=== PATIENT | female | born 1950 | race Caucasian/White ===

== ENCOUNTER 2016-03-26 16:06 | Observation (INO) ==
--- NOTE | 2016-03-26 19:51 | Emergency Department Note ---
Disposition Clinical Impression: Chest pain, Elevated troponin, Hypoglycemia, Weakness, Morbid obesity Disposition: Admitted As Inpatient Condition: Fair Referrals: NO,PCP [Non-Partnered Physician] - Forms: ED Satisfaction Letter Time of Disposition: 21:56 General Adult HPI - General Chief complaint: ED Weakness Stated complaint: "hypoglycemic" "in the 50s" Time Seen by Provider: 03/26/16 19:37 Source: patient Mode of arrival: ambulatory Limitations: no limitations Nursing Notes Reviewed: Yes Vital Signs Reviewed: Yes - History of Present Illness HPI Narrative: This is a 65-year-old female who presents with a hypoglycemic episode. Patient states she got very weak and had a funny sensation in her chest and was almost about to pass out. Patient states her blood sugar at that time was in the 50s. Patient states now that her blood sugar is up a little she is feeling a little better. Patient states she still has a funny sensation in her chest. Patient denies any history of cardiac stents or CHF. Patient denies any fevers. Patient states she was septic last month from bilateral lower extremity cellulitis and blistering. Patient states she is not on any antibiotics at this time. Pain Scale: 3 - Related Data Home Medications Medication Instructions Recorded Confirmed Aspirin Enteric Coated [Aspirin EC] 81 mg PO DAILY 08/30/15 01/04/16 Fludrocortisone Acetate [Florinef] 0.1 mg PO Q48H 08/30/15 01/04/16 Insulin ASPART [Novolog Flexpen] 20 - 28 unit SQ TID 08/30/15 01/04/16 Insulin Glargine,Hum.rec.anlog 30 unit SQ HS 08/30/15 01/04/16 [Lantus Solostar] Insulin Glargine,Hum.rec.anlog 30 unit SQ QAM 08/30/15 01/04/16 [Lantus Solostar] Melatonin 10 mg PO HS PRN 08/30/15 01/04/16 Metformin HCl [Glucophage] 1,000 mg PO BID 08/30/15 01/04/16 [place]-3/Dha/Epa/Fish Oil [Fish Oil 1 cap PO BID 09/23/15 01/04/16 Dr 500 mg Softgel] Vitamin B Complex [B Complex] 1 tab PO DAILY 09/23/15 01/04/16 Vitamin E (Dl,Tocopheryl Acet) 100 unit PO DAILY 09/23/15 01/04/16 [Vitamin E] Previous Rx's Medication Instructions Recorded DiphenhydraMINE [Benadryl] 25 mg PO Q8HR PRN #14 capsule 12/24/15 Docusate [Colace] 100 mg PO BID PRN #30 capsule 12/24/15 Fluconazole [Diflucan] 100 mg PO DAILY #3 tablet 12/24/15 Lactobacillus [Culturelle] 1 each PO DAILY #30 cap.sprink 12/30/15 Linezolid [Zyvox] 600 mg PO BID #20 tablet 12/30/15 OxyCODONE Immed Rel [Roxicodone 5 5 mg PO Q6H PRN #20 tablet 12/30/15 MG] Cephalexin 500 mg PO QID #28 tablet 02/21/16 Sulfamethoxazole/Trimeth DS 1 each PO BID #14 tablet 02/21/16 [Bactrim DS] Allergies Allergy/AdvReac Type Severity Reaction Status Date / Time atorvastatin [From Lipitor] AdvReac Mild Nausea Verified 03/26/16 16:59 Zolpidem [From Ambien] AdvReac Mild Hallucinati Verified 03/26/16 16:59 ng All systems ED: reviewed and negative except as stated. Constitutional: Reports: weakness. Denies: fever, chills, weight change Eyes: Denies: eye pain, eye discharge, vision change ENT ED: Denies: ear pain, throat pain, dental pain, hearing loss, epistaxis, congestion, dysphagia Cardiovascular: Reports: edema, other (light-headed). Denies: chest pain, palpitations, dyspnea on exertion, syncope Respiratory: Denies: cough, dyspnea, wheezes, hemoptysis, stridor Gastrointestinal: Denies: abdominal pain, nausea, vomiting, diarrhea, constipation, hematemesis, melena, hematochezia Genitourinary: Denies: dysuria, frequency, hematuria, discharge Musculoskeletal: Denies: back pain, neck pain, arthralgia, myalgia Integumentary: Denies: rash, abrasion, lesions Neurological: Denies: headache, numbness, paresthesias, confusion, abnormal gait , vertigo Psychiatric: Denies: anxiety, depression, suicidal thoughts, homicidal thoughts , auditory hallucinations, visual hallucinations Endocrine: Reports: fatigue, other (pts blood sugar is low) Hematological/Lymphatic: Denies: easy bleeding, easy bruising Allergic/Immunologic: Denies: facial swelling, urticaria Past Medical History - Past Medical History Attestation: Yes The following information was validated with the patient. Source: patient Medical history: Reports: diabetes, GERD, hyperlipidemia, kidney stones, osteoporosis, seizures, TIA Surgical history: Reports: appendectomy, cholecystectomy, other Psychiatric history: Reports: no psych history - Social History Smoking Status: Never smoker Smokeless Tobacco Status: No Alcohol use: Reports: none Drug use: Reports: none Physical Exam - General Limitations: no limitations General appearance: alert, in no apparent distress, obese - Head Head exam: atraumatic, normocephalic, normal inspection - Eye Eye exam: Present: normal appearance, PERRL, EOMI - ENT ENT exam: normal exam, normal oropharynx, mucous membranes moist - Expanded ENT Exam External ear exam: Present: normal external inspection Mouth exam: Present: normal external inspection Teeth exam: Present: normal inspection Throat exam: Present: normal inspection - Neck Neck exam: Present: normal inspection, full ROM, trachea midline - Chest Chest inspection: Present: normal inspection, symmetric chest wall rise - Respiratory Respiratory exam: Present: other (diminshed) - Cardiovascular Cardiovascular exam: Present: regular rate, normal rhythm, normal heart sounds - Abdominal Exam Abdominal exam: Present: soft, Non-Tender. Absent: tenderness, distention, guarding, rebound, rigidity - Extremities Exam Extremities exam: Present: normal inspection, full ROM, pedal edema. Absent: tenderness - Expanded Upper Extremity Exam Shoulder exam: Present: normal inspection, full ROM Arm exam: Present: normal inspection, full ROM Elbow exam: Present: normal inspection, full ROM Forearm/Wrist exam: Present: normal inspection, full ROM Hand exam: Present: normal inspection, full ROM Vascular exam: Normal: capillary refill, radial pulse - Expanded Lower Extremity Exam Hip/Pelvis exam: Present: normal inspection, full ROM Upper leg exam: Present: normal inspection, full ROM Knee exam: Present: normal inspection, full ROM Lower leg exam: Present: normal inspection, full ROM, swelling, erythema (b/l, legs are wrapped) Ankle exam: Present: normal inspection, full ROM, swelling Foot/toe exam: Present: normal inspection, full ROM, swelling Neurovascular/Tendon exam: Absent: motor deficit, sensory deficit, tendon deficit - Back Exam Back exam: Present: normal inspection, full ROM. Absent: tenderness - Neurological Exam Neurological exam: Present: alert, oriented X3 - Expanded Neurological Exam Patient oriented to: Present: person, place, time Speech: Present: fluid speech Coma Scale Eye Opening: Spontaneous Coma Scale Motor Response: Obeys Commands Coma Scale Verbal Response: Oriented Coma Scale Total: 15 - Psychiatric Psychiatric exam: Present: normal affect, normal mood - Skin Skin exam: Present: warm, dry, intact, normal color, rash (diffuse erythematous plaque looking rash to diffuse upper back) Course - Consultations Consultation #1: I spoke with Dr. Ifeanyi pizarro to admit. Time: 22:04 Vital Signs Temperature 97.7 F 03/26/16 16:54 Pulse Rate 74 03/26/16 16:54 Respiratory Rate 18 03/26/16 16:54 Blood Pressure 141/71 03/26/16 16:54 O2 Sat by Pulse Oximetry 99 03/26/16 16:54 Temperature 97.7 F 03/26/16 16:54 Pulse Rate 75 03/26/16 19:45 Respiratory Rate 18 03/26/16 19:45 Blood Pressure 160/83 03/26/16 19:45 O2 Sat by Pulse Oximetry 99 03/26/16 19:45 Oxygen Delivery Oxygen Delivery Room Air Medical Decision Making - Medical Records Medical records reviewed: Yes I reviewed the patient's medical records. - Lab Data Lab results reviewed: Yes I reviewed the patient's lab results. Result diagrams: 03/26/16 20:33 03/26/16 20:33 Lab Results 03/26/16 03/26/16 03/26/16 Range/Units 19:36 20:33 20:33 WBC 10.6 (4.3-11.1) K/mcL RBC 4.06 (3.82-4.97) M/mcL Hgb 10.7 L (11.5-15.4) g/dL Hct 34.5 L (35.3-44.9) % MCV 85.0 (83.0-100.0) fL MCH 26.4 L (28.0-33.3) pg MCHC 31.0 L (31.6-35.5) g/dL RDW 17.2 H (11.5-14.5) % Plt Count 358 (140-400) K/mcL MPV 9.5 (9.4-12.4) fL Immature Gran % 0.5 (0-4) % Seg Neutrophils % 66.8 % Lymphocytes % 23.1 % Monocytes % 6.6 % Eosinophils % 2.5 % Basophils % 0.5 % Neutrophils # 7.1 (1.6-8.9) K/mcL Lymphocytes # 2.4 (0.6-4.6) K/mcL Monocytes # 0.7 (0.0-1.3) K/mcL Eosinophils # 0.3 (0.0-0.6) K/mcL Basophils # 0.1 (0.0-0.2) K/mcL PT 11.4 (9.4-12.1) Seconds INR 1.1 APTT 33.2 (26.0-36.0) Seconds Sodium (136-145) mEq/L Potassium (3.5-4.5) mEq/L Chloride (98-109) mEq/L Carbon Dioxide (19-29) mEq/L BUN (7-20) mg/dL Creatinine (0.57-1.11) mg/dL Est GFR ( Amer) (> 60) Est GFR (Non-Af Amer) (> 60) BUN/Creatinine Ratio (6-26) Glucose (70-99) mg/dL POC Glucose 134 H (58-89) Calculated Osmolality (280-300) Calcium (8.6-10.8) mg/dL Total Bilirubin (0.2-1.2) mg/dL Direct Bilirubin (0.0-0.5) mg/dL Indirect Bilirubin (0.0-1.2) mg/dL AST (5-34) Units/L ALT (0-55) Units/L Alkaline Phosphatase (38-126) Units/L Troponin I (0-0.03) ng/mL B-Natriuretic Peptide (0-100) pg/mL Serum Total Protein (6.0-8.3) g/dL Albumin (3.5-5.0) g/dL Globulin (2.4-3.5) g/dL Albumin/Globulin Ratio (1.1-2.2) 03/26/16 03/26/16 03/26/16 Range/Units 20:33 20:33 20:33 WBC (4.3-11.1) K/mcL RBC (3.82-4.97) M/mcL Hgb (11.5-15.4) g/dL Hct (35.3-44.9) % MCV (83.0-100.0) fL MCH (28.0-33.3) pg MCHC (31.6-35.5) g/dL RDW (11.5-14.5) % Plt Count (140-400) K/mcL MPV (9.4-12.4) fL Immature Gran % (0-4) % Seg Neutrophils % % Lymphocytes % % Monocytes % % Eosinophils % % Basophils % % Neutrophils # (1.6-8.9) K/mcL Lymphocytes # (0.6-4.6) K/mcL Monocytes # (0.0-1.3) K/mcL Eosinophils # (0.0-0.6) K/mcL Basophils # (0.0-0.2) K/mcL PT (9.4-12.1) Seconds INR APTT (26.0-36.0) Seconds Sodium 138 (136-145) mEq/L Potassium 4.9 H (3.5-4.5) mEq/L Chloride 101 (98-109) mEq/L Carbon Dioxide 26 (19-29) mEq/L BUN 18 (7-20) mg/dL Creatinine 0.96 (0.57-1.11) mg/dL Est GFR ( Amer) > 60 (> 60) Est GFR (Non-Af Amer) 59 L (> 60) BUN/Creatinine Ratio 19 (6-26) Glucose 179 H (70-99) mg/dL POC Glucose (58-89) Calculated Osmolality 292 (280-300) Calcium 9.3 (8.6-10.8) mg/dL Total Bilirubin 0.2 (0.2-1.2) mg/dL Direct Bilirubin 0.1 (0.0-0.5) mg/dL Indirect Bilirubin 0.1 (0.0-1.2) mg/dL AST 35 H (5-34) Units/L ALT 36 (0-55) Units/L Alkaline Phosphatase 105 (38-126) Units/L Troponin I 0.06 H* (0-0.03) ng/mL B-Natriuretic Peptide 51 (0-100) pg/mL Serum Total Protein 7.9 (6.0-8.3) g/dL Albumin 3.3 L (3.5-5.0) g/dL Globulin 4.6 H (2.4-3.5) g/dL Albumin/Globulin Ratio 0.7 L (1.1-2.2) - Radiology Data Radiology results reviewed: Yes I reviewed the patient's radiology results. - EKG Data EKG #1 EKG attestation: Yes I reviewed and interpreted this EKG. EKG shows normal: sinus rhythm Rate: normal Rhythm: NSR [place]/QRS: left axis deviation, RBBB Interpretation: no acute changes, nonspecific ST-T wave changes
[2016-03-26 21:09] LABS: Basophils # 0.1 K/mcL (0.0-0.2); Basophils % 0.5 %; Eosinophils # 0.3 K/mcL (0.0-0.6); Eosinophils % 2.5 %; Hematocrit 34.5 % (35.3-44.9); Hemoglobin 10.7 g/dL (11.5-15.4); Immature Granulocytes % 0.5 % (0-4); Lymphocytes # 2.4 K/mcL (0.6-4.6); Lymphocytes % 23.1 %; Mean Corpuscular Hemoglobin 26.4 pg (28.0-33.3); Mean Platelet Volume 9.5 fL (9.4-12.4); Monocytes # 0.7 K/mcL (0.0-1.3); Monocytes % 6.6 %; Neutrophils # 7.1 K/mcL (1.6-8.9); Platelet Count 358 K/mcL (140-400); Red Blood Count 4.06 M/mcL (3.82-4.97); Red Cell Distribution Width 17.2 % (11.5-14.5); Segmented Neutrophils % 66.8 %
[2016-03-26 21:15] LABS: INR 1.1; Prothrombin Time 11.4 Seconds (9.4-12.1)
[2016-03-26 21:18] LABS: Activated Partial Thrombo Time 33.2 Seconds (26.0-36.0)
[2016-03-26 21:45] LABS: Alanine Aminotransferase 36 Units/L (0-55); Albumin 3.3 g/dL (3.5-5.0); Albumin/Globulin Ratio 0.7 (1.1-2.2); Alkaline Phosphatase 105 Units/L (38-126); Aspartate Amino Transferase 35 Units/L (5-34); BUN/Creatinine Ratio 19 (6-26); Bilirubin,Direct 0.1 mg/dL (0.0-0.5); Bilirubin,Indirect 0.1 mg/dL (0.0-1.2); Bilirubin,Total 0.2 mg/dL (0.2-1.2); Blood Urea Nitrogen 18 mg/dL (7-20); Calcium 9.3 mg/dL (8.6-10.8); Carbon Dioxide 26 mEq/L (19-29); Chloride 101 mEq/L (98-109); Globulin 4.6 g/dL (2.4-3.5); Glucose 179 mg/dL (70-99); Osmolality,Calculated 292 (280-300); Potassium 4.9 mEq/L (3.5-4.5); Sodium 138 mEq/L (136-145); Total Protein 7.9 g/dL (6.0-8.3); eGFR For African Americans > 60 (> 60); eGFR For Non-African Americans 59 (> 60)
[2016-03-26] MEDS ORDERED: Aspirin 325 MG TABLET PO ONE (21:55)
[2016-03-26] MEDS ORDERED: Calcium Gluconate 1,000 MG in D5% in Water 100 ML IVPB ONE (23:00)
--- NOTE | 2016-03-27 00:12 | Internal Med History&Physical ---
Date of Encounter: 03/26/16 Time of Encounter: 23:55 Assessment and Plan (1) Elevated troponin Current visit: Yes Status: Acute Likely non-stemI type to you to hypoglycemia and suspected underlying infection. Serial troponin, cardiology consultation. Patient is on aspirin on beta charlie (2) Hypoglycemia Current visit: Yes Status: Acute Hourly chuckle blood sugar till it is stable. Hold long-acting and pre-meal insulin. (3) Cellulitis Current visit: No Status: Acute Suspected early cellulitis in the right leg is more red warm and indurated. I will start patient on vancomycin given history of MRSA. Will check Doppler of the right leg to rule out DVT Qualifiers: Qualified Code(s): L03.115 - Cellulitis of right lower limb Internal Medicine - H&P: HPI Chief complaint: hypoglycemia History of present illness: Ms. Church is a 65 year old female who is diabetic insulin resistance to the emergency room today with a hypoglycemic episodes. Patient was recently [facility] from jail and today started noticing hypoglycemia symptoms in the formal dizziness sweating shakiness in addition to read through sternal chest discomfort. Sugars were 57. She denies any fevers chills. However she and her notices some increased redness in the right leg compared to baseline as well as tenderness and integration. She denies any cough. She has been eating fine. She had angiogram both 10 years ago that shows o occlusive disease. She was ofF PAIN during my interview. Patient was also having diffuse itchy rash on her back for the past days has been started on nystatin topically for suspected fungal infection. There is no improvement in the rash. Past Med Surg Social Fam HX - Past Medical History Medical history: diabetes, GERD, hyperlipidemia, kidney stones, osteoporosis, seizures, TIA Psychiatric history: no psych history - Past Surgical History Surgical History: appendectomy, cholecystectomy, other - Social History Smoking Status: Never smoker Smokeless Tobacco Status: No Alcohol use: none Drug use: none - Family History Father Living Status: Hx Family Cardiac Disorders: Yes (HTN) Hx Family Endocrine Disorder: Yes Hx Family Neurologic Disorders: Yes Mother Living Status: Hx Family Cancer: Yes Internal Medicine - H&P: Meds Aspirin Enteric Coated [Aspirin EC] 81 mg PO DAILY 08/30/15 [History] Fludrocortisone Acetate [Florinef] 0.1 mg PO Q48H 08/30/15 [History] Insulin ASPART [Novolog Flexpen] 20 - 28 unit SQ TID 08/30/15 [History] Insulin Glargine,Hum.rec.anlog [Lantus Solostar] 30 unit SQ HS 08/30/15 [History ] Insulin Glargine,Hum.rec.anlog [Lantus Solostar] 32 unit SQ QAM 08/30/15 [ History] Melatonin 10 mg PO HS PRN 08/30/15 [History] Metformin HCl [Glucophage] 1,000 mg PO BID 08/30/15 [History] [place]-3/Dha/Epa/Fish Oil [Fish Oil Dr 500 mg Softgel] 1 cap PO BID 09/23/15 [ History] Vitamin B Complex [B Complex] 1 tab PO DAILY 09/23/15 [History] Vitamin E (Dl,Tocopheryl Acet) [Vitamin E] 100 unit PO DAILY 09/23/15 [History] Nystatin POWDER [Nystop] 1 appl TP BID 03/26/16 [History] Oxycodone HCl/Acetaminophen [Percocet 5-325 mg Tablet] 1 tab PO Q6H PRN [History] Allergies atorvastatin [From Lipitor] Adverse Reaction (Mild, Verified 03/26/16 16:59) Nausea Zolpidem [From Ambien] Adverse Reaction (Mild, Verified 03/26/16 16:59) Hallucinating All Systems PM: A 10-system review of systems was performed and is negative for pertinent findings except as documented above in the HPI. Review of systems: 10 point review systems is negative (HPI - Constitutional Vitals: Temp Pulse Resp BP Pulse Ox 98.2 F 85 22 161/78 94 L 03/26/16 23:29 03/26/16 23:29 03/26/16 23:29 03/26/16 23:29 03/26/16 23:29 Exam: Gen.: patient is alert oriented not in distress. Cardiac: Normal S1 S2 no additional sounds or murmurs chest: clear to auscultation abdomen soft nontender nondistended normal bowel sounds lower extremity: Right leg rednes, warmth induration Skin: Diffuse skin rash on BACK neuro no focal deficit Internal Med - H&P Results - Labs CBC & Chem 7: 03/26/16 20:33 03/26/16 20:33
[2016-03-27 01:02] LABS: Bilirubin,Urine Negative (Negative); Blood,Urine Negative (Negative); Clarity,Urine Cloudy (Clear); Color,Urine Yellow (Yellow); Glucose,Urine (UA) Normal (Normal); Ketones,Urine Negative (Negative); Leukocyte Esterase,Urine Moderate (Negative); Nitrite,Urine Negative (Negative); Protein,Urine Trace mg/dL (Neg-Trace); Specific Gravity,Urine 1.021 (1.010-1.025); Urobilinogen,Urine Normal (Normal)
[2016-03-27 01:04] LABS: Bacteria,Urine Few per hpf (None-Few); Hyaline Casts,Urine None Seen per lpf (None-Few); Squamous Epithelial Cell,Urine Many per lpf (None-Few); WBC,Urine 50-100 per hpf (0-3)
[2016-03-27] MEDS: Fluconazole 100 MG/50 ML 100 MG/50 ML BAG IVPB SCH ×2 (01:50→09:04)
[2016-03-27] MEDS: Vancomycin 2,000 MG in D5% in Water 500 ML IVPB SCH ×2 (03:39→15:36)
[2016-03-27] MEDS ORDERED: Melatonin 3 MG TABLET PO ONE ×2 (03:54→04:00)
[2016-03-27 05:45] LABS: Basophils % 0.4 %; Eosinophils # 0.2 K/mcL (0.0-0.6); Eosinophils % 2.4 %; Hematocrit 32.1 % (35.3-44.9); Immature Granulocytes % 0.4 % (0-4); Immature Platelets 1.2 % (1.1-6.1); Lymphocytes # 2.5 K/mcL (0.6-4.6); Lymphocytes % 28.1 %; Mean Corpuscular HGB Conc 31.2 g/dL (31.6-35.5); Mean Corpuscular Hemoglobin 26.4 pg (28.0-33.3); Mean Corpuscular Volume 84.7 fL (83.0-100.0); Mean Platelet Volume 9.2 fL (9.4-12.4); Monocytes # 0.6 K/mcL (0.0-1.3); Neutrophils # 5.6 K/mcL (1.6-8.9); Platelet Count 358 K/mcL (140-400); Red Blood Count 3.79 M/mcL (3.82-4.97); Red Cell Distribution Width 17.1 % (11.5-14.5); Segmented Neutrophils % 61.7 %
[2016-03-27] MEDS ORDERED: D5% in Water 1,000 ML IV PRN (05:47)
[2016-03-27] MEDS ORDERED: *HR* Dextrose 50 % in Water (Syg) 50 ML SYRINGE IVP PRN (05:47)
[2016-03-27] MEDS ORDERED: Dextrose Gel 15 GM PO PRN ×2 (05:47)
[2016-03-27] MEDS ORDERED: Vancomycin 1,000 MG in D5% in Water 250 ML IVPB SCH (06:00)
[2016-03-27 06:03] LABS: BUN/Creatinine Ratio 18 (6-26); Blood Urea Nitrogen 18 mg/dL (7-20); C-Reactive Protein 9 mg/L (Less than 5); Calcium 8.8 mg/dL (8.6-10.8); Carbon Dioxide 24 mEq/L (19-29); Chloride 102 mEq/L (98-109); Glucose 250 mg/dL (70-99); Magnesium 1.9 mg/dL (1.6-2.6); Osmolality,Calculated 292 (280-300); Potassium 4.4 mEq/L (3.5-4.5); Sodium 136 mEq/L (136-145); eGFR For African Americans > 60 (> 60); eGFR For Non-African Americans 56 (> 60)
[2016-03-27] MEDS: *HR* Enoxaparin 40 MG/0.4 ML SYRINGE SQ SCH (06:10)
[2016-03-27] MEDS ORDERED: Nystatin POWDER 30 GM BOTTLE TP SCH (09:00)
[2016-03-27] MEDS: Aspirin Enteric Coated 81 MG Tablet PO SCH (09:03)
[2016-03-27] MEDS: Insulin LISPRO 300 UNITS/3 ML VIAL SQ SCH ×4 (09:04→22:30)
[2016-03-27] MEDS: (Omega-3/Dha/Epa/Fish Oil [Fish Oil Dr 500 Mg Softgel) PO SCH ×2 (09:05→22:22)
--- NOTE | 2016-03-27 11:19 | Electrocardiograph Report ---
[facility] Test Date: 2016-03-26 Pat Name: Joan Church Department: 105 Room: 2A14 Gender: F Director Of Coding: JUAN : 1950 Requested By: Esthela Olivo Order Number: [id number] Reading MD: Linn Corona Measurements Intervals [place] Rate: 74 P: 13 [place]: 174 QRS: -63 QRSD: 151 T: 3 QT: 431 QTc: 459 Interpretive Statements SINUS RHYTHM WITH OCCASIONAL SUPRAVENTRICULAR PREMATURE COMPLEXES RIGHT BUNDLE BRANCH BLOCK LEFT ANTERIOR FASCICULAR BLOCK POSSIBLE ANTERIOR MYOCARDIAL INFARCTION PROBABLY OLD Electronically Signed On 03-27-16 11:17:56 EST by Linn Corona
--- NOTE | 2016-03-27 11:27 | Cardiology Consult Note ---
Date of Encounter: 03/27/16 Time of Encounter: 11:00 Assessment and Plan (1) Elevated troponin Current Visit: Yes Status: Acute Mild, adynamic troponin elevation in the setting of hypoglycemia, UTI, and recurrent cellulitis. Likely secondary to demand ischemia. No significant ECG changes noted. Atypical chest pain described. TTE 04/26/15: EF 60%, mild cLVH, moderate LVDD, severely dilated left atrium, mild TR, mild-moderate PH, normal wall motion. [facility] 01/11/14: coronary arteries are essentially normal with minimal disease, EF 60%. Recommend medical management, continue asa and betablocker. Reported allergy to statin. No further cardiac testing warranted at this time, follow-up in the outpatient setting. Discussion w patient/family: The assessment and plan as outlined above was discussed with the patient and/or family members who expressed understanding and agreement. All questions were answered. Thank you for involving us in the care of your patient. Please call with any questions. The patient will be discussed and reviewed with Dr. Calvin; changes to be made accordingly. History of Present Illness Consult date: 03/27/15 Requesting physician: Kenny Suggs Consult reason: Elevated troponin Chief complaint: Hypoglycemia History of present illness: Ms. Church is a 65 year old female with PMH significant for morbid obesity, insulin dependent DMII, thyroid disease, anemia, and recurrent cellulitis who presented to the ED after a hypoglycemic episode at home, blood sugar in the low 50's. She reported chest pain which was described a warm feeling across her chest and radiated down to her abdomen, reports similar to "CT scan with IV dye. " Reports symptoms resolved after blood sugar stabilized. Reports recent discharge from SNF, has been home for 2 weeks. Reports 3 hospitalizations since September for recurrent cellulitis, also has severe rash on her back, felt to be fungal in etiology. Recent CV testing reviewed and includes: TTE 04/26/15: EF 60%, mild concentric LVH, moderate LVDD, moderately dilated RV with normal function, severely dilated left atrium, mild TR, mild to moderate PH, normal wall motion. [facility] 01/11/2014: coronary arteries are essentially normal with minimal disease, EF 60%. Past Med Surg Social Fam HX - Past Medical History Medical history: diabetes, GERD, hyperlipidemia, kidney stones, osteoporosis, seizures, TIA Psychiatric history: no psych history - Past Surgical History Surgical History: appendectomy, cholecystectomy, other ([facility] 01/2014) - Social History Smoking Status: Never smoker Smokeless Tobacco Status: No Alcohol use: none Drug use: none - Family History Father Living Status: Hx Family Cardiac Disorders: Yes (HTN) Hx Family Endocrine Disorder: Yes Hx Family Neurologic Disorders: Yes Mother Living Status: Hx Family Cancer: Yes Medications and Allergies Aspirin Enteric Coated [Aspirin EC] 81 mg PO DAILY 08/30/15 [History] Fludrocortisone Acetate [Florinef] 0.1 mg PO Q48H 08/30/15 [History] Insulin ASPART [Novolog Flexpen] 20 - 28 unit SQ TID 08/30/15 [History] Insulin Glargine,Hum.rec.anlog [Lantus Solostar] 30 unit SQ HS 08/30/15 [History ] Insulin Glargine,Hum.rec.anlog [Lantus Solostar] 32 unit SQ QAM 08/30/15 [ History] Melatonin 10 mg PO HS PRN 08/30/15 [History] Metformin HCl [Glucophage] 1,000 mg PO BID 08/30/15 [History] [place]-3/Dha/Epa/Fish Oil [Fish Oil Dr 500 mg Softgel] 1 cap PO BID 09/23/15 [ History] Vitamin B Complex [B Complex] 1 tab PO DAILY 09/23/15 [History] Vitamin E (Dl,Tocopheryl Acet) [Vitamin E] 100 unit PO DAILY 09/23/15 [History] Nystatin POWDER [Nystop] 1 appl TP BID 03/26/16 [History] Oxycodone HCl/Acetaminophen [Percocet 5-325 mg Tablet] 1 tab PO Q6H PRN [History] Allergies atorvastatin [From Lipitor] Adverse Reaction (Mild, Verified 03/26/16 16:59) Nausea Zolpidem [From Ambien] Adverse Reaction (Mild, Verified 03/26/16 16:59) Hallucinating All Systems Review: A 10-system review of systems was performed and is negative for pertinent findings except as documented above in the HPI. - Cardiovascular Cardiovascular: as per HPI Physical Examination Vital Signs, Last 4 Hours Temp Pulse Resp BP Pulse Ox 03/27/16 09:32 96 03/27/16 07:50 97.7 F 72 19 146/72 96 General: Conversant, Other (morbidly obese) HEENT: Atraumatic, Normocephaly Cardiac: Reg Rate and Rhythm, Normal S1 and S2 Lungs: Normal Breath Sounds Neuro: Alert and responsive Abdomen: Soft, Other (large, obese) Skin: Other (RLE redness; reported redness to back) Extremities: Normal Pulses, Other (pre-tibial +1-2 edema) Results 03/27/16 05:13 03/27/16 05:13 Lab Results 03/27/16 03/27/16 03/27/16 05:13 05:13 05:13 WBC 9.1 Hgb 10.0 L Hct 32.1 L Plt Count 358 Sodium 136 Potassium 4.4 Chloride 102 Carbon Dioxide 24 BUN 18 Creatinine 0.99 Glucose 250 H Calcium 8.8 Magnesium 1.9 Troponin I 0.06 H* 03/27/16 09:57 WBC Hgb Hct Plt Count Sodium Potassium Chloride Carbon Dioxide BUN Creatinine Glucose Calcium Magnesium Troponin I 0.05 H* - Imaging and Cardiology Echo: report reviewed Cardiac cath: report reviewed Other Results: 12 hour tele: avg HR=76 SR. No significant events noted. - EKG Interpretation EKG results cardiology: personally reviewed Consult Discharge Plan - Plan Referrals: Derik Liang MD [Primary Care Provider] - 04/04/16 1:30 pm (Please follow up as schedule!!)
[2016-03-27] MEDS: *HR* OxyCODONE/APAP 5/325 TABLET PO PRN (11:28)
[2016-03-27] MEDS: Insulin DETEMIR 100 UNIT/ML X5UNITS SQ SCH ×2 (11:29→22:21)
--- NOTE | 2016-03-27 13:54 | Internal Med Progress Note ---
Date of Encounter: 03/27/16 Time of Encounter: 11:00 - Assessment and plan (1) Elevated troponin Current Visit: Yes Status: Acute Assessment and plan: Cardio eval appreciated Mild troponin elevation in the setting of hypoglycemia, UTI, and recurrent cellulitis. Likely secondary to demand ischemia. No significant ECG changes noted. Atypical chest pain described. TTE 04/26/15: EF 60%, mild cLVH, moderate LVDD, severely dilated left atrium, mild TR, mild-moderate PH, normal wall motion. LHC 01/11/14: coronary arteries are essentially normal with minimal disease, EF 60%. Recommendations were medical management, continue ASA, and betablocker. Reported allergy to statin. No further cardiac testing warranted at this time, follow-up in the outpatient setting. Repeat troponin now down trending (2) Hypoglycemia Current Visit: Yes Status: Resolved Assessment and plan: Resolved. (3) Cellulitis of right leg Current Visit: Yes Status: Acute Assessment and plan: R LE cellulitis Doppler USS ruled out DVT Consider de-escalating antibiotics as patient has no sepsis nor abscess Blood cultures not seen on chart, unclear if this was drawn Continue Vanco for now Follow Vanco trough Monitor Chem (4) UTI (urinary tract infection) Current Visit: Yes Status: Acute Assessment and plan: Patient on Vancomycin for cellulitis Follow urine cultures Qualifiers: Urinary tract infection type: acute cystitis Hematuria presence: without hematuria Qualified Code(s): N30.00 - Acute cystitis without hematuria (5) Diabetes type 2, uncontrolled Current Visit: Yes Status: Chronic Assessment and plan: Initially resented with hypoglycemia, now blood glucose is WNL Stared on levemir and premeal insulin, additional slidng scale coverage Monitor FS closely Qualifiers: Diabetes mellitus complication status: with circulatory complication Diabetes mellitus complication detail: with other circulatory complications 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 system operator insulin use: with terminal system operator use Qualified Code(s) : E11.59 - Type 2 diabetes mellitus with other circulatory complications; E11.65 - Type 2 diabetes mellitus with hyperglycemia; Z79.4 - [facility] (current ) use of insulin (6) GERD (gastroesophageal reflux disease) Current Visit: Yes Status: Chronic Assessment and plan: Resume home meds Qualifiers: Esophagitis presence: without esophagitis Qualified Code(s): K21.9 - Gastro -esophageal reflux disease without esophagitis (7) Anemia of chronic disease Current Visit: Yes Status: Chronic Assessment and plan: Hb stable at baseline (8) Morbid obesity Current Visit: Yes Status: Chronic Qualifiers: Obesity type: unspecified obesity type Qualified Code(s): E66.01 - Morbid ( severe) obesity due to excess calories - Subjective Interval history: 65 Y/O F with Morbid Obesity, Fungal skin infection, Chronic anemia, HTN placed on observation overnight Preliminary diagnoses of Elevated troponins, Hypoglycemia and RLE cellulitis She is seen at bedside, denies new complains. She had been started on Vancomycin empirically due to hx of MRSA UA showed asymptomatic bacteriuria Blood glucose has since been elevated - Constitutional Vitals: Temp Pulse Resp BP Pulse Ox 97.6 F 64 18 152/84 97 03/27/16 11:58 03/27/16 11:58 03/27/16 11:58 03/27/16 11:58 03/27/16 11:58 General appearance: Present: A&O X 3, morbidly obese, no acute distress - Head Head exam: Present: atraumatic - Eye Eye exam: Present: PERRL, conjuntiva pink, sclera anicteric - ENT ENT exam: Present: mucous membranes moist - Neck Neck exam general surgery: Present: normal inspection - Respiratory Respiratory exam: Present: CTAB - Cardiovascular Cardiovascular exam: Present: RRR, +S1, +S2. Absent: JVD, rubs, systolic murmur - GI/Abdominal Additional comments: Obese, soft, not tender, no palpably enlarged organs, bowel movement WNL - Extremities Exam Extremities exam: Present: pedal edema Additional comments: Bilateral pitting pedal edema, right LE with redness, differential warmth and tenderness. No discrete fluid collection or abscess collection - Back Exam Additional comments: Diffuse scaly rash on her upper back extending to all dermatomes bilaterally, no crusting, no weeping, not tender. - Neurological Exam Neurological exam: Present: alert, oriented X3, no focal deficits. Absent: pronater drift, facial droop, speech deficit - Skin Skin exam: Present: rash Internal Medicine: Result - Labs CBC & Chem 7: 03/27/16 05:13 03/27/16 05:13 Labs: Short CBC 03/27/16 Range/Units 05:13 WBC 9.1 (4.3-11.1) K/mcL Hgb 10.0 L (11.5-15.4) g/dL Hct 32.1 L (35.3-44.9) % Plt Count 358 (140-400) K/mcL Neutrophils # 5.6 (1.6-8.9) K/mcL BMP 03/27/16 05:13 Sodium 136 Potassium 4.4 Chloride 102 Carbon Dioxide 24 BUN 18 Creatinine 0.99 Glucose 250 H Calcium 8.8 Cardiac Enzymes 03/27/16 03/27/16 Range/Units 05:13 09:57 Troponin I 0.06 H* 0.05 H* (0-0.03) ng/mL Urine 03/27/16 Range/Units 00:47 Urine Color Yellow (Yellow) Urine Clarity Cloudy A (Clear) Urine pH 6.0 (5.0-8.0) pH Units Ur Specific [place] 1.021 (1.010-1.025) Urine Protein Trace (Neg-Trace) mg/dL Urine Glucose (UA) Normal (Normal) mg/dL - ABG Interpretation ABG results: PT/INR, D-dimer PT 11.4 Seconds (9.4-12.1) 03/26/16 20:33 Consult Discharge Plan - Plan Referrals: Derik Liang MD [Primary Care Provider] - 04/04/16 1:30 pm (Please follow up as schedule!!)
[2016-03-27] MEDS: Nystatin POWDER 30 GM BOTTLE TP SCH (17:19)
--- NOTE | 2016-03-27 18:17 | Venous Imaging Report ---
LE Venous Duplex Patient Name:Joan Church Order Number:[id number] Procedure Date:03/27/2016 Date:1950ge:65 yrs Gender:Female Location:[facility] Room #: 2A14 Hotel Lobby Concierge:RICH AlbarranT Referring MD:Kenny Suggs MD petrographer:Derik Liang MD Reading MD:Zacarias Yousif MD , FACS Primary Indications:DVT Secondary Indications: Risk Factors Yes/No Anticoagulants Yes Hx of DVT Yes Impressions: Right lower extremity: normal superficial and deep exam. Left lower extremity: normal contralateral exam. Findings Venous Duplex Results: Right: Venous imaging of the lower extremity reveals full patency and normal vessel compressibility of the right distal iliac, right common femoral, right superficial femoral, right popliteal, right great saphenous and right lesser saphenous. Doppler signals in the evaluated veins were normal. Left: Venous imaging of the lower extremity reveals full patency and normal vessel compressibility of the left common femoral. Doppler signals in the evaluated veins were normal. Lower Extremity Venous Duplex Side Vein Compress Spontaneous Flow Augment Diameter (cm) Depth (cm) Right Popliteal Normal Yes Phasic Yes Right Great Saphenous Normal Yes Phasic Yes Right Lesser Saphenous Normal Yes Phasic Yes Left Common Femoral Normal Yes Phasic Yes Right Distal Iliac Normal Yes Phasic Yes Right Common Femoral Normal Yes Phasic Yes Right Superficial Femoral Normal Yes Phasic Yes Updated by Zacarias Yousif MD, FACS on 03/27/2016 6:12:35 PM Zacarias Yousif MD electronically signed on 03/27/2016 6:13:01 PM with status of Final
[2016-03-27] MEDS: Eucerin Cream 57 GM TUBE TP SCH (22:30)
[2016-03-28] MEDS ORDERED: Vancomycin 1,500 MG in D5% in Water 250 ML IVPB SCH (03:00)
[2016-03-28] MEDS: *HR* OxyCODONE/APAP 5/325 TABLET PO PRN ×2 (04:25→21:42)
[2016-03-28] MEDS: *HR* Enoxaparin 40 MG/0.4 ML SYRINGE SQ SCH (06:49)
[2016-03-28] MEDS: Nystatin POWDER 30 GM BOTTLE TP SCH ×3 (06:49→21:38)
[2016-03-28] MEDS ORDERED: Insulin DETEMIR 100 UNIT/ML X5UNITS SQ SCH (07:48)
[2016-03-28 08:40] LABS: Basophils % 0.5 %; Eosinophils # 0.3 K/mcL (0.0-0.6); Eosinophils % 3.3 %; Hematocrit 34.8 % (35.3-44.9); Hemoglobin 10.7 g/dL (11.5-15.4); Immature Granulocytes % 0.6 % (0-4); Immature Platelets 1.7 % (1.1-6.1); Lymphocytes # 2.3 K/mcL (0.6-4.6); Mean Corpuscular HGB Conc 30.7 g/dL (31.6-35.5); Mean Corpuscular Volume 84.5 fL (83.0-100.0); Mean Platelet Volume 9.2 fL (9.4-12.4); Monocytes # 0.6 K/mcL (0.0-1.3); Monocytes % 6.7 %; Platelet Count 371 K/mcL (140-400); Red Blood Count 4.12 M/mcL (3.82-4.97); Red Cell Distribution Width 16.9 % (11.5-14.5); Segmented Neutrophils % 60.9 %
[2016-03-28] MEDS: Insulin LISPRO 300 UNITS/3 ML VIAL SQ SCH ×5 (08:40→21:54)
[2016-03-28] MEDS: Aspirin Enteric Coated 81 MG Tablet PO SCH (08:40)
[2016-03-28] MEDS: (Omega-3/Dha/Epa/Fish Oil [Fish Oil Dr 500 Mg Softgel) PO SCH ×2 (08:42→21:29)
[2016-03-28 08:52] LABS: BUN/Creatinine Ratio 18 (6-26); Blood Urea Nitrogen 19 mg/dL (7-20); Calcium 9.1 mg/dL (8.6-10.8); Carbon Dioxide 23 mEq/L (19-29); Chloride 102 mEq/L (98-109); Glucose 253 mg/dL (70-99); Osmolality,Calculated 291 (280-300); Potassium 4.9 mEq/L (3.5-4.5); Sodium 135 mEq/L (136-145); eGFR For African Americans > 60 (> 60); eGFR For Non-African Americans 52 (> 60)
[2016-03-28] MEDS ORDERED: Aminoglycoside Consult 1 EACH MC ONE (12:11)
[2016-03-28] MEDS: Eucerin Cream 57 GM TUBE TP SCH ×2 (15:00→22:00)
--- NOTE | 2016-03-28 15:51 | Internal Med Progress Note ---
Date of Encounter: 03/28/16 Time of Encounter: 11:45 - Assessment and plan (1) Elevated troponin Current Visit: Yes Status: Acute Assessment and plan: Cardio eval appreciated Mild troponin elevation in the setting of hypoglycemia, UTI, and recurrent cellulitis. Likely secondary to demand ischemia. No significant ECG changes noted. Atypical chest pain described. TTE 04/26/15: EF 60%, mild cLVH, moderate LVDD, severely dilated left atrium, mild TR, mild-moderate PH, normal wall motion. LHC 01/11/14: coronary arteries are essentially normal with minimal disease, EF 60%. Recommendations were medical management, continue ASA, and betablocker. Reported allergy to statin. No further cardiac testing warranted at this time, follow-up in the outpatient setting. (2) Hypoglycemia Current Visit: Yes Status: Resolved Assessment and plan: Resolved. (3) Cellulitis of right leg Current Visit: Yes Status: Acute Assessment and plan: R LE cellulitis Doppler USS ruled out DVT Continue Vanco for now Follow Vanco trough Will discharge on oral clindamycin when ready Monitor Chem (4) UTI (urinary tract infection) Current Visit: Yes Status: Suspected Assessment and plan: Patient on Vancomycin for cellulitis Is possibly asymptomatic bacteriuria She denies urinary symptoms Straight cath for UA Qualifiers: Urinary tract infection type: acute cystitis Hematuria presence: without hematuria Qualified Code(s): N30.00 - Acute cystitis without hematuria (5) Diabetes type 2, uncontrolled Current Visit: Yes Status: Chronic Assessment and plan: Initially resented with hypoglycemia, now blood glucose is WNL Stared on levemir and premeal insulin, additional slidng scale coverage Monitor FS closely Qualifiers: Diabetes mellitus complication status: with circulatory complication Diabetes mellitus complication detail: with other circulatory complications Diabetes mellitus buttermaker continuous churn insulin use: with snf use Qualified Code(s) : E11.59 - Type 2 diabetes mellitus with other circulatory complications; E11.65 - Type 2 diabetes mellitus with hyperglycemia; Z79.4 - senior living (current ) use of insulin (6) GERD (gastroesophageal reflux disease) Current Visit: Yes Status: Chronic Assessment and plan: Resume home meds Qualifiers: Esophagitis presence: without esophagitis Qualified Code(s): K21.9 - Gastro -esophageal reflux disease without esophagitis (7) Anemia of chronic disease Current Visit: Yes Status: Chronic Assessment and plan: Hb stable at baseline (8) Morbid obesity Current Visit: Yes Status: Chronic Qualifiers: Obesity type: unspecified obesity type Qualified Code(s): E66.01 - Morbid ( severe) obesity due to excess calories - Subjective Interval history: 65 Y/O F with Morbid Obesity, Fungal skin infection, Chronic anemia, HTN placed on observation overnight Preliminary diagnoses of Elevated troponins, Hypoglycemia and RLE cellulitis She is seen at bedside, denies new complains. She had been started on Vancomycin empirically due to hx of MRSA UA showed asymptomatic bacteriuria Today is Day 2 complete on Vancomycin Urine culture grossly mixed, will order new UA with straight cath - Constitutional Vitals: Temp Pulse Resp BP Pulse Ox 97.6 F 66 18 172/90 98 03/28/16 12:03 03/28/16 12:03 03/28/16 12:03 03/28/16 12:03 03/28/16 12:03 General appearance: Present: A&O X 3, morbidly obese, no acute distress - Head Head exam: Present: atraumatic, normocephalic - Eye Eye exam: Present: PERRL, conjuntiva pink, sclera anicteric Pupils: Present: PERRL - Neck Neck exam general surgery: Present: supple, trachea midline. Absent: lymphadenopathy - Respiratory Respiratory exam: Present: CTAB. Absent: accessory muscle use, rales, rhonchi, wheezes - Cardiovascular Cardiovascular exam: Present: RRR, +S1, +S2. Absent: diastolic murmur, gallop, rubs, systolic murmur - GI/Abdominal GI/Abdominal exam: Present: normal bowel sounds, soft, no peritoneal signs. Absent: distended, tenderness - Extremities Exam Additional comments: RLE redness from mid-torres to ankle, mild tenderness, no collection/fluctuancy, pulses present. Non-pitting edema bilaterally - Back Exam Additional comments: Diffuse scaly rash on patient's back from her neck posteriorly to her trunk not weeping, no crusting - Neurological Exam Neurological exam: Present: CN II-XII intact, oriented X3, no focal deficits. Absent: pronater drift, facial droop, speech deficit - Skin Skin exam: Present: dry, rash Internal Medicine: Result - Labs CBC & Chem 7: 03/28/16 08:18 03/28/16 08:18 Labs: Short CBC 03/28/16 Range/Units 08:18 WBC 8.2 (4.3-11.1) K/mcL Hgb 10.7 L (11.5-15.4) g/dL Hct 34.8 L (35.3-44.9) % Plt Count 371 (140-400) K/mcL Neutrophils # 5.0 (1.6-8.9) K/mcL BMP 03/28/16 08:18 Sodium 135 L Potassium 4.9 H Chloride 102 Carbon Dioxide 23 BUN 19 Creatinine 1.07 Glucose 253 H Calcium 9.1 - ABG Interpretation ABG results: PT/INR, D-dimer PT 11.4 Seconds (9.4-12.1) 03/26/16 20:33 Consult Discharge Plan - Plan Referrals: Julianna Kent MD [Partnered Physician] - 04/04/16 8:15 am Derik Liang MD [Primary Care Provider] - 04/04/16 1:30 pm (Please follow up as schedule!!)
[2016-03-28 18:54] LABS: Bilirubin,Urine Negative (Negative); Blood,Urine Moderate (Negative); Clarity,Urine Clear (Clear); Color,Urine Yellow (Yellow); Glucose,Urine (UA) Normal (Normal); Ketones,Urine Negative (Negative); Leukocyte Esterase,Urine Negative (Negative); Nitrite,Urine Negative (Negative); Protein,Urine Negative (Neg-Trace); Specific Gravity,Urine 1.015 (1.010-1.025); Urobilinogen,Urine Normal (Normal)
[2016-03-28 19:00] LABS: Bacteria,Urine None Seen per hpf (None-Few); Hyaline Casts,Urine None Seen per lpf (None-Few); RBC,Urine 15-30 per hpf (0-3); Squamous Epithelial Cell,Urine Many per lpf (None-Few)
[2016-03-28] MEDS: Insulin DETEMIR 100 UNIT/ML X5UNITS SQ SCH (21:53)
[2016-03-29 06:07] LABS: Basophils % 0.4 %; Eosinophils # 0.3 K/mcL (0.0-0.6); Eosinophils % 3.4 %; Hematocrit 32.3 % (35.3-44.9); Hemoglobin 9.9 g/dL (11.5-15.4); Immature Granulocytes % 0.5 % (0-4); Lymphocytes # 2.5 K/mcL (0.6-4.6); Lymphocytes % 30.1 %; Mean Corpuscular HGB Conc 30.7 g/dL (31.6-35.5); Mean Corpuscular Hemoglobin 25.6 pg (28.0-33.3); Mean Corpuscular Volume 83.7 fL (83.0-100.0); Mean Platelet Volume 9.4 fL (9.4-12.4); Monocytes # 0.7 K/mcL (0.0-1.3); Monocytes % 8.7 %; Neutrophils # 4.8 K/mcL (1.6-8.9); Platelet Count 338 K/mcL (140-400); Red Blood Count 3.86 M/mcL (3.82-4.97); Red Cell Distribution Width 16.9 % (11.5-14.5); Segmented Neutrophils % 56.9 %
[2016-03-29 06:17] LABS: Calcium 8.9 mg/dL (8.6-10.8); Potassium 4.6 mEq/L (3.5-4.5)
[2016-03-29] MEDS: *HR* Enoxaparin 40 MG/0.4 ML SYRINGE SQ SCH (06:49)
[2016-03-29] MEDS: Aspirin Enteric Coated 81 MG Tablet PO SCH (08:17)
[2016-03-29] MEDS: Linezolid 600 MG TABLET PO SCH ×2 (08:17→21:57)
[2016-03-29] MEDS: Insulin LISPRO 300 UNITS/3 ML VIAL SQ SCH ×7 (08:18→21:53)
[2016-03-29] MEDS: Insulin DETEMIR 100 UNIT/ML X5UNITS SQ SCH ×2 (08:18→21:57)
[2016-03-29] MEDS ORDERED: Vancomycin 1,250 MG in D5% in Water 250 ML IVPB SCH (09:00)
[2016-03-29] MEDS: (Omega-3/Dha/Epa/Fish Oil [Fish Oil Dr 500 Mg Softgel) PO SCH ×2 (10:03→21:58)
[2016-03-29] MEDS: Eucerin Cream 57 GM TUBE TP SCH (11:26)
[2016-03-29] MEDS ORDERED: 0.9 % Sodium Chloride 500 ML IVC ONE (14:40)
--- NOTE | 2016-03-29 15:51 | Internal Med Progress Note ---
Date of Encounter: 03/29/16 Time of Encounter: 11:00 - Assessment and plan (1) Elevated troponin Current Visit: Yes Status: Acute Assessment and plan: Mild troponin elevation in the setting of hypoglycemia, UTI, and recurrent cellulitis. Likely secondary to demand ischemia. No significant ECG changes noted. Atypical chest pain described. TTE 04/26/15: EF 60%, mild cLVH, moderate LVDD, severely dilated left atrium, mild TR, mild-moderate PH, normal wall motion. C 01/11/14: coronary arteries are essentially normal with minimal disease, EF 60%. Recommendations by cardiology were medical management, continue ASA, and betablocker. Reported allergy to statin. No further cardiac testing warranted at this time, follow-up in the outpatient setting. (2) Hypoglycemia Current Visit: Yes Status: Resolved Assessment and plan: Resolved. (3) Cellulitis of right leg Current Visit: Yes Status: Acute Assessment and plan: R LE cellulitis Doppler USS ruled out DVT D/C Vanco and start Linezolid vanco trjulia noted, slight elevation in creatinine, will hydrate and monitor (4) UTI (urinary tract infection) Current Visit: Yes Status: Ruled-out Assessment and plan: Ruled out Qualifiers: Urinary tract infection type: acute cystitis Hematuria presence: without hematuria Qualified Code(s): N30.00 - Acute cystitis without hematuria (5) Diabetes type 2, uncontrolled Current Visit: Yes Status: Chronic Assessment and plan: Initially resented with hypoglycemia, now blood glucose is WNL Stared on levemir and premeal insulin, additional slidng scale coverage Monitor FS closely Qualifiers: Diabetes mellitus complication status: with circulatory complication Diabetes mellitus complication detail: with other circulatory complications Diabetes mellitus custodial insulin use: with custodial use Qualified Code(s) : E11.59 - Type 2 diabetes mellitus with other circulatory complications; E11.65 - Type 2 diabetes mellitus with hyperglycemia; Z79.4 - retirement (current ) use of insulin (6) GERD (gastroesophageal reflux disease) Current Visit: Yes Status: Chronic Assessment and plan: Resume home meds Qualifiers: Esophagitis presence: without esophagitis Qualified Code(s): K21.9 - Gastro -esophageal reflux disease without esophagitis (7) Anemia of chronic disease Current Visit: Yes Status: Chronic Assessment and plan: Hb stable at baseline (8) Morbid obesity Current Visit: Yes Status: Chronic Qualifiers: Obesity type: unspecified obesity type Qualified Code(s): E66.01 - Morbid ( severe) obesity due to excess calories (9) Hypertension Current Visit: Yes Status: Chronic Assessment and plan: Increased dose of metoprolol Added Norvasc Continue to monitor Qualifiers: Hypertension type: essential hypertension Qualified Code(s): I10 - Essential (primary) hypertension - Subjective Interval history: 65 Y/O F with Morbid Obesity, Fungal skin infection, Chronic anemia, HTN placed on for management of Elevated troponins, Hypoglycemia and RLE cellulitis She is seen at bedside, denies new complains. She had been receiving IV Vancomycin empirically due to hx of MRSA Repeat UA dne yesterday by straight cath was negative for UTI Today, her creatinine is slightly elevated to 1.13 Clinically, her cellulitis has improved and her hypoglycemia has resolved We will discontinue Vancomycin and start Linezolid, need to monitor chem for resolution of azotemia6 - Constitutional Vitals: Temp Pulse Resp BP Pulse Ox 97.8 F 68 17 171/76 98 03/29/16 11:15 03/29/16 11:15 03/29/16 11:15 03/29/16 11:15 03/29/16 11:15 General appearance: Present: A&O X 3, morbidly obese, no acute distress - Head Head exam: Present: atraumatic, normocephalic - Eye Eye exam: Present: PERRL, conjuntiva pink, sclera anicteric Pupils: Present: PERRL - Neck Neck exam general surgery: Present: supple, trachea midline. Absent: lymphadenopathy - Respiratory Respiratory exam: Present: CTAB - Cardiovascular Cardiovascular exam: Present: RRR, +S1, +S2. Absent: JVD, rubs, systolic murmur - GI/Abdominal GI/Abdominal exam: Present: normal bowel sounds, soft, no peritoneal signs. Absent: distended, tenderness - Extremities Exam Additional comments: Bilateral non-pitting pedal edema Significant improvement in redness and swelling of right torres - Back Exam Additional comments: RAsh - Neurological Exam Neurological exam: Present: CN II-XII intact, oriented X3, no focal deficits. Absent: pronater drift, facial droop, speech deficit - Skin Skin exam: Present: dry, rash Internal Medicine: Result - Labs CBC & Chem 7: 03/29/16 05:36 03/29/16 05:36 Labs: Short CBC 03/29/16 Range/Units 05:36 WBC 8.4 (4.3-11.1) K/mcL Hgb 9.9 L (11.5-15.4) g/dL Hct 32.3 L (35.3-44.9) % Plt Count 338 (140-400) K/mcL Neutrophils # 4.8 (1.6-8.9) K/mcL BMP 03/29/16 05:36 Sodium 136 Potassium 4.6 H Chloride 103 Carbon Dioxide 24 BUN 23 H Creatinine 1.13 H Glucose 251 H Calcium 8.9 Urine 03/28/16 Range/Units 18:00 Urine Color Yellow (Yellow) Urine Clarity Clear (Clear) Urine pH 6.0 (5.0-8.0) pH Units Ur Specific [place] 1.015 (1.010-1.025) Urine Protein Negative (Neg-Trace) mg/dL Urine Glucose (UA) Normal (Normal) mg/dL - ABG Interpretation ABG results: PT/INR, D-dimer PT 11.4 Seconds (9.4-12.1) 03/26/16 20:33 Consult Discharge Plan - Plan Referrals: Julianna Kent MD [Partnered Physician] - 04/04/16 8:15 am Derik Liang MD [Primary Care Provider] - 04/04/16 1:30 pm (Please follow up as schedule!!)
[2016-03-29] MEDS: amLODIPine 5 MG TABLET PO SCH (16:53)
[2016-03-29] MEDS: Nystatin POWDER 30 GM BOTTLE TP SCH ×2 (17:47→21:53)
[2016-03-30] MEDS: Eucerin Cream 57 GM TUBE TP SCH ×2 (00:24→12:00)
[2016-03-30] MEDS: *HR* Enoxaparin 40 MG/0.4 ML SYRINGE SQ SCH (06:05)
[2016-03-30] MEDS: Nystatin POWDER 30 GM BOTTLE TP SCH (06:05)
[2016-03-30 06:21] LABS: BUN/Creatinine Ratio 21 (6-26); Blood Urea Nitrogen 22 mg/dL (7-20); Calcium 9.1 mg/dL (8.6-10.8); Carbon Dioxide 21 mEq/L (19-29); Chloride 104 mEq/L (98-109); Glucose 266 mg/dL (70-99); Osmolality,Calculated 295 (280-300); Potassium 4.8 mEq/L (3.5-4.5); Sodium 136 mEq/L (136-145); eGFR For African Americans > 60 (> 60); eGFR For Non-African Americans 52 (> 60)
[2016-03-30] MEDS: Insulin LISPRO 300 UNITS/3 ML VIAL SQ SCH ×4 (08:16→11:55)
[2016-03-30] MEDS: Aspirin Enteric Coated 81 MG Tablet PO SCH (08:17)
[2016-03-30] MEDS: (Omega-3/Dha/Epa/Fish Oil [Fish Oil Dr 500 Mg Softgel) PO SCH (08:17)
[2016-03-30] MEDS: amLODIPine 5 MG TABLET PO SCH (08:17)
[2016-03-30] MEDS: Linezolid 600 MG TABLET PO SCH (08:17)
[2016-03-30] MEDS: Insulin DETEMIR 100 UNIT/ML X5UNITS SQ SCH (08:21)
[2016-03-30 10:51] VITALS: BP 169/79
--- NOTE | 2016-03-30 12:12 | Physician Discharge Referral ---
Home Health/Hosp Referral Info Transfer to: Home Health Attending Provider: [facility] Provider in Charge Post Discharge: PCP - Diagnosis (1) Elevated troponin Priority: Secondary Status: Acute (2) Hypoglycemia Priority: Primary Status: Resolved (3) Cellulitis of right leg Priority: Primary Status: Acute (4) UTI (urinary tract infection) Priority: Primary Status: Ruled-out (5) Diabetes type 2, uncontrolled Priority: Secondary Status: Chronic (6) GERD (gastroesophageal reflux disease) Priority: Secondary Status: Chronic (7) Anemia of chronic disease Priority: Secondary Status: Chronic (8) Morbid obesity Priority: Secondary Status: Chronic (9) Hypertension Priority: Secondary Status: Chronic - Respiratory Orders Smoking Cessation: Smoking cessation has been advised. For more information, call the [place] Tobacco Quit Line at 1-284-UKKL-NOW. - Diet/Nutrition Diet/Nutrition Orders: Cardiac - Activity Activity Orders: Up ad sarah - Services Needed Following services are medically necessary services: Nursing, Home Health Aide, Physical Therapy - Transfer Medications Prescriptions: Amlodipine [Norvasc] 5 mg PO DAILY #30 tablet Eucerin Creme 1 appl TP 0000,1200 #2 tube Linezolid [Zyvox] 600 mg PO BID #10 tablet Metoprolol [Lopressor] 50 mg PO BID #60 tablet Home Medications: Aspirin Enteric Coated [Aspirin EC] 81 mg PO DAILY 08/30/15 [History] Fludrocortisone Acetate [Florinef] 0.1 mg PO Q48H 08/30/15 [History] Insulin ASPART [Novolog Flexpen] 20 - 28 unit SQ TID 08/30/15 [History] Insulin Glargine,Hum.rec.anlog [Lantus Solostar] 30 unit SQ HS 08/30/15 [History ] Insulin Glargine,Hum.rec.anlog [Lantus Solostar] 32 unit SQ QAM 08/30/15 [ History] Melatonin 10 mg PO HS PRN 08/30/15 [History] Metformin HCl [Glucophage] 1,000 mg PO BID 08/30/15 [History] [place]-3/Dha/Epa/Fish Oil [Fish Oil Dr 500 mg Softgel] 1 cap PO BID 09/23/15 [ History] Vitamin B Complex [B Complex] 1 tab PO DAILY 09/23/15 [History] Vitamin E (Dl,Tocopheryl Acet) [Vitamin E] 100 unit PO DAILY 09/23/15 [History] Nystatin POWDER [Nystop] 1 appl TP BID 03/26/16 [History] Oxycodone HCl/Acetaminophen [Percocet 5-325 mg Tablet] 1 tab PO Q6H PRN [History] Amlodipine [Norvasc] 5 mg PO DAILY #30 tablet 03/30/16 [Rx] Eucerin Creme 1 appl TP 0000,1200 #2 tube 03/30/16 [Rx] Linezolid [Zyvox] 600 mg PO BID #10 tablet 03/30/16 [Rx] Metoprolol [Lopressor] 50 mg PO BID #60 tablet 03/30/16 [Rx] Allergies/Adverse Reactions: Allergies atorvastatin [From Lipitor] Adverse Reaction (Mild, Verified 03/26/16 16:59) Nausea Zolpidem [From Ambien] Adverse Reaction (Mild, Verified 03/26/16 16:59) Hallucinating Certification: Further, I certify that my clinical findings support that this patient is homebound (i.e. absences from home require considerable and taxing effort and are for medical reasons or sikh services or infrequently or short duration when for other reasons) because: Homebound Reason: Patient requires assistance of a person or device to safely leave home, Leaving home requires considerable and taxing effort due to condition, Severity of cardiac or pulmonary status limits activity tolerance Attestation: My signature below is to certify that this patient is under my care and that I, or nurse practitioner, or a physician's orthopaedic physician assistant working with me, has a face-to -face encounter with this patient.
--- NOTE | 2016-03-30 12:14 | Discharge Summary ---
Date of Encounter: 03/30/16 Time of Encounter: 09:50 - Discharge Diagnosis (1) Elevated troponin Priority: Primary Status: Acute (2) Hypoglycemia Priority: Primary Status: Resolved (3) Cellulitis of right leg Priority: Primary Status: Acute (4) UTI (urinary tract infection) Priority: Primary Status: Ruled-out Qualifiers: Urinary tract infection type: acute cystitis Hematuria presence: without hematuria Qualified Code(s): N30.00 - Acute cystitis without hematuria (5) Diabetes type 2, uncontrolled Priority: Secondary Status: Chronic Qualifiers: Diabetes mellitus complication status: with circulatory complication Diabetes mellitus complication detail: with other circulatory complications Diabetes mellitus [facility] insulin use: with 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 card 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 Qualified Code(s) : E11.59 - Type 2 diabetes mellitus with other circulatory complications; E11.65 - Type 2 diabetes mellitus with hyperglycemia; 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 (6) GERD (gastroesophageal reflux disease) Priority: Secondary Status: Chronic Qualifiers: Esophagitis presence: without esophagitis Qualified Code(s): K21.9 - Gastro -esophageal reflux disease without esophagitis (7) Anemia of chronic disease Priority: Secondary Status: Chronic (8) Morbid obesity Priority: Secondary Status: Chronic Qualifiers: Obesity type: unspecified obesity type Qualified Code(s): E66.01 - Morbid ( severe) obesity due to excess calories (9) Hypertension Priority: Secondary Status: Chronic Qualifiers: Hypertension type: essential hypertension Qualified Code(s): I10 - Essential (primary) hypertension - Discharge Medications Prescriptions: Amlodipine [Norvasc] 5 mg PO DAILY #30 tablet Eucerin Creme 1 appl TP 0000,1200 #2 tube Linezolid [Zyvox] 600 mg PO BID #10 tablet Metoprolol [Lopressor] 50 mg PO BID #60 tablet Home Medications: Aspirin Enteric Coated [Aspirin EC] 81 mg PO DAILY 08/30/15 [History] Fludrocortisone Acetate [Florinef] 0.1 mg PO Q48H 08/30/15 [History] Insulin ASPART [Novolog Flexpen] 20 - 28 unit SQ TID 08/30/15 [History] Insulin Glargine,Hum.rec.anlog [Lantus Solostar] 30 unit SQ HS 08/30/15 [History ] Insulin Glargine,Hum.rec.anlog [Lantus Solostar] 32 unit SQ QAM 08/30/15 [ History] Melatonin 10 mg PO HS PRN 08/30/15 [History] Metformin HCl [Glucophage] 1,000 mg PO BID 08/30/15 [History] [place]-3/Dha/Epa/Fish Oil [Fish Oil Dr 500 mg Softgel] 1 cap PO BID 09/23/15 [ History] Vitamin B Complex [B Complex] 1 tab PO DAILY 09/23/15 [History] Vitamin E (Dl,Tocopheryl Acet) [Vitamin E] 100 unit PO DAILY 09/23/15 [History] Nystatin POWDER [Nystop] 1 appl TP BID 03/26/16 [History] Oxycodone HCl/Acetaminophen [Percocet 5-325 mg Tablet] 1 tab PO Q6H PRN [History] Amlodipine [Norvasc] 5 mg PO DAILY #30 tablet 03/30/16 [Rx] Eucerin Creme 1 appl TP 0000,1200 #2 tube 03/30/16 [Rx] Linezolid [Zyvox] 600 mg PO BID #10 tablet 03/30/16 [Rx] Metoprolol [Lopressor] 50 mg PO BID #60 tablet 03/30/16 [Rx] Allergies/Adverse Reactions: Allergies atorvastatin [From Lipitor] Adverse Reaction (Mild, Verified 03/26/16 16:59) Nausea Zolpidem [From Ambien] Adverse Reaction (Mild, Verified 03/26/16 16:59) Hallucinating Procedures/tests Complete & Pending: Procedures Performed prior 72 hours Category Date Time Status EV venous imaging LE RT Routine Y 03/27/16 22:59 Completed Date of admission: 03/26/16 22:22 Primary care physician: Derik Liang MD Consults: 03/26/16 22:55 Consult to Cardiology [CONS] Routine Comment: Consulting Provider: Cardiology Tomasa Reason for Consult: elevated troponin Call Completed: No 03/28/16 11:43 PT [Consult to Physical Therapy] [CONS] Stat Comment: Evaluate, develop and implement POC 03/28/16 11:44 OT [Consult to Occupational Therapy] [CONS] Stat Comment: Evaluate, develop and implement POC Discharging clinician: Terrance Moffett Anticipated date of discharge: 03/30/16 - Patient Status Disposition: Home Health Service Condition: Fair Functional capacity at discharge: uses cane/walker Overall status at discharge: patient is progressing back to baseline - Discharge Instructions Follow Up With: Julianna Kent MD [Partnered Physician] - 04/04/16 8:15 am [facility] [place],Derik Thompson MD [Primary Care Provider] - 04/04/16 1:30 pm (Please follow up as schedule!!) - Diet and Activity Activity: ambulate only with your walker Diet: diabetic diet, low fat, low cholesterol, low salt diet Interval History: See below Hospital course: 65 Y/O F with Morbid Obesity, Fungal skin infection, chronic anemia, HTN placed on for management of Elevated troponins, Hypoglycemia and RLE cellulitis She is seen at bedside today, she has made remarkable improvement and denies new complains. She had hypoglycemia on admission with blood sugar in the 40s . She has since recovered and managed with insulin for DM. She has a history of MRSA and VRE and based on this had been started on Vancomycin empirically for her RLE cellulitis and suspected UTI. Repeat UA after straight cath ruled out UTI. Doppler of Right lower extremity ruled out DVT. She had azotemia, for which she required IVF hydration and discontinuation of Vancomycin. Renal function has since returned to baseline. She also had elevated troponin on admission with atypical chest pain. Cardiology was consulted. This was likely secondary to demand ischemia as there were no significant ECG changes noted. TTE 04/26/15: EF 60%, mild cLVH, moderate LVDD, severely dilated left atrium, mild TR, mild-moderate PH, normal wall motion. LHC 01/11/14: coronary arteries are essentially normal with minimal disease, EF 60%. Recommendations by cardiology were medical management, continue ASA, and beta charlie. Reported allergy to statin. No further cardiac testing was warranted. Her blood pressure was elevated and she was started on Norvasc and Metoprolol. Well tolerated, will be discharged on same She will be discharged home on Zyvox for MRSA coverage and will follow up with PCP Home services reactivated Immunization is up to date Plan of care discussed, verbalizes understanding - Time Spent with Patient Total time spent providing and/or coordinating discharge services: Less than 30 minutes - Constitutional Vitals: Temp Pulse Resp BP Pulse Ox 98.1 F 59 18 169/79 99 03/30/16 10:50 03/30/16 10:50 03/30/16 10:50 03/30/16 10:50 03/30/16 10:50 General appearance: Present: A&O X 3, morbidly obese, no acute distress - Head Head exam: Present: atraumatic, normocephalic - Eye Eye exam: Present: PERRL, conjuntiva pink, sclera anicteric Pupils: Present: PERRL - Neck Neck exam general surgery: Present: supple, trachea midline. Absent: lymphadenopathy - Respiratory Respiratory exam: Present: CTAB. Absent: accessory muscle use, rales, rhonchi, wheezes - Cardiovascular Cardiovascular exam: Present: RRR, +S1, +S2. Absent: diastolic murmur, gallop, rubs, systolic murmur - GI/Abdominal GI/Abdominal exam: Present: normal bowel sounds, soft, no peritoneal signs. Absent: distended, tenderness - Extremities Exam Extremities exam: Present: pedal edema Additional comments: Right lower leg cellulitis, improved. Bilateral chronic venous dermatitis changes - Neurological Exam Neurological exam: Present: CN II-XII intact, oriented X3, no focal deficits. Absent: pronater drift, facial droop, speech deficit - Skin Skin exam: Present: dry, rash
[2016-03-31 08:59] LABS: CK-MB (CK isoenzymes) 0 % (0-4); CK-MM (CK-isoenzymes) 100 % (96-100)
[2016-03-31 08:59] LABS: CK-MB (CK isoenzymes) 0 % (0-4); CK-MM (CK-isoenzymes) 100 % (96-100)
[2016-03-31 11:01] LABS: CK Total (Ck Isoenzymes) 35 U/L (20-180); CK-BB (CK isoenzymes) 0 % (0-0)
[2016-03-31 11:01] LABS: CK Total (Ck Isoenzymes) 34 U/L (20-180); CK-BB (CK isoenzymes) 0 % (0-0)
== END 2016-03-30 18:27 | disposition home health service (06) ==
LOC: EMEROO 16:06 → 2ANU 16:06 → SUATTDRO 03-27 00:24
PROVIDERS: ADMIT Hospitalist; ATTEND Internal Medicine

== ENCOUNTER 2016-04-12 18:41 | Inpatient (IN) ==
--- NOTE | 2016-04-12 18:44 | Emergency Department Note ---
START Narrative - START START: Start note: 65-year-old female by EMS for 2-3 days of feeling poorly. Insulin-dependent diabetic who has bouts of sepsis. She was at a [employer] function when she started feeling lightheaded and dizzy. Patient denies chest pain or shortness of breath. I discussed with her that we will be having change of shift within about 15 minutes. I would get started with some medicine for nausea IV fluids lab tests x-rays and urinalysis. Patient is comfortable with this plan. Awaiting arrival of the evening team of Dr. Giovani Joshi ED attending. Patient stable
[2016-04-12] MEDS ORDERED: Ondansetron 4 MG/2 ML VIAL IVP ONE (18:45)
[2016-04-12] MEDS ORDERED: 0.9 % Sodium Chloride 1,000 ML IVC ONE (18:45)
[2016-04-12 20:08] LABS: Basophils % 0.2 %; Eosinophils % 0.2 %; Hematocrit 32.6 % (35.3-44.9); Hemoglobin 10.2 g/dL (11.5-15.4); Immature Granulocytes % 0.5 % (0-4); Lymphocytes % 7.7 %; Mean Corpuscular HGB Conc 31.3 g/dL (31.6-35.5); Mean Platelet Volume 9.7 fL (9.4-12.4); Monocytes % 7.4 %; Neutrophils # 11.1 K/mcL (1.6-8.9); Platelet Count 261 K/mcL (140-400); Red Blood Count 3.93 M/mcL (3.82-4.97); Red Cell Distribution Width 16.6 % (11.5-14.5)
[2016-04-12 20:12] LABS: Beta-Hydroxybutyric Acid 0.39 mmol/L (0.02-0.27)
[2016-04-12 20:21] LABS: Potassium 5.1 mEq/L (3.5-4.5); Potassium 5.2 mEq/L (3.5-4.5)
[2016-04-12 20:22] LABS: Albumin/Globulin Ratio 0.6 (1.1-2.2); Bilirubin,Total 0.7 mg/dL (0.2-1.2); Globulin 4.7 g/dL (2.4-3.5); Total Protein 7.7 g/dL (6.0-8.3)
--- NOTE | 2016-04-12 20:28 | Emergency Department Note ---
Disposition Clinical Impression: Nausea, Fever and chills, Rigors Diabetes Qualifiers: Diabetes mellitus type: type 2 Diabetes mellitus complication status: with unspecified complications Diabetes mellitus group home insulin use: unspecified group home insulin use status Qualified Code(s): E11.8 - Type 2 diabetes mellitus with unspecified complications Disposition: Admitted As Inpatient Condition: Fair Time of Disposition: 22:52 General Adult HPI - General Chief complaint: ED General Medical Stated complaint: general illness Time Seen by Provider: 04/12/16 18:43 Source: EMS Mode of arrival: ambulatory Limitations: no limitations Nursing Notes Reviewed: Yes Vital Signs Reviewed: Yes - History of Present Illness HPI Narrative: Patient presents to emergency room with complaint of generalized malaise and right leg pain. She also had a fever of 103.5 at home. Patient was seen yesterday and evaluated. She was discharged home without any medical intervention. She is concerned that she was getting worse. She has been taking Keflex and Bactrim from the previous evaluation for right lower leg cellulitis. She denies any other symptoms or complaints at this time. was concerned about her back in the emergency room. Onset (ago): day(s) (4 days) Location: right, lower extremity Radiation: non-radiation Pain Severity: mild Pain Scale: 3 Quality: burning Consistency: constant Improves with: nothing Worsens with: movement Associated symptoms: Reports: denies other symptoms (Cervical) Treatments Prior to Arrival: none - Related Data Home Medications Medication Instructions Recorded Confirmed Aspirin Enteric Coated [Aspirin EC] 81 mg PO DAILY 08/30/15 04/12/16 Fludrocortisone Acetate [Florinef] 0.1 mg PO Q48H 08/30/15 04/12/16 Insulin ASPART [Novolog Flexpen] 20 - 28 unit SQ TID 08/30/15 04/12/16 Insulin Glargine,Hum.rec.anlog 30 unit SQ HS 08/30/15 04/12/16 [Lantus Solostar] Insulin Glargine,Hum.rec.anlog 32 unit SQ QAM 08/30/15 04/12/16 [Lantus Solostar] Melatonin 10 mg PO HS PRN 08/30/15 04/12/16 Metformin HCl [Glucophage] 1,000 mg PO BID 08/30/15 04/12/16 [place]-3/Dha/Epa/Fish Oil [Fish Oil 1 cap PO BID 09/23/15 04/12/16 Dr 500 mg Softgel] Vitamin B Complex [B Complex] 1 tab PO DAILY 09/23/15 04/12/16 Vitamin E (Dl,Tocopheryl Acet) 100 unit PO DAILY 09/23/15 04/12/16 [Vitamin E] Nystatin POWDER [Nystop] 1 appl TP BID 03/26/16 04/12/16 Oxycodone HCl/Acetaminophen 1 tab PO Q6H PRN 03/26/16 04/12/16 [Percocet 5-325 mg Tablet] Previous Rx's Medication Instructions Recorded Amlodipine [Norvasc] 5 mg PO DAILY #30 tablet 03/30/16 Eucerin Creme 1 appl TP 0000,1200 #2 tube 03/30/16 Metoprolol [Lopressor] 50 mg PO BID #60 tablet 03/30/16 Cephalexin [Keflex] 500 mg PO QID #40 capsule 04/11/16 Sulfamethoxazole/Trimeth DS 1 each PO BID #20 tablet 04/11/16 [Bactrim DS] Allergies Allergy/AdvReac Type Severity Reaction Status Date / Time atorvastatin [From Lipitor] AdvReac Mild Nausea Verified 04/11/16 13:11 Zolpidem [From Ambien] AdvReac Mild Hallucinati Verified 04/11/16 13:11 ng All systems ED: reviewed and negative except as stated. Constitutional: Reports: fever. Denies: chills Cardiovascular: Denies: chest pain, palpitations, dyspnea on exertion Respiratory: Denies: cough, dyspnea, wheezes Gastrointestinal: Denies: abdominal pain, nausea Genitourinary: Reports: dysuria, frequency Musculoskeletal: Denies: back pain (Suggested a), neck pain Neurological: Denies: headache Past Medical History - Past Medical History Attestation: Yes The following information was validated with the patient. Source: patient Medical history: Reports: diabetes, GERD, hyperlipidemia, kidney stones, osteoporosis, seizures, TIA Surgical history: Reports: appendectomy, cholecystectomy, other ([facility] 01/2014) Psychiatric history: Reports: no psych history - Social History Smoking Status: Never smoker Smokeless Tobacco Status: No Alcohol use: Reports: none Drug use: Reports: none Physical Exam - General Limitations: no limitations General appearance: alert - Head Head exam: atraumatic, normocephalic, normal inspection - Respiratory Respiratory exam: Present: normal lung sounds bilaterally. Absent: respiratory distress, wheezes - Cardiovascular Cardiovascular exam: Present: regular rate, normal rhythm, normal heart sounds - Extremities Exam Extremities exam: Present: normal inspection, full ROM, normal capillary refill. Absent: tenderness - Back Exam Back exam: Present: normal inspection, full ROM. Absent: tenderness - Neurological Exam Neurological exam: Present: alert, oriented X3, CN II-XII intact, normal gait - Psychiatric Psychiatric exam: Present: normal affect, normal mood - Skin Skin exam: Present: warm, dry, intact, normal color Course Course Narrative: Patient seen and examined the time of arrival. See history of present illness. 61-year-old female presents emergency room today with generalized malaise as well as fever. Fever was documented 103.5 at home. She was seen yesterday at this facility for similar presentation. She was discharged home with antibiotics for treatment of right lower extremity cellulitis. Is back today with poorly controlled symptoms and progression of her generalized malaise. Patient has multiple underlying medical conditions including peripheral vascular disease poorly controlled diabetes as well as morbid obesity hypertension hyperlipidemia. On presentation she is in no distress she speaks in full sentences head is atraumatic. Lungs are clear heart is regular. Abdomen is soft nontender nondistended. She has multiple areas of excoriation in the skin folds consistent with pressure related issues as well as warmth and moisture. Patient moves extremities appropriately she has no visible ulcers. Her lower extremities evaluated showing mild redness but no signs of acute superficial cellulitis. She has been on antibiotics for approximately 24 hours this time. Patient had a temperature of 102.5 here. Vital signs are otherwise stable. Tylenol fluids and basic evaluation with chest x-ray and EKG and lab work ordered at this time. Disposition pending workup and treatment course. No known etiology for infectious presentation this time and about helping so we find one. Family was informed this plan patient's comp. 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 There unable to complete this. A femoral stick was completed by myself with ultrasound guidance with no palpitations. Possibly 30 mL of blood was drawn off and sent to lab for evaluation - Reevaluation(s) Reevaluation #1: Patient has negative white blood cell count at this time. The rest of her labs are reviewed and appear to be at her baseline. Patient has been persistently febrile with intermittent tachycardia while here. Heavy does respond appropriately to medications. They will extremity does not show any acute signs of cellulitis at this time. I am not sure if it was different yesterday at an initial evaluation. Patient has been on antibiotics now for approximately 24 hours. Second dose of Motrin given at this point to help with febrile illness. Vision still has generalized malaise and feels like she is unsteady while walking and feels that she is lightheaded. He should not had a negative urinalysis no signs of infectious etiology. Patient stable. Admit the patient for generalized weakness fever lightheaded while ambulating. The hospitalist Dr. Robert and I reviewed the patient's presentation symptoms. He agreed patient requires admission this time. He did not recommend any antibiotics. Patient brought into the telemetry floor for further evaluation and management. IV fluids to be started at this time 125 mL per hour. Patient family are both happy with this plan. No other concerns or issues noted during this evaluation. She will be observed in the emergency room and admission process is completed Time: 22:51 Vital Signs Temperature 102.5 F H 04/12/16 18:42 Pulse Rate 108 04/12/16 18:42 Respiratory Rate 26 04/12/16 18:42 Blood Pressure 167/108 04/12/16 18:42 O2 Sat by Pulse Oximetry 98 04/12/16 18:42 Temperature 98.6 F 04/13/16 00:08 Pulse Rate 77 04/13/16 00:08 Respiratory Rate 18 04/13/16 00:08 Blood Pressure 88/49 04/13/16 00:08 O2 Sat by Pulse Oximetry 97 04/13/16 00:08 Oxygen Delivery Oxygen Delivery Nasal Cannula Medical Decision Making - MDM Narrative Medical decision making narrative: fever, generalized malaise - Medical Records Medical records reviewed: Yes I reviewed the patient's medical records. - Lab Data Lab results reviewed: Yes I reviewed the patient's lab results. Result diagrams: 04/12/16 19:59 04/12/16 19:59 Lab Results 04/12/16 04/12/16 04/12/16 Range/Units 19:59 19:59 19:59 WBC 13.2 H (4.3-11.1) K/mcL RBC 3.93 (3.82-4.97) M/mcL Hgb 10.2 L (11.5-15.4) g/dL Hct 32.6 L (35.3-44.9) % MCV 83.0 (83.0-100.0) fL MCH 26.0 L (28.0-33.3) pg MCHC 31.3 L (31.6-35.5) g/dL RDW 16.6 H (11.5-14.5) % Plt Count 261 (140-400) K/mcL MPV 9.7 (9.4-12.4) fL Immature Gran % 0.5 (0-4) % Seg Neutrophils % 84.0 % Lymphocytes % 7.7 % Monocytes % 7.4 % Eosinophils % 0.2 % Basophils % 0.2 % Neutrophils # 11.1 H (1.6-8.9) K/mcL Lymphocytes # 1.0 (0.6-4.6) K/mcL Monocytes # 1.0 (0.0-1.3) K/mcL Eosinophils # 0.0 (0.0-0.6) K/mcL Basophils # 0.0 (0.0-0.2) K/mcL Sodium 133 L 133 L (136-145) mEq/L Potassium 5.1 H 5.2 H (3.5-4.5) mEq/L Chloride 102 102 (98-109) mEq/L Carbon Dioxide 22 20 (19-29) mEq/L BUN 21 H 20 (7-20) mg/dL Creatinine 1.32 H 1.31 H (0.57-1.11) mg/dL Est GFR ( Amer) 49 L 50 L (> 60) Est GFR (Non-Af Amer) 41 L 41 L (> 60) BUN/Creatinine Ratio 16 15 (6-26) Glucose 236 H 232 H (70-99) mg/dL Calculated Osmolality 287 286 (280-300) Lactic Acid (0.5-2.2) mmol/L Calcium 9.0 9.0 (8.6-10.8) mg/dL Total Bilirubin 0.7 (0.2-1.2) mg/dL AST 58 H (5-34) Units/L ALT 59 H (0-55) Units/L Alkaline Phosphatase 147 H (38-126) Units/L Serum Total Protein 7.7 (6.0-8.3) g/dL Albumin 3.0 L (3.5-5.0) g/dL Globulin 4.7 H (2.4-3.5) g/dL Albumin/Globulin Ratio 0.6 L (1.1-2.2) Beta-Hydroxybutyric Acd 0.39 H (0.02-0.27) mmol/L Urine Color (Yellow) Urine Clarity (Clear) Urine pH (5.0-8.0) pH Units Ur Specific [place] (1.010-1.025) Urine Protein (Neg-Trace) mg/dL Urine Glucose (UA) (Normal) mg/dL Urine Ketones (Negative) mg/dL Urine Blood (Negative) Urine Nitrite (Negative) Urine Bilirubin (Negative) Urine Urobilinogen (Normal) mg/dL Ur Leukocyte Esterase (Negative) Urine Microscopic RBC (0-3) per hpf Urine Microscopic WBC (0-3) per hpf Ur Squamous Epith Cells (None-Few) per lpf Urine Bacteria (None-Few) per hpf Hyaline Casts (None-Few) per lpf Ur Culture Indicated? (NO) 04/12/16 04/12/16 Range/Units 19:59 21:40 WBC (4.3-11.1) K/mcL RBC (3.82-4.97) M/mcL Hgb (11.5-15.4) g/dL Hct (35.3-44.9) % MCV (83.0-100.0) fL MCH (28.0-33.3) pg MCHC (31.6-35.5) g/dL RDW (11.5-14.5) % Plt Count (140-400) K/mcL MPV (9.4-12.4) fL Immature Gran % (0-4) % Seg Neutrophils % % Lymphocytes % % Monocytes % % Eosinophils % % Basophils % % Neutrophils # (1.6-8.9) K/mcL Lymphocytes # (0.6-4.6) K/mcL Monocytes # (0.0-1.3) K/mcL Eosinophils # (0.0-0.6) K/mcL Basophils # (0.0-0.2) K/mcL Sodium (136-145) mEq/L Potassium (3.5-4.5) mEq/L Chloride (98-109) mEq/L Carbon Dioxide (19-29) mEq/L BUN (7-20) mg/dL Creatinine (0.57-1.11) mg/dL Est GFR ( Amer) (> 60) Est GFR (Non-Af Amer) (> 60) BUN/Creatinine Ratio (6-26) Glucose (70-99) mg/dL Calculated Osmolality (280-300) Lactic Acid 1.1 (0.5-2.2) mmol/L Calcium (8.6-10.8) mg/dL Total Bilirubin (0.2-1.2) mg/dL AST (5-34) Units/L ALT (0-55) Units/L Alkaline Phosphatase (38-126) Units/L Serum Total Protein (6.0-8.3) g/dL Albumin (3.5-5.0) g/dL Globulin (2.4-3.5) g/dL Albumin/Globulin Ratio (1.1-2.2) Beta-Hydroxybutyric Acd (0.02-0.27) mmol/L Urine Color Yellow (Yellow) Urine Clarity Clear (Clear) Urine pH 5.5 (5.0-8.0) pH Units Ur Specific [place] 1.014 (1.010-1.025) Urine Protein 30 H (Neg-Trace) mg/dL Urine Glucose (UA) Normal (Normal) mg/dL Urine Ketones Negative (Negative) mg/dL Urine Blood Moderate H (Negative) Urine Nitrite Negative (Negative) Urine Bilirubin Negative (Negative) Urine Urobilinogen Normal (Normal) mg/dL Ur Leukocyte Esterase Trace H (Negative) Urine Microscopic RBC 5-15 H (0-3) per hpf Urine Microscopic WBC 5-15 H (0-3) per hpf Ur Squamous Epith Cells Many H (None-Few) per lpf Urine Bacteria None Seen (None-Few) per hpf Hyaline Casts None Seen (None-Few) per lpf Ur Culture Indicated? YES A (NO) - Radiology Data Radiology results reviewed: Yes I reviewed the patient's radiology results. X-ray is negative. Reviewed by myself and confirmed by the radiologist. No pulmonary infiltrate or signs of infection Attestation Statement - Attestation Attestation: Dr Joshi note: Pt seen in conjunction w/ resident Dr Cantu; please see his charting for complete documentation; I spent face to face time w/ the pt and agree w/ the pt and agree w the pt's treatment and disposition; blood work has been reviewed. As noted. Seen yesterday for same and her symptoms are worsening. She is stable at this time but with her history she has a high risk of progression to a more serious illness. No obvious focus of infection at this time. Clinically her leg is just like pain that is not obviously cellulitic at this time. Source of infection does not appear to be on. Admitted due to comorbidities and worsening status
[2016-04-12 21:50] LABS: Bilirubin,Urine Negative (Negative); Blood,Urine Moderate (Negative); Clarity,Urine Clear (Clear); Color,Urine Yellow (Yellow); Glucose,Urine (UA) Normal (Normal); Ketones,Urine Negative (Negative); Leukocyte Esterase,Urine Trace (Negative); Nitrite,Urine Negative (Negative); PH,Urine 5.5 pH Units (5.0-8.0); Protein,Urine 30 mg/dL (Neg-Trace); Specific Gravity,Urine 1.014 (1.010-1.025); Urobilinogen,Urine Normal (Normal)
[2016-04-12 21:55] LABS: Bacteria,Urine None Seen per hpf (None-Few); Hyaline Casts,Urine None Seen per lpf (None-Few); Squamous Epithelial Cell,Urine Many per lpf (None-Few)
[2016-04-12] MEDS ORDERED: Ibuprofen 800 MG TABLET PO ONE (22:08)
[2016-04-13] MEDS ORDERED: Ondansetron 4 MG/2 ML VIAL IVP PRN
[2016-04-13] MEDS ORDERED: Ibuprofen 400 MG TABLET PO PRN
[2016-04-13] MEDS ORDERED: Naloxone 0.4 MG/ML INJ IVP PRN
[2016-04-13] MEDS ORDERED: *HR* Promethazine 25 MG/ML VIAL IVP PRN
[2016-04-13] MEDS ORDERED: 0.9 % Sodium Chloride 1,000 ML IVC ONE (00:25)
--- NOTE | 2016-04-13 00:34 | Event Note ---
Date of Encounter: 04/13/16 Time of Encounter: 00:27 Patients and examined with medical reviewer. Patient presents with fever up to 103 at home. She is on antibiotics with Keflex and Bactrim for right leg cellulitis. She will be admitted to the hospital for failed outpatient therapy. Will start vancomycin and Zosyn. 2 L bolus of normal saline will be given. Blood cultures. Patient is full code. She has acute kidney injury. Will hydrate. She is hyperkalemic. This will be treated and followed.
[2016-04-13] MEDS ORDERED: Calcium Gluconate 1,000 MG in D5% in Water 100 ML IVPB ONE (00:35)
[2016-04-13] MEDS ORDERED: Vancomycin 1,000 MG in D5% in Water 250 ML IVPB SCH (01:00)
[2016-04-13] MEDS: 0.9 % Sodium Chloride 1,000 ML IVC SCH ×2 (01:11→11:41)
[2016-04-13] MEDS: Vancomycin 2,000 MG in D5% in Water 500 ML IVPB SCH ×2 (01:18→13:46)
[2016-04-13] MEDS: Piperacillin/Tazobactam 3.375 GM in D5% in Water (Mini-Bag+) 100 ML IVPB SCH ×3 (01:18→17:30)
[2016-04-13 01:21] LABS: Basophils % 0.3 %; Eosinophils % 0.1 %; Hematocrit 29.8 % (35.3-44.9); Hemoglobin 9.2 g/dL (11.5-15.4); Immature Granulocytes % 0.5 % (0-4); Lymphocytes # 1.4 K/mcL (0.6-4.6); Lymphocytes % 13.9 %; Mean Corpuscular HGB Conc 30.9 g/dL (31.6-35.5); Mean Corpuscular Hemoglobin 25.7 pg (28.0-33.3); Mean Corpuscular Volume 83.2 fL (83.0-100.0); Mean Platelet Volume 9.7 fL (9.4-12.4); Monocytes # 0.7 K/mcL (0.0-1.3); Monocytes % 6.9 %; Neutrophils # 7.6 K/mcL (1.6-8.9); Platelet Count 245 K/mcL (140-400); Red Blood Count 3.58 M/mcL (3.82-4.97); Red Cell Distribution Width 16.5 % (11.5-14.5); Segmented Neutrophils % 78.3 %
[2016-04-13 01:24] LABS: INR 1.4; Prothrombin Time 14.8 Seconds (9.4-12.1)
[2016-04-13 01:26] LABS: Activated Partial Thrombo Time 30.6 Seconds (26.0-36.0)
[2016-04-13 01:30] LABS: Magnesium 1.7 mg/dL (1.6-2.6)
[2016-04-13 01:32] LABS: Calcium 8.6 mg/dL (8.6-10.8); Potassium 4.9 mEq/L (3.5-4.5)
--- NOTE | 2016-04-13 01:32 | Internal Med History&Physical ---
Date of Encounter: 04/13/16 Time of Encounter: 00:29 Assessment and Plan (1) Sepsis Current visit: Yes Status: Acute Patient with long history of right lower leg cellulitis. She presents today with the same. Upon presentation to hospital, patient had WBC 13.2, fever 101.3 , tachycardia, tachypnea. Lactate not elevated at 1.1. CXR negative for source of infection. UA sample contaminated with multiple squamous cells, trace leukocyte esterase. Plan: 2 L bolus IVF given, continue IVF 125mL/hr Begin IV vanc and IV zosyn Tylenol for fever prn Urine culture, pending Blood culture, pending Follow repeat CBC in am (2) Cellulitis of right leg Current visit: Yes Status: Acute Cellulitis precepitated by chronic venous stasis. Plan as above Following resolution of cellulitis, patient will require follow up with wound care for management of chronic venous stasis (3) NATALIE (acute kidney injury) Current visit: Yes Status: Acute Patient's Cr 1.31 today, up from baseline of 1.0. Plan: IVF hydration Follow renal function in am Avoid NSAIDs (4) Diabetes type 2, uncontrolled Current visit: Yes Status: Chronic Short acting insulin 10u TIDWM Long acting Lantus 20u qam and qhs Accuchecks fasting, ACHS Qualifiers: Diabetes mellitus complication status: with circulatory complication Diabetes mellitus complication detail: with other circulatory complications Diabetes mellitus director long term care insulin use: with director long term care use Qualified Code(s) : E11.59 - Type 2 diabetes mellitus with other circulatory complications; E11.65 - Type 2 diabetes mellitus with hyperglycemia; Z79.4 - [facility] (current ) use of insulin (5) Hyperkalemia Current visit: Yes Status: Acute Patient with chronic hyperkalemia since February,. Plan: IVF rehydration Ca Gluconate Bicarb EKG Repeat BMP in am (6) Hypotension Current visit: No Status: Chronic Patient states that she takes fludrocortisone 0.1 mg po q 48 hours for hypotension. However, she is unaware if she has adrenal insufficiency. Continue home medication Obtain records from PCP at [facility] Qualifiers: Hypotension type: unspecified hypotension type Qualified Code(s): I95.9 - Hypotension, unspecified (7) GERD (gastroesophageal reflux disease) Current visit: No Status: Chronic Protonix 40mg IV q am Qualifiers: Esophagitis presence: esophagitis presence not specified Qualified Code(s) : K21.9 - Gastro-esophageal reflux disease without esophagitis (8) Candidiasis, cutaneous Current visit: Yes Status: Acute Patient has candidiasis of inframammary folds and lower lumbar back. Patient has been treating these regions with nystatin powder. Plan: Nystatin cream followed by layer of desitin applied on top of nystatin (9) DVT prophylaxis Current visit: Yes Status: Acute Heparin 5,000 SQ TID Internal Medicine - H&P: HPI Chief complaint: chills, weakness Admitted From: Emergency Dept Plans for Post Hospital Care: Home History of present illness: Ms. Church is a 65 year old female presents to the hospital by ambulance for episode of shaking, chills, and weakness around 4pm today (03/12/09). Patient states that she was at a yarsanism dinner when she began shaking. She could not feed herself, and spilled food on herself. Concerned for hypoglycemia, she drank 2 glasses of milk and a glass of sweet tea. She ate a cupcake and peanut butter and crackers. When the squad arrived, her blood glucose was 139. Squad took her by wheelchair to the [facility]. She stood to get on the gurney and her legs buckled beneath her. She was feeling very weak. Patient states that she had begun running a fever the previous day, but had treated it with tylenol q 4 hours until the fever resolved. She reports that she visited her family doctor this morning and was treated with Keflex and Bactrim for 14 days for right lower extremity cellulitis. The cellulitis has been an ongoing problem since September,. However, she has not noticed increased redness, warmth, or swelling of right lower leg. Upon arrival to the ED, patient's temp was 101.3. Admits one episode of vomiting yesterday morning. Admits headache. Denies sick contacts. Denies recent upper respiratory infections. Denies diarrhea, constipation. Patient has recent hospitalization 03/26/16 for hypoglycemia. She states her last A1c was 7.2. Past Med Surg Social Fam HX - Past Medical History Medical history: diabetes, GERD, hyperlipidemia, kidney stones, osteoporosis, seizures (last seizure was 6-7 years ago), TIA (x 4) Psychiatric history: no psych history - Past Surgical History Surgical History: appendectomy, cholecystectomy, other ([facility] 01/2014) - Social History Smoking Status: Never smoker Smokeless Tobacco Status: No Alcohol use: none Drug use: none - Family History Father Living Status: Hx Family Cardiac Disorders: Yes (HTN) Hx Family Endocrine Disorder: Yes (DM) Hx Family Neuromuscular Disorders: Yes (seizures) Hx Family Neurologic Disorders: Yes Hx Family Medical Disorders: Yes (HTN) Mother History Unknown: Yes Living Status: Hx Family Cancer: Yes (breast) Internal Medicine - H&P: Meds Aspirin Enteric Coated [Aspirin EC] 81 mg PO DAILY 08/30/15 [History] Fludrocortisone Acetate [Florinef] 0.1 mg PO Q48H 08/30/15 [History] Insulin ASPART [Novolog Flexpen] 20 - 28 unit SQ TID 08/30/15 [History] Insulin Glargine,Hum.rec.anlog [Lantus Solostar] 30 unit SQ HS 08/30/15 [History ] Insulin Glargine,Hum.rec.anlog [Lantus Solostar] 32 unit SQ QAM 08/30/15 [ History] Melatonin 10 mg PO HS PRN 08/30/15 [History] Metformin HCl [Glucophage] 1,000 mg PO BID 08/30/15 [History] [place]-3/Dha/Epa/Fish Oil [Fish Oil Dr 500 mg Softgel] 1 cap PO BID 09/23/15 [ History] Vitamin B Complex [B Complex] 1 tab PO DAILY 09/23/15 [History] Vitamin E (Dl,Tocopheryl Acet) [Vitamin E] 100 unit PO DAILY 09/23/15 [History] Nystatin POWDER [Nystop] 1 appl TP BID 03/26/16 [History] Oxycodone HCl/Acetaminophen [Percocet 5-325 mg Tablet] 1 tab PO Q6H PRN [History] Amlodipine [Norvasc] 5 mg PO DAILY #30 tablet 03/30/16 [Rx] Eucerin Creme 1 appl TP 0000,1200 #2 tube 03/30/16 [Rx] Metoprolol [Lopressor] 50 mg PO BID #60 tablet 03/30/16 [Rx] Cephalexin [Keflex] 500 mg PO QID #40 capsule 04/11/16 [Rx] Sulfamethoxazole/Trimeth DS [Bactrim DS] 1 each PO BID #20 tablet 04/11/16 [Rx] Allergies atorvastatin [From Lipitor] Adverse Reaction (Mild, Verified 04/11/16 13:11) Nausea Zolpidem [From Ambien] Adverse Reaction (Mild, Verified 04/11/16 13:11) Hallucinating All Systems PM: A 10-system review of systems was performed and is negative for pertinent findings except as documented above in the HPI. - Constitutional Constitutional: chills, excessive sweating, fever(s), weakness - EENT Eyes: no discharge, no itchy eyes Ears: decreased hearing, ear pain (Right ear), tinnitus (chronic problem due to hearing loss. patinet wears hearing aids.), no ear discharge Nose, mouth and throat: no facial pain, no nasal congestion, no sinus pain, no sinus pressure - Cardiovascular Cardiovascular ROS IM: no chest pain, no dyspnea - Respiratory Respiratory: cough (clear sputum), no dyspnea - Gastrointestinal Gastrointestinal: vomiting (One episode of vomiting yesterday morning), no abdominal pain, no constipation, no diarrhea, no heartburn, no hematemesis, no hematochezia, no melena - Genitourinary Genitourinary: urinary frequency (chronic problem), no difficulty urinating, no dysuria, no hematuria, no vaginal discharge - Integumentary Integumentary IM: erythema (Right lower leg.), rash (Lumbar back, Intramammary folds. ) - Neurological Neurological ROS: headache(s), no dizziness - Constitutional Vitals: Temp Pulse Resp BP Pulse Ox 98.6 F 77 18 88/49 97 04/13/16 00:08 04/13/16 00:08 04/13/16 00:08 04/13/16 00:08 04/13/16 00:08 General appearance: Present: A&O X 3, morbidly obese, pleasant, answers questions appropriately - Head Head exam: Present: atraumatic, normal inspection, normocephalic - Eye Eye exam: Present: EOMI - Neck Neck exam general surgery: Present: full ROM, normal inspection - Respiratory Respiratory exam: Present: CTAB. Absent: respiratory distress, rhonchi, wheezes , tachypnea - Cardiovascular Cardiovascular exam: Present: RRR. Absent: +S1, +S2 - GI/Abdominal GI/Abdominal exam: Present: normal bowel sounds, soft. Absent: hepatomegaly, splenomegaly, tenderness - Specululm exam: Absent: vaginal bleeding, vaginal discharge - Extremities Exam Extremities exam: Present: pedal edema (bilateral legs 2+ pitting edema present from foot to knee), tenderness (to compression of bilateraly legs), warm (right anterior lower leg with erythema, warmth) - Back Exam Back exam: Present: rash noted (lumbar back with rough, erythematous lesion with white, caseous film). Absent: CVA tenderness (L), CVA tenderness (R) - Psychiatric Psychiatric exam: Present: normal affect, normal mood - Skin Skin exam: Present: rash (bilateral inframammary folds with erythema covered with white, caseous film) Internal Med - H&P Results - Labs CBC & Chem 7: 04/13/16 00:58 04/13/16 00:58 Labs: Short CBC 04/13/16 Range/Units 00:58 WBC 9.8 (4.3-11.1) K/mcL Hgb 9.2 L (11.5-15.4) g/dL Hct 29.8 L (35.3-44.9) % Plt Count 245 (140-400) K/mcL Neutrophils # 7.6 (1.6-8.9) K/mcL - Impressions Chest X-Ray 04/12/16 19:22 IMPRESSION: No acute findings or change from prior examination. D/ / Lalo Wallace MD / Lalo Wallace MD Interpreting Provider: Lalo Wallace MD
[2016-04-13] MEDS ORDERED: *HR* Dextrose 50 % in Water (Syg) 50 ML SYRINGE IVP PRN (01:52)
[2016-04-13] MEDS ORDERED: Dextrose Gel 15 GM PO PRN ×2 (01:52)
[2016-04-13] MEDS ORDERED: D5% in Water 1,000 ML IV PRN (01:52)
[2016-04-13] MEDS: *HR* Heparin 5,000 UNIT/ML VIAL SQ SCH ×4 (03:04→23:47)
[2016-04-13 03:15] LABS: Hemoglobin A1C 6.8 %
[2016-04-13] MEDS: Insulin LISPRO 300 UNITS/3 ML VIAL SQ SCH ×6 (08:22→20:56)
[2016-04-13] MEDS: Insulin DETEMIR 100 UNIT/ML X5UNITS SQ SCH ×2 (08:22→20:48)
[2016-04-13] MEDS: Aspirin Enteric Coated 81 MG Tablet PO SCH (08:22)
[2016-04-13] MEDS: Nystatin Cream 15 GM TUBE TP SCH ×2 (08:23→20:49)
[2016-04-13] MEDS: Desitin (Zinc Oxide) 56 GM TUBE TP SCH ×2 (08:23→20:49)
[2016-04-13] MEDS ORDERED: Pantoprazole 40 MG VIAL IVP SCH (09:00)
[2016-04-13] MEDS: Acetaminophen 325 MG TABLET PO PRN ×2 (09:42→18:00)
[2016-04-13 10:24] LABS: Acinetobacter baumannii by PCR Not Detected (Not Detect); Candida albicans by PCR Not Detected (Not Detect); Candida glabrata by PCR Not Detected (Not Detect); Candida krusei by PCR Not Detected (Not Detect); Candida parapsilosis by PCR Not Detected (Not Detect); Candida tropicalis by PCR Not Detected (Not Detect); Enterococcus by PCR ***DETECTED*** (Not Detect); Escherichia coli by PCR Not Detected (Not Detect); Klebsiella oxytoca by PCR Not Detected (Not Detect); Klebsiella pneumoniae by PCR Not Detected (Not Detect); Pseudomonas aeruginosa by PCR Not Detected (Not Detect); Serratia marcescens by PCR Not Detected (Not Detect); Staphylococcus aureus by PCR Not Detected (Not Detect); Streptococcus agalactiae(B)PCR Not Detected (Not Detect); Streptococcus by PCR Not Detected (Not Detect); Streptococcus pneumoniae PCR Not Detected (Not Detect); Streptococcus pyogenes (A) PCR Not Detected (Not Detect); vanA/B Vancomycin-Resist Genes ***DETECTED*** (Not Detect)
--- NOTE | 2016-04-13 13:49 | Event Note ---
Date of Encounter: 04/13/16 Time of Encounter: 13:47 Patient admitted for sepsis secondary to cellulitis. Seen at the bedside, complaining of shaking and generalized weakness. She reports that the redness after right lower extremity has actually been better and is chronic. She denies any chest pain, shortness of breath, cough, nausea, vomiting, diarrhea. Denies any burning micturition. Was noted that her blood pressure is growing gram-positive cocci, serology is positive for VRE. Has no episodes of fever, leukocytosis has improved. given VRE positive in serology, will stop vanco and zosyn and will start daptomycin. continue to monitor, follow final blood cx results.
[2016-04-13] MEDS: DAPTOMYCIN IVPB SCH (15:06)
[2016-04-13] MEDS: SODIUM CHLORIDE 0.9% IVPB SCH (15:06)
--- NOTE | 2016-04-13 16:55 | Electrocardiograph Report ---
[address] [address] Test Date: 2016-04-13 Pat Name: Joan Church Department: 112 Room: 2A24 Gender: F Area Director Of Home Health Sales: : 1950 Requested By: Richelle Dunn Order Number: [id number] Reading MD: Julianna Kent Measurements Intervals [place] Rate: 70 P: -8 VA: 177 QRS: 94 QRSD: 110 T: 40 QT: 434 QTc: 456 Interpretive Statements SINUS RHYTHM BORDERLINE RIGHT AXIS DEVIATION Electronically Signed On 04-13-2016 16:53:59 EST by Julianna Kent
[2016-04-13] MEDS ORDERED: Acetaminophen IV 500 MG/50 ML INFUS..BTL IVPB ONE (20:15)
[2016-04-14] MEDS: Piperacillin/Tazobactam 3.375 GM in D5% in Water (Mini-Bag+) 100 ML IVPB SCH ×2 (00:31→08:00)
[2016-04-14] MEDS ORDERED: Vancomycin 1,500 MG in D5% in Water 250 ML IVPB SCH (02:00)
[2016-04-14] MEDS: Acetaminophen 325 MG TABLET PO PRN (04:47)
[2016-04-14] MEDS: *HR* Heparin 5,000 UNIT/ML VIAL SQ SCH ×3 (06:33→21:46)
[2016-04-14] MEDS: Insulin LISPRO 300 UNITS/3 ML VIAL SQ SCH ×7 (07:59→21:46)
[2016-04-14] MEDS: Insulin DETEMIR 100 UNIT/ML X5UNITS SQ SCH ×2 (08:00→21:47)
[2016-04-14] MEDS: Desitin (Zinc Oxide) 56 GM TUBE TP SCH ×2 (08:00→21:48)
[2016-04-14] MEDS: Aspirin Enteric Coated 81 MG Tablet PO SCH (08:00)
[2016-04-14] MEDS: Nystatin Cream 15 GM TUBE TP SCH ×2 (08:00→21:48)
[2016-04-14] MEDS ORDERED: Aminoglycoside Consult 1 EACH MC ONE (08:31)
[2016-04-14 09:10] LABS: Basophils % 0.4 %; Eosinophils # 0.2 K/mcL (0.0-0.6); Hematocrit 29.9 % (35.3-44.9); Hemoglobin 9.3 g/dL (11.5-15.4); Immature Granulocytes % 0.4 % (0-4); Lymphocytes # 2.1 K/mcL (0.6-4.6); Lymphocytes % 27.5 %; Mean Corpuscular HGB Conc 31.1 g/dL (31.6-35.5); Mean Corpuscular Hemoglobin 26.1 pg (28.0-33.3); Mean Corpuscular Volume 83.8 fL (83.0-100.0); Monocytes # 0.9 K/mcL (0.0-1.3); Monocytes % 11.2 %; Neutrophils # 4.5 K/mcL (1.6-8.9); Platelet Count 235 K/mcL (140-400); Red Blood Count 3.57 M/mcL (3.82-4.97); Red Cell Distribution Width 16.5 % (11.5-14.5); Segmented Neutrophils % 58.5 %
[2016-04-14 09:15] LABS: Calcium 9.1 mg/dL (8.6-10.8); Potassium 4.4 mEq/L (3.5-4.5)
--- NOTE | 2016-04-14 14:06 | Internal Med Progress Note ---
Date of Encounter: 04/14/16 Time of Encounter: 13:55 - Assessment and plan (1) VRE bacteremia Current Visit: Yes Status: Acute Assessment and plan: started on IV daptomycin. leycocytosis has improved.no fever. source probably the leg with cellulitis will need line placement for IV antibiotics at az after the repeat blood cx come back negative. not septic at this time. (2) NATALIE (acute kidney injury) Current Visit: Yes Status: Acute Assessment and plan: NATALIE improving. (3) Cellulitis of right leg Current Visit: Yes Status: Acute Assessment and plan: Cellulitis precepitated by chronic venous stasis. Plan as above Following resolution of cellulitis, patient will require follow up with wound care for management of chronic venous stasis (4) Diabetes type 2, uncontrolled Current Visit: Yes Status: Chronic Assessment and plan: Short acting insulin 10u TIDWM Long acting Lantus 20u qam and qhs Accuchecks fasting, ACHS Qualifiers: Diabetes mellitus complication status: with circulatory complication Diabetes mellitus complication detail: with other circulatory complications Diabetes mellitus 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 teacher insulin use: with 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 teacher use Qualified Code(s) : E11.59 - Type 2 diabetes mellitus with other circulatory complications; E11.65 - Type 2 diabetes mellitus with hyperglycemia; Z79.4 - [facility] (current ) use of insulin (5) Morbid obesity Current Visit: No Status: Chronic Qualifiers: Obesity type: unspecified obesity type Qualified Code(s): E66.01 - Morbid ( severe) obesity due to excess calories - Time Spent With Patient 25 - 35 minutes - Subjective Interval history: seen at the bedside, denies any complaints blood cx positive for VRE, started on daptomycin yesterday. - Constitutional Vitals: Temp Pulse Resp BP Pulse Ox 99 F 76 16 137/68 96 04/14/16 10:54 04/14/16 10:54 04/14/16 10:54 04/14/16 10:54 04/14/16 10:54 General appearance: Present: A&O X 3, morbidly obese, pleasant, answers questions appropriately Exam: Head Head exam: Present: atraumatic, normal inspection, normocephalic - Eye Eye exam: Present: EOMI - Neck Neck exam general surgery: Present: full ROM, normal inspection - Respiratory Respiratory exam: Present: CTAB. Absent: respiratory distress, rhonchi, wheezes , tachypnea - Cardiovascular Cardiovascular exam: Present: RRR. Absent: +S1, +S2 - GI/Abdominal GI/Abdominal exam: Present: normal bowel sounds, soft. Absent: hepatomegaly, splenomegaly, tenderness - Specululm exam: Absent: vaginal bleeding, vaginal discharge - Extremities Exam Extremities exam: Present: pedal edema (bilateral legs 2+ pitting edema present from foot to knee), tenderness (to compression of bilateraly legs), warm (right anterior lower leg with erythema, warmth) - Back Exam Back exam: Present: rash noted (lumbar back with rough, erythematous lesion with white, caseous film). Absent: CVA tenderness (L), CVA tenderness (R) - Psychiatric Psychiatric exam: Present: normal affect, normal mood - Skin Skin exam: Present: rash (bilateral inframammary folds with erythema covered with white, caseous film) Internal Medicine: Result - Labs CBC & Chem 7: 04/14/16 08:14 04/14/16 08:14 Labs: Short CBC 04/14/16 Range/Units 08:14 WBC 7.7 (4.3-11.1) K/mcL Hgb 9.3 L (11.5-15.4) g/dL Hct 29.9 L (35.3-44.9) % Plt Count 235 (140-400) K/mcL Neutrophils # 4.5 (1.6-8.9) K/mcL BMP 04/14/16 08:14 Sodium 135 L Potassium 4.4 Chloride 103 Carbon Dioxide 22 BUN 17 Creatinine 1.24 H Glucose 177 H Calcium 9.1 - ABG Interpretation ABG results: PT/INR, D-dimer PT 14.8 Seconds (9.4-12.1) H 04/13/16 00:58 Consult Discharge Plan - Plan Referrals: Azul,Derik Thompson MD [Primary Care Provider] -
[2016-04-14] MEDS: DAPTOMYCIN IVPB SCH (14:45)
[2016-04-14] MEDS: SODIUM CHLORIDE 0.9% IVPB SCH (14:45)
[2016-04-15] MEDS: *HR* Heparin 5,000 UNIT/ML VIAL SQ SCH ×3 (05:37→21:57)
[2016-04-15 08:24] LABS: Basophils % 0.4 %; Eosinophils # 0.2 K/mcL (0.0-0.6); Eosinophils % 3.1 %; Hematocrit 29.4 % (35.3-44.9); Hemoglobin 9.2 g/dL (11.5-15.4); Immature Granulocytes % 0.5 % (0-4); Lymphocytes # 2.5 K/mcL (0.6-4.6); Lymphocytes % 32.8 %; Mean Corpuscular HGB Conc 31.3 g/dL (31.6-35.5); Mean Corpuscular Hemoglobin 26.2 pg (28.0-33.3); Mean Corpuscular Volume 83.8 fL (83.0-100.0); Mean Platelet Volume 9.8 fL (9.4-12.4); Monocytes % 12.9 %; Neutrophils # 3.8 K/mcL (1.6-8.9); Platelet Count 266 K/mcL (140-400); Red Blood Count 3.51 M/mcL (3.82-4.97); Red Cell Distribution Width 16.4 % (11.5-14.5); Segmented Neutrophils % 50.3 %
[2016-04-15 08:39] LABS: BUN/Creatinine Ratio 15 (6-26); Blood Urea Nitrogen 17 mg/dL (7-20); Calcium 9.1 mg/dL (8.6-10.8); Carbon Dioxide 24 mEq/L (19-29); Chloride 101 mEq/L (98-109); Glucose 194 mg/dL (70-99); Osmolality,Calculated 285 (280-300); Potassium 4.3 mEq/L (3.5-4.5); Sodium 134 mEq/L (136-145); eGFR For African Americans > 60 (> 60); eGFR For Non-African Americans 50 (> 60)
[2016-04-15] MEDS: Insulin LISPRO 300 UNITS/3 ML VIAL SQ SCH ×7 (08:45→21:52)
[2016-04-15] MEDS: Insulin DETEMIR 100 UNIT/ML X5UNITS SQ SCH ×2 (08:46→21:57)
[2016-04-15] MEDS: Desitin (Zinc Oxide) 56 GM TUBE TP SCH ×2 (08:47→21:58)
[2016-04-15] MEDS: Aspirin Enteric Coated 81 MG Tablet PO SCH (08:47)
[2016-04-15] MEDS: Nystatin Cream 15 GM TUBE TP SCH ×2 (08:48→21:57)
[2016-04-15] MEDS: DAPTOMYCIN IVPB SCH (14:17)
[2016-04-15] MEDS: SODIUM CHLORIDE 0.9% IVPB SCH (14:17)
--- NOTE | 2016-04-15 14:46 | Internal Med Progress Note ---
Date of Encounter: 04/15/16 Time of Encounter: 14:44 - Assessment and plan (1) VRE bacteremia Current Visit: Yes Status: Acute Assessment and plan: started on IV daptomycin. leycocytosis has improved.no fever. source probably the leg with cellulitis will need line placement tomm for IV antibiotics at dc repeat blood cx pre evans is negative. not septic at this time. (2) NATALIE (acute kidney injury) Current Visit: Yes Status: Acute Assessment and plan: NATALIE has imrpoved.. (3) Cellulitis of right leg Current Visit: Yes Status: Acute Assessment and plan: Cellulitis precepitated by chronic venous stasis. Plan as above Following resolution of cellulitis, patient will require follow up with wound care for management of chronic venous stasis (4) Diabetes type 2, uncontrolled Current Visit: Yes Status: Chronic Assessment and plan: Short acting insulin 10u TIDWM Long acting Lantus 20u qam and qhs Accuchecks fasting, ACHS Qualifiers: Diabetes mellitus complication status: with circulatory complication Diabetes mellitus complication detail: with other circulatory complications Diabetes mellitus exterminator insulin use: with exterminator use Qualified Code(s) : E11.59 - Type 2 diabetes mellitus with other circulatory complications; E11.65 - Type 2 diabetes mellitus with hyperglycemia; Z79.4 - [facility] (current ) use of insulin (5) Morbid obesity Current Visit: No Status: Chronic Qualifiers: Obesity type: unspecified obesity type Qualified Code(s): E66.01 - Morbid ( severe) obesity due to excess calories - Time Spent With Patient 25 - 35 minutes - Subjective Interval history: seen at the bedside, denies any complaints, reports that she feels much better. serology positive for VRE, started on daptomycin , no fever awaiting final blood cx results, repeat blood cx prelim negative - Constitutional Vitals: Temp Pulse Resp BP Pulse Ox 98.0 F 60 16 132/75 92 L 04/15/16 11:31 04/15/16 11:31 04/15/16 11:31 04/15/16 11:31 04/15/16 11:31 General appearance: Present: A&O X 3, morbidly obese, pleasant, answers questions appropriately Exam: - Head Head exam: Present: atraumatic, normal inspection, normocephalic - Eye Eye exam: Present: EOMI - Neck Neck exam general surgery: Present: full ROM, normal inspection - Respiratory Respiratory exam: Present: CTAB. Absent: respiratory distress, rhonchi, wheezes , tachypnea - Cardiovascular Cardiovascular exam: Present: RRR. Absent: +S1, +S2 - GI/Abdominal GI/Abdominal exam: Present: normal bowel sounds, soft. Absent: hepatomegaly, splenomegaly, tenderness - Specululm exam: Absent: vaginal bleeding, vaginal discharge - Extremities Exam Extremities exam: Present: pedal edema (bilateral legs 2+ pitting edema present from foot to knee), non tender - Psychiatric Psychiatric exam: Present: normal affect, normal mood - Skin Skin exam: Present: rash (bilateral inframammary folds with erythema covered with white, caseous film) Internal Medicine: Result - Labs CBC & Chem 7: 04/15/16 08:03 04/15/16 08:03 Labs: Short CBC 04/15/16 Range/Units 08:03 WBC 7.5 (4.3-11.1) K/mcL Hgb 9.2 L (11.5-15.4) g/dL Hct 29.4 L (35.3-44.9) % Plt Count 266 (140-400) K/mcL Neutrophils # 3.8 (1.6-8.9) K/mcL BMP 04/15/16 08:03 Sodium 134 L Potassium 4.3 Chloride 101 Carbon Dioxide 24 BUN 17 Creatinine 1.10 Glucose 194 H Calcium 9.1 - ABG Interpretation ABG results: PT/INR, D-dimer PT 14.8 Seconds (9.4-12.1) H 04/13/16 00:58 Consult Discharge Plan - Plan Referrals: Derik Liang MD [Primary Care Provider] - (web request)
[2016-04-16] MEDS: *HR* Heparin 5,000 UNIT/ML VIAL SQ SCH ×2 (06:12→15:17)
[2016-04-16 07:20] LABS: BUN/Creatinine Ratio 16 (6-26); Blood Urea Nitrogen 16 mg/dL (7-20); Calcium 9.1 mg/dL (8.6-10.8); Carbon Dioxide 24 mEq/L (19-29); Chloride 102 mEq/L (98-109); Glucose 244 mg/dL (70-99); Osmolality,Calculated 291 (280-300); Potassium 4.1 mEq/L (3.5-4.5); Sodium 136 mEq/L (136-145); eGFR For African Americans > 60 (> 60); eGFR For Non-African Americans 56 (> 60)
[2016-04-16 07:22] LABS: Basophils % 0.5 %; Eosinophils # 0.3 K/mcL (0.0-0.6); Eosinophils % 4.1 %; Hematocrit 29.2 % (35.3-44.9); Hemoglobin 8.8 g/dL (11.5-15.4); Immature Granulocytes % 1.2 % (0-4); Lymphocytes # 2.3 K/mcL (0.6-4.6); Lymphocytes % 27.5 %; Mean Corpuscular HGB Conc 30.1 g/dL (31.6-35.5); Mean Corpuscular Hemoglobin 25.4 pg (28.0-33.3); Mean Corpuscular Volume 84.1 fL (83.0-100.0); Mean Platelet Volume 9.7 fL (9.4-12.4); Monocytes # 0.8 K/mcL (0.0-1.3); Monocytes % 9.1 %; Neutrophils # 4.8 K/mcL (1.6-8.9); Platelet Count 255 K/mcL (140-400); Red Blood Count 3.47 M/mcL (3.82-4.97); Red Cell Distribution Width 16.3 % (11.5-14.5); Segmented Neutrophils % 57.6 %
[2016-04-16] MEDS: Insulin LISPRO 300 UNITS/3 ML VIAL SQ SCH ×7 (09:04→23:10)
[2016-04-16] MEDS: Aspirin Enteric Coated 81 MG Tablet PO SCH (09:04)
[2016-04-16] MEDS: Nystatin Cream 15 GM TUBE TP SCH (09:05)
[2016-04-16] MEDS: Desitin (Zinc Oxide) 56 GM TUBE TP SCH (09:05)
--- NOTE | 2016-04-16 09:32 | ECHO - Doppler Report ---
Echocardiogram Name: Joan Church Date of Study: 04/16/2016 Date: 1950 Ht: 65.0 in Medical Record#: [id number] Age: 65 Wt: 357.0 lb Gender: Female BSA: 2.53 Order #: [id number] Location: [facility] Room #: 2A24 Reading Physician: Richar Beltran DO, DAVID, KYM CORBIN Furnace Installer: Rashel Roman RN Ordering Physician: Brittni Hare MD Primary Physician: Derik Liang MD Indications: Bacteremia Impressions: Technically sub-optimal due to poor echocardiographic windows. LVEF 55-60%. Normal LV chamber size and function. Mild concentric left ventricular hypertrophy. Moderate left ventricular diastolic dysfunction. Mildly dilated right ventricle with normal appearing function. Severe biatrial enlargement. Moderate pulmonary hypertension. Estimated RVSP is 53 mmHg. No obvious significant valvular dysfunction. Suprasternal measurement of the ascending aorta/arch mildly dilated (4.3 cm). Image quality inadequate to evaluate for evidence of endocarditis. Consider CYNTHIA if clinically indicated. Left Ventricular Wall Motion: Rest Echo Findings All wall segments showed normal motion. Findings: Study Quality * Technically sub-optimal due to poor echocardiographic windows. ECG Findings * Normal sinus rhythm. Left Ventricle * LVEF 55-60%. * Normal LV chamber size and function. * Mild concentric left ventricular hypertrophy. * Moderate left ventricular diastolic dysfunction. Right Ventricle * Mildly dilated right ventricle with normal appearing function. Left Atrium * Severely dilated left atrium. Right Atrium * Severely dilated right atrium. Interatrial Septum * Interatrial septum not well evaluated. Aortic Valve * Trileaflet aortic valve. * No aortic stenosis. * Trace aortic regurgitation. Mitral Valve * Very mild mitral annular calcification * No mitral stenosis. * Trace mitral regurgitation. Tricuspid Valve * Normal tricuspid valve structure and function. * Trace tricuspid regurgitation. * Mild pulmonary hypertension. * Estimated RVSP is 53 mmHg. * Estimated RA pressure is 5 mmHg. Pulmonic Valve * Pulmonic valve not well visualized. Aorta * Suprasternal measurement of the ascending aorta/arch mildly dilated (4.3 cm). Pericardium * The pericardium appears normal. Pulmonary Artery * Normal visualized portions of the main pulmonary artery. History Hypertension Diabetes Hypercholesteremia Family History of CAD 04/26/2015 a Previous Echo was performed. Measurements: BP: 138/ 79 2D Normal Values RVIDd: 2.60 cm <2.7 cm IVSd: 1.30 cm 0.6 - 1.0 cm LVIDd: 5.20 cm 3.7 - 5.6 cm LVPWd: 1.30 cm 0.6 - 1.1 cm LVIDs: 3.50 cm 1.5 - 3.6 cm LA: 4.30 cm 2.0 - 4.0cm %FS: 32.70 cm >25 % LVOT Diam: 2.00 cm LA volume: 100 Mitral Valve Peak E:.96 m/sec Peak A:.66 m/sec E/A Ratio:1.4 Peak E' Lat Rao:9.16 cm/s Peak E' Med Rao:6.73 cm/s E/E' Lat Ratio:10.5 E/E' Med Ratio:14.2 Aortic Valve AI pressure Half-time: 502.00 msec Tricuspid Valve TV Regurg Peak Grad: 48.00mmHg TV Regurg Peak Rao: 3.45m/sec Updated by Richar Beltran DO, FACLito, EMERALD, KYM on 04/16/2016 9:20:09 AM electronically signed on 04/16/2016 9:24:32 AM with status of Final Wall Motion Connor: 1=Normal, 2=Hypokinesis, 3=Akinesis, 4=Dyskinesis, 5=Aneurysmal, 6=Hyperkinetic, X=Not Visualized (Blank)=Missing
[2016-04-16] MEDS: Insulin DETEMIR 100 UNIT/ML X5UNITS SQ SCH ×2 (09:40→20:34)
[2016-04-16] MEDS: SODIUM CHLORIDE 0.9% IVPB SCH (15:17)
[2016-04-16] MEDS: DAPTOMYCIN IVPB SCH (15:17)
--- NOTE | 2016-04-16 17:30 | Internal Med Progress Note ---
Date of Encounter: 04/16/16 Time of Encounter: 17:28 - Assessment and plan (1) VRE bacteremia Current Visit: Yes Status: Acute Assessment and plan: started on IV daptomycin. leycocytosis has improved.no fever. source probably the leg with cellulitis will need line placement for IV antibiotics at ut repeat blood cx pre evans is negative. not septic at this time. Blood culture shows Enterococcus faecalis that is sensitive to vancomycin, however PCR is growing VRE. Awaiting microbiology to locate final results, please follow-up with microbiology. (2) NATALIE (acute kidney injury) Current Visit: Yes Status: Acute Assessment and plan: NATALIE has imrpoved.. (3) Cellulitis of right leg Current Visit: Yes Status: Acute Assessment and plan: Cellulitis precepitated by chronic venous stasis. Plan as above Following resolution of cellulitis, patient will require follow up with wound care for management of chronic venous stasis Advair now requesting Unna boot, we will order one. Patient has follow-up with podiatry in 10 days. (4) Diabetes type 2, uncontrolled Current Visit: Yes Status: Chronic Assessment and plan: Short acting insulin 10u TIDWM We will increase the Levemir morning dose to 25. 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 serology positive for VRE, started on daptomycin , no fever One set of blood culture positive for Enterococcus faecalis, however PCR is positive for VRE, contacted microbiology and was told to wait for the final result. repeat blood cx prelim negative - Constitutional Vitals: Temp Pulse Resp BP Pulse Ox 98.0 F 69 19 146/79 95 04/16/16 15:38 04/16/16 15:38 04/16/16 15:38 04/16/16 15:38 04/16/16 15:38 General appearance: Present: A&O X 3, morbidly obese, pleasant, answers questions appropriately Exam: - Head Head exam: Present: atraumatic, normal inspection, normocephalic - Eye Eye exam: Present: EOMI - Neck Neck exam general surgery: Present: full ROM, normal inspection - Respiratory Respiratory exam: Present: CTAB. Absent: respiratory distress, rhonchi, wheezes , tachypnea - Cardiovascular Cardiovascular exam: Present: RRR. Absent: +S1, +S2 - GI/Abdominal GI/Abdominal exam: Present: normal bowel sounds, soft. Absent: hepatomegaly, splenomegaly, tenderness - Specululm exam: Absent: vaginal bleeding, vaginal discharge - Extremities Exam Extremities exam: Present: pedal edema (bilateral legs 2+ pitting edema present from foot to knee), non tender - Psychiatric Psychiatric exam: Present: normal affect, normal mood - Skin Skin exam: Present: rash (bilateral inframammary folds with erythema covered with white, caseous film) Internal Medicine: Result - Labs CBC & Chem 7: 04/16/16 06:44 04/16/16 06:44 Labs: Short CBC 04/16/16 Range/Units 06:44 WBC 8.4 (4.3-11.1) K/mcL Hgb 8.8 L (11.5-15.4) g/dL Hct 29.2 L (35.3-44.9) % Plt Count 255 (140-400) K/mcL Neutrophils # 4.8 (1.6-8.9) K/mcL BMP 04/16/16 06:44 Sodium 136 Potassium 4.1 Chloride 102 Carbon Dioxide 24 BUN 16 Creatinine 0.99 Glucose 244 H Calcium 9.1 - ABG Interpretation ABG results: PT/INR, D-dimer PT 14.8 Seconds (9.4-12.1) H 04/13/16 00:58 Consult Discharge Plan - Plan Referrals: Derik Liang MD [Primary Care Provider] - (pt will likely go to rehab...)
[2016-04-17] MEDS: *HR* Heparin 5,000 UNIT/ML VIAL SQ SCH ×4 (00:10→23:58)
[2016-04-17] MEDS: Desitin (Zinc Oxide) 56 GM TUBE TP SCH ×3 (00:10→21:13)
[2016-04-17] MEDS: Nystatin Cream 15 GM TUBE TP SCH ×3 (00:10→21:13)
[2016-04-17] MEDS: Melatonin 3 MG TABLET PO PRN ×2 (00:11→23:58)
[2016-04-17] MEDS: Aspirin Enteric Coated 81 MG Tablet PO SCH (09:02)
[2016-04-17] MEDS: Insulin LISPRO 300 UNITS/3 ML VIAL SQ SCH ×7 (09:03→21:42)
[2016-04-17] MEDS: Insulin DETEMIR 100 UNIT/ML X5UNITS SQ SCH ×2 (09:10→20:54)
[2016-04-17] MEDS ORDERED: Lidocaine 1% 20 ML MDV INFILT ONE (09:57)
--- NOTE | 2016-04-17 11:35 | Discharge Summary ---
Date of Encounter: 04/17/16 Time of Encounter: 14:01 - Discharge Diagnosis (1) Sepsis Priority: Primary Status: Acute Comments: Due to vancomycin-resistant enterococcus Qualifiers: Sepsis type: sepsis due to unspecified organism Qualified Code(s): A41.9 - Sepsis, unspecified organism (2) NATALIE (acute kidney injury) Priority: Secondary Status: Resolved (3) Cellulitis of right leg Priority: Secondary Status: Acute (4) VRE bacteremia Priority: Secondary Status: Acute (5) Morbid obesity Priority: Secondary Status: Chronic Qualifiers: Obesity type: unspecified obesity type Qualified Code(s): E66.01 - Morbid ( severe) obesity due to excess calories - Discharge Medications Prescriptions: Daptomycin 980 mg IV DAILY #9 vial Desitin (Zinc Oxide) [Desitin] 1 appl TP BID #1 tube Home Medications: Aspirin Enteric Coated [Aspirin EC] 81 mg PO DAILY 08/30/15 [History] Fludrocortisone Acetate [Florinef] 0.1 mg PO Q48H 08/30/15 [History] Insulin ASPART [Novolog Flexpen] 20 - 28 unit SQ TID 08/30/15 [History] Insulin Glargine,Hum.rec.anlog [Lantus Solostar] 30 unit SQ HS 08/30/15 [History ] Insulin Glargine,Hum.rec.anlog [Lantus Solostar] 32 unit SQ QAM 08/30/15 [ History] Melatonin 10 mg PO HS PRN 08/30/15 [History] Metformin HCl [Glucophage] 1,000 mg PO BID 08/30/15 [History] [place]-3/Dha/Epa/Fish Oil [Fish Oil Dr 500 mg Softgel] 1 cap PO BID 09/23/15 [ History] Vitamin B Complex [B Complex] 1 tab PO DAILY 09/23/15 [History] Vitamin E (Dl,Tocopheryl Acet) [Vitamin E] 100 unit PO DAILY 09/23/15 [History] Nystatin POWDER [Nystop] 1 appl TP BID 03/26/16 [History] Oxycodone HCl/Acetaminophen [Percocet 5-325 mg Tablet] 1 tab PO Q6H PRN [History] Amlodipine [Norvasc] 5 mg PO DAILY #30 tablet 03/30/16 [Rx] Eucerin Creme 1 appl TP 0000,1200 #2 tube 03/30/16 [Rx] Metoprolol [Lopressor] 50 mg PO BID #60 tablet 03/30/16 [Rx] Daptomycin 980 mg IV DAILY #9 vial 04/17/16 [Rx] Desitin (Zinc Oxide) [Desitin] 1 appl TP BID #1 tube 04/17/16 [Rx] Allergies/Adverse Reactions: Allergies atorvastatin [From Lipitor] Adverse Reaction (Mild, Verified 04/11/16 13:11) Nausea Zolpidem [From Ambien] Adverse Reaction (Mild, Verified 04/11/16 13:11) Hallucinating Procedures/tests Complete & Pending: Procedures Performed prior 72 hours Category Date Time Status EV echocardiogram Routine Y 04/16/16 18:25 Completed Date of admission: 04/13/16 00:36 Primary care physician: Derik Liang MD Consults: 04/13/16 01:52 Consult to Partner Marketing Intern [CONS] Routine Comment: 04/17/16 09:57 Consult to Invasive Line Access Team [CONS] Routine Reason for Consult: Picc Line Insertion Line Type: PICC PICC line indications: terminologist Med/Antibiotic Discharging clinician: Mariam Spivey Anticipated date of discharge: 04/19/16 - Patient Status Disposition: Home Health Service Condition: Fair Functional capacity at discharge: independent ambulation Overall status at discharge: patient is progressing back to baseline - Discharge Instructions Instructions: Cellulitis (DC), Sepsis (DC) Follow Up With: Derik Liang MD [Primary Care Provider] - 04/26/16 10:15 am () - Diet and Activity Activity: resume usual activities as tolerated Diet: diabetic diet, low fat, low cholesterol, low salt diet Hospital course: Ms. Church is a 65 year old female with history of morbid obesity, diabetes mellitus type 2, hyperlipidemia and kidney stones was admitted here after presenting to the hospital with complaints of shaking chills and weakness. She was diagnosed with sepsis due to right lower extremity cellulitis. This had been treated as outpatient with Keflex and Bactrim but has not not improved. She was treated with broad-spectrum IV antibiotics with slow improvement in her symptoms. Her blood culture turned positive for Enterococcus faecalis which was positive for vancomycin-resistant gene. She has since been receiving daptomycin. Her cellulitis has had good response since then and has almost subsided. She is feeling much better now and is stable to be discharged home. She will complete treatment with daptomycin for total of 14 days. - Time Spent with Patient Total time spent providing and/or coordinating discharge services: Greater than 30 minutes (40 min) - Constitutional Vitals: Temp Pulse Resp BP Pulse Ox 98.1 F 77 21 168/87 96 04/17/16 08:37 04/17/16 08:37 04/17/16 08:37 04/17/16 08:37 04/17/16 08:37 General appearance: Present: A&O X 3, morbidly obese, pleasant, answers questions appropriately - Respiratory Respiratory exam: Present: CTAB. Absent: accessory muscle use, rales, rhonchi, wheezes - Cardiovascular Cardiovascular exam: Present: RRR, +S1, +S2. Absent: diastolic murmur, gallop, rubs, systolic murmur - GI/Abdominal GI/Abdominal exam: Present: normal bowel sounds, soft, no peritoneal signs. Absent: distended, tenderness - Extremities Exam Extremities exam: Present: warm, radial pulses palpable and symetrical. Absent : calf tenderness, cyanotic, pedal edema Additional comments: Mild erythema involving the anterior right lower leg without any warmth or tenderness to palpation. - Attending Attestation This document has been at least partially created by [employer] recognition technology by Dr. Spivey. Errors in grammar, wording or other phrases may exist. If errors are found after the documentation is signed, they will be addressed individually in the addendum section of this document when appropriate.
[2016-04-17] MEDS: DAPTOMYCIN IVPB SCH (13:53)
[2016-04-17] MEDS: SODIUM CHLORIDE 0.9% IVPB SCH (13:53)
--- NOTE | 2016-04-17 14:16 | Physician Discharge Referral ---
Home Health/Hosp Referral Info Transfer to: Home Health Provider in Charge Post Discharge: PCP - Diagnosis (1) Sepsis Priority: Primary Status: Acute (2) NATALIE (acute kidney injury) Priority: Secondary Status: Resolved (3) Cellulitis of right leg Priority: Secondary Status: Acute (4) VRE bacteremia Priority: Secondary Status: Acute (5) Morbid obesity Priority: Secondary Status: Chronic - Respiratory Orders Smoking Cessation: Smoking cessation has been advised. For more information, call the [place] Tobacco Quit Line at 3-418-JRRS-NOW. - Diet/Nutrition Diet/Nutrition Orders: No Added Salt (ALICIA), Cardiac (and Diabetic) - Activity Activity Orders: Ambulate - Services Needed Following services are medically necessary services: Nursing, Physical Therapy, Occupational Therapy Home Care Orders: CBC, BMP and CPK levels on 04/23/16 - Transfer Medications Prescriptions: Daptomycin 980 mg IV DAILY #7 vial Desitin (Zinc Oxide) [Desitin] 1 appl TP BID #1 tube Home Medications: Aspirin Enteric Coated [Aspirin EC] 81 mg PO DAILY 08/30/15 [History] Fludrocortisone Acetate [Florinef] 0.1 mg PO Q48H 08/30/15 [History] Insulin ASPART [Novolog Flexpen] 20 - 28 unit SQ TID 08/30/15 [History] Insulin Glargine,Hum.rec.anlog [Lantus Solostar] 30 unit SQ HS 08/30/15 [History ] Insulin Glargine,Hum.rec.anlog [Lantus Solostar] 32 unit SQ QAM 08/30/15 [ History] Melatonin 10 mg PO HS PRN 08/30/15 [History] Metformin HCl [Glucophage] 1,000 mg PO BID 08/30/15 [History] [place]-3/Dha/Epa/Fish Oil [Fish Oil Dr 500 mg Softgel] 1 cap PO BID 09/23/15 [ History] Vitamin B Complex [B Complex] 1 tab PO DAILY 09/23/15 [History] Vitamin E (Dl,Tocopheryl Acet) [Vitamin E] 100 unit PO DAILY 09/23/15 [History] Nystatin POWDER [Nystop] 1 appl TP BID 03/26/16 [History] Oxycodone HCl/Acetaminophen [Percocet 5-325 mg Tablet] 1 tab PO Q6H PRN [History] Amlodipine [Norvasc] 5 mg PO DAILY #30 tablet 03/30/16 [Rx] Eucerin Creme 1 appl TP 0000,1200 #2 tube 03/30/16 [Rx] Metoprolol [Lopressor] 50 mg PO BID #60 tablet 03/30/16 [Rx] Desitin (Zinc Oxide) [Desitin] 1 appl TP BID #1 tube 04/17/16 [Rx] Daptomycin 980 mg IV DAILY #7 vial 04/19/16 [Rx] Allergies/Adverse Reactions: Allergies atorvastatin [From Lipitor] Adverse Reaction (Mild, Verified 04/11/16 13:11) Nausea Zolpidem [From Ambien] Adverse Reaction (Mild, Verified 04/11/16 13:11) Hallucinating Certification: Further, I certify that my clinical findings support that this patient is homebound (i.e. absences from home require considerable and taxing effort and are for medical reasons or synagogue services or infrequently or short duration when for other reasons) because: Homebound Reason: Patient requires assistance of a person or device to safely leave home (Patient with right lower extremity cellulitis requiring IV antibiotics) Attestation: My signature below is to certify that this patient is under my care and that I, or nurse practitioner, or a physician's salon assistant working with me, has a face-to -face encounter with this patient.
[2016-04-18] MEDS: Acetaminophen 325 MG TABLET PO PRN (05:31)
[2016-04-18] MEDS: *HR* Heparin 5,000 UNIT/ML VIAL SQ SCH ×2 (05:31→15:38)
[2016-04-18] MEDS: Aspirin Enteric Coated 81 MG Tablet PO SCH (08:30)
[2016-04-18] MEDS: Insulin DETEMIR 100 UNIT/ML X5UNITS SQ SCH ×2 (08:30→21:16)
[2016-04-18] MEDS: Insulin LISPRO 300 UNITS/3 ML VIAL SQ SCH ×7 (08:31→21:18)
--- NOTE | 2016-04-18 10:08 | Internal Med Progress Note ---
Date of Encounter: 04/18/16 Time of Encounter: 09:05 - Assessment and plan (1) Sepsis Current Visit: Yes Status: Acute Assessment and plan: With Enterococcus faecalis with vancomycin resistant bleeding. On daptomycin. Awaiting insurance approval for outpatient IV daptomycin. Patient ready for discharge Qualifiers: Sepsis type: sepsis due to unspecified organism Qualified Code(s): A41.9 - Sepsis, unspecified organism (2) NATALIE (acute kidney injury) Current Visit: Yes Status: Resolved Assessment and plan: Resolved (3) Cellulitis of right leg Current Visit: Yes Status: Acute Assessment and plan: On IV daptomycin (4) VRE bacteremia Current Visit: Yes Status: Acute Assessment and plan: Improving. (5) Morbid obesity Current Visit: No Status: Chronic Qualifiers: Obesity type: unspecified obesity type Qualified Code(s): E66.01 - Morbid ( severe) obesity due to excess calories - Subjective Interval history: Patient continues to do better. No new complaints at this time. Right lower extremity swelling and erythema is subsiding. - Constitutional Vitals: Temp Pulse Resp BP Pulse Ox 98.4 F 72 17 168/84 97 04/18/16 07:23 04/18/16 07:23 04/18/16 07:23 04/18/16 07:23 04/18/16 07:23 General appearance: Present: A&O X 3, morbidly obese, pleasant, answers questions appropriately - Respiratory Respiratory exam: Present: CTAB. Absent: accessory muscle use, rales, rhonchi, wheezes - Cardiovascular Cardiovascular exam: Present: RRR, +S1, +S2. Absent: diastolic murmur, gallop, rubs, systolic murmur - Extremities Exam Extremities exam: Present: warm, radial pulses palpable and symetrical. Absent : calf tenderness, cyanotic, pedal edema Additional comments: Erythema improving and right lower extremity. No tenderness. Not warm to touch. Internal Medicine: Result - Labs CBC & Chem 7: 04/16/16 06:44 04/16/16 06:44 - ABG Interpretation ABG results: PT/INR, D-dimer PT 14.8 Seconds (9.4-12.1) H 04/13/16 00:58 Consult Discharge Plan - Plan Instructions: Cellulitis (DC), Sepsis (DC) Referrals: [facility] – [place],Derik Thompson MD [Primary Care Provider] - (In 1-2 weeks) Prescriptions: Daptomycin 980 mg IV DAILY #9 vial Desitin (Zinc Oxide) [Desitin] 1 appl TP BID #1 tube - Attending Attestation This document has been at least partially created by [employer] recognition technology by Dr. Spivey. Errors in grammar, wording or other phrases may exist. If errors are found after the documentation is signed, they will be addressed individually in the addendum section of this document when appropriate.
[2016-04-18] MEDS: Nystatin Cream 15 GM TUBE TP SCH ×2 (11:48→21:22)
[2016-04-18] MEDS: Desitin (Zinc Oxide) 56 GM TUBE TP SCH ×2 (11:48→21:22)
[2016-04-18] MEDS: DAPTOMYCIN IVPB SCH (15:20)
[2016-04-18] MEDS: SODIUM CHLORIDE 0.9% IVPB SCH (15:20)
[2016-04-19] MEDS: Acetaminophen 325 MG TABLET PO PRN (00:26)
[2016-04-19] MEDS: Melatonin 3 MG TABLET PO PRN (00:27)
[2016-04-19] MEDS: *HR* Heparin 5,000 UNIT/ML VIAL SQ SCH ×3 (01:48→15:44)
[2016-04-19] MEDS: Insulin LISPRO 300 UNITS/3 ML VIAL SQ SCH ×4 (09:11→12:33)
[2016-04-19] MEDS: Aspirin Enteric Coated 81 MG Tablet PO SCH (09:11)
[2016-04-19] MEDS: Insulin DETEMIR 100 UNIT/ML X5UNITS SQ SCH (09:13)
[2016-04-19] MEDS: Nystatin Cream 15 GM TUBE TP SCH (09:13)
[2016-04-19] MEDS: Desitin (Zinc Oxide) 56 GM TUBE TP SCH (09:13)
[2016-04-19 11:45] VITALS: BP 167/71
--- NOTE | 2016-04-19 12:31 | Internal Med Progress Note ---
Date of Encounter: 04/19/16 Time of Encounter: 10:00 - Assessment and plan (1) Sepsis Current Visit: Yes Status: Acute Assessment and plan: From cellulitis involving vancomycin-resistant enterococcus. Continue daptomycin to complete treatment course. Patient has now been approved for home health and will be discharged home today after she receives her daptomycin today. Qualifiers: Sepsis type: sepsis due to unspecified organism Qualified Code(s): A41.9 - Sepsis, unspecified organism (2) NATALIE (acute kidney injury) Current Visit: Yes Status: Resolved (3) Cellulitis of right leg Current Visit: Yes Status: Acute (4) VRE bacteremia Current Visit: Yes Status: Acute (5) Morbid obesity Current Visit: No Status: Chronic Qualifiers: Obesity type: unspecified obesity type Qualified Code(s): E66.01 - Morbid ( severe) obesity due to excess calories - Subjective Interval history: Patient is awake and alert. Comfortable. Denies any complaints at this time. - Constitutional Vitals: Temp Pulse Resp BP Pulse Ox 97.3 F L 68 18 167/71 95 04/19/16 11:44 04/19/16 11:44 04/19/16 11:44 04/19/16 11:44 04/19/16 11:44 General appearance: Present: A&O X 3, morbidly obese, pleasant, answers questions appropriately - Respiratory Respiratory exam: Present: CTAB. Absent: accessory muscle use, rales, rhonchi, wheezes - Cardiovascular Cardiovascular exam: Present: RRR, +S1, +S2. Absent: diastolic murmur, gallop, rubs, systolic murmur - GI/Abdominal GI/Abdominal exam: Present: normal bowel sounds, soft, no peritoneal signs. Absent: distended, tenderness - Extremities Exam Extremities exam: Present: warm, radial pulses palpable and symetrical. Absent : calf tenderness, cyanotic, pedal edema Additional comments: Mild erythema involving the right lower extremity on the anterior lower part of the leg. No warmth or tenderness to palpation. Internal Medicine: Result - Labs CBC & Chem 7: 04/16/16 06:44 04/16/16 06:44 - ABG Interpretation ABG results: PT/INR, D-dimer PT 14.8 Seconds (9.4-12.1) H 04/13/16 00:58 Consult Discharge Plan - Plan Instructions: Cellulitis (DC), Sepsis (DC) Referrals: Derik galarza MD [Primary Care Provider] - 04/26/16 10:15 am () Prescriptions: Daptomycin 980 mg IV DAILY #7 vial Desitin (Zinc Oxide) [Desitin] 1 appl TP BID #1 tube - Attending Attestation This document has been at least partially created by [employer] recognition technology by Dr. Spivey. Errors in grammar, wording or other phrases may exist. If errors are found after the documentation is signed, they will be addressed individually in the addendum section of this document when appropriate.
[2016-04-19] MEDS: DAPTOMYCIN IVPB SCH (15:38)
[2016-04-19] MEDS: SODIUM CHLORIDE 0.9% IVPB SCH (15:38)
[2016-04-19] MEDS ORDERED: Insulin DETEMIR 100 UNIT/ML X5UNITS SQ SCH (21:00)
== END 2016-04-19 18:00 | disposition home health service (06) | DRG 720 ==
LOC: EMEROO 18:41 → 2ANU 18:41 → SUATTDRO 04-13 00:36
PROVIDERS: ADMIT Nurse Practitioner Family; ATTEND Internal Medicine

== ENCOUNTER 2016-07-11 17:03 | Inpatient (IN) ==
[2016-07-11] MEDS ORDERED: 0.9 % Sodium Chloride 1,000 ML IVC ONE ×2 (18:08→19:24)
[2016-07-11 18:14] LABS: Basophils % 0.1 %; Hematocrit 33.7 % (35.3-44.9); Hemoglobin 10.6 g/dL (11.5-15.4); Immature Granulocytes % 0.6 % (0-4); Lymphocytes # 1.8 K/mcL (0.6-4.6); Lymphocytes % 8.7 %; Mean Corpuscular HGB Conc 31.5 g/dL (31.6-35.5); Mean Corpuscular Hemoglobin 26.4 pg (28.0-33.3); Mean Platelet Volume 9.7 fL (9.4-12.4); Monocytes % 4.2 %; Neutrophils # 17.6 K/mcL (1.6-8.9); Platelet Count 259 K/mcL (140-400); Red Blood Count 4.01 M/mcL (3.82-4.97); Red Cell Distribution Width 16.1 % (11.5-14.5); Segmented Neutrophils % 86.4 %
[2016-07-11 18:15] LABS: Monocytes # 0.9 K/mcL (0.0-1.3)
[2016-07-11] MEDS ORDERED: Vancomycin 2,000 MG in D5% in Water 500 ML IVPB ONE (18:15)
--- NOTE | 2016-07-11 18:45 | Emergency Department Note ---
Disposition Clinical Impression: Sepsis Cellulitis Qualifiers: Site of cellulitis: extremity Site of cellulitis of extremity: lower extremity Laterality: right Qualified Code(s): L03.115 - Cellulitis of right lower limb Disposition: Admitted As Inpatient Condition: Serious General Adult HPI - General Chief complaint: ED Weakness Stated complaint: Gen weakness/redness to legs Time Seen by Provider: 07/11/16 17:29 Source: patient, EMS Limitations: physical limitation Nursing Notes Reviewed: Yes Vital Signs Reviewed: Yes - History of Present Illness HPI Narrative: 65-year-old female with a history of insulin-dependent diabetes, previous cellulitis and bacteremia, and obesity presents to the emergency Department with a chief complaint of a red lower extremity. She was here in April due to lower extremity cellulitis and bacteremia. At that time her blood culture came back positive for vancomycin resistant Enterococcus faecalis. She also had a recent urinalysis grow out ESBL Escherichia coli. She reports she woke up and her right leg was red and swollen again. She has had some subjective fevers and chills. She reports a cough. Denies any abdominal pain or chest pain. Denies any nausea or vomiting. She denies pain in the leg. She denies history of DVT or PE to me. She does not take any anticoagulants. Pain Scale: 8 - Related Data Home Medications Medication Instructions Recorded Confirmed Aspirin Enteric Coated [Aspirin EC] 81 mg PO DAILY 08/30/15 07/11/16 Fludrocortisone Acetate [Florinef] 0.1 mg PO Q48H 08/30/15 07/11/16 Insulin ASPART [Novolog Flexpen] 20 - 28 unit SQ TID 08/30/15 07/11/16 Insulin Glargine,Hum.rec.anlog 30 unit SQ HS 08/30/15 07/11/16 [Lantus Solostar] Insulin Glargine,Hum.rec.anlog 32 unit SQ QAM 08/30/15 07/11/16 [Lantus Solostar] Melatonin 10 mg PO HS PRN 08/30/15 07/11/16 Metformin HCl [Glucophage] 1,000 mg PO BID 08/30/15 07/11/16 Bradford-3/Dha/Epa/Fish Oil [Fish Oil 1 cap PO BID 09/23/15 07/11/16 Dr 500 mg Softgel] Vitamin B Complex [B Complex] 1 tab PO DAILY 09/23/15 07/11/16 Vitamin E (Dl,Tocopheryl Acet) 100 unit PO DAILY 09/23/15 07/11/16 [Vitamin E] Nystatin POWDER [Nystop] 1 appl TP BID 03/26/16 07/11/16 Oxycodone HCl/Acetaminophen 1 tab PO Q6H PRN 03/26/16 07/11/16 [Percocet 5-325 mg Tablet] Calcium Carbonate [Calcium] 500 mg PO DAILY 07/11/16 07/11/16 Cinnamon Bark [Cinnamon] 500 mg PO DAILY 07/11/16 07/11/16 Magnesium Oxide [Mag-Ox] 400 mg PO DAILY 07/11/16 07/11/16 Zinc Acetate [Galzin] 50 mg PO DAILY 07/11/16 07/11/16 Previous Rx's Medication Instructions Recorded Eucerin Creme 1 appl TP 0000,1200 #2 tube 03/30/16 Metoprolol [Lopressor] 50 mg PO BID #60 tablet 03/30/16 amLODIPine [Norvasc] 5 mg PO DAILY #30 tablet 03/30/16 Desitin (Zinc Oxide) [Desitin] 1 appl TP BID #1 tube 04/17/16 Allergies Allergy/AdvReac Type Severity Reaction Status Date / Time atorvastatin [From Lipitor] AdvReac Mild Nausea Verified 05/02/16 21:57 Zolpidem [From Ambien] AdvReac Mild Hallucinati Verified 05/02/16 21:57 ng All systems ED: reviewed and negative except as stated. Constitutional: Reports: chills Cardiovascular: Denies: chest pain Respiratory: Reports: cough. Denies: dyspnea Gastrointestinal: Denies: abdominal pain, nausea, vomiting Integumentary: Reports: rash (Lower extremity) Neurological: Denies: headache, weakness, numbness Past Medical History - Past Medical History Medical history: Reports: diabetes, GERD, hyperlipidemia, kidney stones, osteoporosis, seizures, TIA Surgical history: Reports: appendectomy, cholecystectomy, other ([facility] 01/2014) Psychiatric history: Reports: no psych history - Social History Smoking Status: Never smoker Smokeless Tobacco Status: No Alcohol use: Reports: none Drug use: Reports: none Physical Exam General: Obese-appearing female, resting in bed, no significant distress Cardiovascular: Regular rate and rhythm. S1, S2. No murmurs, rubs or gallops. Respiratory: Breath sounds clear bilaterally. No wheezing, rales or rhonchi. No resp distress Abdomen: Soft, nontender. No guarding, rebound or rigidity. Obese but no tenderness elicited. Eyes: No scleral icterus, conjunctiva clear HENT: \No oral mucosal lesions. Moist mucous membranes Neuro: Patient is able to lift both legs off the bed symmetrically without difficulties. Sensation is intact and symmetric bilaterally Musculoskeletal: No joint swelling or tenderness Skin: On the lower anterior leg there is diffuse erythema that is blanching without any breaks in the skin. It is warm. She has bilateral lower extremity edema without calf tenderness. This area is in between the knee and ankle and does not cross the joint lines. Psych: Appropriate - General Limitations: physical limitation General appearance: alert Course Course Narrative: Presents to emergency Department with new onset erythema of the right lower extremity. History of cellulitis in the past but it appears it has returned. She is febrile at 103. She has a leukocytosis of 20,000. She was started on Lizazolid per pharmacy recommendation as she had vancomycin-resistant enterococcus faecalis. She was not hypotensive and seemed in no distress. She was immediately given IV fluids. We will also start her on Zosyn for her ESBL Escherichia coli. Urinalysis is pending. Chest x-ray is clear. She has mild renal insufficiency. Her lactate is 2.1. 2 L of fluid given in the emergency department. Patient has bee given 2 L, she is not hypotensive or tachycardic at this time and I do not feel that she requires any further aggressive fluid hydration but we will continue a maintenance rate. This I spoke with the on-call hospice, Dr. Pickard who exacerbation, no further orders at this time Vital Signs Temperature 103.6 F H 07/11/16 17:05 Pulse Rate 101 07/11/16 17:05 Respiratory Rate 18 07/11/16 17:05 Blood Pressure 161/84 07/11/16 17:05 O2 Sat by Pulse Oximetry 99 07/11/16 17:05 Temperature 98.8 F 07/13/16 07:25 Pulse Rate 72 07/13/16 07:25 Respiratory Rate 17 07/13/16 07:25 Blood Pressure 122/58 07/13/16 07:25 O2 Sat by Pulse Oximetry 98 05/12/17 07:25 Oxygen Delivery Oxygen Delivery Room Air Medical Decision Making - Lab Data Result diagrams: 07/13/16 04:43 07/13/16 04:43 Lab Results 07/11/16 07/11/16 07/11/16 Range/Units 17:24 17:24 17:24 WBC 20.4 H (4.3-11.1) K/mcL RBC 4.01 (3.82-4.97) M/mcL Hgb 10.6 L (11.5-15.4) g/dL Hct 33.7 L (35.3-44.9) % MCV 84.0 (83.0-100.0) fL MCH 26.4 L (28.0-33.3) pg MCHC 31.5 L (31.6-35.5) g/dL RDW 16.1 H (11.5-14.5) % Plt Count 259 (140-400) K/mcL MPV 9.7 (9.4-12.4) fL Immature Gran % 0.6 (0-4) % Seg Neutrophils % 86.4 % Lymphocytes % 8.7 % Monocytes % 4.2 % Eosinophils % 0.0 % Basophils % 0.1 % Neutrophils # 17.6 H (1.6-8.9) K/mcL Lymphocytes # 1.8 (0.6-4.6) K/mcL Monocytes # 0.9 (0.0-1.3) K/mcL Eosinophils # 0.0 (0.0-0.6) K/mcL Basophils # 0.0 (0.0-0.2) K/mcL Sodium 135 L (136-145) mEq/L Potassium 4.3 (3.5-4.5) mEq/L Chloride 101 (98-109) mEq/L Carbon Dioxide 20 (19-29) mEq/L BUN 18 (7-20) mg/dL Creatinine 1.17 H (0.57-1.11) mg/dL Est GFR ( Amer) 56 L (> 60) Est GFR (Non-Af Amer) 47 L (> 60) BUN/Creatinine Ratio 15 (6-26) Glucose 102 H (70-99) mg/dL Est Mean Plasma Glucose mg/dl Hemoglobin A1c ( - 5.6) % Calculated Osmolality 282 (280-300) Lactic Acid 2.1 (0.5-2.2) mmol/L Calcium 9.1 (8.6-10.8) mg/dL Troponin I (0-0.03) ng/mL Urine Color (Yellow) Urine Clarity (Clear) Urine pH (5.0-8.0) pH Units Ur Specific Cordell (1.010-1.025) Urine Protein (Neg-Trace) mg/dL Urine Glucose (UA) (Normal) mg/dL Urine Ketones (Negative) mg/dL Urine Blood (Negative) Urine Nitrite (Negative) Urine Bilirubin (Negative) Urine Urobilinogen (Normal) mg/dL Ur Leukocyte Esterase (Negative) Urine Microscopic RBC (0-3) per hpf Urine Microscopic WBC (0-3) per hpf Ur Squamous Epith Cells (None-Few) per lpf Urine Bacteria (None-Few) per hpf Hyaline Casts (None-Few) per lpf Ur Culture Indicated? (NO) Specimen Rejected 07/11/16 07/11/16 07/11/16 Range/Units 17:24 21:43 22:33 WBC (4.3-11.1) K/mcL RBC (3.82-4.97) M/mcL Hgb (11.5-15.4) g/dL Hct (35.3-44.9) % MCV (83.0-100.0) fL MCH (28.0-33.3) pg MCHC (31.6-35.5) g/dL RDW (11.5-14.5) % Plt Count (140-400) K/mcL MPV (9.4-12.4) fL Immature Gran % (0-4) % Seg Neutrophils % % Lymphocytes % % Monocytes % % Eosinophils % % Basophils % % Neutrophils # (1.6-8.9) K/mcL Lymphocytes # (0.6-4.6) K/mcL Monocytes # (0.0-1.3) K/mcL Eosinophils # (0.0-0.6) K/mcL Basophils # (0.0-0.2) K/mcL Sodium (136-145) mEq/L Potassium (3.5-4.5) mEq/L Chloride (98-109) mEq/L Carbon Dioxide (19-29) mEq/L BUN (7-20) mg/dL Creatinine (0.57-1.11) mg/dL Est GFR ( Amer) (> 60) Est GFR (Non-Af Amer) (> 60) BUN/Creatinine Ratio (6-26) Glucose (70-99) mg/dL Est Mean Plasma Glucose 146 mg/dl Hemoglobin A1c 6.7 H ( - 5.6) % Calculated Osmolality (280-300) Lactic Acid (0.5-2.2) mmol/L Calcium (8.6-10.8) mg/dL Troponin I 0.01 (0-0.03) ng/mL Urine Color Yellow (Yellow) Urine Clarity Clear (Clear) Urine pH 6.0 (5.0-8.0) pH Units Ur Specific Cordell 1.019 (1.010-1.025) Urine Protein 100 H (Neg-Trace) mg/dL Urine Glucose (UA) Normal (Normal) mg/dL Urine Ketones 15 H (Negative) mg/dL Urine Blood Moderate H (Negative) Urine Nitrite Positive A (Negative) Urine Bilirubin Negative (Negative) Urine Urobilinogen Normal (Normal) mg/dL Ur Leukocyte Esterase Small H (Negative) Urine Microscopic RBC 5-15 H (0-3) per hpf Urine Microscopic WBC 15-30 H (0-3) per hpf Ur Squamous Epith Cells None Seen (None-Few) per lpf Urine Bacteria Many H (None-Few) per hpf Hyaline Casts None Seen (None-Few) per lpf Ur Culture Indicated? YES A (NO) Specimen Rejected 07/11/16 07/11/16 Range/Units 22:33 22:33 WBC (4.3-11.1) K/mcL RBC (3.82-4.97) M/mcL Hgb (11.5-15.4) g/dL Hct (35.3-44.9) % MCV (83.0-100.0) fL MCH (28.0-33.3) pg MCHC (31.6-35.5) g/dL RDW (11.5-14.5) % Plt Count (140-400) K/mcL MPV (9.4-12.4) fL Immature Gran % (0-4) % Seg Neutrophils % % Lymphocytes % % Monocytes % % Eosinophils % % Basophils % % Neutrophils # (1.6-8.9) K/mcL Lymphocytes # (0.6-4.6) K/mcL Monocytes # (0.0-1.3) K/mcL Eosinophils # (0.0-0.6) K/mcL Basophils # (0.0-0.2) K/mcL Sodium (136-145) mEq/L Potassium (3.5-4.5) mEq/L Chloride (98-109) mEq/L Carbon Dioxide (19-29) mEq/L BUN (7-20) mg/dL Creatinine (0.57-1.11) mg/dL Est GFR ( Amer) (> 60) Est GFR (Non-Af Amer) (> 60) BUN/Creatinine Ratio (6-26) Glucose (70-99) mg/dL Est Mean Plasma Glucose mg/dl Hemoglobin A1c ( - 5.6) % Calculated Osmolality (280-300) Lactic Acid (0.5-2.2) mmol/L Calcium (8.6-10.8) mg/dL Troponin I 0.02 (0-0.03) ng/mL Urine Color (Yellow) Urine Clarity (Clear) Urine pH (5.0-8.0) pH Units Ur Specific Cordell (1.010-1.025) Urine Protein (Neg-Trace) mg/dL Urine Glucose (UA) (Normal) mg/dL Urine Ketones (Negative) mg/dL Urine Blood (Negative) Urine Nitrite (Negative) Urine Bilirubin (Negative) Urine Urobilinogen (Normal) mg/dL Ur Leukocyte Esterase (Negative) Urine Microscopic RBC (0-3) per hpf Urine Microscopic WBC (0-3) per hpf Ur Squamous Epith Cells (None-Few) per lpf Urine Bacteria (None-Few) per hpf Hyaline Casts (None-Few) per lpf Ur Culture Indicated? (NO) Specimen Rejected Clotted Attestation Statement - Attestation Attestation: I examined this patient and my medical decision-making was reviewed with the Resident Physician. I agree with the documented findings, disposition and treatment plan as described except to the extent set forth below. Cellulitis/UTI with positive SIRS criteria. Non-toxic appearing, VSS.
[2016-07-11 18:52] LABS: Calcium 9.1 mg/dL (8.6-10.8); Potassium 4.3 mEq/L (3.5-4.5)
[2016-07-11] MEDS ORDERED: Vancomycin 2,000 MG in D5% in Water 250 ML IVPB SCH (19:00)
[2016-07-11] MEDS ORDERED: Piperacillin/Tazobactam 3.375 GM in D5% in Water (Mini-Bag+) 100 ML IVPB ONE (19:24)
[2016-07-11] MEDS ORDERED: *HR* Promethazine 25 MG/ML VIAL IVP PRN (21:42)
[2016-07-11] MEDS ORDERED: D5% in Water 1,000 ML IVC PRN ×2 (21:42→21:53)
[2016-07-11] MEDS ORDERED: Dextrose Gel 15 GM PO PRN ×4 (21:42→21:53)
[2016-07-11] MEDS ORDERED: Naloxone 0.4 MG/ML INJ IVP PRN (21:42)
[2016-07-11] MEDS ORDERED: *HR* Dextrose 50 % in Water (Syg) 50 ML SYRINGE IVP PRN ×2 (21:42→21:53)
[2016-07-11] MEDS ORDERED: *HR* OxyCODONE/APAP 5/325 TABLET PO PRN (21:49)
[2016-07-11 21:52] LABS: Bilirubin,Urine Negative (Negative); Blood,Urine Moderate (Negative); Clarity,Urine Clear (Clear); Color,Urine Yellow (Yellow); Glucose,Urine (UA) Normal (Normal); Ketones,Urine 15 mg/dL (Negative); Leukocyte Esterase,Urine Small (Negative); Nitrite,Urine Positive (Negative); Protein,Urine 100 mg/dL (Neg-Trace); Specific Gravity,Urine 1.019 (1.010-1.025); Urobilinogen,Urine Normal (Normal)
[2016-07-11 21:58] LABS: Bacteria,Urine Many per hpf (None-Few); Hyaline Casts,Urine None Seen per lpf (None-Few); Squamous Epithelial Cell,Urine None Seen per lpf (None-Few); WBC,Urine 15-30 per hpf (0-3)
[2016-07-11] MEDS ORDERED: Vancomycin (wt based) 1,000 MG VIAL IVPB SCH (22:00)
--- NOTE | 2016-07-11 22:18 | Internal Med History&Physical ---
Date of Encounter: 07/11/16 Time of Encounter: 21:35 Assessment and Plan (1) Sepsis Current visit: No Status: Acute 1. Suspect cellulitis and/or urine source (based upon history). 2. No blood cultures or urine sample yet obtained -- will order STAT. 3. Will continue with IV Vancomycin and Zosyn based upon prior culture results. 4. Continue IVF and monitor hemodynamics. 5. If patient develops any hemodynamic instability, consider stress dose steroids. Qualifiers: Sepsis type: sepsis due to unspecified organism Qualified Code(s): A41.9 - Sepsis, unspecified organism (2) Cellulitis Current visit: No Status: Acute 1. Continue antibiotics as above. 2. Consult wound care to assess and follow for possible evolving sacral decubitius ulcer. 3. Likely source of sepsis +/- urine source. Qualifiers: Site of cellulitis: extremity Site of cellulitis of extremity: lower extremity Laterality: right Qualified Code(s): L03.115 - Cellulitis of right lower limb (3) CKD (chronic kidney disease) stage 3, GFR 30-59 ml/min Current visit: Yes Status: Chronic 1. Renal function appears to be at baseline. 2. Monitor renal function and I/O. 3. Continue IVF. 4. Stop Metformin given CKD. (4) Diabetes Current visit: No Status: Chronic 1. Continue home basal insulin with SSI. 2. Adjust dosing as necessary. 3. Given h/o CKD, I recommend formally stopping her Metformin. 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 Heparin SQ. Internal Medicine - H&P: HPI Chief complaint: fevers and chills Admitted From: Emergency Dept Plans for Post Hospital Care: Home History of present illness: Ms. Church is a 65 year old female who presents with a 24-hour history of fevers , chills, and weakness. Because of prior bouts of sepsis in the last year and current symptoms, she and her came in today for further evaluation of the ER. She was running a fever and had leukocytosis. She also had some evidence of cellulitis to her right gluteal area. IV fluids and antibiotics were initiated. However, blood cultures and urine sample have not yet been obtained. I reviewed her old records and old culture results. She did have evidence of ESBL in her urine recently and also Enterococcus faecalis in her blood in April. Initially, there was concern that this was VRE, but culture results revealed organism to be vancomycin sensitive. She has no indwelling catheter in her bladder, veins, or any hardware. She has a history of diabetic foot ulcers in the past, but she has no ulcers presently. She and her both state that she has developed some redness and soreness to her right gluteal /sacral area. She does mobilize, but she is mostly sedentary. She denies any cough, congestion, vomiting, diarrhea, sore throat, chest pain, shortness of breath or abdominal pain. She does complain of dysuria and urgency, however. I reviewed her meds and noted that she is on Florinef. I inquired about any history of a adrenal insufficiency and she could not elaborate and/or confirm she has this. Presently, her blood pressure and electrolytes are stable. We will continue her Florinef, but I will hold off on prescribing hydrocortisone. She may need hydrocortisone and/or other glucocorticoid administration in the event she develops hemodynamic instability and/or electrolyte imbalance. Past Med Surg Social Fam HX - Past Medical History Attestation: Yes The following information was validated with the patient. Source: patient, old records reviewed, obtained from family Medical history: diabetes, GERD, hyperlipidemia, kidney stones, osteoporosis, seizures, TIA Psychiatric history: no psych history - Past Surgical History Surgical History: appendectomy, cholecystectomy, other ([facility] 01/2014) - Social History Smoking Status: Never smoker Smokeless Tobacco Status: No Alcohol use: none Drug use: none Current living situation: Home, With Family Activity Level: Mostly sedentary Recent Out of Country Travel Within the Last 8 Weeks: No - Family History Father Living Status: Hx Family Cardiac Disorders: Yes (HTN) Hx Family Endocrine Disorder: Yes (DM) Hx Family Neuromuscular Disorders: Yes (seizures) Hx Family Neurologic Disorders: Yes Mother Living Status: Hx Family Cancer: Yes (breast) Internal Medicine - H&P: Meds Aspirin Enteric Coated [Aspirin EC] 81 mg PO DAILY 08/30/15 [History] Fludrocortisone Acetate [Florinef] 0.1 mg PO Q48H 08/30/15 [History] Insulin ASPART [Novolog Flexpen] 20 - 28 unit SQ TID 08/30/15 [History] Insulin Glargine,Hum.rec.anlog [Lantus Solostar] 30 unit SQ HS 08/30/15 [History ] Insulin Glargine,Hum.rec.anlog [Lantus Solostar] 32 unit SQ QAM 08/30/15 [ History] Melatonin 10 mg PO HS PRN 08/30/15 [History] Metformin HCl [Glucophage] 1,000 mg PO BID 08/30/15 [History] Phenix-3/Dha/Epa/Fish Oil [Fish Oil Dr 500 mg Softgel] 1 cap PO BID 09/23/15 [ History] Vitamin B Complex [B Complex] 1 tab PO DAILY 09/23/15 [History] Vitamin E (Dl,Tocopheryl Acet) [Vitamin E] 100 unit PO DAILY 09/23/15 [History] Nystatin POWDER [Nystop] 1 appl TP BID 03/26/16 [History] Oxycodone HCl/Acetaminophen [Percocet 5-325 mg Tablet] 1 tab PO Q6H PRN [History] Eucerin Creme 1 appl TP 0000,1200 #2 tube 03/30/16 [Rx] Metoprolol [Lopressor] 50 mg PO BID #60 tablet 03/30/16 [Rx] amLODIPine [Norvasc] 5 mg PO DAILY #30 tablet 03/30/16 [Rx] Desitin (Zinc Oxide) [Desitin] 1 appl TP BID #1 tube 04/17/16 [Rx] Calcium Carbonate [Calcium] 500 mg PO DAILY 07/11/16 [History] Cinnamon Bark [Cinnamon] 500 mg PO DAILY 07/11/16 [History] Magnesium Oxide [Mag-Ox] 400 mg PO DAILY 07/11/16 [History] Zinc Acetate [Galzin] 50 mg PO DAILY 07/11/16 [History] Allergies atorvastatin [From Lipitor] Adverse Reaction (Mild, Verified 05/02/16 21:57) Nausea Zolpidem [From Ambien] Adverse Reaction (Mild, Verified 05/02/16 21:57) Hallucinating - Constitutional Constitutional: chills, fever(s), no night sweats - EENT Eyes: no blurry vision, no change in vision Ears: no ear pain, no tinnitus Nose, mouth and throat: no nasal congestion, no nasal discharge, no sinus pain, no sinus pressure, no sore throat - Cardiovascular Cardiovascular ROS IM: no chest pain, no diaphoresis, no dyspnea, no dyspnea on exertion - Respiratory Respiratory: cough (dry cough), no dyspnea, no hemoptysis, no dyspnea on exertion, no wheezing, no chest congestion, no excessive phlegm production, no change in phlegm color - Gastrointestinal Gastrointestinal: no abdominal pain, no diarrhea, no hematemesis, no hematochezia, no melena, no vomiting - Genitourinary Genitourinary: dysuria, urinary incontinence, urinary urgency, no hematuria - Musculoskeletal Musculoskeletal ROS IM: no arthralgias, no back pain, no joint swelling - Integumentary Integumentary IM: erythema (right gluteal/sacral area and RLE pre-tibial area), no skin ulcer, no jaundice - Neurological Neurological ROS: no dizziness, no focal weakness, no frequent falls, no headache(s) - Psychiatric Psychiatric: no anxiety, no depression - Endocrine Endocrine IM: no cold intolerance, no heat intolerance, no polydipsia, no polyuria - Hematologic/Lymphatic Hematologic/Lymphatic: no easy bruising - Allergic/Immunologic Allergic/Immunologic: no wheezing, no GI upset with certain foods - Constitutional Vitals: Temp Pulse Resp BP Pulse Ox 99.3 F 103 18 130/54 99 07/11/16 21:32 07/11/16 19:49 07/11/16 21:32 07/11/16 21:32 07/11/16 17:05 General appearance: Present: cooperative, mild distress (due to fever; otherwise no distress), A&O X 3, pleasant, answers questions appropriately - Head Head exam: Present: atraumatic, normal inspection - Expanded Head Exam Head exam expanded: Absent: abrasion, contusion, general tenderness - Eye Eye exam: Present: EOMI, normal appearance, PERRL. Absent: scleral icterus Pupils: Present: normal accommodation - ENT ENT exam: Present: mucous membranes dry, normal exam, normal external ear exam, normal oropharynx - Neck Neck exam general surgery: Present: full ROM, supple. Absent: lymphadenopathy, tenderness, nuchal rigidity, thyromegaly - Respiratory Respiratory exam: Present: CTAB. Absent: chest wall tenderness, rales, respiratory distress, rhonchi, wheezes - Cardiovascular Cardiovascular exam: Present: distant heart sounds, RRR, +S1, +S2. Absent: diastolic murmur, systolic murmur - GI/Abdominal GI/Abdominal exam: Present: normal bowel sounds, soft. Absent: guarding, hepatomegaly, mass, rebound, splenomegaly, tenderness Additional comments: soft, obese, no focal findings on palpation - External exam: Present: erythema (inguinal and pannus folds; foul smell) - Extremities Exam Extremities exam: Present: warm (and tender along right pretibial area). Absent : calf tenderness, joint swelling Additional comments: no skin breakdown or ulcers appreciated - Back Exam Back exam: Present: normal inspection. Absent: CVA tenderness (L), CVA tenderness (R) - Neurological Exam Neurological exam: Present: alert, CN II-XII intact, oriented X3, no focal deficits - Psychiatric Psychiatric exam: Present: normal affect, normal mood - Skin Skin exam: Present: dry, erythema (large area of redness, warmth, and mild tenderness to right gluteal area and sacrum -- no skin breakdown noted), warm. Absent: petechiae Additional comments: fungal dermatitis noted in inguinal folds Internal Med - H&P Results - Labs CBC & Chem 7: 07/11/16 17:24 07/11/16 17:24 - EKG Data -: EKG Interpreted by Myself EKG shows normal: sinus rhythm Rate: tachycardia - EKG Data Prior EKG available for review: yes When compared to previous EKG: there are significant changes EKG comments: 07/11/16 22:27 sinus tachycardia with RBBB - Diagnostic Studies Chest x-ray Status: image reviewed by me (negative; lungs clear)
[2016-07-11] MEDS: 0.9 % Sodium Chloride 1,000 ML IVC SCH (22:53)
[2016-07-11] MEDS ORDERED: Promethazine 12.5 MG in 0.9 % Sodium Chloride 50 ML IVPB PRN (22:54)
[2016-07-11 22:55] LABS: Hemoglobin A1C 6.7 %
[2016-07-11] MEDS: Fluconazole 100 MG TABLET PO SCH (22:55)
[2016-07-11] MEDS: *HR* Heparin 5,000 UNIT/ML VIAL SQ SCH (23:00)
[2016-07-11] MEDS: Ketoconazole 2% CRM 15 GM TUBE TP SCH (23:02)
[2016-07-11] MEDS: Eucerin Cream 57 GM TUBE TP SCH (23:03)
[2016-07-12 05:18] LABS: Basophils % 0.2 %; Hematocrit 30.8 % (35.3-44.9); Hemoglobin 9.4 g/dL (11.5-15.4); Immature Granulocytes % 0.9 % (0-4); Lymphocytes # 1.8 K/mcL (0.6-4.6); Lymphocytes % 9.5 %; Mean Corpuscular HGB Conc 30.5 g/dL (31.6-35.5); Mean Corpuscular Hemoglobin 25.9 pg (28.0-33.3); Mean Corpuscular Volume 84.8 fL (83.0-100.0); Mean Platelet Volume 10.2 fL (9.4-12.4); Monocytes % 5.4 %; Neutrophils # 15.8 K/mcL (1.6-8.9); Platelet Count 208 K/mcL (140-400); Red Blood Count 3.63 M/mcL (3.82-4.97); Red Cell Distribution Width 16.3 % (11.5-14.5)
[2016-07-12 05:27] LABS: Albumin 2.6 g/dL (3.5-5.0); Albumin/Globulin Ratio 0.7 (1.1-2.2); Bilirubin,Total 0.9 mg/dL (0.2-1.2); Calcium 8.2 mg/dL (8.6-10.8); Magnesium 1.6 mg/dL (1.6-2.6); Potassium 3.9 mEq/L (3.5-4.5); Total Protein 6.6 g/dL (6.0-8.3)
[2016-07-12 05:47] LABS: INR 1.3; Prothrombin Time 14.4 Seconds (9.4-12.1)
[2016-07-12 05:50] LABS: Activated Partial Thrombo Time 30.6 Seconds (26.0-36.0)
[2016-07-12] MEDS: 0.9 % Sodium Chloride 1,000 ML IVC SCH ×2 (05:56→20:01)
[2016-07-12] MEDS: Piperacillin/Tazobactam 3.375 GM in D5% in Water (Mini-Bag+) 100 ML IVPB SCH ×3 (05:58→20:00)
[2016-07-12] MEDS: Vancomycin 1,750 MG in D5% in Water 500 ML IVPB SCH ×2 (06:38→17:49)
[2016-07-12] MEDS: Insulin LISPRO 300 UNITS/3 ML VIAL SQ SCH ×4 (08:09→20:41)
[2016-07-12] MEDS: *HR* Heparin 5,000 UNIT/ML VIAL SQ SCH ×2 (08:09→17:48)
[2016-07-12] MEDS: Fluconazole 100 MG TABLET PO SCH (08:09)
[2016-07-12] MEDS: Aspirin Enteric Coated 81 MG Tablet PO SCH (08:10)
[2016-07-12] MEDS: amLODIPine 5 MG TABLET PO SCH (08:10)
[2016-07-12] MEDS: Vitamin B Complex/Vit C/Vit E 1 EACH TABLET PO SCH (08:10)
[2016-07-12] MEDS: Desitin (Zinc Oxide) 56 GM TUBE TP SCH ×2 (08:10→20:01)
[2016-07-12] MEDS: Magnesium Oxide 400 MG TABLET PO SCH (08:10)
[2016-07-12] MEDS: Ketoconazole 2% CRM 15 GM TUBE TP SCH ×2 (08:11→20:00)
[2016-07-12] MEDS ORDERED: (Zinc Acetate [Galzin] 50 MG) PO SCH (09:00)
[2016-07-12] MEDS: Insulin DETEMIR 100 UNIT/ML X5UNITS SQ SCH ×2 (09:23→20:41)
[2016-07-12] MEDS: Eucerin Cream 57 GM TUBE TP SCH (12:23)
--- NOTE | 2016-07-12 15:00 | Internal Med Progress Note ---
<John Torres - Last Filed: 07/12/16 15:15> Date of Encounter: 07/12/16 Time of Encounter: 14:56 - Assessment and plan (1) Sepsis Current Visit: Yes Status: Acute Assessment and plan: 65-year-old female presents with chief complaint of fevers. Patient has a few 103 on presentation, with the pulse of 101 respiratory rate 18 and blood pressure 161/84. She has right gluteal erythema that is hot, painful with palpation, nonulcerative. White blood cell count is 20.4, lactic acid is 2.1. Urinalysis shows many white blood cells, positive nitrites and leukocyte esterase. Patient likely has sepsis secondary to suspected cellulitis/urinary tract infection. Patient was started on vancomycin and Zosyn. Her repeat white blood cell count is decreased to 18. She continues to have fevers. Continue IV fluids. Blood cultures pending. Qualifiers: Sepsis type: sepsis due to unspecified organism Qualified Code(s): A41.9 - Sepsis, unspecified organism (2) Cellulitis Current Visit: Yes Status: Acute Assessment and plan: Patient does not currently have any open wound. She has redness of the right gluteal region that is painful with palpation. We will continue vancomycin This is likely the source of sepsis. The cellulitis worsens we will consult wound care. Awaiting blood culture sensitivities. Qualifiers: Site of cellulitis: extremity Site of cellulitis of extremity: lower extremity Laterality: right Qualified Code(s): L03.115 - Cellulitis of right lower limb (3) Renal insufficiency Current Visit: Yes Status: Inactive Assessment and plan: Patient's serum creatinines 1.20. This is slightly elevated from baseline of 1. We will continue IV fluids. Most likely secondary to urinary tract infection. Awaiting urine culture results. (4) Diabetes mellitus Current Visit: Yes Status: Acute Assessment and plan: Hemoglobin A1c is 6.7. Continue 25 units subcutaneous twice a day Levemir. Continue sliding scale insulin. Continue diabetic diet and before meals at bedtime Accu-Cheks. Qualifiers: Diabetes mellitus type: type 2 Diabetes mellitus complication status: with circulatory complication Diabetes mellitus complication detail: with other circulatory complications Diabetes mellitus mcc insulin use: with mcc use Qualified Code(s): E11.59 - Type 2 diabetes mellitus with other circulatory complications; Z79.4 - nursing home (current) use of insulin (5) Yeast dermatitis Current Visit: Yes Status: Acute Assessment and plan: Yeast dermatitis along the left groin skin fold. Continue ketoconazole. (6) DVT prophylaxis Current Visit: Yes Status: Acute Assessment and plan: Continue heparin subcutaneous. (7) UTI (urinary tract infection) Current Visit: Yes Status: Acute Assessment and plan: Patient's urinalysis was positive for nitrites, leukocyte esterase, white blood cells. In the past patient has had ESBL UTI. Awaiting urine cultures. Continue Zosyn. Discontinue Marshall catheter. Qualifiers: Urinary tract infection type: acute cystitis Hematuria presence: without hematuria Qualified Code(s): N30.00 - Acute cystitis without hematuria - Subjective Interval history: 65-year-old female admitted for sepsis secondary to cellulitis and UTI. Patient states that she had fevers of 103, weakness, chills for the past 24-48 hours before admission. Patient states that this felt similar to her previous admission for sepsis secondary to cellulitis in April which she had ESBL UTI and VRE bacteremia secondary to decubitus ulcer in the right lower anterior torres. At that time patient was treated and discharged with daptomycin. Currently her torres is free of wound however there is some redness in the right lower extremity. Patient states that she started having redness and pain with palpation of the right gluteal area. Patient states she is able to walk on her own. She denies having a indwelling Marshall catheter. Patient also denies lightheadedness, blurry vision, chest pain, abdominal pain, nausea, vomiting, diarrhea, dysuria. - Constitutional Vitals: Temp Pulse Resp BP Pulse Ox 101.1 F H 77 16 141/56 98 07/12/16 12:02 07/12/16 12:02 07/12/16 12:02 07/12/16 12:02 07/12/16 12:02 General appearance: Present: cooperative, A&O X 3, morbidly obese, pleasant, answers questions appropriately - Head Head exam: Present: atraumatic, normocephalic - Eye Eye exam: Present: PERRL, conjuntiva pink, sclera anicteric - Neck Neck exam general surgery: Present: supple, trachea midline. Absent: lymphadenopathy - Respiratory Respiratory exam: Present: CTAB. Absent: accessory muscle use, rales, rhonchi, wheezes - Cardiovascular Cardiovascular exam: Present: RRR, +S1, +S2. Absent: diastolic murmur, gallop, rubs, systolic murmur - GI/Abdominal GI/Abdominal exam: Present: normal bowel sounds, soft, no peritoneal signs. Absent: distended, tenderness - Extremities Exam Extremities exam: Present: warm, radial pulses palpable and symetrical. Absent : calf tenderness, cyanotic, pedal edema Additional comments: Mild redness without warmth, discharge on right lower extremity that is chronic. - Skin Additional comments: Patient has erythema on the right gluteal region and hip that is not ulcerative , no discharge, painful with palpation. Internal Medicine: Result - Labs CBC & Chem 7: 07/12/16 01:36 07/12/16 01:36 Labs: Short CBC 07/12/16 Range/Units 01:36 WBC 18.8 H (4.3-11.1) K/mcL Hgb 9.4 L (11.5-15.4) g/dL Hct 30.8 L (35.3-44.9) % Plt Count 208 (140-400) K/mcL Neutrophils # 15.8 H (1.6-8.9) K/mcL BMP 07/12/16 01:36 Sodium 135 L Potassium 3.9 Chloride 104 Carbon Dioxide 18 L BUN 16 Creatinine 1.20 H Glucose 207 H Calcium 8.2 L Cardiac Enzymes 07/12/16 07/12/16 Range/Units 01:36 10:07 Troponin I 0.02 0.02 (0-0.03) ng/mL Liver Function 07/12/16 Range/Units 01:36 Total Bilirubin 0.9 (0.2-1.2) mg/dL AST 41 H (5-34) Units/L ALT 34 (0-55) Units/L Alkaline Phosphatase 89 (38-126) Units/L Albumin 2.6 L (3.5-5.0) g/dL - ABG Interpretation ABG results: PT/INR, D-dimer PT 14.4 Seconds (9.4-12.1) H 07/12/16 05:33 Consult Discharge Plan - Plan Referrals: Derik Liang MD [Primary Care Provider] - <Rene Turner - Last Filed: 07/12/16 19:31> Date of Encounter: 07/12/16 - Assessment and plan (1) Cellulitis Current Visit: Yes Status: Acute Qualifiers: Site of cellulitis: extremity Site of cellulitis of extremity: lower extremity Laterality: right Qualified Code(s): L03.115 - Cellulitis of right lower limb (2) Sepsis Current Visit: Yes Status: Acute Qualifiers: Sepsis type: sepsis due to unspecified organism Qualified Code(s): A41.9 - Sepsis, unspecified organism (3) Diabetes mellitus Current Visit: Yes Status: Acute Qualifiers: Diabetes mellitus type: type 2 Diabetes mellitus complication status: with circulatory complication Diabetes mellitus complication detail: with other circulatory complications 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 Qualified Code(s): E11.59 - Type 2 diabetes mellitus with other circulatory complications; Z79.4 - nursing home (current) use of insulin (4) UTI (urinary tract infection) Current Visit: Yes Status: Acute Qualifiers: Urinary tract infection type: acute cystitis Hematuria presence: without hematuria Qualified Code(s): N30.00 - Acute cystitis without hematuria (5) Morbid obesity Current Visit: No Status: Chronic Qualifiers: Obesity type: due to excess calories Qualified Code(s): E66.01 - Morbid ( severe) obesity due to excess calories (6) Anemia of chronic disease Current Visit: No Status: Chronic - Constitutional Vitals: Temp Pulse Resp BP Pulse Ox 101.1 F H 77 16 141/56 98 07/12/16 12:02 07/12/16 12:02 07/12/16 12:02 07/12/16 12:02 07/12/16 12:02 Internal Medicine: Result - Labs CBC & Chem 7: 07/12/16 01:36 07/12/16 01:36 Labs: Short CBC 07/12/16 Range/Units 01:36 WBC 18.8 H (4.3-11.1) K/mcL Hgb 9.4 L (11.5-15.4) g/dL Hct 30.8 L (35.3-44.9) % Plt Count 208 (140-400) K/mcL Neutrophils # 15.8 H (1.6-8.9) K/mcL BMP 07/12/16 01:36 Sodium 135 L Potassium 3.9 Chloride 104 Carbon Dioxide 18 L BUN 16 Creatinine 1.20 H Glucose 207 H Calcium 8.2 L Cardiac Enzymes 07/12/16 07/12/16 Range/Units 01:36 10:07 Troponin I 0.02 0.02 (0-0.03) ng/mL Liver Function 07/12/16 Range/Units 01:36 Total Bilirubin 0.9 (0.2-1.2) mg/dL AST 41 H (5-34) Units/L ALT 34 (0-55) Units/L Alkaline Phosphatase 89 (38-126) Units/L Albumin 2.6 L (3.5-5.0) g/dL - ABG Interpretation ABG results: PT/INR, D-dimer PT 14.4 Seconds (9.4-12.1) H 07/12/16 05:33 - Attending Attestation I examined this patient and my medical decision-making was reviewed with the Resident Physician on 07/12/16. I agree with the documented findings, disposition and treatment plan as described except to the extent set forth below. Ms Church is currently admitted for sepsis related to cellulitis. She is moderate to high risk due to potential for worsening infection. Ms Church feels oK. No fever or chills. Pain is controlled. No complaints at this time. Exam alert. Comfortable Heart reg No wheeze Buttock with erythema noted. I/P 1. Sepsis 2. Cellulitis Further diagnoses and plan as above.
--- NOTE | 2016-07-12 15:26 | Electrocardiograph Report ---
[place] [id number] Test Date: 2016-07-11 Pat Name: Joan Church Department: 102 Room: 2N2 Gender: F [employer] Operator: : [id number] Requested By: Ismael Burch Order Number: [id number] Reading MD: Derik Kent Measurements Intervals [place] Rate: 100 P: 8 IN: 149 QRS: -73 QRSD: 157 T: 2 QT: 348 QTc: 405 Interpretive Statements SINUS TACHYCARDIA RIGHT BUNDLE BRANCH BLOCK LEFT ANTERIOR FASCICULAR BLOCK Electronically Signed On 07-12-2016 15:24:39 EDT by Derik Kent
[2016-07-12] MEDS: Acetaminophen 325 MG TABLET PO PRN (19:23)
[2016-07-13] MEDS: *HR* Heparin 5,000 UNIT/ML VIAL SQ SCH ×4 (00:03→23:40)
[2016-07-13] MEDS: *HR* OxyCODONE/APAP 5/325 TABLET PO PRN ×2 (00:04→06:12)
[2016-07-13] MEDS: Eucerin Cream 57 GM TUBE TP SCH ×3 (00:05→21:58)
[2016-07-13] MEDS: Piperacillin/Tazobactam 3.375 GM in D5% in Water (Mini-Bag+) 100 ML IVPB SCH ×3 (04:33→21:52)
[2016-07-13 05:07] LABS: Basophils % 0.2 %; Eosinophils # 0.1 K/mcL (0.0-0.6); Eosinophils % 0.9 %; Hematocrit 27.1 % (35.3-44.9); Hemoglobin 8.6 g/dL (11.5-15.4); Immature Granulocytes % 1.1 % (0-4); Lymphocytes # 2.5 K/mcL (0.6-4.6); Lymphocytes % 17.2 %; Mean Corpuscular HGB Conc 31.7 g/dL (31.6-35.5); Mean Corpuscular Hemoglobin 26.8 pg (28.0-33.3); Mean Corpuscular Volume 84.4 fL (83.0-100.0); Mean Platelet Volume 9.8 fL (9.4-12.4); Monocytes # 1.1 K/mcL (0.0-1.3); Monocytes % 7.7 %; Neutrophils # 10.5 K/mcL (1.6-8.9); Platelet Count 186 K/mcL (140-400); Red Blood Count 3.21 M/mcL (3.82-4.97); Red Cell Distribution Width 16.2 % (11.5-14.5); Segmented Neutrophils % 72.9 %
[2016-07-13 05:25] LABS: Calcium 8.1 mg/dL (8.6-10.8); Magnesium 1.8 mg/dL (1.6-2.6); Potassium 3.8 mEq/L (3.5-4.5)
[2016-07-13] MEDS: Vancomycin 1,750 MG in D5% in Water 500 ML IVPB SCH (06:12)
[2016-07-13] MEDS: 0.9 % Sodium Chloride 1,000 ML IVC SCH (06:51)
[2016-07-13] MEDS ORDERED: Aminoglycoside Consult 1 EACH MC ONE (08:15)
[2016-07-13] MEDS: Vitamin B Complex/Vit C/Vit E 1 EACH TABLET PO SCH (08:33)
[2016-07-13] MEDS: Magnesium Oxide 400 MG TABLET PO SCH (08:33)
[2016-07-13] MEDS: Aspirin Enteric Coated 81 MG Tablet PO SCH (08:33)
[2016-07-13] MEDS: amLODIPine 5 MG TABLET PO SCH (08:34)
[2016-07-13] MEDS: Ketoconazole 2% CRM 15 GM TUBE TP SCH ×2 (08:34→21:58)
[2016-07-13] MEDS: Insulin LISPRO 300 UNITS/3 ML VIAL SQ SCH ×4 (08:34→21:56)
[2016-07-13] MEDS: Desitin (Zinc Oxide) 56 GM TUBE TP SCH ×2 (08:35→21:58)
[2016-07-13] MEDS ORDERED: Sennosides/Docusate Sodium TABLET PO PRN (11:16)
[2016-07-13] MEDS: Insulin DETEMIR 100 UNIT/ML X5UNITS SQ SCH ×2 (11:40→21:56)
[2016-07-13] MEDS: Miconazole 2% cream 118 GM TUBE TP SCH ×2 (13:36→21:58)
[2016-07-13] MEDS: DAPTOmycin 700 MG in 0.9 % Sodium Chloride 100 ML IVPB SCH (15:22)
--- NOTE | 2016-07-13 15:34 | Internal Med Progress Note ---
<John Torres - Last Filed: 07/13/16 15:29> Date of Encounter: 07/13/16 Time of Encounter: 15:29 - Assessment and plan (1) Sepsis Current Visit: Yes Status: Acute Assessment and plan: 65-year-old female presents with chief complaint of fevers. Patient has a few 103 on presentation, with the pulse of 101 respiratory rate 18 and blood pressure 161/84. She has right gluteal erythema that is hot, painful with palpation, nonulcerative. White blood cell count is 20.4, lactic acid is 2.1. Urinalysis shows many white blood cells, positive nitrites and leukocyte esterase. Patient likely has sepsis secondary to suspected cellulitis/urinary tract infection. Continues to spike fever. Patient was started on vancomycin and Zosyn. However, last admission was patient was found to have VRE on wound culture. Will change to daptomycin and d/ c vancomycin. WBC decreased to 14. Continue IV fluids. Blood cultures pending. monitor CPK as initial was 285 which may be 2nd to patient having sedentary lifestyle. Qualifiers: Sepsis type: sepsis due to unspecified organism Qualified Code(s): A41.9 - Sepsis, unspecified organism (2) Cellulitis Current Visit: Yes Status: Acute Assessment and plan: Patient does not currently have any open wound. She has redness of the right gluteal region that is painful with palpation. d/c vanc and start daptomycin. This is likely the source of sepsis. The cellulitis worsens we will consult wound care. Awaiting blood culture sensitivities. outlined right gluteal cellulitis borders. Qualifiers: Site of cellulitis: extremity Site of cellulitis of extremity: lower extremity Laterality: right Qualified Code(s): L03.115 - Cellulitis of right lower limb (3) Renal insufficiency Current Visit: Yes Status: Inactive Assessment and plan: Patient's serum creatinines 1.20. This is slightly elevated from baseline of 1. We will continue IV fluids. Most likely secondary to urinary tract infection. continue zosyn urine culture pending. (4) Diabetes mellitus Current Visit: Yes Status: Acute Assessment and plan: Hemoglobin A1c is 6.7. Continue 25 units subcutaneous twice a day Levemir. Continue sliding scale insulin. Continue diabetic diet and before meals at bedtime Accu-Cheks. 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 Continue ketoconazole topical. (6) DVT prophylaxis Current Visit: Yes Status: Acute Assessment and plan: Continue heparin subcutaneous. (7) UTI (urinary tract infection) Current Visit: Yes Status: Acute Assessment and plan: Patient's urinalysis was positive for nitrites, leukocyte esterase, white blood cells. In the past patient has had ESBL UTI. Awaiting urine cultures. Continue Zosyn. Qualifiers: Urinary tract infection type: acute cystitis Hematuria presence: without hematuria Qualified Code(s): N30.00 - Acute cystitis without hematuria - Subjective Interval history: Patient states she continues to have pain on her right gluteal region to touch. She denies cp, nausea, abodminal pain, blurry vision, leg pain, back pain.. States she has not had a bowel movement since Saturday. Patient had a fever of 101.3 last night. - Constitutional Vitals: Temp Pulse Resp BP Pulse Ox 98.2 F 68 15 125/60 94 07/13/16 15:21 07/13/16 15:21 07/13/16 15:21 07/13/16 15:21 07/13/16 15:21 General appearance: Present: cooperative, A&O X 3, morbidly obese, pleasant, answers questions appropriately - Respiratory Respiratory exam: Present: CTAB. Absent: accessory muscle use, rales, rhonchi, wheezes - Cardiovascular Cardiovascular exam: Present: RRR, +S1, +S2. Absent: diastolic murmur, gallop, rubs, systolic murmur - GI/Abdominal GI/Abdominal exam: Present: normal bowel sounds, soft, no peritoneal signs. Absent: distended, tenderness - Extremities Exam Extremities exam: Present: warm, radial pulses palpable and symetrical. Absent : calf tenderness, cyanotic, pedal edema - Skin Additional comments: Stasis dermatitis in the right lower extremity worse than yesterday. In large name erythema in the right gluteal region indurated. Internal Medicine: Result - Labs CBC & Chem 7: 07/13/16 04:43 07/13/16 04:43 Labs: Short CBC 07/13/16 Range/Units 04:43 WBC 14.4 H (4.3-11.1) K/mcL Hgb 8.6 L (11.5-15.4) g/dL Hct 27.1 L (35.3-44.9) % Plt Count 186 (140-400) K/mcL Neutrophils # 10.5 H (1.6-8.9) K/mcL BMP 07/13/16 04:43 Sodium 135 L Potassium 3.8 Chloride 103 Carbon Dioxide 23 BUN 16 Creatinine 1.29 H Glucose 187 H Calcium 8.1 L - ABG Interpretation ABG results: PT/INR, D-dimer PT 14.4 Seconds (9.4-12.1) H 07/12/16 05:33 - Impressions Impressions Abdomen/Pelvis CT 07/13/16 09:45 IMPRESSION: Asymmetric induration along the lateral margin of right hip and thigh and posterior right buttock, compatible with given patient history of cellulitis. No drainable collection is identified. Mildly enlarged bilateral inguinal lymph nodes, likely reactive. Additional findings as above. D/ / Sheldon Hinojosa MD / Sheldon Hinojosa MD Interpreting Provider: Sheldon Hinojosa MD Consult Discharge Plan - Plan [facility] Provider[facility] - 08/03/16 11:00 am <Rene Turner - Last Filed: 07/14/16 16:59> Date of Encounter: 07/14/16 - Assessment and plan (1) Cellulitis Current Visit: Yes Status: Acute Qualifiers: Site of cellulitis: extremity Site of cellulitis of extremity: lower extremity Laterality: right Qualified Code(s): L03.115 - Cellulitis of right lower limb (2) Sepsis Current Visit: Yes Status: Acute Qualifiers: Sepsis type: sepsis due to unspecified organism Qualified Code(s): A41.9 - Sepsis, unspecified organism (3) Diabetes mellitus Current Visit: Yes Status: Acute Qualifiers: Diabetes mellitus type: type 2 Diabetes mellitus complication status: with circulatory complication Diabetes mellitus complication detail: with other circulatory complications Diabetes mellitus fpc insulin use: with exterminator termite use Qualified Code(s): E11.59 - Type 2 diabetes mellitus with other circulatory complications; Z79.4 - exterminator termite (current) use of insulin (4) UTI (urinary tract infection) Current Visit: Yes Status: Acute Qualifiers: Urinary tract infection type: acute cystitis Hematuria presence: without hematuria Qualified Code(s): N30.00 - Acute cystitis without hematuria (5) Morbid obesity Current Visit: No Status: Chronic Qualifiers: Obesity type: due to excess calories Qualified Code(s): E66.01 - Morbid ( severe) obesity due to excess calories (6) Anemia of chronic disease Current Visit: No Status: Chronic - Constitutional Vitals: Temp Pulse Resp BP Pulse Ox 98.1 F 61 18 122/54 98 07/14/16 12:11 07/14/16 12:11 07/14/16 12:11 07/14/16 12:11 07/14/16 12:11 Internal Medicine: Result - Labs CBC & Chem 7: 07/14/16 04:08 07/14/16 04:08 Labs: Short CBC 07/14/16 Range/Units 04:08 WBC 10.1 (4.3-11.1) K/mcL Hgb 8.2 L (11.5-15.4) g/dL Hct 26.8 L (35.3-44.9) % Plt Count 189 (140-400) K/mcL Neutrophils # 7.0 (1.6-8.9) K/mcL BMP 07/14/16 04:08 Sodium 137 Potassium 3.9 Chloride 105 Carbon Dioxide 23 BUN 17 Creatinine 1.23 H Glucose 136 H Calcium 8.5 L - ABG Interpretation ABG results: PT/INR, D-dimer PT 14.4 Seconds (9.4-12.1) H 07/12/16 05:33 - Attending Attestation I examined this patient and my medical decision-making was reviewed with the Resident Physician on 07/13/16. I agree with the documented findings, disposition and treatment plan as described except to the extent set forth below. Ms. Church is currently admitted for cellulitis and sepsis. She remains moderate to high risk due to need for IV abx and management of cellulitis. Ms. Church is still feeling very poorly. She continues to have fevers and the redness has not improved. No CP or SOB. Leg still very erythematous as well. Exam Alert. Large area of erythema on R hip. Indurated. No fluctuance Stasis dermatitis R leg No wheeze Heart reg I/P 1. Cellulitis R hip 2. Stasis dermatitis Further diagnoses and plan as above.
[2016-07-14] MEDS: *HR* OxyCODONE/APAP 5/325 TABLET PO PRN ×2 (00:23→23:52)
[2016-07-14] MEDS: Piperacillin/Tazobactam 3.375 GM in D5% in Water (Mini-Bag+) 100 ML IVPB SCH ×3 (04:37→23:53)
[2016-07-14 04:45] LABS: Basophils % 0.1 %; Eosinophils # 0.5 K/mcL (0.0-0.6); Eosinophils % 5.1 %; Hematocrit 26.8 % (35.3-44.9); Hemoglobin 8.2 g/dL (11.5-15.4); Immature Granulocytes % 0.9 % (0-4); Lymphocytes # 1.7 K/mcL (0.6-4.6); Lymphocytes % 17.2 %; Mean Corpuscular HGB Conc 30.6 g/dL (31.6-35.5); Mean Corpuscular Hemoglobin 26.1 pg (28.0-33.3); Mean Corpuscular Volume 85.4 fL (83.0-100.0); Mean Platelet Volume 10.4 fL (9.4-12.4); Monocytes # 0.7 K/mcL (0.0-1.3); Monocytes % 7.3 %; Platelet Count 189 K/mcL (140-400); Red Blood Count 3.14 M/mcL (3.82-4.97); Segmented Neutrophils % 69.4 %
[2016-07-14 05:02] LABS: Calcium 8.5 mg/dL (8.6-10.8); Potassium 3.9 mEq/L (3.5-4.5)
[2016-07-14] MEDS: Ketoconazole 2% CRM 15 GM TUBE TP SCH ×2 (08:30→22:43)
[2016-07-14] MEDS: Miconazole 2% cream 118 GM TUBE TP SCH ×2 (08:30→22:43)
[2016-07-14] MEDS: Desitin (Zinc Oxide) 56 GM TUBE TP SCH ×2 (08:30→22:43)
[2016-07-14] MEDS: Vitamin B Complex/Vit C/Vit E 1 EACH TABLET PO SCH (08:31)
[2016-07-14] MEDS: Insulin LISPRO 300 UNITS/3 ML VIAL SQ SCH ×4 (08:31→22:42)
[2016-07-14] MEDS: *HR* Heparin 5,000 UNIT/ML VIAL SQ SCH ×3 (08:31→23:52)
[2016-07-14] MEDS: Insulin DETEMIR 100 UNIT/ML X5UNITS SQ SCH ×2 (08:31→22:42)
[2016-07-14] MEDS: amLODIPine 5 MG TABLET PO SCH (08:31)
[2016-07-14] MEDS: Aspirin Enteric Coated 81 MG Tablet PO SCH (08:32)
[2016-07-14] MEDS: Magnesium Oxide 400 MG TABLET PO SCH (08:32)
--- NOTE | 2016-07-14 11:17 | Internal Med Progress Note ---
<Aiyana Alvarenga - Last Filed: 07/14/16 14:29> Date of Encounter: 07/14/16 Time of Encounter: 11:00 - Assessment and plan (1) Sepsis Current Visit: Yes Status: Acute Assessment and plan: 65-year-old female presents with chief complaint of fevers. Patient has a few 103 on presentation, with the pulse of 101 respiratory rate 18 and blood pressure 161/84. She has right gluteal erythema that is hot, painful with palpation, nonulcerative. White blood cell count is 20.4, lactic acid is 2.1. Urine culture positive for ESBL(+) E. coli. Sepsis likley secondary to cellulitis and urinary tract infection. Improves as fever, tachycardia and leukocytosis resolved. Continue IV daptomycin and Zosyn. Qualifiers: Sepsis type: sepsis due to unspecified organism Qualified Code(s): A41.9 - Sepsis, unspecified organism (2) Cellulitis Current Visit: Yes Status: Acute Assessment and plan: Erythema of the right gluteal region that is painful with palpation but no open wound noted. Likely the source of sepsis. CT A/P showed right gluteal induration but no drainable collection. Improves as the size of erythema and tenderness to palpation decrease after patient was switched to daptomycin. CK decreases from 285 yesterday to 209 today. Will continue daptomycin for now and repeat CK in a week if patient is still on daptomycin at that time. Qualifiers: Site of cellulitis: extremity Site of cellulitis of extremity: lower extremity Laterality: right Qualified Code(s): L03.115 - Cellulitis of right lower limb (3) UTI (urinary tract infection) Current Visit: Yes Status: Acute Assessment and plan: Urine culture grew ESBL(+) E. coli sensitive to amikacin, cefoxitin, ertapenem, gentamicin, meropenem, nitrofurantoin, Zosyn, tigecycline, tobramycin and TMP/ SMZ. Continue IV Zosyn. Qualifiers: Urinary tract infection type: acute cystitis Hematuria presence: without hematuria Qualified Code(s): N30.00 - Acute cystitis without hematuria (4) Renal insufficiency Current Visit: Yes Status: Acute Assessment and plan: Patient's serum creatinines 1.20. This is slightly elevated from baseline of 1. Most likely secondary to sepsis secondary to right gluteal cellulitis and urinary tract infection. Stable as SCr 1.23 today. Continue current antibiotic regimen. Avoid nephrotoxin. Continue to monitor renal function and electrolytes. (5) Yeast dermatitis Current Visit: Yes Status: Acute Assessment and plan: Yeast dermatitis along the left groin skin fold. Continue ketoconazole topical. (6) Diabetes mellitus Current Visit: Yes Status: Acute Assessment and plan: Hemoglobin A1c is 6.7. Continue 25 units subcutaneous twice a day Levemir. Continue sliding scale insulin. Continue diabetic diet and before meals at bedtime Accu-Cheks. 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 - Subjective Interval history: Ms. Church is currently admitted for sepsis secondary to right gluteal cellulitis and UTI. Patient is high risk due to her significant infection requiring IV antibiotics and potential worsening of infection. No significant event noted overnight. Patient was seen and examined this morning. Patient reports feeling much better today as her intermittent spike fever resolved and right hip pain reduced. Patient also reports having productive cough with clear sputum. Patient denies shortness of breath, chest pain, nausea, vomiting, diarrhea. - Constitutional Vitals: Temp Pulse Resp BP Pulse Ox 97.9 F 67 17 158/62 96 07/14/16 07:30 07/14/16 07:30 07/14/16 07:30 07/14/16 07:30 07/14/16 08:30 General appearance: Present: cooperative, A&O X 3, morbidly obese, pleasant, answers questions appropriately - Head Head exam: Present: atraumatic, normocephalic - Eye Eye exam: Present: EOMI, PERRL, conjuntiva pink, sclera anicteric - Neck Neck exam general surgery: Present: supple, trachea midline. Absent: lymphadenopathy - Respiratory Respiratory exam: Present: decreased breath sounds. Absent: accessory muscle use, rales, rhonchi, wheezes - Cardiovascular Cardiovascular exam: Present: RRR, +S1, +S2. Absent: diastolic murmur, gallop, rubs, systolic murmur - GI/Abdominal GI/Abdominal exam: Present: normal bowel sounds, soft, no peritoneal signs. Absent: distended, tenderness - Extremities Exam Extremities exam: Present: warm, radial pulses palpable and symetrical. Absent : calf tenderness, cyanotic, pedal edema - Neurological Exam Neurological exam: Present: CN II-XII intact, oriented X3, no focal deficits. Absent: pronater drift, facial droop, speech deficit - Skin Additional comments: Right gluteal erythema decreases in size with less tenderness to palpation and not hot to touch. Internal Medicine: Result - Labs CBC & Chem 7: 07/14/16 04:08 07/14/16 04:08 Labs: Short CBC 07/14/16 Range/Units 04:08 WBC 10.1 (4.3-11.1) K/mcL Hgb 8.2 L (11.5-15.4) g/dL Hct 26.8 L (35.3-44.9) % Plt Count 189 (140-400) K/mcL Neutrophils # 7.0 (1.6-8.9) K/mcL BMP 07/14/16 04:08 Sodium 137 Potassium 3.9 Chloride 105 Carbon Dioxide 23 BUN 17 Creatinine 1.23 H Glucose 136 H Calcium 8.5 L - ABG Interpretation ABG results: PT/INR, D-dimer PT 14.4 Seconds (9.4-12.1) H 07/12/16 05:33 Consult Discharge Plan - Plan Referrals: Derik Liang MD [Primary Care Provider] - 08/03/16 11:00 am <Rene Turner - Last Filed: 07/14/16 18:37> Date of Encounter: 07/14/16 - Assessment and plan (1) Cellulitis Current Visit: Yes Status: Acute Qualifiers: Site of cellulitis: extremity Site of cellulitis of extremity: lower extremity Laterality: right Qualified Code(s): L03.115 - Cellulitis of right lower limb (2) Sepsis Current Visit: Yes Status: Acute Qualifiers: Sepsis type: sepsis due to unspecified organism Qualified Code(s): A41.9 - Sepsis, unspecified organism (3) Diabetes mellitus Current Visit: Yes Status: Acute Qualifiers: Diabetes mellitus type: type 2 Diabetes mellitus complication status: with circulatory complication Diabetes mellitus complication detail: with other circulatory complications Diabetes mellitus napper fixer insulin use: with napper fixer use Qualified Code(s): E11.59 - Type 2 diabetes mellitus with other circulatory complications; 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 (4) UTI (urinary tract infection) Current Visit: Yes Status: Acute Qualifiers: Urinary tract infection type: acute cystitis Hematuria presence: without hematuria Qualified Code(s): N30.00 - Acute cystitis without hematuria (5) Morbid obesity Current Visit: No Status: Chronic Qualifiers: Obesity type: due to excess calories Qualified Code(s): E66.01 - Morbid ( severe) obesity due to excess calories (6) Anemia of chronic disease Current Visit: No Status: Chronic - Constitutional Vitals: Temp Pulse Resp BP Pulse Ox 97.9 F 73 16 167/80 97 07/14/16 17:12 07/14/16 17:12 07/14/16 17:12 07/14/16 17:12 07/14/16 17:12 Internal Medicine: Result - Labs CBC & Chem 7: 07/14/16 04:08 07/14/16 04:08 Labs: Short CBC 07/14/16 Range/Units 04:08 WBC 10.1 (4.3-11.1) K/mcL Hgb 8.2 L (11.5-15.4) g/dL Hct 26.8 L (35.3-44.9) % Plt Count 189 (140-400) K/mcL Neutrophils # 7.0 (1.6-8.9) K/mcL BMP 07/14/16 04:08 Sodium 137 Potassium 3.9 Chloride 105 Carbon Dioxide 23 BUN 17 Creatinine 1.23 H Glucose 136 H Calcium 8.5 L - ABG Interpretation ABG results: PT/INR, D-dimer PT 14.4 Seconds (9.4-12.1) H 07/12/16 05:33 - Attending Attestation I examined this patient and my medical decision-making was reviewed with the Resident Physician on 07/14/16. I agree with the documented findings, disposition and treatment plan as described except to the extent set forth below. Ms. Church is currently admitted for acute cellulitis of buttocks/gluteal region with hx of VRE. He remains moderate risk due to potential for worsening infectious symptoms. Ms. Church is feeling better today after change in IV abx. She has had no fever. Redness is receding. No GI symptoms. Has been up and around better. Exam alert. Comfortable Heart reg No wheeze Erythema improving I/P 1. Cellulitis gluteal region - on IV daptomycin 2. Hx of VRE 3. Stasis dermatitis Further diagnoses and plan as above.
[2016-07-14] MEDS ORDERED: GuaiFENesin/Codeine Oral Soln 5 ML UDC PO PRN (12:49)
[2016-07-14] MEDS: Eucerin Cream 57 GM TUBE TP SCH ×2 (13:14→22:42)
[2016-07-14] MEDS: Acetaminophen 325 MG TABLET PO PRN (18:37)
[2016-07-14] MEDS: DAPTOmycin 700 MG in 0.9 % Sodium Chloride 100 ML IVPB SCH (23:54)
[2016-07-15] MEDS: Piperacillin/Tazobactam 3.375 GM in D5% in Water (Mini-Bag+) 100 ML IVPB SCH ×4 (02:02→23:30)
[2016-07-15 03:23] LABS: Basophils % 0.2 %; Eosinophils # 0.4 K/mcL (0.0-0.6); Eosinophils % 3.8 %; Hematocrit 27.1 % (35.3-44.9); Hemoglobin 8.2 g/dL (11.5-15.4); Immature Granulocytes % 1.7 % (0-4); Lymphocytes # 1.7 K/mcL (0.6-4.6); Lymphocytes % 17.9 %; Mean Corpuscular HGB Conc 30.3 g/dL (31.6-35.5); Mean Corpuscular Hemoglobin 25.8 pg (28.0-33.3); Mean Corpuscular Volume 85.2 fL (83.0-100.0); Mean Platelet Volume 10.2 fL (9.4-12.4); Monocytes # 0.8 K/mcL (0.0-1.3); Monocytes % 8.8 %; Neutrophils # 6.3 K/mcL (1.6-8.9); Platelet Count 235 K/mcL (140-400); Red Blood Count 3.18 M/mcL (3.82-4.97); Red Cell Distribution Width 15.9 % (11.5-14.5); Segmented Neutrophils % 67.6 %
[2016-07-15 03:28] LABS: BUN/Creatinine Ratio 18 (6-26); Blood Urea Nitrogen 17 mg/dL (7-20); Calcium 8.7 mg/dL (8.6-10.8); Carbon Dioxide 23 mEq/L (19-29); Chloride 104 mEq/L (98-109); Glucose 236 mg/dL (70-99); Osmolality,Calculated 291 (280-300); Potassium 4.1 mEq/L (3.5-4.5); Sodium 136 mEq/L (136-145); eGFR For African Americans > 60 (> 60); eGFR For Non-African Americans 58 (> 60)
[2016-07-15] MEDS: Insulin LISPRO 300 UNITS/3 ML VIAL SQ SCH ×4 (08:38→21:46)
[2016-07-15] MEDS: Insulin DETEMIR 100 UNIT/ML X5UNITS SQ SCH ×2 (08:38→21:46)
[2016-07-15] MEDS: Miconazole 2% cream 118 GM TUBE TP SCH ×2 (08:38→21:40)
[2016-07-15] MEDS: *HR* Heparin 5,000 UNIT/ML VIAL SQ SCH ×3 (08:38→23:30)
[2016-07-15] MEDS: Ketoconazole 2% CRM 15 GM TUBE TP SCH ×2 (08:39→21:40)
[2016-07-15] MEDS: Magnesium Oxide 400 MG TABLET PO SCH (08:40)
[2016-07-15] MEDS: amLODIPine 5 MG TABLET PO SCH (08:41)
[2016-07-15] MEDS: Desitin (Zinc Oxide) 56 GM TUBE TP SCH ×2 (08:41→21:40)
[2016-07-15] MEDS: Aspirin Enteric Coated 81 MG Tablet PO SCH (08:41)
[2016-07-15] MEDS: Vitamin B Complex/Vit C/Vit E 1 EACH TABLET PO SCH (08:41)
--- NOTE | 2016-07-15 10:48 | Internal Med Progress Note ---
<Aiyana Alvarenga - Last Filed: 07/15/16 12:41> Date of Encounter: 07/15/16 Time of Encounter: 10:15 - Assessment and plan (1) Cellulitis Current Visit: Yes Status: Acute Assessment and plan: Erythema of the right gluteal region that was painful with palpation but no open wound noted. Likely the source of sepsis. 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 CT A/P showed right gluteal induration but no drainable collection. Improves as the size of erythema and tenderness to palpation significantly reduced. CK decreased from 285 to 209. Will continue daptomycin for now and repeat CK in a week if patient is still on daptomycin at that time. Qualifiers: Site of cellulitis: extremity Site of cellulitis of extremity: lower extremity Laterality: right Qualified Code(s): L03.115 - Cellulitis of right lower limb (2) UTI (urinary tract infection) Current Visit: Yes Status: Acute Assessment and plan: Urine culture grew ESBL(+) E. coli sensitive to amikacin, cefoxitin, ertapenem, gentamicin, meropenem, nitrofurantoin, Zosyn, tigecycline, tobramycin and TMP/ SMZ. Continue IV Zosyn. Qualifiers: Urinary tract infection type: acute cystitis Hematuria presence: without hematuria Qualified Code(s): N30.00 - Acute cystitis without hematuria (3) Sepsis Current Visit: Yes Status: Resolved Assessment and plan: Sepsis likley secondary to cellulitis and urinary tract infection. Resolved as no more fever, tachycardia and leukocytosis. Continue IV daptomycin and Zosyn. Qualifiers: Sepsis type: sepsis due to unspecified organism Qualified Code(s): A41.9 - Sepsis, unspecified organism (4) Renal insufficiency Current Visit: Yes Status: Resolved Assessment and plan: Patient's serum creatinines 1.20. This is slightly elevated from baseline of 1. Most likely secondary to sepsis secondary to right gluteal cellulitis and urinary tract infection. Resolved as SCr 0.97 today. Continue current antibiotic regimen. Avoid nephrotoxin. Continue to monitor renal function and electrolytes. (5) Yeast dermatitis Current Visit: Yes Status: Acute Assessment and plan: Yeast dermatitis along the left groin skin fold. Continue ketoconazole topical. (6) Diabetes mellitus Current Visit: Yes Status: Acute Assessment and plan: Hemoglobin A1c is 6.7. Continue 25 units subcutaneous twice a day Levemir. Continue sliding scale insulin. Continue diabetic diet and before meals at bedtime Accu-Cheks. Qualifiers: Diabetes mellitus type: type 2 Diabetes mellitus complication status: with circulatory complication Diabetes mellitus complication detail: with other circulatory complications Diabetes mellitus correction insulin use: with termite technician use Qualified Code(s): E11.59 - Type 2 diabetes mellitus with other circulatory complications; Z79.4 - senior living (current) use of insulin (7) DVT prophylaxis Current Visit: Yes Status: Acute Assessment and plan: Continue SQ heparin. - Subjective Interval history: No significant event noted overnight. Patient was seen and examined this morning. Patient reports feeling even better compared to yesterday with right hip pain significantly reduced. Patient still has some productive cough with clear sputum. Patient denies fever, shortness of breath, chest pain, nausea, vomiting, diarrhea. - Constitutional Vitals: Temp Pulse Resp BP Pulse Ox 98.8 F 71 17 157/74 96 07/15/16 05:46 07/15/16 05:46 07/15/16 05:46 07/15/16 05:46 07/15/16 05:46 General appearance: Present: cooperative, A&O X 3, morbidly obese, pleasant, answers questions appropriately - Head Head exam: Present: atraumatic, normocephalic - Eye Eye exam: Present: EOMI, PERRL, conjuntiva pink, sclera anicteric - Neck Neck exam general surgery: Present: supple, trachea midline. Absent: lymphadenopathy - Respiratory Respiratory exam: Present: decreased breath sounds. Absent: accessory muscle use, rales, rhonchi, wheezes - Cardiovascular Cardiovascular exam: Present: RRR, +S1, +S2. Absent: diastolic murmur, gallop, rubs, systolic murmur - GI/Abdominal GI/Abdominal exam: Present: normal bowel sounds, soft, no peritoneal signs. Absent: distended, tenderness - Extremities Exam Extremities exam: Present: warm, radial pulses palpable and symetrical. Absent : calf tenderness, cyanotic Additional comments: Right torres erythema decreases in size. - Neurological Exam Neurological exam: Present: CN II-XII intact, oriented X3, no focal deficits. Absent: pronater drift, facial droop, speech deficit - Skin Skin exam: Present: dry, intact Additional comments: Right gluteal erythema almost resolved. It's not hot to touch and no tenderness to palpation. Internal Medicine: Result - Labs CBC & Chem 7: 07/15/16 02:57 07/15/16 02:57 Labs: Short CBC 07/15/16 Range/Units 02:57 WBC 9.3 (4.3-11.1) K/mcL Hgb 8.2 L (11.5-15.4) g/dL Hct 27.1 L (35.3-44.9) % Plt Count 235 (140-400) K/mcL Neutrophils # 6.3 (1.6-8.9) K/mcL BMP 07/15/16 02:57 Sodium 136 Potassium 4.1 Chloride 104 Carbon Dioxide 23 BUN 17 Creatinine 0.97 Glucose 236 H Calcium 8.7 - ABG Interpretation ABG results: PT/INR, D-dimer PT 14.4 Seconds (9.4-12.1) H 07/12/16 05:33 Consult Discharge Plan - Plan [place] [facility] [place] Care Provider] - 08/03/16 11:00 am <Rene Turner - Last Filed: 07/15/16 15:48> Date of Encounter: 07/15/16 - Assessment and plan (1) Cellulitis Current Visit: Yes Status: Acute Qualifiers: Site of cellulitis: extremity Site of cellulitis of extremity: lower extremity Laterality: right Qualified Code(s): L03.115 - Cellulitis of right lower limb (2) Sepsis Current Visit: Yes Status: Resolved Qualifiers: Sepsis type: sepsis due to unspecified organism Qualified Code(s): A41.9 - Sepsis, unspecified organism (3) Diabetes mellitus Current Visit: Yes Status: Acute Qualifiers: Diabetes mellitus type: type 2 Diabetes mellitus complication status: with circulatory complication Diabetes mellitus complication detail: with other circulatory complications Diabetes mellitus termite technician insulin use: with correction use Qualified Code(s): E11.59 - Type 2 diabetes mellitus with other circulatory complications; 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.4 - 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 project 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 (current) use of insulin (4) UTI (urinary tract infection) Current Visit: Yes Status: Acute Qualifiers: Urinary tract infection type: acute cystitis Hematuria presence: without hematuria Qualified Code(s): N30.00 - Acute cystitis without hematuria (5) Morbid obesity Current Visit: No Status: Chronic Qualifiers: Obesity type: due to excess calories Qualified Code(s): E66.01 - Morbid ( severe) obesity due to excess calories (6) Anemia of chronic disease Current Visit: No Status: Chronic - Constitutional Vitals: Temp Pulse Resp BP Pulse Ox 98.8 F 71 17 157/74 96 07/15/16 05:46 07/15/16 05:46 07/15/16 05:46 07/15/16 05:46 07/15/16 08:30 Internal Medicine: Result - Labs CBC & Chem 7: 07/15/16 02:57 07/15/16 02:57 Labs: Short CBC 07/15/16 Range/Units 02:57 WBC 9.3 (4.3-11.1) K/mcL Hgb 8.2 L (11.5-15.4) g/dL Hct 27.1 L (35.3-44.9) % Plt Count 235 (140-400) K/mcL Neutrophils # 6.3 (1.6-8.9) K/mcL BMP 07/15/16 02:57 Sodium 136 Potassium 4.1 Chloride 104 Carbon Dioxide 23 BUN 17 Creatinine 0.97 Glucose 236 H Calcium 8.7 - ABG Interpretation ABG results: PT/INR, D-dimer PT 14.4 Seconds (9.4-12.1) H 07/12/16 05:33 - Attending Attestation I examined this patient and my medical decision-making was reviewed with the Resident Physician on 07/15/16. I agree with the documented findings, disposition and treatment plan as described except to the extent set forth below. Ms Church is currently admitted for celluliis and UTI. She is moderate to high risk due to potential for worsening infectious issues. Ms. Church is doing better. Redness seems to be receding. No fever or chills. No cough. No GI symptoms. Exam alert. Comfortable Heart reg No wheeze Erythema improving I/P 1. cellulitis improving with IV abx 2. UTI 3. Stasis dermatitis Further diagnoses and plan as above.
[2016-07-15] MEDS: Eucerin Cream 57 GM TUBE TP SCH ×2 (12:41→21:41)
[2016-07-15] MEDS: DAPTOmycin 700 MG in 0.9 % Sodium Chloride 100 ML IVPB SCH (16:50)
[2016-07-16 03:47] LABS: Basophils # 0.1 K/mcL (0.0-0.2); Basophils % 0.5 %; Eosinophils # 0.3 K/mcL (0.0-0.6); Hematocrit 27.6 % (35.3-44.9); Hemoglobin 8.4 g/dL (11.5-15.4); Immature Granulocytes % 3.4 % (0-4); Lymphocytes # 2.4 K/mcL (0.6-4.6); Lymphocytes % 21.8 %; Mean Corpuscular HGB Conc 30.4 g/dL (31.6-35.5); Mean Corpuscular Hemoglobin 25.8 pg (28.0-33.3); Mean Corpuscular Volume 84.7 fL (83.0-100.0); Mean Platelet Volume 9.8 fL (9.4-12.4); Monocytes # 0.8 K/mcL (0.0-1.3); Monocytes % 7.4 %; Nucleated Red Blood Cells 0.2 /100 WBC (0); Platelet Count 287 K/mcL (140-400); Red Blood Count 3.26 M/mcL (3.82-4.97); Red Cell Distribution Width 15.8 % (11.5-14.5); Segmented Neutrophils % 63.9 %
[2016-07-16 04:00] LABS: BUN/Creatinine Ratio 13 (6-26); Blood Urea Nitrogen 14 mg/dL (7-20); Calcium 8.9 mg/dL (8.6-10.8); Carbon Dioxide 25 mEq/L (19-29); Chloride 103 mEq/L (98-109); Glucose 209 mg/dL (70-99); Osmolality,Calculated 291 (280-300); Potassium 4.1 mEq/L (3.5-4.5); Sodium 137 mEq/L (136-145); eGFR For African Americans > 60 (> 60); eGFR For Non-African Americans 53 (> 60)
--- NOTE | 2016-07-16 09:24 | Discharge Summary ---
<John Torres - Last Filed: 07/19/16 08:10> Date of Encounter: 07/19/16 Time of Encounter: 08:09 - Discharge Diagnosis (1) Sepsis Status: Resolved Qualifiers: Sepsis type: sepsis due to unspecified organism Qualified Code(s): A41.9 - Sepsis, unspecified organism (2) Cellulitis Status: Acute Qualifiers: Site of cellulitis: extremity Site of cellulitis of extremity: lower extremity Laterality: right Qualified Code(s): L03.115 - Cellulitis of right lower limb (3) Renal insufficiency Status: Resolved (4) Diabetes mellitus Status: Acute Qualifiers: Diabetes mellitus type: type 2 Diabetes mellitus complication status: with circulatory complication Diabetes mellitus complication detail: with other circulatory complications Diabetes mellitus long-term insulin use: with intermodal dispatcher use Qualified Code(s): E11.59 - Type 2 diabetes mellitus with other circulatory complications; Z79.4 - nursing home (current) use of insulin (5) Yeast dermatitis Status: Acute (6) DVT prophylaxis Status: Acute (7) UTI (urinary tract infection) Status: Acute Qualifiers: Urinary tract infection type: acute cystitis Hematuria presence: without hematuria Qualified Code(s): N30.00 - Acute cystitis without hematuria - Discharge Medications Prescriptions: OxyCODONE/APAP 5/325 [Percocet 5/325 MG] 1 each PO Q6HR PRN #120 tablet PRN Reason: Pain Amlodipine Besylate 10 mg PO HS #30 tablet DAPTOmycin [Daptomycin] 700 mg IV DAILY #6 vial Nitrofurantoin (BID) [Macrobid] 100 mg PO BID #8 capsule Home Medications: Aspirin Enteric Coated [Aspirin EC] 81 mg PO DAILY 08/30/15 [History] Fludrocortisone Acetate [Florinef] 0.1 mg PO Q48H 08/30/15 [History] Insulin ASPART [Novolog Flexpen] 20 - 28 unit SQ TID 08/30/15 [History] Insulin Glargine,Hum.rec.anlog [Lantus Solostar] 30 unit SQ HS 08/30/15 [History ] Insulin Glargine,Hum.rec.anlog [Lantus Solostar] 32 unit SQ QAM 08/30/15 [ History] Melatonin 10 mg PO HS PRN 08/30/15 [History] Metformin HCl [Glucophage] 1,000 mg PO BID 08/30/15 [History] Oxford-3/Dha/Epa/Fish Oil [Fish Oil Dr 500 mg Softgel] 1 cap PO BID 09/23/15 [ History] Vitamin B Complex [B Complex] 1 tab PO DAILY 09/23/15 [History] Vitamin E (Dl,Tocopheryl Acet) [Vitamin E] 100 unit PO DAILY 09/23/15 [History] Oxycodone HCl/Acetaminophen [Percocet 5-325 mg Tablet] 1 tab PO Q6H PRN [History] Eucerin Creme 1 appl TP 0000,1200 #2 tube 03/30/16 [Rx] Metoprolol [Lopressor] 50 mg PO BID #60 tablet 03/30/16 [Rx] Calcium Carbonate [Calcium] 500 mg PO DAILY 07/11/16 [History] Cinnamon Bark [Cinnamon] 500 mg PO DAILY 07/11/16 [History] Magnesium Oxide [Mag-Ox] 400 mg PO DAILY 07/11/16 [History] Zinc Acetate [Galzin] 50 mg PO DAILY 07/11/16 [History] Ketoconazole 2% CRM [Nizoral Cream] 1 appl TP BID tube 07/16/16 [Rx] Amlodipine Besylate 10 mg PO HS #30 tablet 07/18/16 [Rx] DAPTOmycin [Daptomycin] 700 mg IV DAILY #6 vial 07/19/16 [Rx] Nitrofurantoin (BID) [Macrobid] 100 mg PO BID #8 capsule 07/19/16 [Rx] OxyCODONE/APAP 5/325 [Percocet 5/325 MG] 1 each PO Q6HR PRN #120 tablet [Rx] Allergies/Adverse Reactions: Allergies atorvastatin [From Lipitor] Adverse Reaction (Mild, Verified 05/02/16 21:57) Nausea Zolpidem [From Ambien] Adverse Reaction (Mild, Verified 05/02/16 21:57) Hallucinating Procedures/tests Complete & Pending: Procedures Performed prior 72 hours Category Date Time Status CT abd pelvis wo no iv no oral [CT] Routine Cat Scan 07/13/16 09:45 Completed Date of admission: 07/12/16 00:20 Primary care physician: Derik Liang MD Consults: 07/12/16 13:49 Consult to Physical Therapy [CONS] Routine Comment: Evaluate, develop and implement POC Reason for Consult: Limited R.O.M. and weakness 07/12/16 13:50 Consult to Occupational Therapy [CONS] Routine Comment: Evaluate, develop and implement POC Reason for Consult: Limited R.O.M. and weakness 07/14/16 16:09 PICC LINE [Consult to Invasive Line Access Team] [CONS] Routine Reason for Consult: Need Powerglide for IV access. Line Type: EPIV Discharging clinician: John Torres Anticipated date of discharge: 07/16/16 - Patient Status Disposition: Transfer Inpatient Rehab Fac Condition: Good Functional capacity at discharge: independent ambulation Overall status at discharge: patient is progressing back to baseline - Discharge Instructions Instructions: Amlodipine (By mouth), Nitrofurantoin Combination (By mouth), Daptomycin (Injection), Pancreatitis (DC), Urinary Tract Infection in Women (DC) , Cellulitis (GEN), Diabetes Mellitus Type 2 in Adults (DC), Sepsis (DC), Anemia (GEN) Follow Up With: Derik galarza MD [Primary Care Provider] - 08/03/16 11:00 am Additional Instructions: Please return to ER if worsening redness of right gluteal region, presistent fever chills, weakness. - Diet and Activity Activity: increase activity as tolerated Diet: diabetic diet, low fat, low cholesterol, low salt diet Interval History: 61 4L female with history of diabetes, VRE bacteremia, ESBL UTI presents with chief complaint of fevers. On presentation patient's temperature was 103 degrees Fahrenheit, with a pulse of 101, respiratory rate of 18 and a blood pressure 161/84. She states in the last 24 hours she has noticed right gluteal erythema that is hot, painful with palpation, none ulcerative, without discharge. Her white blood cell count was 20.4, her lactic acid was 2.1. Serum creatinine was 1.20. Patient was started on IV fluids. Urinalysis showed many white blood cells, nitrites, leukocyte esterase. Patient was admitted for sepsis secondary to cellulitis/tract infection. Blood cultures have been negative. Urine cultures showed ESBL UTI. Patient was started on vancomycin and Zosyn. Over the next 24 hours after admission her white blood cell count decreased however patient continued to have fevers and her erythema worsened on her right gluteal region. During patient's previous admission she was hospitalized for VRE bacteremia secondary to infection of venous stasis ulcers. She was then discharged on daptomycin and followed by podiatry with resolution of her venous stasis ulcers. Due to this history patient was transitioned to daptomycin. And over the next 3 days her right gluteal region erythema, tenderness improved. Her leukocytosis resolved. Serum creatinine normalized. She was transitioned from Zosyn to Macrobid as according to urine culture sensitivities. Patient was found to have splinter hemorrhages on her fingernails and she underwent a CYNTHIA, which was negative for vegetations. Plan: Patient will be discharged on Macrobid for additional 4 days. She will be discharged on daptomycin for additional 6 days. Patient will be discharged to rehabilitation facility as physical therapy evaluate the patient and she qualifies for inpatient rehabilitation. Hospital course: Ms. Church is a 65 year old female - Time Spent with Patient Total time spent providing and/or coordinating discharge services: - Constitutional Vitals: Temp Pulse Resp BP Pulse Ox 98.0 F 68 19 184/83 96 07/15/16 21:54 07/16/16 07:57 07/16/16 07:57 07/16/16 07:57 07/16/16 07:57 General appearance: Present: cooperative, A&O X 3, morbidly obese, pleasant, answers questions appropriately - Head Head exam: Present: atraumatic, normocephalic - Eye Eye exam: Present: PERRL, conjuntiva pink, sclera anicteric - Neck Neck exam general surgery: Present: supple, trachea midline. Absent: lymphadenopathy - Respiratory Respiratory exam: Present: CTAB. Absent: accessory muscle use, rales, rhonchi, wheezes - Cardiovascular Cardiovascular exam: Present: RRR, +S1, +S2. Absent: diastolic murmur, gallop, rubs, systolic murmur - GI/Abdominal GI/Abdominal exam: Present: normal bowel sounds, soft, no peritoneal signs. Absent: distended, tenderness - Extremities Exam Extremities exam: Present: warm, radial pulses palpable and symetrical. Absent : calf tenderness, cyanotic, pedal edema - Back Exam Back exam: Present: rash noted (mid lower back, dry scaley skin, ) - Skin Additional comments: improving erythema on right gluteal region, warm to touch, not painful with palpation. <Rene Turner - Last Filed: 07/19/16 18:00> Date of Encounter: 07/19/16 - Discharge Diagnosis (1) Cellulitis Priority: Primary Status: Acute Qualifiers: Site of cellulitis: extremity Site of cellulitis of extremity: lower extremity Laterality: right Qualified Code(s): L03.115 - Cellulitis of right lower limb (2) Diabetes mellitus Priority: Secondary Status: Acute Qualifiers: Diabetes mellitus type: type 2 Diabetes mellitus complication status: with circulatory complication Diabetes mellitus complication detail: with other circulatory complications Diabetes mellitus long-term insulin use: with intermodal dispatcher use Qualified Code(s): E11.59 - Type 2 diabetes mellitus with other circulatory complications; Z79.4 - nursing home (current) use of insulin (3) UTI (urinary tract infection) Priority: Secondary Status: Acute Qualifiers: Urinary tract infection type: acute cystitis Hematuria presence: without hematuria Qualified Code(s): N30.00 - Acute cystitis without hematuria (4) Morbid obesity Priority: Secondary Status: Chronic Qualifiers: Obesity type: due to excess calories Qualified Code(s): E66.01 - Morbid ( severe) obesity due to excess calories (5) Anemia of chronic disease Priority: Secondary Status: Chronic (6) Infection due to ESBL-producing Escherichia coli Priority: Secondary Status: Acute Procedures/tests Complete & Pending: Procedures Performed prior 72 hours Category Date Time Status EV CYNTHIA transesophageal echo Routine Y 07/17/16 13:46 Completed Date of admission: 07/12/16 00:20 Primary care physician: Derik Liang MD Consults: 07/12/16 13:49 Consult to Physical Therapy [CONS] Routine Comment: Evaluate, develop and implement POC Reason for Consult: Limited R.O.M. and weakness 07/12/16 13:50 Consult to Occupational Therapy [CONS] Routine Comment: Evaluate, develop and implement POC Reason for Consult: Limited R.O.M. and weakness 07/14/16 16:09 PICC LINE [Consult to Invasive Line Access Team] [CONS] Routine Reason for Consult: Need Powerglide for IV access. Line Type: [facility] Hospital course: Ms. Church is a 65 year old female - Time Spent with Patient Total time spent providing and/or coordinating discharge services: 25min - Constitutional Vitals: Temp Pulse Resp BP Pulse Ox 98.2 F 70 16 153/82 96 07/19/16 07:35 07/19/16 07:35 07/19/16 07:35 07/19/16 07:35 07/19/16 07:35 - Attending Attestation I examined this patient and my medical decision-making was reviewed with the Resident Physician on 07/19/16. I agree with the documented findings, disposition and treatment plan as described except to the extent set forth below. Ms. Church has been accepted at [facility]. She feels well at this time. She is afebrile and vitals stable. Exam Alert. Comfortable Heart reg No wheeze Plan D/C to SNF. Complete IV abx.
[2016-07-16] MEDS ORDERED: Linezolid 600 MG TABLET PO SCH (09:30)
[2016-07-16] MEDS: Aspirin Enteric Coated 81 MG Tablet PO SCH (09:35)
[2016-07-16] MEDS: Magnesium Oxide 400 MG TABLET PO SCH (09:35)
[2016-07-16] MEDS: Vitamin B Complex/Vit C/Vit E 1 EACH TABLET PO SCH (09:35)
[2016-07-16] MEDS: *HR* Heparin 5,000 UNIT/ML VIAL SQ SCH ×2 (09:35→18:33)
[2016-07-16] MEDS: amLODIPine 5 MG TABLET PO SCH ×2 (09:35→22:41)
[2016-07-16] MEDS: Miconazole 2% cream 118 GM TUBE TP SCH ×2 (09:36→22:16)
[2016-07-16] MEDS: Ketoconazole 2% CRM 15 GM TUBE TP SCH ×2 (09:36→22:42)
[2016-07-16] MEDS: Insulin LISPRO 300 UNITS/3 ML VIAL SQ SCH ×4 (09:37→22:28)
[2016-07-16] MEDS: Desitin (Zinc Oxide) 56 GM TUBE TP SCH ×2 (09:38→22:11)
[2016-07-16] MEDS: Insulin DETEMIR 100 UNIT/ML X5UNITS SQ SCH ×2 (09:44→22:27)
--- NOTE | 2016-07-16 13:51 | Internal Med Progress Note ---
<John Torres - Last Filed: 07/16/16 16:32> Date of Encounter: 07/16/16 Time of Encounter: 13:47 - Assessment and plan (1) Sepsis Current Visit: Yes Status: Resolved Assessment and plan: Sepsis likley secondary to cellulitis and urinary tract infection. Patient has splinter hemorrhages on bilateral fingers. She had a TTE in April that did not show any valvular dysfunction. Left ventricular ejection fraction was 55-60% with moderate diastolic dysfunction and severe biatrial enlargement and pulmonary hypertension. We will obtain CYNTHIA. Resolved as no more fever, tachycardia and leukocytosis. Continue IV daptomycin d/c Zosyn and start macrobid Qualifiers: Sepsis type: sepsis due to unspecified organism Qualified Code(s): A41.9 - Sepsis, unspecified organism (2) Endocarditis Current Visit: Yes Status: Suspected Assessment and plan: In April patient had bacteremia secondary to VRE and was treated with daptomycin. Her source included laboratory stasis ulcers those positive for enterococcus sensitive to vancomycin. Patient was discharged on daptomycin and her laboratory wounds improved with daily care. During this admission patient initially was treated with vancomycin for right gluteal cellulitis however she continued to spike fevers and her redness worsened. She was then switched to daptomycin and had marked improvement over the past weekend. Furthermore, analyzing her nails, there is evidence of splinter hemorrhages. Patient had a TTEN April which did not show any valvular abnormalities however it is not specific for arterial endocarditis. We will obtain a CYNTHIA. We will continue daptomycin. Qualifiers: Endocarditis type: infective Infective endocarditis organism: bacterial Chronicity: unspecified Qualified Code(s): I33.0 - Acute and subacute infective endocarditis (3) Cellulitis Current Visit: Yes Status: Acute Assessment and plan: Resolving Erythema of the right gluteal region that was painful with palpation but no open wound noted. Likely the source of sepsis. 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 CT A/P showed right gluteal induration but no drainable collection. Improves as the size of erythema and tenderness to palpation significantly reduced. CK decreased from 285 to 209. Will continue daptomycin for now and repeat CK in a week . Qualifiers: Site of cellulitis: extremity Site of cellulitis of extremity: lower extremity Laterality: right Qualified Code(s): L03.115 - Cellulitis of right lower limb (4) Renal insufficiency Current Visit: Yes Status: Resolved Assessment and plan: Resolved Patient's serum creatinines 1.20. This is slightly elevated from baseline of 1. Most likely secondary to sepsis secondary to right gluteal cellulitis and urinary tract infection. Continue current antibiotic regimen. Avoid nephrotoxin. Continue to monitor renal function and electrolytes. (5) Diabetes mellitus Current Visit: Yes Status: Acute Assessment and plan: Hemoglobin A1c is 6.7. Continue 25 units subcutaneous twice a day Levemir. Continue sliding scale insulin. Continue diabetic diet and before meals at bedtime Accu-Cheks. 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 Continue ketoconazole topical. (7) DVT prophylaxis Current Visit: Yes Status: Acute Assessment and plan: Continue heparin subcutaneous. (8) UTI (urinary tract infection) Current Visit: Yes Status: Acute Assessment and plan: Urine culture grew ESBL(+) E. coli sensitive to amikacin, cefoxitin, ertapenem, gentamicin, meropenem, nitrofurantoin, Zosyn, tigecycline, tobramycin and TMP/ SMZ. DC Zosyn and continue Macrobid. Qualifiers: Urinary tract infection type: acute cystitis Hematuria presence: without hematuria Qualified Code(s): N30.00 - Acute cystitis without hematuria - Subjective Interval history: Improved right gluteal pain, redness. Patient denies nausea, chest pain, blurry vision, abdominal pain, difficulty urinating, constipation. - Constitutional Vitals: Temp Pulse Resp BP Pulse Ox 98.0 F 68 19 184/83 96 07/15/16 21:54 07/16/16 07:57 07/16/16 07:57 07/16/16 07:57 07/16/16 09:00 General appearance: Present: cooperative, A&O X 3, morbidly obese, pleasant, answers questions appropriately - Respiratory Respiratory exam: Present: CTAB. Absent: accessory muscle use, rales, rhonchi, wheezes - Cardiovascular Cardiovascular exam: Present: RRR, +S1, +S2. Absent: diastolic murmur, gallop, rubs, systolic murmur - GI/Abdominal GI/Abdominal exam: Present: normal bowel sounds, soft, no peritoneal signs. Absent: distended, tenderness - Extremities Exam Extremities exam: Present: warm, radial pulses palpable and symetrical. Absent : calf tenderness, cyanotic, pedal edema - Skin Additional comments: Improving right gluteal erythema, less red, warm. Nontender to palpation. Patient has splinter hemorrhages on bilateral fingers, there are no splinter hemorrhages on her toes. Internal Medicine: Result - Labs CBC & Chem 7: 07/16/16 03:30 07/16/16 03:30 Labs: Short CBC 07/16/16 Range/Units 03:30 WBC 11.0 (4.3-11.1) K/mcL Hgb 8.4 L (11.5-15.4) g/dL Hct 27.6 L (35.3-44.9) % Plt Count 287 (140-400) K/mcL Neutrophils # 7.0 (1.6-8.9) K/mcL BMP 07/16/16 03:30 Sodium 137 Potassium 4.1 Chloride 103 Carbon Dioxide 25 BUN 14 Creatinine 1.04 Glucose 209 H Calcium 8.9 - ABG Interpretation ABG results: PT/INR, D-dimer PT 14.4 Seconds (9.4-12.1) H 07/12/16 05:33 Consult Discharge Plan - Plan Instructions: Cellulitis (GEN) Additional Instructions: Please return to ER if worsening redness of right gluteal region, presistent fever chills, weakness. [facility] [place] [facility] Care Provider[facility] - 08/03/16 11:00 am Prescriptions: Linezolid [Zyvox] 600 mg PO BID #24 tablet Nitrofurantoin (BID) [Macrobid] 100 mg PO BID #14 capsule <Rene Turner - Last Filed: 07/16/16 17:49> Date of Encounter: 07/16/16 - Assessment and plan (1) Endocarditis Current Visit: Yes Status: Suspected Qualifiers: Endocarditis type: infective Infective endocarditis organism: bacterial Chronicity: unspecified Qualified Code(s): I33.0 - Acute and subacute infective endocarditis (2) Cellulitis Current Visit: Yes Status: Acute Qualifiers: Site of cellulitis: extremity Site of cellulitis of extremity: lower extremity Laterality: right Qualified Code(s): L03.115 - Cellulitis of right lower limb (3) Sepsis Current Visit: Yes Status: Resolved Qualifiers: Sepsis type: sepsis due to unspecified organism Qualified Code(s): A41.9 - Sepsis, unspecified organism (4) Diabetes mellitus Current Visit: Yes Status: Acute Qualifiers: Diabetes mellitus type: type 2 Diabetes mellitus complication status: with circulatory complication Diabetes mellitus complication detail: with other circulatory complications Diabetes mellitus long term acute care registered nurse insulin use: with fci use Qualified Code(s): E11.59 - Type 2 diabetes mellitus with other circulatory complications; 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 (5) UTI (urinary tract infection) Current Visit: Yes Status: Acute Qualifiers: Urinary tract infection type: acute cystitis Hematuria presence: without hematuria Qualified Code(s): N30.00 - Acute cystitis without hematuria (6) Morbid obesity Current Visit: No Status: Chronic Qualifiers: Obesity type: due to excess calories Qualified Code(s): E66.01 - Morbid ( severe) obesity due to excess calories (7) Anemia of chronic disease Current Visit: No Status: Chronic - Constitutional Vitals: Temp Pulse Resp BP Pulse Ox 97.7 F 62 18 142/67 95 07/16/16 15:39 07/16/16 15:39 07/16/16 15:39 07/16/16 15:39 07/16/16 15:39 Internal Medicine: Result - Labs CBC & Chem 7: 07/16/16 03:30 07/16/16 03:30 Labs: Short CBC 07/16/16 Range/Units 03:30 WBC 11.0 (4.3-11.1) K/mcL Hgb 8.4 L (11.5-15.4) g/dL Hct 27.6 L (35.3-44.9) % Plt Count 287 (140-400) K/mcL Neutrophils # 7.0 (1.6-8.9) K/mcL BMP 07/16/16 03:30 Sodium 137 Potassium 4.1 Chloride 103 Carbon Dioxide 25 BUN 14 Creatinine 1.04 Glucose 209 H Calcium 8.9 - ABG Interpretation ABG results: PT/INR, D-dimer PT 14.4 Seconds (9.4-12.1) H 07/12/16 05:33 - Attending Attestation I examined this patient and my medical decision-making was reviewed with the Resident Physician on 07/16/16. I agree with the documented findings, disposition and treatment plan as described except to the extent set forth below. Ms. Church is currently admitted for cellulitis and UTI with ESBL E coli. She is moderate to high risk due to potential for worsening infectious status. Ms. Church has improved quite a bit with the change to Daptomycin. She asked about a reynaldo on her hand today. Exam Alert. Comfortable Heart reg No wheeze Both hands have small dark nonpainful reynaldo. There is what appears to be a splinter hemorrhage on one finger. I/P 1. Cellulitis - most likely VRE 2. ESBL E coli UTI 3. ? endocarditis - blood cx are neg but had recent VRE bacteremia. Check CYNTHIA. If negative plan d/c to SNF on Zyvox, Macrobid Further diagnoses and plan as above.
[2016-07-16] MEDS: Eucerin Cream 57 GM TUBE TP SCH (18:31)
[2016-07-16] MEDS: Nitrofurantoin (BID) 100 MG CAPSULE PO SCH (18:33)
[2016-07-16] MEDS: DAPTOmycin 700 MG in 0.9 % Sodium Chloride 100 ML IVPB SCH (22:33)
[2016-07-17] MEDS: *HR* Heparin 5,000 UNIT/ML VIAL SQ SCH ×4 (00:16→23:19)
[2016-07-17] MEDS: Eucerin Cream 57 GM TUBE TP SCH ×3 (00:27→22:43)
[2016-07-17 05:23] LABS: Basophils # 0.1 K/mcL (0.0-0.2); Basophils % 0.4 %; Eosinophils # 0.4 K/mcL (0.0-0.6); Hematocrit 29.5 % (35.3-44.9); Hemoglobin 9.1 g/dL (11.5-15.4); Immature Granulocytes % 4.4 % (0-4); Lymphocytes # 2.4 K/mcL (0.6-4.6); Lymphocytes % 20.4 %; Mean Corpuscular HGB Conc 30.8 g/dL (31.6-35.5); Mean Corpuscular Hemoglobin 26.1 pg (28.0-33.3); Mean Corpuscular Volume 84.5 fL (83.0-100.0); Mean Platelet Volume 9.7 fL (9.4-12.4); Monocytes # 0.7 K/mcL (0.0-1.3); Monocytes % 6.2 %; Neutrophils # 7.8 K/mcL (1.6-8.9); Platelet Count 335 K/mcL (140-400); Red Blood Count 3.49 M/mcL (3.82-4.97); Red Cell Distribution Width 15.9 % (11.5-14.5); Segmented Neutrophils % 65.6 %
[2016-07-17] MEDS: Insulin LISPRO 300 UNITS/3 ML VIAL SQ SCH ×4 (08:12→23:07)
[2016-07-17] MEDS: Insulin DETEMIR 100 UNIT/ML X5UNITS SQ SCH ×2 (09:22→23:06)
[2016-07-17] MEDS: Ketoconazole 2% CRM 15 GM TUBE TP SCH ×2 (09:29→22:37)
[2016-07-17] MEDS: Miconazole 2% cream 118 GM TUBE TP SCH ×2 (09:33→22:29)
[2016-07-17] MEDS: Desitin (Zinc Oxide) 56 GM TUBE TP SCH ×2 (09:38→22:34)
[2016-07-17] MEDS ORDERED: *HR* Midazolam HCl 2 MG/2 ML VIAL IVP PRN (09:47)
[2016-07-17] MEDS ORDERED: 0.9 % Sodium Chloride 500 ML IVC ONE (09:47)
[2016-07-17] MEDS ORDERED: Tetracaine/Benzocaine/Butamben 200MG/SPRAY (100SPY/BOT) MM ONE (09:47)
--- NOTE | 2016-07-17 09:53 | Internal Med Progress Note ---
<John Torres - Last Filed: 07/17/16 09:50> Date of Encounter: 07/17/16 Time of Encounter: 09:51 - Assessment and plan (1) Sepsis Current Visit: Yes Status: Resolved Assessment and plan: Sepsis likley secondary to cellulitis and urinary tract infection. Patient has splinter hemorrhages on bilateral fingernails. She had a TTE in April that did not show any valvular dysfunction. Left ventricular ejection fraction was 55-60% with moderate diastolic dysfunction and severe biatrial enlargement and pulmonary hypertension. We will obtain CYNTHIA today Resolved as no more fever, tachycardia and leukocytosis. Continue IV daptomycin d/c Zosyn and start macrobid Qualifiers: Sepsis type: sepsis due to unspecified organism Qualified Code(s): A41.9 - Sepsis, unspecified organism (2) Cellulitis Current Visit: Yes Status: Acute Assessment and plan: Resolving Erythema of the right gluteal region that was painful with palpation but no open wound noted. Likely the source of sepsis. 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 CT A/P showed right gluteal induration but no drainable collection. Improves as the size of erythema and tenderness to palpation significantly reduced. CK decreased from 285 to 209. Will continue daptomycin for now and repeat CK in a week . Qualifiers: Site of cellulitis: extremity Site of cellulitis of extremity: lower extremity Laterality: right Qualified Code(s): L03.115 - Cellulitis of right lower limb (3) Renal insufficiency Current Visit: Yes Status: Resolved Assessment and plan: Resolved Patient's serum creatinines 1.20. This is slightly elevated from baseline of 1. Most likely secondary to sepsis secondary to right gluteal cellulitis and urinary tract infection. Continue current antibiotic regimen. Avoid nephrotoxin. Continue to monitor renal function and electrolytes. Patient has increased bilateral lower extremity edema. We will give her 1 dose of IV Lasix 40 mg. Reevaluate tomorrow. Start fluid restricted diet at 1500 mL. Continue diabetic diet. (4) Diabetes mellitus Current Visit: Yes Status: Acute Assessment and plan: Hemoglobin A1c is 6.7. Continue 25 units subcutaneous twice a day Levemir. Continue sliding scale insulin. Continue diabetic diet and before meals at bedtime Accu-Cheks. Qualifiers: Diabetes mellitus type: type 2 Diabetes mellitus complication status: with circulatory complication Diabetes mellitus complication detail: with other circulatory complications Diabetes mellitus jail insulin use: with long term care phlebotomist use Qualified Code(s): E11.59 - Type 2 diabetes mellitus with other circulatory complications; Z79.4 - snf (current) use of insulin (5) Yeast dermatitis Current Visit: Yes Status: Acute Assessment and plan: Yeast dermatitis along the left groin skin fold. Continue ketoconazole topical. (6) DVT prophylaxis Current Visit: Yes Status: Acute Assessment and plan: Continue heparin subcutaneous. (7) UTI (urinary tract infection) Current Visit: Yes Status: Acute Assessment and plan: Urine culture grew ESBL(+) E. coli sensitive to amikacin, cefoxitin, ertapenem, gentamicin, meropenem, nitrofurantoin, Zosyn, tigecycline, tobramycin and TMP/ SMZ. DC Zosyn and continue Macrobid. Qualifiers: Urinary tract infection type: acute cystitis Hematuria presence: without hematuria Qualified Code(s): N30.00 - Acute cystitis without hematuria (8) Endocarditis Current Visit: Yes Status: Suspected Assessment and plan: In April patient had bacteremia secondary to VRE and was treated with daptomycin. Her source included laboratory stasis ulcers those positive for enterococcus sensitive to vancomycin. Patient was discharged on daptomycin and her laboratory wounds improved with daily care. During this admission patient initially was treated with vancomycin for right gluteal cellulitis however she continued to spike fevers and her redness worsened. She was then switched to daptomycin and had marked improvement over the past weekend. Furthermore, analyzing her nails, there is evidence of splinter hemorrhages. Patient had a TTEN April which did not show any valvular abnormalities however it is not specific for arterial endocarditis. We will obtain a CYNTHIA. If CYNTHIA is negative patient will be discharged today with a 8 day course of daptomycin for total 14 days. We will continue daptomycin. Qualifiers: Endocarditis type: infective Infective endocarditis organism: bacterial Chronicity: unspecified Qualified Code(s): I33.0 - Acute and subacute infective endocarditis - Subjective Interval history: Improved right gluteal pain, redness from yesterday. Patient denies nausea, chest pain, blurry vision, abdominal pain, difficulty urinating, constipation. - Constitutional Vitals: Temp Pulse Resp BP Pulse Ox 97.6 F 65 19 159/65 96 07/17/16 05:14 07/17/16 07:00 07/17/16 07:00 07/17/16 07:00 07/17/16 07:00 General appearance: Present: cooperative, A&O X 3, morbidly obese, pleasant, answers questions appropriately - Eye Eye exam: Present: PERRL, conjuntiva pink, sclera anicteric Pupils: Present: PERRL - Respiratory Respiratory exam: Present: CTAB. Absent: accessory muscle use, rales, rhonchi, wheezes - Cardiovascular Cardiovascular exam: Present: RRR, +S1, +S2. Absent: diastolic murmur, gallop, rubs, systolic murmur - GI/Abdominal GI/Abdominal exam: Present: normal bowel sounds, soft, no peritoneal signs. Absent: distended, tenderness - Extremities Exam Extremities exam: Present: full ROM, pedal edema (2+ bilaterally). Absent: calf tenderness, tenderness Additional comments: Mild chronic redness and right lower extremity - Skin Additional comments: Splinter hemorrhages bilateral fingernails. Resolution of erythema in the right gluteal region, without tenderness to palpation Chronic right lower extremity redness on the torres. Internal Medicine: Result - Labs CBC & Chem 7: 07/17/16 05:10 07/16/16 03:30 Labs: Short CBC 07/17/16 Range/Units 05:10 WBC 11.8 H (4.3-11.1) K/mcL Hgb 9.1 L (11.5-15.4) g/dL Hct 29.5 L (35.3-44.9) % Plt Count 335 (140-400) K/mcL Neutrophils # 7.8 (1.6-8.9) K/mcL - ABG Interpretation ABG results: PT/INR, D-dimer PT 14.4 Seconds (9.4-12.1) H 07/12/16 05:33 Consult Discharge Plan - Plan Instructions: Nitrofurantoin Combination (By mouth), Daptomycin (Injection), Pancreatitis (DC), Urinary Tract Infection in Women (DC), Cellulitis (GEN), Diabetes Mellitus Type 2 in Adults (DC), Sepsis (DC), Anemia (GEN) Additional Instructions: Please return to ER if worsening redness of right gluteal region, presistent fever chills, weakness. [facility] [facility] - 08/03/16 11:00 am Prescriptions: DAPTOmycin [Daptomycin] 700 mg IV DAILY #8 vial Nitrofurantoin (BID) [Macrobid] 100 mg PO BIDWM #12 capsule <Rene Turner - Last Filed: 07/17/16 16:30> Date of Encounter: 07/17/16 - Assessment and plan (1) Endocarditis Current Visit: Yes Status: Ruled-out Qualifiers: Endocarditis type: infective Infective endocarditis organism: bacterial Chronicity: unspecified Qualified Code(s): I33.0 - Acute and subacute infective endocarditis (2) Cellulitis Current Visit: Yes Status: Acute Qualifiers: Site of cellulitis: extremity Site of cellulitis of extremity: lower extremity Laterality: right Qualified Code(s): L03.115 - Cellulitis of right lower limb (3) Sepsis Current Visit: Yes Status: Resolved Qualifiers: Sepsis type: sepsis due to unspecified organism Qualified Code(s): A41.9 - Sepsis, unspecified organism (4) Diabetes mellitus Current Visit: Yes Status: Acute Qualifiers: Diabetes mellitus type: type 2 Diabetes mellitus complication status: with circulatory complication Diabetes mellitus complication detail: with other circulatory complications Diabetes mellitus long term care phlebotomist insulin use: with jail use Qualified Code(s): E11.59 - Type 2 diabetes mellitus with other circulatory complications; Z79.4 - exterminator termite (current) use of insulin (5) UTI (urinary tract infection) Current Visit: Yes Status: Acute Qualifiers: Urinary tract infection type: acute cystitis Hematuria presence: without hematuria Qualified Code(s): N30.00 - Acute cystitis without hematuria (6) Morbid obesity Current Visit: No Status: Chronic Qualifiers: Obesity type: due to excess calories Qualified Code(s): E66.01 - Morbid ( severe) obesity due to excess calories (7) Anemia of chronic disease Current Visit: No Status: Chronic - Constitutional Vitals: Temp Pulse Resp BP Pulse Ox 97.3 F L 64 12 171/74 96 07/17/16 10:13 07/17/16 10:13 07/17/16 10:13 07/17/16 10:13 07/17/16 10:13 Internal Medicine: Result - Labs CBC & Chem 7: 07/17/16 05:10 07/16/16 03:30 Labs: Short CBC 07/17/16 Range/Units 05:10 WBC 11.8 H (4.3-11.1) K/mcL Hgb 9.1 L (11.5-15.4) g/dL Hct 29.5 L (35.3-44.9) % Plt Count 335 (140-400) K/mcL Neutrophils # 7.8 (1.6-8.9) K/mcL - ABG Interpretation ABG results: PT/INR, D-dimer PT 14.4 Seconds (9.4-12.1) H 07/12/16 05:33 - Attending Attestation I examined this patient and my medical decision-making was reviewed with the Resident Physician on 07/17/16. I agree with the documented findings, disposition and treatment plan as described except to the extent set forth below. Ms. Church is currently admitted for cellulitis possibly due to VRE and ESBL E coli UTI. She is moderate to high risk due to potential for worsening infectious status. Ms. Church is feeling OK. She had CYNTHIA today and no vegetation seen. Continues to slowly improve with IV abx. No fever or chills Exam Alert. Comfortable Heart reg no wheeze Erythema improving I/P 1. Cellulitis - most likely VRE 2. ESBL E coli UTI Further diagnoses and plan as above. D/C planning.
[2016-07-17] MEDS ORDERED: *HR* Midazolam HCl 5 MG/5 ML VIAL IVP ONE ×4 (10:22→10:25)
[2016-07-17] MEDS: *HR* FentaNYL (PF) 100 MCG/2 ML VIAL IVP PRN ×3 (10:45→10:55)
--- NOTE | 2016-07-17 11:37 | Physician Discharge Referral ---
<John Torres - Last Filed: 07/17/16 11:34> [facility] Referral Info Provider in Charge: Dr. Turner Provider in Charge after Transfer: PCP - Diagnosis (1) Sepsis Priority: Primary Status: Resolved (2) Cellulitis Priority: Secondary Status: Acute (3) Renal insufficiency Priority: Secondary Status: Resolved (4) Diabetes mellitus Priority: Secondary Status: Acute (5) Yeast dermatitis Priority: Secondary Status: Acute (6) DVT prophylaxis Priority: Secondary Status: Acute (7) UTI (urinary tract infection) Priority: Secondary Status: Acute - Transfer Medications Prescriptions: DAPTOmycin [Daptomycin] 700 mg IV DAILY #8 vial Nitrofurantoin (BID) [Macrobid] 100 mg PO BIDWM #12 capsule Home Medications: Aspirin Enteric Coated [Aspirin EC] 81 mg PO DAILY 08/30/15 [History] Fludrocortisone Acetate [Florinef] 0.1 mg PO Q48H 08/30/15 [History] Insulin ASPART [Novolog Flexpen] 20 - 28 unit SQ TID 08/30/15 [History] Insulin Glargine,Hum.rec.anlog [Lantus Solostar] 30 unit SQ HS 08/30/15 [History ] Insulin Glargine,Hum.rec.anlog [Lantus Solostar] 32 unit SQ QAM 08/30/15 [ History] Melatonin 10 mg PO HS PRN 08/30/15 [History] Metformin HCl [Glucophage] 1,000 mg PO BID 08/30/15 [History] [place]-3/Dha/Epa/Fish Oil [Fish Oil Dr 500 mg Softgel] 1 cap PO BID 09/23/15 [ History] Vitamin B Complex [B Complex] 1 tab PO DAILY 09/23/15 [History] Vitamin E (Dl,Tocopheryl Acet) [Vitamin E] 100 unit PO DAILY 09/23/15 [History] Oxycodone HCl/Acetaminophen [Percocet 5-325 mg Tablet] 1 tab PO Q6H PRN [History] Eucerin Creme 1 appl TP 0000,1200 #2 tube 03/30/16 [Rx] Metoprolol [Lopressor] 50 mg PO BID #60 tablet 03/30/16 [Rx] Calcium Carbonate [Calcium] 500 mg PO DAILY 07/11/16 [History] Cinnamon Bark [Cinnamon] 500 mg PO DAILY 07/11/16 [History] Magnesium Oxide [Mag-Ox] 400 mg PO DAILY 07/11/16 [History] Zinc Acetate [Galzin] 50 mg PO DAILY 07/11/16 [History] Ketoconazole 2% CRM [Nizoral Cream] 1 appl TP BID tube 07/16/16 [Rx] amLODIPine [Norvasc] 5 mg PO HS #30 tablet 07/16/16 [Rx] DAPTOmycin [Daptomycin] 700 mg IV DAILY #8 vial 07/17/16 [Rx] Nitrofurantoin (BID) [Macrobid] 100 mg PO BIDWM #12 capsule 07/17/16 [Rx] Allergies/Adverse Reactions: Allergies atorvastatin [From Lipitor] Adverse Reaction (Mild, Verified 05/02/16 21:57) Nausea Zolpidem [From Ambien] Adverse Reaction (Mild, Verified 05/02/16 21:57) Hallucinating - Respiratory Orders Smoking Cessation: Smoking cessation has been advised. For more information, call the [place] Tobacco Quit Line at 4-741-VSZG-NOW. - Lab Orders Lab Orders: Other (include drug levels w/frequency) (CPK on 07/22/15) - Ancillary Orders May use pressure relief devices daily prn - Advance Directives Code Status: Full Code - Mobility Orders Ambulate - Rehabiliation Orders Rehab Potential: Good Rehab Orders: ROM Exercises, Evaluation for Physical Therapy, Evaluation for Occupational Therapy Other: Pateint will need inpatient physical rehabilitation. - Treatments Skin tear care topically daily PRN per policy List/Other: Patient has stasis dermatitis of low back. Apply Eucerin cream daily. Patient has fungal infection below abdominal skin folds on the left. Apply ketoconazole cream daily for 7 days. Patient has venous stasis dermatitis of her right lower extremity. Patient should have compression stockings at all times. Patient will continue Macrobid 100mg BID x 6 days Patient will continue daptomycin 700mg x 8 days. - Diet Orders Cardiac (ADA diet with fluid restriction of 1500 mL.) CERTIFICATION: I certify that the transfer of the above named patient to an Extended Care Facility is necessary for the continuing treatment of the diagnosis listed. The above information is true and accurate reflection of patient's current condition. Confidential - Redisclosure prohibited without a patient's written consent. <Rene Turner - Last Filed: 07/17/16 15:40> - Diagnosis (1) Endocarditis Status: Suspected (2) Cellulitis Status: Acute (3) Sepsis Status: Resolved (4) Diabetes mellitus Status: Acute (5) UTI (urinary tract infection) Status: Acute (6) Morbid obesity Status: Chronic (7) Anemia of chronic disease Status: Chronic - Respiratory Orders Smoking Cessation: Smoking cessation has been advised. For more information, call the [place] Tobacco Quit Line at 7-198-LNPGNOW. CERTIFICATION: I certify that the transfer of the above named patient to an Extended Care Facility is necessary for the continuing treatment of the diagnosis listed. The above information is true and accurate reflection of patient's current condition. Confidential - Redisclosure prohibited without a patient's written consent.
[2016-07-17] MEDS: Nitrofurantoin (BID) 100 MG CAPSULE PO SCH ×2 (15:14→15:35)
[2016-07-17] MEDS: Vitamin B Complex/Vit C/Vit E 1 EACH TABLET PO SCH (15:26)
[2016-07-17] MEDS: Aspirin Enteric Coated 81 MG Tablet PO SCH (15:27)
[2016-07-17] MEDS: Magnesium Oxide 400 MG TABLET PO SCH (15:27)
[2016-07-17] MEDS: DAPTOmycin 700 MG in 0.9 % Sodium Chloride 100 ML IVPB SCH (17:34)
--- NOTE | 2016-07-17 17:45 | ECHO - Doppler Report ---
Transesophageal Echocardiogram Name: Joan Church Date of Study: 07/17/2016 Date: 1950 Ht: 64.0in Medical Record#: [id number] Age: 65 Wt: 374.0lb Gender: Female BSA: 2.55 Order #: [id number] Location: [facility] Room #: 2NE22 Reading Physician: Linn Corona DO Full Stack Software Engineer: Olaf Benton RDCS Ordering Physician: John Torres DO Primary Physician: Derik Liang MD Indications: R/O Endocarditis Impressions: No intra-cardiac evidence for an infectious source. Normal LV and RV function. Trivial mitral regurgitation. The ascending aorta is mildly dilated, measuring 4.3 cm. Medication Given: Time Medication Dose Units Route 10:45 Versed 2 mg IV 10:45 Fentanyl 25 mcg IV 10:50 Versed 2 mg IV 10:50 Fentanyl 25 mcg IV 10:55 Versed 2 mg IV 10:55 Fentanyl 25 mcg IV Contrast Type Amount Agitated saline 10 Findings: Study Quality * Technically adequate exam. ECG Findings * Normal sinus rhythm Left Ventricle * Normal size and function. Right Ventricle * The right ventricle was normal in size and systolic function. Interatrial Septum * No evidence of patent foramen ovale. * No evidence of inter-atrial shunting noted with saline contrast. Aortic Valve * Normal structure and function. * No evidence of an intracardiac vegetation. Mitral Valve * Normal structure and function * There is no mitral valve vegetation. * Trace/trivial mitral regurgitation. Tricuspid Valve * Normal structure and function. * Mild tricuspid regurgitation. * No vegetation. Pulmonic Valve * Not well visualized. * No pulmonic regurgitation. Aorta * The aortic root is not dilated. * Mild ascending aortic dilatation, measuring 4.3 cm. Left Atrium * LA appendage is normal in appearance. * The LA appendage flow velocity is normal. Pulmonary Veins * Systolic blunting flow patterns. Pulmonary Artery * Not visualized. Procedure Summary: After explaining the risks, benefits, and alternatives of the procedure to the patient in detail and answering all questions to satisfaction, an informed consent was obtained in writing. The patient was NPO for the six hours prior to the procedure. The patient denied dysphagia, odynophagia, and loose teeth. The patient was monitored with periodic automated blood pressures and continuous pulse oximetry and telemetry. Continuous oxygen was administered by [place]. The patient was placed in the full upright position and the posterior oropharynx was anesthetized as above and complete suppression of the gag reflex was obtained. The patient was then placed in the left lateral decubitus position, the neck was flexed, and a bite block was placed in the patient's mouth. IV sedation was administered. Once adequate sedation was achieved, a well-lubricated anteflexed multipoint intraesophageal echocardiographic probe was inserted into the midline posterior oropharynx. Gentle pressure was applied as the patient swallowed and the esophagus was intubated without difficulty. The scope was advanced to the mid esophagus without encountering resistance. Images were obtained from the mid and upper esophagus. Images from the gastric globe obtained. The intra-atrial septum was assessed by color-flow Doppler and agitated saline. The scope was then rotated approximately 180 degrees and withdrawn, visualizing the length of the aorta. The scope was then slowly withdrawn as the patient was continually suctioned. The patient tolerated the procedure well. Complications: None History: Diabetes Hypercholesteremia Previous Echo04/16/2016 BP 171 / 74 Updated by Linn Corona on 07/17/2016 5:39:36 PM electronically signed on 07/17/2016 5:41:57 PM with status of Final [employer] [place]: 1=Normal, 2=Hypokinesis, 3=Akinesis, 4=Dyskinesis, 5=Aneurysmal, 6=Hyperkinetic, X=Not Visualized (Blank)=Missing
[2016-07-17] MEDS: amLODIPine 5 MG TABLET PO SCH (23:06)
[2016-07-18] MEDS: *HR* OxyCODONE/APAP 5/325 TABLET PO PRN (03:44)
[2016-07-18] MEDS ORDERED: amLODIPine 5 MG TABLET PO SCH (08:30)
[2016-07-18] MEDS: Nitrofurantoin (BID) 100 MG CAPSULE PO SCH ×2 (08:32→16:58)
[2016-07-18] MEDS: Vitamin B Complex/Vit C/Vit E 1 EACH TABLET PO SCH (08:32)
[2016-07-18] MEDS: Aspirin Enteric Coated 81 MG Tablet PO SCH (08:32)
[2016-07-18] MEDS: *HR* Heparin 5,000 UNIT/ML VIAL SQ SCH ×3 (08:32→22:31)
[2016-07-18] MEDS: Magnesium Oxide 400 MG TABLET PO SCH (08:32)
[2016-07-18] MEDS: Insulin DETEMIR 100 UNIT/ML X5UNITS SQ SCH ×2 (08:33→20:48)
[2016-07-18] MEDS: Insulin LISPRO 300 UNITS/3 ML VIAL SQ SCH ×4 (08:34→20:48)
[2016-07-18] MEDS: Miconazole 2% cream 118 GM TUBE TP SCH ×2 (08:46→20:48)
[2016-07-18] MEDS: Desitin (Zinc Oxide) 56 GM TUBE TP SCH ×2 (08:47→20:48)
[2016-07-18] MEDS: Ketoconazole 2% CRM 15 GM TUBE TP SCH ×2 (08:47→20:48)
[2016-07-18] MEDS: Eucerin Cream 57 GM TUBE TP SCH ×2 (12:03→22:54)
--- NOTE | 2016-07-18 14:36 | Internal Med Progress Note ---
<John Torres - Last Filed: 07/18/16 14:41> Date of Encounter: 07/18/16 Time of Encounter: 14:32 - Assessment and plan (1) Sepsis Current Visit: Yes Status: Resolved Assessment and plan: Sepsis likley secondary to cellulitis and urinary tract infection. Patient has splinter hemorrhages on bilateral fingernails. She had a TTE in April that did not show any valvular dysfunction. Left ventricular ejection fraction was 55-60% with moderate diastolic dysfunction and severe biatrial enlargement and pulmonary hypertension. CYNTHIA does not show any vegetations. Resolved as no more fever, tachycardia and leukocytosis. Continue IV daptomycin Continue Macrobid Awaiting placement. Qualifiers: Sepsis type: sepsis due to unspecified organism Qualified Code(s): A41.9 - Sepsis, unspecified organism (2) Cellulitis Current Visit: Yes Status: Acute Assessment and plan: Resolving Erythema of the right gluteal region that was painful with palpation but no open wound noted. Likely the source of sepsis. 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 CT A/P showed right gluteal induration but no drainable collection. Improves as the size of erythema and tenderness to palpation significantly reduced. CK decreased from 285 to 209. Will continue daptomycin for now and repeat CK in a week . Qualifiers: Site of cellulitis: extremity Site of cellulitis of extremity: lower extremity Laterality: right Qualified Code(s): L03.115 - Cellulitis of right lower limb (3) Renal insufficiency Current Visit: Yes Status: Resolved Assessment and plan: Resolved Patient's serum creatinines 1.20. This is slightly elevated from baseline of 1. Most likely secondary to sepsis secondary to right gluteal cellulitis and urinary tract infection. Continue current antibiotic regimen. Avoid nephrotoxin. Continue to monitor renal function and electrolytes. Patient has increased bilateral lower extremity edema. We will give her 1 dose of IV Lasix 40 mg. Reevaluate tomorrow. Start fluid restricted diet at 1500 mL. Continue diabetic diet. (4) Diabetes mellitus Current Visit: Yes Status: Acute Assessment and plan: Hemoglobin A1c is 6.7. Continue 25 units subcutaneous twice a day Levemir. Continue sliding scale insulin. Continue diabetic diet and before meals at bedtime Accu-Cheks. 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 Continue ketoconazole topical. (6) DVT prophylaxis Current Visit: Yes Status: Acute Assessment and plan: Continue heparin subcutaneous. (7) UTI (urinary tract infection) Current Visit: Yes Status: Acute Assessment and plan: Urine culture grew ESBL(+) E. coli sensitive to amikacin, cefoxitin, ertapenem, gentamicin, meropenem, nitrofurantoin, Zosyn, tigecycline, tobramycin and TMP/ SMZ. continue Macrobid. Qualifiers: Urinary tract infection type: acute cystitis Hematuria presence: without hematuria Qualified Code(s): N30.00 - Acute cystitis without hematuria - Subjective Interval history: Patient has no complaints. No acute events overnight. She is awaiting placement. - Constitutional Vitals: Temp Pulse Resp BP Pulse Ox 97.7 F 68 16 167/80 95 07/18/16 07:28 07/18/16 07:28 07/18/16 07:28 07/18/16 07:28 07/18/16 07:28 General appearance: Present: cooperative, A&O X 3, morbidly obese, pleasant, answers questions appropriately - Respiratory Respiratory exam: Present: CTAB. Absent: accessory muscle use, rales, rhonchi, wheezes - Cardiovascular Cardiovascular exam: Present: RRR, +S1, +S2. Absent: diastolic murmur, gallop, rubs, systolic murmur - GI/Abdominal GI/Abdominal exam: Present: normal bowel sounds, soft, no peritoneal signs. Absent: distended, tenderness - Extremities Exam Extremities exam: Present: warm, radial pulses palpable and symetrical. Absent : calf tenderness, cyanotic, pedal edema - Skin Skin exam: Present: erythema (Mild right gluteal region improving.), normal color Additional comments: Low back dermatitis. Internal Medicine: Result - Labs CBC & Chem 7: 07/17/16 05:10 07/16/16 03:30 - ABG Interpretation ABG results: PT/INR, D-dimer PT 14.4 Seconds (9.4-12.1) H 07/12/16 05:33 Consult Discharge Plan - Plan Instructions: Nitrofurantoin Combination (By mouth), Daptomycin (Injection), Pancreatitis (DC), Urinary Tract Infection in Women (DC), Cellulitis (GEN), Diabetes Mellitus Type 2 in Adults (DC), Sepsis (DC), Anemia (GEN) Additional Instructions: Please return to ER if worsening redness of right gluteal region, presistent fever chills, weakness. Referrals: Derik Liang MD [Primary Care Provider] - 08/03/16 11:00 am Prescriptions: Amlodipine Besylate 10 mg PO HS #30 tablet DAPTOmycin [Daptomycin] 700 mg IV DAILY #8 vial Nitrofurantoin (BID) [Macrobid] 100 mg PO BIDWM #12 capsule <Rene Turner - Last Filed: 07/18/16 18:00> Date of Encounter: 07/18/16 - Assessment and plan (1) Cellulitis Current Visit: Yes Status: Acute Qualifiers: Site of cellulitis: extremity Site of cellulitis of extremity: lower extremity Laterality: right Qualified Code(s): L03.115 - Cellulitis of right lower limb (2) Diabetes mellitus Current Visit: Yes Status: Acute Qualifiers: Diabetes mellitus type: type 2 Diabetes mellitus complication status: with circulatory complication Diabetes mellitus complication detail: with other circulatory complications Diabetes mellitus pump machine operator insulin use: with detention use Qualified Code(s): E11.59 - Type 2 diabetes mellitus with other circulatory complications; Z79.4 - tobacco weigher (current) use of insulin (3) UTI (urinary tract infection) Current Visit: Yes Status: Acute Qualifiers: Urinary tract infection type: acute cystitis Hematuria presence: without hematuria Qualified Code(s): N30.00 - Acute cystitis without hematuria (4) Morbid obesity Current Visit: No Status: Chronic Qualifiers: Obesity type: due to excess calories Qualified Code(s): E66.01 - Morbid ( severe) obesity due to excess calories (5) Anemia of chronic disease Current Visit: No Status: Chronic (6) Infection due to ESBL-producing Escherichia coli Current Visit: Yes Status: Acute - Constitutional Vitals: Temp Pulse Resp BP Pulse Ox 97.9 F 64 18 161/73 97 07/18/16 16:48 07/18/16 16:48 07/18/16 16:48 07/18/16 16:48 07/18/16 16:48 Internal Medicine: Result - Labs CBC & Chem 7: 07/17/16 05:10 07/16/16 03:30 - ABG Interpretation ABG results: PT/INR, D-dimer PT 14.4 Seconds (9.4-12.1) H 07/12/16 05:33 - Attending Attestation I examined this patient and my medical decision-making was reviewed with the Resident Physician on 07/18/16. I agree with the documented findings, disposition and treatment plan as described except to the extent set forth below. Ms. Church is currently admitted for cellulitis presumed due to VRE and ESBL E coli UTI. She is moderate risk due to potential for worsening infectious status. Ms. Church is awaiting SNF. She has no new issues and is feeling better today. Exam Alert. Comfortable Heart reg Lungs no wheeze I/P 1. Cellulitis -on IV abx and slowly improving 2. ESBL E coli UTI Further diagnoses and plan as above.
[2016-07-18] MEDS: DAPTOmycin 700 MG in 0.9 % Sodium Chloride 100 ML IVPB SCH (16:58)
[2016-07-19 07:37] VITALS: BP 153/82
[2016-07-19] MEDS: *HR* Heparin 5,000 UNIT/ML VIAL SQ SCH (08:22)
[2016-07-19] MEDS: Aspirin Enteric Coated 81 MG Tablet PO SCH (08:23)
[2016-07-19] MEDS: Vitamin B Complex/Vit C/Vit E 1 EACH TABLET PO SCH (08:23)
[2016-07-19] MEDS: Nitrofurantoin (BID) 100 MG CAPSULE PO SCH (08:23)
[2016-07-19] MEDS: Magnesium Oxide 400 MG TABLET PO SCH (08:23)
[2016-07-19] MEDS: Insulin LISPRO 300 UNITS/3 ML VIAL SQ SCH ×2 (08:25→11:50)
[2016-07-19] MEDS: Desitin (Zinc Oxide) 56 GM TUBE TP SCH (08:37)
[2016-07-19] MEDS: Eucerin Cream 57 GM TUBE TP SCH (08:37)
[2016-07-19] MEDS: Miconazole 2% cream 118 GM TUBE TP SCH (08:38)
[2016-07-19] MEDS: Insulin DETEMIR 100 UNIT/ML X5UNITS SQ SCH (08:44)
[2016-07-19] MEDS: Ketoconazole 2% CRM 15 GM TUBE TP SCH (11:50)
== END 2016-07-19 16:45 | DRG 720 ==
LOC: EMEROO 17:03 → 2NENU 17:03
PROVIDERS: ADMIT Pediatrics; ATTEND Internal Medicine

== ENCOUNTER 2017-01-29 10:36 | Inpatient (IN) ==
[2017-01-29] MEDS ORDERED: Piperacillin/Tazobactam 3.375 GM in 0.9 % Sodium Chloride Mini Bag 100 ML IVPB ONE (10:53)
[2017-01-29] MEDS ORDERED: Vancomycin 2,000 MG in D5% in Water 500 ML IVPB ONE (10:53)
[2017-01-29] MEDS: 0.9 % Sodium Chloride 1,000 ML IVC SCH ×3 (11:27→19:54)
[2017-01-29 11:29] LABS: Hematocrit 34.5 % (35.3-44.9); Hemoglobin 10.7 g/dL (11.5-15.4); Mean Corpuscular Hemoglobin 26.7 pg (28.0-33.3); Mean Platelet Volume 9.6 fL (9.4-12.4); Platelet Count 299 K/mcL (140-400); Red Blood Count 4.01 M/mcL (3.82-4.97); Red Cell Distribution Width 15.9 % (11.5-14.5)
[2017-01-29 11:38] LABS: Bilirubin,Urine Small (Negative); Blood,Urine Negative (Negative); Clarity,Urine Clear (Clear); Color,Urine Yellow (Yellow); Glucose,Urine (UA) Normal (Normal); Ketones,Urine Negative (Negative); Leukocyte Esterase,Urine Negative (Negative); Nitrite,Urine Negative (Negative); PH,Urine 5.5 pH Units (5.0-8.0); Protein,Urine Negative (Neg-Trace); Specific Gravity,Urine 1.028 (1.010-1.025); Urobilinogen,Urine Normal (Normal)
[2017-01-29 11:39] LABS: INR 1.2
[2017-01-29 11:41] LABS: Activated Partial Thrombo Time 28.2 Seconds (26.0-36.0)
[2017-01-29 11:42] LABS: Albumin 2.8 g/dL (3.5-5.0); Albumin/Globulin Ratio 0.6 (1.1-2.2); Bilirubin,Direct 0.3 mg/dL (0.0-0.5); Bilirubin,Indirect 0.3 mg/dL (0.0-1.2); Bilirubin,Total 0.6 mg/dL (0.2-1.2); Calcium 8.7 mg/dL (8.6-10.8); Globulin 4.8 g/dL (2.4-3.5); Magnesium 1.3 mg/dL (1.6-2.6); Phosphorous 2.8 mg/dL (2.3-4.7); Potassium 4.3 mEq/L (3.5-4.5); Total Protein 7.6 g/dL (6.0-8.3)
[2017-01-29 11:47] LABS: Lymphocytes # 0.5 K/mcL (0.6-4.6); Neutrophils # 23.5 K/mcL (1.6-8.9); Polychromasia 1+ (Not Present); Schistocytes 1+ (Not Present); Target Cells 1+ (Not Present)
[2017-01-29 11:48] LABS: Platelet Estimate Normal (Normal)
--- NOTE | 2017-01-29 12:29 | Emergency Department Note ---
Disposition Clinical Impression: Sepsis Qualifiers: Sepsis type: sepsis due to unspecified organism Qualified Code(s): A41.9 - Sepsis, unspecified organism Cellulitis Qualifiers: Site of cellulitis: buttock Qualified Code(s): L03.317 - Cellulitis of buttock Disposition: Admitted As Inpatient Condition: Fair Time of Disposition: 13:31 General Adult HPI - General Chief complaint: ED Skin/Abscess/Foreign Body Stated complaint: skin rash, incotinence Time Seen by Provider: 01/29/17 10:50 Source: EMS Mode of arrival: EMS Limitations: no limitations Nursing Notes Reviewed: Yes Vital Signs Reviewed: Yes - History of Present Illness HPI Narrative: 66-year-old female presents emergency Department with concerns of possible sepsis. Patient states she has a rash that is worse and her bilateral buttocks and right lower extremity. Patient states she has had multiple episodes of sepsis in the past. The patient reports a fever of 101.7 this morning. Patient also gave a description of multiple episodes of liquid stool over the past 24-48 hrs. Denies chest pain or shortness of breath. Pain Scale: 6 - Related Data Home Medications Medication Instructions Recorded Confirmed Aspirin Enteric Coated [Aspirin EC] 81 mg PO DAILY 08/30/15 01/29/17 Fludrocortisone Acetate [Florinef] 0.1 mg PO Q48H 08/30/15 01/29/17 Insulin ASPART [Novolog Flexpen] 18 - 30 unit SQ TID PRN 08/30/15 01/29/17 Insulin Glargine,Hum.rec.anlog 32 unit SQ QAM 08/30/15 01/29/17 [Lantus Solostar] Insulin Glargine,Hum.rec.anlog 38 unit SQ HS 08/30/15 01/29/17 [Lantus Solostar] Melatonin 10 mg PO HS PRN 08/30/15 01/29/17 Metformin HCl [Glucophage] 1,000 mg PO BID 08/30/15 01/29/17 [place]-3/Dha/Epa/Fish Oil [Fish Oil 1 cap PO BID 09/23/15 01/29/17 Dr 500 mg Softgel] Vitamin B Complex [B Complex] 1 tab PO DAILY 09/23/15 01/29/17 Vitamin E (Dl,Tocopheryl Acet) 100 unit PO DAILY 09/23/15 01/29/17 [Vitamin E] Calcium Carbonate [Calcium] 500 mg PO DAILY 07/11/16 01/29/17 Cinnamon Bark [Cinnamon] 500 mg PO DAILY 07/11/16 01/29/17 Magnesium Oxide [Mag-Ox] 400 mg PO DAILY 07/11/16 01/29/17 Zinc Acetate [Galzin] 50 mg PO DAILY 07/11/16 01/29/17 Nystatin Cream [Mycostatin Cream] 1 appl TP BID 01/29/17 01/29/17 Previous Rx's Medication Instructions Recorded Eucerin Creme 1 appl TP 0000,1200 #2 tube 03/30/16 Nitrofurantoin (BID) [Macrobid] 100 mg PO BID #8 capsule 07/19/16 Allergies Allergy/AdvReac Type Severity Reaction Status Date / Time atorvastatin [From Lipitor] AdvReac Mild Cramping Verified 01/29/17 12:05 of the Muscles Zolpidem [From Ambien] AdvReac Mild Hallucinati Verified 01/29/17 10:53 ng All systems ED: reviewed and negative except as stated. Review of Systems: As Per HPI Constitutional: Reports: fever, chills, weakness Cardiovascular: Denies: chest pain, palpitations Respiratory: Denies: cough, dyspnea, wheezes, hemoptysis Gastrointestinal: Reports: abdominal pain, diarrhea. Denies: nausea, vomiting Genitourinary: Denies: urgency, dysuria Musculoskeletal: Denies: back pain, neck pain Integumentary: Reports: rash Past Medical History - Past Medical History Attestation: Yes The following information was validated with the patient. Source: patient Medical history: Reports: diabetes, GERD, hyperlipidemia, kidney stones, osteoporosis, seizures, TIA Surgical history: Reports: appendectomy, cholecystectomy, other Psychiatric history: Reports: no psych history - Social History Smoking Status: Never smoker Smokeless Tobacco Status: No Alcohol use: Reports: none Drug use: Reports: none Physical Exam General: Alert and in no acute distress, morbid obesity Skin: Warm, dry, intact Head: Normocephalic and atraumatic Neck: Supple, trachea midline and no tenderness Cardiovascular: RRR, no murmur, normal perfusion Respiratory: CTAB, no wheezing, cough, or respiratory distress Musculoskeletal: Normal strength, no tenderness, swelling or deformity GI: Soft, mild generalized tenderness without evidence of rigidity, guarding, rebound. Exam is limited by patient's body habitus. Neuro: A&O to person, place, time and situation. No focal deficits noted on exam Psychiatric: cooperative and appropriate mood and affect. Course Vital Signs Temperature 99.8 F H 01/29/17 10:39 Pulse Rate 94 01/29/17 10:39 Respiratory Rate 20 01/29/17 10:39 Blood Pressure 129/75 01/29/17 10:39 O2 Sat by Pulse Oximetry 95 01/29/17 10:39 Temperature 99.8 F H 01/29/17 10:39 Pulse Rate 97 01/29/17 14:44 Respiratory Rate 22 01/29/17 14:44 Blood Pressure 132/45 01/29/17 14:44 O2 Sat by Pulse Oximetry 93 01/29/17 14:44 Oxygen Delivery Oxygen Delivery Room Air Medical Decision Making - MDM Narrative Medical decision making narrative: Patient meets sepsis criteria. Patient started on vancomycin and Zosyn after initial evaluation. Urinalysis was negative for UTI. CT negative for acute abdominal surgical pathology. - Medical Records Medical records reviewed: Yes I reviewed the patient's medical records. - Lab Data Lab results reviewed: Yes I reviewed the patient's lab results. Result diagrams: 01/29/17 11:19 01/29/17 11:19 Lab Results 01/29/17 01/29/17 01/29/17 Range/Units 11:19 11:19 11:19 WBC 24.0 H (4.3-11.1) K/mcL RBC 4.01 (3.82-4.97) M/mcL Hgb 10.7 L (11.5-15.4) g/dL Hct 34.5 L (35.3-44.9) % MCV 86.0 (83.0-100.0) fL MCH 26.7 L (28.0-33.3) pg MCHC 31.0 L (31.6-35.5) g/dL RDW 15.9 H (11.5-14.5) % Plt Count 299 (140-400) K/mcL MPV 9.6 (9.4-12.4) fL Seg Neutrophils % 88.0 % Band Neutrophils % 10.0 H (0-4) % Lymphocytes % 2.0 % Neutrophils # 23.5 H (1.6-8.9) K/mcL Lymphocytes # 0.5 L (0.6-4.6) K/mcL Platelet Estimate Normal (Normal) Polychromasia 1+ A (Not Present) Target Cells 1+ A (Not Present) Schistocytes 1+ A (Not Present) PT 13.0 H (9.4-12.1) Seconds INR 1.2 APTT 28.2 (26.0-36.0) Seconds Sodium 133 L (136-145) mEq/L Potassium 4.3 (3.5-4.5) mEq/L Chloride 102 (98-109) mEq/L Carbon Dioxide 23 (19-29) mEq/L BUN 27 H (7-20) mg/dL Creatinine 1.26 H (0.57-1.11) mg/dL Est GFR ( Amer) 52 L (> 60) Est GFR (Non-Af Amer) 43 L (> 60) BUN/Creatinine Ratio 21 (6-26) Glucose 245 H (70-99) mg/dL Calculated Osmolality 289 (280-300) Lactic Acid (0.5-2.2) mmol/L Calcium 8.7 (8.6-10.8) mg/dL Phosphorus 2.8 (2.3-4.7) mg/dL Magnesium 1.3 L (1.6-2.6) mg/dL Total Bilirubin 0.6 (0.2-1.2) mg/dL Direct Bilirubin 0.3 (0.0-0.5) mg/dL Indirect Bilirubin 0.3 (0.0-1.2) mg/dL AST 27 (5-34) Units/L ALT 41 (0-55) Units/L Alkaline Phosphatase 104 (38-126) Units/L Troponin I (0-0.03) ng/mL Serum Total Protein 7.6 (6.0-8.3) g/dL Albumin 2.8 L (3.5-5.0) g/dL Globulin 4.8 H (2.4-3.5) g/dL Albumin/Globulin Ratio 0.6 L (1.1-2.2) Urine Color (Yellow) Urine Clarity (Clear) Urine pH (5.0-8.0) pH Units Ur Specific Stephens (1.010-1.025) Urine Protein (Neg-Trace) mg/dL Urine Glucose (UA) (Normal) mg/dL Urine Ketones (Negative) mg/dL Urine Blood (Negative) Urine Nitrite (Negative) Urine Bilirubin (Negative) Urine Urobilinogen (Normal) mg/dL Ur Leukocyte Esterase (Negative) Ur Culture Indicated? (NO) 01/29/17 01/29/17 01/29/17 Range/Units 11:19 11:19 11:25 WBC (4.3-11.1) K/mcL RBC (3.82-4.97) M/mcL Hgb (11.5-15.4) g/dL Hct (35.3-44.9) % MCV (83.0-100.0) fL MCH (28.0-33.3) pg MCHC (31.6-35.5) g/dL RDW (11.5-14.5) % Plt Count (140-400) K/mcL MPV (9.4-12.4) fL Seg Neutrophils % % Band Neutrophils % (0-4) % Lymphocytes % % Neutrophils # (1.6-8.9) K/mcL Lymphocytes # (0.6-4.6) K/mcL Platelet Estimate (Normal) Polychromasia (Not Present) Target Cells (Not Present) Schistocytes (Not Present) PT (9.4-12.1) Seconds INR APTT (26.0-36.0) Seconds Sodium (136-145) mEq/L Potassium (3.5-4.5) mEq/L Chloride (98-109) mEq/L Carbon Dioxide (19-29) mEq/L BUN (7-20) mg/dL Creatinine (0.57-1.11) mg/dL Est GFR ( Amer) (> 60) Est GFR (Non-Af Amer) (> 60) BUN/Creatinine Ratio (6-26) Glucose (70-99) mg/dL Calculated Osmolality (280-300) Lactic Acid 1.8 (0.5-2.2) mmol/L Calcium (8.6-10.8) mg/dL Phosphorus (2.3-4.7) mg/dL Magnesium (1.6-2.6) mg/dL Total Bilirubin (0.2-1.2) mg/dL Direct Bilirubin (0.0-0.5) mg/dL Indirect Bilirubin (0.0-1.2) mg/dL AST (5-34) Units/L ALT (0-55) Units/L Alkaline Phosphatase (38-126) Units/L Troponin I 0.01 (0-0.03) ng/mL Serum Total Protein (6.0-8.3) g/dL Albumin (3.5-5.0) g/dL Globulin (2.4-3.5) g/dL Albumin/Globulin Ratio (1.1-2.2) Urine Color Yellow (Yellow) Urine Clarity Clear (Clear) Urine pH 5.5 (5.0-8.0) pH Units Ur Specific Stephens 1.028 H (1.010-1.025) Urine Protein Negative (Neg-Trace) mg/dL Urine Glucose (UA) Normal (Normal) mg/dL Urine Ketones Negative (Negative) mg/dL Urine Blood Negative (Negative) Urine Nitrite Negative (Negative) Urine Bilirubin Small H (Negative) Urine Urobilinogen Normal (Normal) mg/dL Ur Leukocyte Esterase Negative (Negative) Ur Culture Indicated? NO (NO) - Radiology Data Radiology results reviewed: Yes I reviewed the patient's radiology results.
[2017-01-29] MEDS ORDERED: Ondansetron 4 MG/2 ML VIAL IVP PRN (17:24)
[2017-01-29] MEDS ORDERED: D5% in Water 1,000 ML IVC PRN (17:24)
[2017-01-29] MEDS ORDERED: *HR* Morphine 2 MG/ML SYRINGE IVP PRN (17:24)
[2017-01-29] MEDS ORDERED: *HR* OxyCODONE Immed Rel 5 MG TABLET PO PRN (17:24)
[2017-01-29] MEDS ORDERED: *HR* Dextrose 50 % in Water (Syg) 50 ML SYRINGE IVP PRN (17:24)
[2017-01-29] MEDS ORDERED: Dextrose Gel 15 GM PO PRN ×2 (17:24)
[2017-01-29] MEDS ORDERED: Naloxone 0.4 MG/ML INJ IVP PRN (17:24)
--- NOTE | 2017-01-29 17:35 | Internal Med History&Physical ---
Date of Encounter: 01/29/17 Time of Encounter: 17:33 Assessment and Plan (1) Sepsis affecting skin Current visit: Yes Status: Acute Severe Sepsis secondary to bilateral buttocks acute cellulitis and right lower extremity cellulitis Discontinue Zosyn and continue only vancomycin, continue IV fluids and pain management Blood cultures Omeprazole for GI prophylaxis and subcutaneous heparin for DVT prophylaxis. The patient will be admitted as inpatient, expected to stay more than 2 midnights. Full code. 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 (3) Cellulitis Current visit: No Status: Acute Qualifiers: Site of cellulitis: extremity Site of cellulitis of extremity: lower extremity Laterality: right Qualified Code(s): L03.115 - Cellulitis of right lower limb (4) Sepsis Current visit: No Status: Resolved Qualifiers: Sepsis type: sepsis due to unspecified organism Qualified Code(s): A41.9 - Sepsis, unspecified organism (5) Cellulitis of right leg Current visit: No Status: Acute (6) Acute worsening of stage 3 chronic kidney disease Current visit: No Status: Acute Acute on chronic renal failure IV fluids High risk due to sepsis Internal Medicine - H&P: HPI Chief complaint: Fever Admitted From: Emergency Dept History of present illness: Ms. Church is a 66 year old female with a past medical history of diabetes type 2 insulin-dependent and prior history of MRSA abdominal abscesses, chronic kidney disease stage III, seizures, the patient came to emergency room complaining of severe pain in both buttocks and also right lower extremity redness/pain. Has been having fevers for the past 3 days and has been noticed that the redness on her buttocks progressed earlier today. She had a fever 101.7. White blood cell count is 24 with 10% bands. Creatinine has increased from 1.07 up to 1.26. Complains of severe pain, heart rate is 100. Patient was started on vancomycin and Zosyn at the emergency room. Complains of chills , vomited once on Saturday, complaining of abdominal pain with CT scan of the abdomen did not show any acute finding. Past Med Surg Social Fam HX - Past Medical History Medical history: diabetes (Insulin-dependent), GERD, hyperlipidemia, kidney stones, osteoporosis, seizures, TIA, other (Fibroid uterus, GERD, several episodes of cellulitis, MRSA abdominal abscess, chronic kidney disease stage III , hypertension, possible adrenal insufficiency taking fludrocortisone, ESBL UTI , VRE bacteremia, diastolic CHF with moderate diastolic dysfunction) Psychiatric history: no psych history - Past Surgical History Surgical History: appendectomy, cholecystectomy, other (Surgical grafts due to chest crews, toe surgeries) - Social History Smoking Status: Never smoker Smokeless Tobacco Status: No Alcohol use: none Drug use: none - Family History Father Living Status: Hx Family Cardiac Disorders: Yes (HTN) Hx Family Endocrine Disorder: Yes (DM) Hx Family Neuromuscular Disorders: Yes (seizures) Hx Family Neurologic Disorders: Yes Mother Living Status: Hx Family Cancer: Yes (breast) - Additional Family History Additional family history: Father with hypertension and diabetes and seizures. Mother with breast cancer Internal Medicine - H&P: Meds Aspirin Enteric Coated [Aspirin EC] 81 mg PO DAILY 08/30/15 [History] Fludrocortisone Acetate [Florinef] 0.1 mg PO Q48H 08/30/15 [History] Insulin ASPART [Novolog Flexpen] 18 - 30 unit SQ TID PRN 08/30/15 [History] Insulin Glargine,Hum.rec.anlog [Lantus Solostar] 32 unit SQ QAM 08/30/15 [ History] Insulin Glargine,Hum.rec.anlog [Lantus Solostar] 38 unit SQ HS 08/30/15 [History ] Melatonin 10 mg PO HS PRN 08/30/15 [History] Metformin HCl [Glucophage] 1,000 mg PO BID 08/30/15 [History] [place]-3/Dha/Epa/Fish Oil [Fish Oil Dr 500 mg Softgel] 1 cap PO BID 09/23/15 [ History] Vitamin B Complex [B Complex] 1 tab PO DAILY 09/23/15 [History] Vitamin E (Dl,Tocopheryl Acet) [Vitamin E] 100 unit PO DAILY 09/23/15 [History] Eucerin Creme 1 appl TP 0000,1200 #2 tube 03/30/16 [Rx] Calcium Carbonate [Calcium] 500 mg PO DAILY 07/11/16 [History] Cinnamon Bark [Cinnamon] 500 mg PO DAILY 07/11/16 [History] Magnesium Oxide [Mag-Ox] 400 mg PO DAILY 07/11/16 [History] Zinc Acetate [Galzin] 50 mg PO DAILY 07/11/16 [History] Nitrofurantoin (BID) [Macrobid] 100 mg PO BID #8 capsule 07/19/16 [Rx] Nystatin Cream [Mycostatin Cream] 1 appl TP BID 01/29/17 [History] 3 Allergy/AdvReac Type Severity Reaction Status Date / Time atorvastatin [From Lipitor] AdvReac Mild Cramping Verified 01/29/17 12:05 of the Muscles Zolpidem [From Ambien] AdvReac Mild Hallucinati Verified 01/29/17 10:53 ng All Systems PM: A 10-system review of systems was performed and is negative for pertinent findings except as documented above in the HPI. Review of systems: Denies any chest pressures of breath. Other systems out of the 10 reviewed were negative - Constitutional Vitals: Temp Pulse Resp BP Pulse Ox 99.8 F H 97 22 132/45 93 01/29/17 10:39 01/29/17 14:44 01/29/17 14:44 01/29/17 14:44 01/29/17 14:44 General appearance: Present: A&O X 3, morbidly obese - Head Head exam: Present: atraumatic, normocephalic - Eye Eye exam: Present: PERRL, conjuntiva pink, sclera anicteric Pupils: Present: PERRL - Neck Neck exam general surgery: Present: supple, trachea midline. Absent: lymphadenopathy - Respiratory Respiratory exam: Present: CTAB. Absent: accessory muscle use, rales, rhonchi, wheezes - Cardiovascular Cardiovascular exam: Present: RRR, +S1, +S2, tachycardia. Absent: diastolic murmur, gallop, rubs, systolic murmur - GI/Abdominal GI/Abdominal exam: Present: distended, normal bowel sounds, soft, no peritoneal signs. Absent: tenderness - Extremities Exam Extremities exam: Present: warm, radial pulses palpable and symmetrical. Absent : calf tenderness, cyanotic, pedal edema - Neurological Exam Neurological exam: Present: CN II-XII intact, oriented X3, no focal deficits. Absent: pronater drift, facial droop, speech deficit - Skin Skin exam: Present: dry. Absent: intact Additional comments: Extensive erythema on both buttocks worse on the right side, also erythema and tenderness and warmth on the right lower extremity below the knee Internal Med - H&P Results - Labs CBC & Chem 7: 01/29/17 11:19 01/29/17 11:19
[2017-01-29] MEDS ORDERED: Vancomycin (wt based) 1,000 MG VIAL IVPB SCH (18:00)
[2017-01-29] MEDS: Insulin LISPRO 300 UNITS/3 ML VIAL SQ SCH (21:51)
[2017-01-29] MEDS: *HR* Heparin 5,000 UNIT/ML VIAL SQ SCH (21:52)
[2017-01-29] MEDS: Insulin DETEMIR 100 UNIT/ML X5UNITS SQ SCH (21:56)
[2017-01-30] MEDS: Melatonin 3 MG TABLET PO PRN (00:36)
[2017-01-30] MEDS ORDERED: Vancomycin 2,000 MG in D5% in Water 500 ML IVPB SCH (01:00)
[2017-01-30] MEDS: 0.9 % Sodium Chloride 1,000 ML IVC SCH (04:44)
[2017-01-30 04:53] LABS: Hematocrit 29.6 % (35.3-44.9); Mean Corpuscular HGB Conc 30.7 g/dL (31.6-35.5); Mean Corpuscular Hemoglobin 26.3 pg (28.0-33.3); Mean Corpuscular Volume 85.5 fL (83.0-100.0); Mean Platelet Volume 9.8 fL (9.4-12.4); Platelet Count 244 K/mcL (140-400); Red Blood Count 3.46 M/mcL (3.82-4.97); Red Cell Distribution Width 16.1 % (11.5-14.5)
[2017-01-30 04:58] LABS: Calcium 8.1 mg/dL (8.6-10.8); Hemoglobin 9.1 g/dL (11.5-15.4); Potassium 3.5 mEq/L (3.5-4.5)
[2017-01-30] MEDS: *HR* Heparin 5,000 UNIT/ML VIAL SQ SCH ×3 (06:11→20:51)
[2017-01-30] MEDS: Acetaminophen 325 MG TABLET PO PRN ×2 (06:11→15:55)
[2017-01-30] MEDS ORDERED: Aminoglycoside Consult 1 EACH MC ONE (07:34)
--- NOTE | 2017-01-30 07:42 | Internal Med Progress Note ---
Date of Encounter: 01/30/17 Time of Encounter: 07:39 - Assessment and plan (1) Sepsis affecting skin Current Visit: Yes Status: Acute Assessment and plan: Severe Sepsis secondary to bilateral buttocks acute cellulitis and right lower extremity cellulitis, history of MRSA abscess The patient has received 2 doses of IV vancomycin Day 2 She is willing to try IV doxycycline in order to be discharged sooner on an oral antibiotic, she understands that the doxycycline does not work she would have to go back to IV vancomycin Continue IV fluids, blood cultures pending (2) Type 2 diabetes mellitus without complication Current Visit: No Status: Chronic Assessment and plan: Continue Levemir 32 units in the morning and 38 units at night, high dose insulin sliding scale Qualifiers: 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: with alf use Qualified Code( s): E11.9 - Type 2 diabetes mellitus without complications; Z79.4 - alf ( current) use of insulin (3) Cellulitis Current Visit: No Status: Acute Qualifiers: Site of cellulitis: extremity Site of cellulitis of extremity: lower extremity Laterality: right Qualified Code(s): L03.115 - Cellulitis of right lower limb (4) Sepsis Current Visit: No Status: Resolved Qualifiers: Sepsis type: sepsis due to unspecified organism Qualified Code(s): A41.9 - Sepsis, unspecified organism (5) Cellulitis of right leg Current Visit: No Status: Acute (6) Acute worsening of stage 3 chronic kidney disease Current Visit: No Status: Acute Assessment and plan: Improving, continue IV fluids (7) Hypomagnesemia Current Visit: Yes Status: Acute Assessment and plan: Replete as needed (8) Orthostatic hypotension Current Visit: Yes Status: Acute Assessment and plan: Continue fludrocortisone - Subjective Interval history: Denies any chest pain or shortness of breath, complains still of pain on her buttocks and right lower extremity, ran low-grade fevers last night, no diarrhea or dysuria - Constitutional Vitals: Temp Pulse Resp BP Pulse Ox 99.4 F 71 19 123/68 97 01/30/17 07:01 01/30/17 07:01 01/30/17 07:01 01/30/17 07:01 01/30/17 07:01 General appearance: Present: A&O X 3, morbidly obese Exam: - Head Head exam: Present: atraumatic, normocephalic - Eye Eye exam: Present: PERRL, conjuntiva pink, sclera anicteric Pupils: Present: PERRL - Neck Neck exam general surgery: Present: supple, trachea midline. Absent: lymphadenopathy - Respiratory Respiratory exam: Present: CTAB. Absent: accessory muscle use, rales, rhonchi, wheezes - Cardiovascular Cardiovascular exam: Present: RRR, +S1, +S2, tachycardia. Absent: diastolic murmur, gallop, rubs, systolic murmur - GI/Abdominal GI/Abdominal exam: Present: distended, normal bowel sounds, soft, no peritoneal signs. Absent: tenderness - Extremities Exam Extremities exam: Present: warm, radial pulses palpable and symmetrical. Absent : calf tenderness, cyanotic, pedal edema - Neurological Exam Neurological exam: Present: CN II-XII intact, oriented X3, no focal deficits. Absent: pronater drift, facial droop, speech deficit - Skin Skin exam: Present: dry. Absent: intact Additional comments: Extensive erythema on both buttocks worse on the right side, also erythema and tenderness and warmth on the right lower extremity below the knee Internal Medicine: Result - Labs CBC & Chem 7: 01/30/17 04:25 01/30/17 04:25 Labs: Short CBC 01/30/17 Range/Units 04:25 WBC 13.7 H (4.3-11.1) K/mcL Hgb 9.1 L D (11.5-15.4) g/dL Hct 29.6 L (35.3-44.9) % Plt Count 244 (140-400) K/mcL BMP 01/30/17 04:25 Sodium 133 L Potassium 3.5 Chloride 105 Carbon Dioxide 21 BUN 21 H Creatinine 1.14 H Glucose 216 H Calcium 8.1 L - ABG Interpretation ABG results: PT/INR, D-dimer PT 13.0 Seconds (9.4-12.1) H 01/29/17 11:19 Consult Discharge Plan - Plan Referrals: Derik Liang MD [Primary Care Provider] -
[2017-01-30] MEDS ORDERED: 0.9 % Sodium Chloride 1,000 ML IVC SCH (07:45)
[2017-01-30] MEDS: Magnesium Oxide 400 MG TABLET PO SCH ×2 (09:37→20:45)
[2017-01-30] MEDS: Insulin LISPRO 300 UNITS/3 ML VIAL SQ SCH ×4 (09:37→20:44)
[2017-01-30] MEDS: Insulin DETEMIR 100 UNIT/ML X5UNITS SQ SCH ×2 (09:37→20:44)
[2017-01-30] MEDS: Aspirin Enteric Coated 81 MG Tablet PO SCH (09:37)
[2017-01-30] MEDS: Doxycycline 200 MG in 0.9 % Sodium Chloride 250 ML IVPB SCH ×2 (12:26→18:38)
[2017-01-30] MEDS: Nystatin POWDER 30 GM BOTTLE TP SCH ×2 (12:27→20:45)
[2017-01-31] MEDS: Melatonin 3 MG TABLET PO PRN (01:32)
[2017-01-31 06:02] LABS: Hematocrit 31.5 % (35.3-44.9); Mean Corpuscular HGB Conc 31.7 g/dL (31.6-35.5); Mean Corpuscular Hemoglobin 27.2 pg (28.0-33.3); Mean Corpuscular Volume 85.8 fL (83.0-100.0); Mean Platelet Volume 10.4 fL (9.4-12.4); Platelet Count 252 K/mcL (140-400); Red Blood Count 3.67 M/mcL (3.82-4.97); Red Cell Distribution Width 15.8 % (11.5-14.5)
[2017-01-31] MEDS: *HR* Heparin 5,000 UNIT/ML VIAL SQ SCH (06:04)
[2017-01-31] MEDS: Doxycycline 200 MG in 0.9 % Sodium Chloride 250 ML IVPB SCH (06:04)
[2017-01-31 06:16] LABS: BUN/Creatinine Ratio 19 (6-26); Blood Urea Nitrogen 18 mg/dL (7-20); Calcium 8.5 mg/dL (8.6-10.8); Carbon Dioxide 21 mEq/L (19-29); Chloride 109 mEq/L (98-109); Glucose 130 mg/dL (70-99); Osmolality,Calculated 294 (280-300); Potassium 3.8 mEq/L (3.5-4.5); eGFR For African Americans > 60 (> 60); eGFR For Non-African Americans 59 (> 60)
[2017-01-31 06:26] LABS: Sodium 140 mEq/L (136-145)
--- NOTE | 2017-01-31 07:48 | Discharge Summary ---
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 servicer use Qualified Code( s): E11.9 - Type 2 diabetes mellitus without complications; Z79.4 - termite control servicer ( current) use of insulin (3) Cellulitis Priority: Primary Status: Acute Qualifiers: Site of cellulitis: extremity Site of cellulitis of extremity: lower extremity Laterality: right Qualified Code(s): L03.115 - Cellulitis of right lower limb (4) Sepsis Priority: Primary Status: Resolved Qualifiers: Sepsis type: sepsis due to unspecified organism Qualified Code(s): A41.9 - Sepsis, unspecified organism (5) Cellulitis of right leg Priority: Primary Status: Acute (6) Acute worsening of stage 3 chronic kidney disease Priority: Secondary Status: Acute (7) Hypomagnesemia Priority: Secondary Status: Acute (8) Orthostatic hypotension Priority: Secondary Status: Acute - Discharge Medications Prescriptions: OxyCODONE Immed Rel [Roxicodone 5 MG] 5 mg PO Q6HR PRN #25 tablet PRN Reason: Moderate Pain (4-6) Doxycycline 200 mg PO BID 7 Days capsule Home Medications: Aspirin Enteric Coated [Aspirin EC] 81 mg PO DAILY 08/30/15 [History] Fludrocortisone Acetate [Florinef] 0.1 mg PO Q48H 08/30/15 [History] Insulin ASPART [Novolog Flexpen] 18 - 30 unit SQ TID PRN 08/30/15 [History] Insulin Glargine,Hum.rec.anlog [Lantus Solostar] 32 unit SQ QAM 08/30/15 [ History] Insulin Glargine,Hum.rec.anlog [Lantus Solostar] 38 unit SQ HS 08/30/15 [History ] Melatonin 10 mg PO HS PRN 08/30/15 [History] Metformin HCl [Glucophage] 1,000 mg PO BID 08/30/15 [History] [place]-3/Dha/Epa/Fish Oil [Fish Oil Dr 500 mg Softgel] 1 cap PO BID 09/23/15 [ History] Vitamin B Complex [B Complex] 1 tab PO DAILY 09/23/15 [History] Vitamin E (Dl,Tocopheryl Acet) [Vitamin E] 100 unit PO DAILY 09/23/15 [History] Eucerin Creme 1 appl TP 0000,1200 #2 tube 03/30/16 [Rx] Calcium Carbonate [Calcium] 500 mg PO DAILY 07/11/16 [History] Cinnamon Bark [Cinnamon] 500 mg PO DAILY 07/11/16 [History] Magnesium Oxide [Mag-Ox] 400 mg PO DAILY 07/11/16 [History] Zinc Acetate [Galzin] 50 mg PO DAILY 07/11/16 [History] Nystatin Cream [Mycostatin Cream] 1 appl TP BID 01/29/17 [History] Doxycycline 200 mg PO BID 7 Days capsule 01/31/17 [Rx] OxyCODONE Immed Rel [Roxicodone 5 MG] 5 mg PO Q6HR PRN #25 tablet 01/31/17 [Rx] Allergies/Adverse Reactions: 3 Allergy/AdvReac Type Severity Reaction Status Date / Time atorvastatin [From Lipitor] AdvReac Mild Cramping Verified 01/29/17 12:05 of the Muscles Zolpidem [From Ambien] AdvReac Mild Hallucinati Verified 01/29/17 10:53 ng Date of admission: 01/29/17 17:24 Primary care physician: Derik Liang MD - Patient Status Disposition: Home, Self-Care Condition: Good Overall status at discharge: patient is progressing back to baseline - Discharge Instructions Follow Up With: Derik Liang MD [Primary Care Provider] - Additional Instructions: Follow-up with primary care physician within the next 7 days, complete 7 more days of doxycycline - Diet and Activity Activity: increase activity as tolerated Diet: diabetic diet Hospital course: Ms. Church is a 66 year old female with a past medical history of diabetes ( Insulin-dependent), GERD, hyperlipidemia, kidney stones, osteoporosis, seizures , TIA, other (Fibroid uterus, GERD, several episodes of cellulitis, MRSA abdominal abscess, chronic kidney disease stage III, hypertension, orthostatic hypotension taking fludrocortisone, ESBL UTI, VRE bacteremia, diastolic CHF with moderate diastolic dysfunction), the patient came to emergency room complaining of severe pain in both buttocks and also right lower extremity redness/pain. Was having fevers for the past 3 days or to admission and noticed that the redness on her buttocks progressed. She had a fever 101.7. White blood cell count was 24 with 10% bands. Creatinine increased from 1.07 up to 1.26, now is back down to 0.95. Complained of severe pain, heart rate was 100. Patient was started on vancomycin and Zosyn at the emergency room. Complained of chills, vomited once on Saturday, wss complaining of abdominal pain, had a CT scan of the abdomen that did not show any acute findings. The patient was continued on vancomycin for 2 days and then was switched to doxycycline, her white blood cell count is back to normal down to 9.3, no fevers overnight. The patient will be discharged on doxycycline 200 mg twice a day as she has a BMI of 66.1, and weights 179.94 kg. - Time Spent with Patient Total time spent providing and/or coordinating discharge services: Greater than 30 minutes (40 min) - Constitutional Vitals: Temp Pulse Resp BP Pulse Ox 98.2 F 75 16 137/78 94 01/31/17 03:22 01/31/17 03:22 01/31/17 03:22 01/31/17 03:22 01/31/17 03:22 General appearance: Present: A&O X 3, morbidly obese Exam: - Head Head exam: Present: atraumatic, normocephalic - Eye Eye exam: Present: PERRL, conjuntiva pink, sclera anicteric Pupils: Present: PERRL - Neck Neck exam general surgery: Present: supple, trachea midline. Absent: lymphadenopathy - Respiratory Respiratory exam: Present: CTAB. Absent: accessory muscle use, rales, rhonchi, wheezes - Cardiovascular Cardiovascular exam: Present: RRR, +S1, +S2, tachycardia. Absent: diastolic murmur, gallop, rubs, systolic murmur - GI/Abdominal GI/Abdominal exam: Present: distended, normal bowel sounds, soft, no peritoneal signs. Absent: tenderness - Extremities Exam Extremities exam: Present: warm, radial pulses palpable and symmetrical. Absent : calf tenderness, cyanotic, pedal edema - Neurological Exam Neurological exam: Present: CN II-XII intact, oriented X3, no focal deficits. Absent: pronater drift, facial droop, speech deficit - Skin Skin exam: Present: dry. Absent: intact Additional comments: Extensive erythema on both buttocks worse on the right side, also erythema and tenderness and warmth on the right lower extremity below the knee have improved considerably
[2017-01-31] MEDS: Insulin LISPRO 300 UNITS/3 ML VIAL SQ SCH ×2 (08:08→12:06)
[2017-01-31] MEDS: Magnesium Oxide 400 MG TABLET PO SCH (08:58)
[2017-01-31] MEDS: Aspirin Enteric Coated 81 MG Tablet PO SCH (08:58)
[2017-01-31] MEDS: Nystatin POWDER 30 GM BOTTLE TP SCH (08:59)
[2017-01-31 11:03] VITALS: BP 113/65
[2017-01-31] MEDS: Insulin DETEMIR 100 UNIT/ML X5UNITS SQ SCH (12:06)
== END 2017-01-31 16:53 | disposition home or self-care (01) | DRG 872 ==
LOC: EMEROO 10:36 → 3ANU 10:36 → 3BNU 15:47 → SUATTDRO 17:24
PROVIDERS: ADMIT Internal Medicine; ATTEND Internal Medicine

== ENCOUNTER 2018-03-10 16:36 | Observation (INO) ==
[2018-03-10] MEDS ORDERED: Isovue-370 500 ML INFUS..BTL IV ONE (16:48)
--- NOTE | 2018-03-10 17:08 | Emergency Department Note ---
Disposition Clinical Impression: Panniculitis, Rectal bleeding Chest pain Qualifiers: Chest pain type: unspecified Qualified Code(s): R07.9 - Chest pain, unspecified Disposition: Admitted As Inpatient Condition: Good Time of Disposition: 19:28 General Adult HPI - General Stated complaint: Chest Pain Time Seen by Provider: 03/10/18 16:37 Source: patient, EMS Mode of arrival: EMS Limitations: no limitations Nursing Notes Reviewed: Yes Vital Signs Reviewed: Yes - History of Present Illness HPI Narrative: Patient is a 67 red female that presents emergency Department with reports of chest pain, rectal bleeding and vaginal bleeding. Patient states that she was seen here in the emergency department approximately 3-4 days ago for the rectal bleeding and was diagnosed with hemorrhoids. Patient states that she follow-up the primary care provider today she started having rectal bleeding again. Patient states that while she was at the doctor's office she had chest pain. Patient states the chest pain is located in the lower portion of the center of her chest. Patient denies any shortness of breath. Patient denies any radiati on of her pain into her neck, shoulder and her arm. She does state that she feels like it does wrap around her upper abdomen. Patient denies any previous cardiac history. Pain Scale: 0 - Related Data Home Medications Medication Instructions Recorded Confirmed Aspirin Enteric Coated [Aspirin EC] 81 mg PO DAILY 08/30/15 03/10/18 Fludrocortisone Acetate [Florinef] 0.1 mg PO Q48H 08/30/15 03/10/18 Melatonin 10 mg PO HS 08/30/15 03/10/18 Metformin HCl [Glucophage] 1,000 mg PO BID 08/30/15 03/10/18 [place]-3/Dha/Epa/Fish Oil [Fish Oil 1 cap PO BID 09/23/15 03/10/18 Dr 500 mg Softgel] Vitamin B Complex [B Complex] 1 tab PO DAILY 09/23/15 03/10/18 Vitamin E (Dl,Tocopheryl Acet) 100 unit PO DAILY 09/23/15 03/10/18 [Vitamin E] Calcium Carbonate [Calcium] 500 mg PO DAILY 07/11/16 03/10/18 Cinnamon Bark [Cinnamon] 500 mg PO DAILY 07/11/16 03/10/18 Magnesium Oxide [Mag-Ox] 400 mg PO DAILY 07/11/16 03/10/18 Zinc Acetate [Galzin] 50 mg PO DAILY 07/11/16 03/10/18 Insulin Regular U-500 [HumuLIN R 50 unit SQ TID 03/10/18 03/10/18 U-500] Red Yeast Rice 600 mg PO DAILY 03/10/18 03/10/18 Previous Rx's Medication Instructions Recorded DiphenhydraMINE [Benadryl] 50 mg PO Q6HR PRN #20 capsule 06/15/17 Allergies Allergy/AdvReac Type Severity Reaction Status Date / Time atorvastatin [From Lipitor] AdvReac Mild Cramping Verified 03/07/18 22:41 of the Muscles Zolpidem [From Ambien] AdvReac Mild Hallucinati Verified 03/07/18 22:41 ng All systems ED: reviewed and negative except as stated. Constitutional: Denies: fever Cardiovascular: Reports: chest pain Respiratory: Denies: dyspnea Gastrointestinal: Reports: abdominal pain Genitourinary: Reports: hematuria, other (Vaginal bleeding) Past Medical History - Past Medical History Attestation: Yes The following information was validated with the patient. Source: patient Medical history: Reports: diabetes, GERD, hyperlipidemia, kidney stones, osteoporosis, seizures, TIA, other Surgical history: Reports: appendectomy, cholecystectomy, other Psychiatric history: Reports: no psych history - Social History Smoking Status: Never smoker Smokeless Tobacco Status: No Alcohol use: Reports: none Drug use: Reports: none Physical Exam - General Limitations: no limitations General appearance: alert, in no apparent distress - Head Head exam: atraumatic, normocephalic - Eye Eye exam: Present: normal appearance, EOMI - Neck Neck exam: Present: normal inspection, full ROM, trachea midline - Respiratory Respiratory exam: Present: normal lung sounds bilaterally. Absent: respiratory distress, wheezes - Cardiovascular Cardiovascular exam: Present: regular rate, normal rhythm, normal heart sounds, +S1, +S2 - Abdominal Exam Abdominal exam: Present: soft, tenderness, normal bowel sounds Abdominal tenderness: Present: diffuse - Extremities Exam Extremities exam: Present: other (Chronic swelling to bilateral lower extremities) - Neurological Exam Neurological exam: Present: alert, oriented X3 - Psychiatric Psychiatric exam: Present: normal affect, normal mood - Skin Skin exam: Present: warm, dry, intact Course Vital Signs Temperature 98.4 F 03/10/18 16:53 Pulse Rate 72 03/10/18 16:53 Respiratory Rate 22 03/10/18 16:53 Blood Pressure 165/65 03/10/18 16:53 O2 Sat by Pulse Oximetry 99 03/10/18 16:53 Temperature 98.4 F 03/10/18 16:53 Pulse Rate 72 03/10/18 16:53 Respiratory Rate 22 03/10/18 16:53 Blood Pressure 165/65 03/10/18 16:53 O2 Sat by Pulse Oximetry 99 03/10/18 17:00 Oxygen Delivery Oxygen Delivery Room Air Medical Decision Making - MDM Narrative Medical decision making narrative: Due the patient presents emergency Department with reports of chest pain as well as vaginal bleeding and blood in her stool we will obtain basic laboratory testing, CT of the abdomen and pelvis and will perform a pelvic exam. Pelvic exam did not show any active bleeding at this time. There is no active discharge. Rectal exam was performed and showed occult blood but no gross blood on exam. There was one small external hemorrhoid. I was unable to palpate internal hemorrhoids at this time. I was not able to visualize an anal fissure at this time. Remainder of her laboratory testing is relatively unremarkable. Chest x-ray did not show any acute cardiopulomary process. The CT scan of the abdomen and pelvis did show evidence of panniculitis. Patient has generalized abdominal discomfort. Has otherwise been stable here in the emergency department. Lipase and the patient having chest pain in the setting of diabetes, elevated BMI, and hyperlipidemia the patient has an elevated heart score of 4. Based on the symptoms and her heart score of 4 we will admit the patient to the hospital for further evaluation and management of her chest pain. Patient is currently chest pain-free at this time. Called spoke the admitting hospitalist Dr. Del Rosario and he is except the patient to their service. Patient be admitted to the hospital at this time for further evaluation and management. - Medical Records Medical records reviewed: Yes I reviewed the patient's medical records. - Lab Data Lab results reviewed: Yes I reviewed the patient's lab results. Result diagrams: 03/10/18 17:10 03/10/18 17:10 Lab Results 03/10/18 03/10/18 03/10/18 Range/Units 17:10 17:10 17:10 WBC 7.2 (4.3-11.1) K/mcL RBC 4.40 (3.82-4.97) M/mcL Hgb 11.5 (11.5-15.4) g/dL Hct 37.9 (35.3-44.9) % MCV 86.1 (83.0-100.0) fL MCH 26.1 L (28.0-33.3) pg MCHC 30.3 L (31.6-35.5) g/dL RDW 14.6 H (11.5-14.5) % Plt Count 335 (140-400) K/mcL MPV 9.5 (9.4-12.4) fL Immature Gran % 0.6 (0-4) % Seg Neutrophils % 66.3 % Lymphocytes % 22.4 % Monocytes % 8.0 % Eosinophils % 2.4 % Basophils % 0.3 % Neutrophils # 4.8 (1.6-8.9) K/mcL Lymphocytes # 1.6 (0.6-4.6) K/mcL Monocytes # 0.6 (0.0-1.3) K/mcL Eosinophils # 0.2 (0.0-0.6) K/mcL Basophils # 0.0 (0.0-0.2) K/mcL PT 10.7 (9.4-12.1) Seconds INR 1.0 APTT 33.2 (26.0-36.0) Seconds Sodium 138 (136-145) mEq/L Potassium 3.9 (3.5-5.1) mEq/L Chloride 101 (98-107) mEq/L Carbon Dioxide 28 (23-29) mEq/L BUN 17 (8-23) mg/dL Creatinine 0.92 (0.60-1.20) mg/dL Est GFR ( Amer) > 60 (> 60) Est GFR (Non-Af Amer) > 60 (> 60) BUN/Creatinine Ratio 18 (6-26) Glucose 71 (70-105) mg/dL Calculated Osmolality 286 (280-300) Calcium 9.8 (8.6-10.3) mg/dL Troponin I < 0.03 (< 0.04) ng/mL Stool Occult Bld Scrn (Negative) 03/10/18 Range/Units 17:44 WBC (4.3-11.1) K/mcL RBC (3.82-4.97) M/mcL Hgb (11.5-15.4) g/dL Hct (35.3-44.9) % MCV (83.0-100.0) fL MCH (28.0-33.3) pg MCHC (31.6-35.5) g/dL RDW (11.5-14.5) % Plt Count (140-400) K/mcL MPV (9.4-12.4) fL Immature Gran % (0-4) % Seg Neutrophils % % Lymphocytes % % Monocytes % % Eosinophils % % Basophils % % Neutrophils # (1.6-8.9) K/mcL Lymphocytes # (0.6-4.6) K/mcL Monocytes # (0.0-1.3) K/mcL Eosinophils # (0.0-0.6) K/mcL Basophils # (0.0-0.2) K/mcL PT (9.4-12.1) Seconds INR APTT (26.0-36.0) Seconds Sodium (136-145) mEq/L Potassium (3.5-5.1) mEq/L Chloride (98-107) mEq/L Carbon Dioxide (23-29) mEq/L BUN (8-23) mg/dL Creatinine (0.60-1.20) mg/dL Est GFR ( Amer) (> 60) Est GFR (Non-Af Amer) (> 60) BUN/Creatinine Ratio (6-26) Glucose (70-105) mg/dL Calculated Osmolality (280-300) Calcium (8.6-10.3) mg/dL Troponin I (< 0.04) ng/mL Stool Occult Bld Scrn Positive A (Negative) - Radiology Data Radiology results reviewed: Yes I reviewed the patient's radiology results. Chest X-Ray 03/10/18 16:47 IMPRESSION: 1. Findings suggest congestive heart failure 2. Right hilar prominence is likely related to dilated vascular structures but a follow-up chest radiograph is suggested D/ / Huseyin Velasquez MD / Huseyin Velasquez MD Interpreting Provider: Huseyin Velasquez MD Abdomen/Pelvis CT 03/10/18 16:48 IMPRESSION: 1. Panniculitis D/ / Johnny Reeves MD / Johnny Reeves MD Interpreting Provider: Johnny Reeves MD - EKG Data EKG #1 EKG attestation: Yes I reviewed and interpreted this EKG. EKG results narrative: Patient's EKG shows a sinus rhythm rate of 72 bpm, GA interval 133, QRS duration of 164, QTc of 502. There is no evidence of STEMI on EKG. This is compared to previous EKG on 07/11/16. Attestation Statement - Attestation Attestation: I, Derik Guzman, examined this patient and my medical decision-making was reviewed with the FILM EDITOR/PA/Advanced Practice Nurse/Resident Physician. I agree with the documented findings, disposition and treatment plan as described except to the extent set forth below. 67-year-old female presents emergency Department with concerns of acute onset chest pain. Patient was evaluated in the emergency department for rectal bleeding and vaginal bleeding. She is diagnosed with a external hemorrhoid and anal fissure. Patient states she has follow-up with her PCP when she developed acute onset chest pain. Patient states the pain was in the center of her chest, did not radiate. It resolves spontaneously. It was associated with shortness of breath, denies nausea, diaphoresis. Patient is morbidly obese and has hypertension and hyperlipidemia. Initial troponin negative. EKG did not show evidence of acute STEMI. She will be admitted to hospitalist for further care and evaluation. Rectal exam had brown stool that was occult positive however there was a large hemorrhoid and anal fissure present on exam.
[2018-03-10 17:29] LABS: Basophils % 0.3 %; Eosinophils # 0.2 K/mcL (0.0-0.6); Eosinophils % 2.4 %; Hematocrit 37.9 % (35.3-44.9); Hemoglobin 11.5 g/dL (11.5-15.4); Immature Granulocytes % 0.6 % (0-4); Lymphocytes # 1.6 K/mcL (0.6-4.6); Lymphocytes % 22.4 %; Mean Corpuscular HGB Conc 30.3 g/dL (31.6-35.5); Mean Corpuscular Hemoglobin 26.1 pg (28.0-33.3); Mean Corpuscular Volume 86.1 fL (83.0-100.0); Mean Platelet Volume 9.5 fL (9.4-12.4); Monocytes # 0.6 K/mcL (0.0-1.3); Neutrophils # 4.8 K/mcL (1.6-8.9); Platelet Count 335 K/mcL (140-400); Red Cell Distribution Width 14.6 % (11.5-14.5); Segmented Neutrophils % 66.3 %
[2018-03-10 17:39] LABS: Prothrombin Time 10.7 Seconds (9.4-12.1)
[2018-03-10 17:41] LABS: Activated Partial Thrombo Time 33.2 Seconds (26.0-36.0)
[2018-03-10 17:48] LABS: BUN/Creatinine Ratio 18 (6-26); Blood Urea Nitrogen 17 mg/dL (8-23); Calcium 9.8 mg/dL (8.6-10.3); Carbon Dioxide 28 mEq/L (23-29); Chloride 101 mEq/L (98-107); Glucose 71 mg/dL (70-105); Osmolality,Calculated 286 (280-300); Potassium 3.9 mEq/L (3.5-5.1); Sodium 138 mEq/L (136-145); Troponin I < 0.03 ng/mL (< 0.04); eGFR For Non-African Americans > 60 (> 60)
[2018-03-10] MEDS ORDERED: Dextrose Gel 15 GM/37.5 ML TUBE PO PRN ×2 (21:18)
[2018-03-10] MEDS ORDERED: GI Cocktail 40 ML EACH PO ONE (21:20)
[2018-03-10] MEDS ORDERED: Insulin LISPRO 300 UNITS/3 ML VIAL SQ SCH (21:30)
[2018-03-10] MEDS ORDERED: Melatonin 3 MG TABLET PO SCH (21:30)
[2018-03-10] MEDS: *HR* Heparin 5,000 UNIT/ML VIAL SQ SCH (22:21)
--- NOTE | 2018-03-10 22:38 | Internal Med History&Physical ---
Date of Encounter: 03/10/18 Time of Encounter: 22:36 Internal Medicine - H&P: HPI Chief complaint: chest pain Admitted From: Home Plans for Post Hospital Care: Home History of present illness: Celi Church this 67-year-old morbidly obese woman with insulin-dependent diabetes who was being evaluated by her PCP for rectal bleeding seen to have hemorrhoids and an anal fissure but developed an episode of chest pain which brought her to the emergency room. Otherwise it to the lower portion and center of her chest. She denied any shortness of breath or radiation that is characteristic. She felt that it was like a wrap around her upper abdomen. Denies any cardiac history or prior episodes of chest pain. The ER she was seen clinically and hemodynamically stable. Imaging studies showed lower abdomen panniculitis although this was not evident clinically. She is admitted for observation. At this time she reports feeling well and has no complaints. Past Med Surg Social Fam HX - Past Medical History Medical history: diabetes, GERD, hyperlipidemia, kidney stones, osteoporosis, seizures, TIA, other Additional medical history: SEPSIS Psychiatric history: no psych history - Past Surgical History Surgical History: appendectomy, cholecystectomy, other Additional surgical history: Tonsillectomy, Left gt toe fix with gregorio 2014, - Social History Smoking Status: Never smoker Smokeless Tobacco Status: No Alcohol use: none Drug use: none - Family History Father Living Status: Hx Family Cardiac Disorders: Yes (HTN) Hx Family Endocrine Disorder: Yes (DM) Hx Family Neuromuscular Disorders: Yes (seizures) Hx Family Neurologic Disorders: Yes Mother Adopted: No Living Status: Hx Family Cancer: Yes (breast) Internal Medicine - H&P: Meds Aspirin Enteric Coated [Aspirin EC] 81 mg PO DAILY 08/30/15 [History] Fludrocortisone Acetate [Florinef] 0.1 mg PO Q48H 08/30/15 [History] Melatonin 10 mg PO HS 08/30/15 [History] Metformin HCl [Glucophage] 1,000 mg PO BID 08/30/15 [History] [place]-3/Dha/Epa/Fish Oil [Fish Oil Dr 500 mg Softgel] 1 cap PO BID 09/23/15 [History] Vitamin B Complex [B Complex] 1 tab PO DAILY 09/23/15 [History] Vitamin E (Dl,Tocopheryl Acet) [Vitamin E] 100 unit PO DAILY 09/23/15 [History] Calcium Carbonate [Calcium] 500 mg PO DAILY 07/11/16 [History] Cinnamon Bark [Cinnamon] 500 mg PO DAILY 07/11/16 [History] Magnesium Oxide [Mag-Ox] 400 mg PO DAILY 07/11/16 [History] Zinc Acetate [Galzin] 50 mg PO DAILY 07/11/16 [History] DiphenhydraMINE [Benadryl] 50 mg PO Q6HR PRN #20 capsule 06/15/17 [Rx] Insulin Regular U-500 [HumuLIN R U-500] 50 unit SQ TID 03/10/18 [History] Red Yeast Rice 600 mg PO DAILY 03/10/18 [History] Allergy/AdvReac Type Severity Reaction Status Date / Time atorvastatin [From Lipitor] AdvReac Mild Cramping Verified 03/07/18 22:41 of the Muscles Zolpidem [From Ambien] AdvReac Mild Hallucinati Verified 03/07/18 22:41 ng All Systems PM: A 10-system review of systems was performed and is negative for pertinent findings except as documented above in the HPI. - Constitutional Vitals: Temp Pulse Resp BP Pulse Ox 97.7 F 72 16 144/63 99 03/10/18 22:12 03/10/18 22:12 03/10/18 22:12 03/10/18 22:12 03/10/18 22:12 Exam: Vitals: Reviewed General: Morbidly obese white woman sitting up in bed in [facility] Skin: Warm and supple. HEENT: Moist mucous membranes. No conjunctivae pallor. Neck: No lymphadenopathy. No JVD. No carotid bruits. No palpable thyroid. Chest: Normal thoracic expansion. Normal breath sounds. Clear to auscultation. Heart: Normal S1 & S2; rhythmic. No rubs or murmurs. Abdomen: soft and non-tender to palpation. No peritoneal reaction. Extremities: 2+ edema in both legs with chronic hyperpigmentation/erythema Neurological: Awake, alert and oriented to person, place and time. No focal deficits. Psych: Affect appropriate. Internal Med - H&P Results - Labs CBC & Chem 7: 03/10/18 17:10 03/10/18 17:10 Labs: Short CBC 03/10/18 Range/Units 17:10 WBC 7.2 (4.3-11.1) K/mcL Hgb 11.5 (11.5-15.4) g/dL Hct 37.9 (35.3-44.9) % Plt Count 335 (140-400) K/mcL Neutrophils # 4.8 (1.6-8.9) K/mcL BMP 03/10/18 17:10 Sodium 138 Potassium 3.9 Chloride 101 Carbon Dioxide 28 BUN 17 Creatinine 0.92 Glucose 71 Calcium 9.8 Cardiac Enzymes 03/10/18 Range/Units 17:10 Troponin I < 0.03 (< 0.04) ng/mL - Impressions ITS Impressions Chest X-Ray 03/10/18 16:47 IMPRESSION: 1. Findings suggest congestive heart failure 2. Right hilar prominence is likely related to dilated vascular structures but a follow-up chest radiograph is suggested D/ / Huseyin Velasquez MD / Huseyin Velasquez MD Interpreting Provider: Huseyin Velasquez MD Abdomen/Pelvis CT 03/10/18 16:48 IMPRESSION: 1. Panniculitis D/ / Johnny Reeves MD / Johnny Reeves MD Interpreting Provider: Johnny Reeves MD - Assessment and plan (1) Chest pain Current Visit: Yes Status: Acute Assessment and plan: Atypical characteristics. Will monitor on telemetry and repeat another troponin. Seems to be more epigastric and related to dyspepsia. Will give a GI cocktail trial as well. If pain recurs, she may benefit from a stress given her risk factors. Qualifiers: Chest pain type: unspecified Qualified Code(s): R07.9 - Chest pain, unspecified (2) Panniculitis Current Visit: Yes Status: Acute Assessment and plan: No overt clinical findings other than her fungal skin infection. No signs of sepsis at this time. Related to her fat folds in the lower abdomen. Monitor clinically as an outpatient. (3) Rectal bleeding Current Visit: Yes Status: Acute Assessment and plan: Secondary to hemorrhoids and anal fissure. Symptomatic relief and continue follow-up as an outpatient. (4) Candidiasis, intertrigo Current Visit: Yes Status: Acute Assessment and plan: Nystatin powder recommended. (5) Cellulitis Current Visit: Yes Status: Acute Assessment and plan: Patient reports that the erythema on both shins are chronic and has been present for over 3 years; likely related to venous stasis and edema. No acute findings at this time. Qualifiers: Site of cellulitis: extremity Site of cellulitis of extremity: lower extremity Laterality: unspecified laterality Qualified Code(s): L03.119 - Cellulitis of unspecified part of limb (6) DVT prophylaxis Current Visit: Yes Status: Acute Assessment and plan: SubQ heparin. - Time Spent With Patient Total time spent is greater than 50% in coordination of care (as documented) at patient's floor/unit and/or counseling patient: Greater than 35 minutes
[2018-03-11] MEDS: *HR* Heparin 5,000 UNIT/ML VIAL SQ SCH (05:53)
[2018-03-11] MEDS: Insulin LISPRO 300 UNITS/3 ML VIAL SQ SCH ×2 (07:45→12:36)
[2018-03-11] MEDS ORDERED: (Omega-3/Dha/Epa/Fish Oil [Fish Oil Dr 500 Mg Softgel) PO SCH (09:00)
[2018-03-11] MEDS ORDERED: Aspirin Enteric Coated 81 MG Tablet PO SCH (09:00)
[2018-03-11] MEDS ORDERED: Vitamin B Complex/Vit C/Vit E 1 EACH TABLET PO SCH (09:00)
[2018-03-11] MEDS ORDERED: Magnesium Oxide 400 MG TABLET PO SCH (09:00)
[2018-03-11] MEDS ORDERED: Nystatin POWDER 30 GM BOTTLE TP SCH (09:00)
--- NOTE | 2018-03-11 11:09 | Discharge Summary ---
<Saeed Mares - Last Filed: 03/11/18 17:15> - NOTES TO OUTPATIENT PROVIDER Notes to Outpatient Provider: Follow up PCP for further evaluation of rectal bleeding and newly initiated Omeprazole. Discuss sleep apnea and possible sleep study Date of Encounter: 03/11/18 Time of Encounter: 09:45 - Discharge Diagnosis (1) Cellulitis Priority: Secondary Status: Acute Qualifiers: Site of cellulitis: extremity Site of cellulitis of extremity: lower extremity Laterality: unspecified laterality Qualified Code(s): L03.119 - Cellulitis of unspecified part of limb (2) DVT prophylaxis Priority: Secondary Status: Acute (3) Chest pain Priority: Primary Status: Acute Qualifiers: Chest pain type: unspecified Qualified Code(s): R07.9 - Chest pain, unspecified (4) Candidiasis, intertrigo Priority: Secondary Status: Acute (5) Rectal bleeding Priority: Primary Status: Acute (6) Panniculitis Priority: Secondary Status: Acute Hospital course: Ms. Church is a 67 year old female with a history significant for diabetes, anemia, hyperlipidemia. Presented from outpatient primary care provider office where she is being evaluated for bright red blood per rectum. Last episode of bleeding was Saturday. Physical exam did reveal hemorrhoids. Colonoscopy 1 year ago without significant findings. During outpatient evaluation patient developed chest pain and was referred to emergency department for further evaluation and management. Patient was found to have stable vital signs, hemoglobin of 11.5, no acute EKG abnormalities, and a negative troponin. She was admitted for observation. Patient denies chest pain since initial presentat ion when she was given a GI cocktail. She is able to ambulate with her walker as she normally would without shortness of breath or chest pain. Troponins have been trended 3 with negative findings. No evidence of ongoing rectal bleeding or hemorrhage. Stable vital signs, no tachycardia, afebrile, no dizziness or palpitations, no worsening shortness of breath, no chest pain. Patient is stable and ready for discharge. Will plan for discharge this afternoon to home. We will discharge with prescription of omeprazole. She will follow-up with primary care provider for further evaluation of rectal bleeding secondary to hemorrhoids. - Time Spent with Patient Total time spent providing and/or coordinating discharge services: - Discharge Medications Prescriptions: Omeprazole 20 mg PO DAILY 30 Days #30 tablet.dr Home Medications: Aspirin Enteric Coated [Aspirin EC] 81 mg PO DAILY 08/30/15 [History] Fludrocortisone Acetate [Florinef] 0.1 mg PO Q48H 08/30/15 [History] Melatonin 10 mg PO HS 08/30/15 [History] Metformin HCl [Glucophage] 1,000 mg PO BID 08/30/15 [History] [place]-3/Dha/Epa/Fish Oil [Fish Oil Dr 500 mg Softgel] 1 cap PO BID 09/23/15 [History] Vitamin B Complex [B Complex] 1 tab PO DAILY 09/23/15 [History] Vitamin E (Dl,Tocopheryl Acet) [Vitamin E] 100 unit PO DAILY 09/23/15 [History] Calcium Carbonate [Calcium] 500 mg PO DAILY 07/11/16 [History] Cinnamon Bark [Cinnamon] 500 mg PO DAILY 07/11/16 [History] Magnesium Oxide [Mag-Ox] 400 mg PO DAILY 07/11/16 [History] Zinc Acetate [Galzin] 50 mg PO DAILY 07/11/16 [History] DiphenhydraMINE [Benadryl] 50 mg PO Q6HR PRN #20 capsule 06/15/17 [Rx] Insulin Regular U-500 [HumuLIN R U-500] 50 unit SQ TID 03/10/18 [History] Red Yeast Rice 600 mg PO DAILY 03/10/18 [History] Omeprazole 20 mg PO DAILY 30 Days #30 tablet. 03/11/18 [Rx] Allergies/Adverse Reactions: Allergy/AdvReac Type Severity Reaction Status Date / Time atorvastatin [From Lipitor] AdvReac Mild Cramping Verified 03/07/18 22:41 of the Muscles Zolpidem [From Ambien] AdvReac Mild Hallucinati Verified 03/07/18 22:41 ng Date of admission: 03/10/18 20:54 Primary care physician: PCP NONE Discharging clinician: Saeed Mares Anticipated date of discharge: 03/11/18 - Constitutional Vitals: Temp Pulse Resp BP Pulse Ox 98.6 F 74 18 140/69 92 03/11/18 07:06 03/11/18 07:06 03/11/18 07:06 03/11/18 07:06 03/11/18 09:42 Exam: General: Morbidly obese female sitting upright at bedside, no apparent distress HEENT: Moist mucous membranes, no scleral icterus, pupils PERRLA with EOMI Neck: Soft, nontender Cardio: Regular rate and rhythm, distant heart sounds secondary to body habitus, no murmurs, rubs, or gallops Respiratory: Diminished breath sounds bilaterally secondary to body habitus, no crackles, wheezing, or rhonchi Abdomen: Obese, soft, nontender, nondistended Extremities: 2+ edema bilateral lower extremities with evidence of chronic venous insufficiency Neurologic: Alert and oriented to person, place, and time, no focal deficits Psych: Appropriate mood and affect - Patient Status Disposition: Home, Self-Care Condition: Good Functional capacity at discharge: independent ambulation Overall status at discharge: patient is back to baseline - Discharge Instructions Instructions: Chest Pain (DC), Cellulitis (DC) Follow Up With: Derik galarza MD [Non-Partnered Physician] - 03/12/18 10:00 am - Diet and Activity Activity: increase activity as tolerated Diet: diabetic diet <Yefri Sanchez - Last Filed: 03/11/18 22:07> Date of Encounter: 03/11/18 - Discharge Diagnosis (1) Cellulitis Status: Acute Qualifiers: Site of cellulitis: extremity Site of cellulitis of extremity: lower extremity Laterality: unspecified laterality Qualified Code(s): L03.119 - Cellulitis of unspecified part of limb (2) DVT prophylaxis Status: Acute (3) Chest pain Status: Acute Qualifiers: Chest pain type: unspecified Qualified Code(s): R07.9 - Chest pain, unspecified (4) Candidiasis, intertrigo Status: Acute (5) Rectal bleeding Status: Acute (6) Panniculitis Status: Acute Hospital course: Ms. Church is a 67 year old female - Time Spent with Patient Total time spent providing and/or coordinating discharge services: Date of admission: 03/10/18 20:54 Primary care physician: PCP NONE - Constitutional Vitals: Temp Pulse Resp BP Pulse Ox 98.6 F 68 18 135/68 93 03/11/18 11:46 03/11/18 11:46 03/11/18 11:46 03/11/18 11:46 03/11/18 11:46 - Attending Attestation I examined this patient and my medical decision-making was reviewed with the R giovanni Physician. I agree with the documented findings, disposition and treatment plan as described except to the extent set forth below.
[2018-03-11 11:49] VITALS: BP 135/68
--- NOTE | 2018-03-11 17:57 | Electrocardiograph Report ---
[place] [id number] Test Date: 2018-03-10 Pat Name: Joan Church Department: EXAM4 Room: 3B Gender: F [employer]: : [id number] Requested By: Derik Guzman Order Number: [id number] Reading MD: Julianna Kent Measurements Intervals [place] Rate: 72 P: 47 AK: 153 QRS: -83 QRSD: 164 T: 70 QT: 458 QTc: 502 Interpretive Statements Sinus rhythm RBBB and LAFB Electronically Signed On 03-11-2018 17:56:20 EST by Julianna Kent
== END 2018-03-11 14:46 | disposition home or self-care (01) ==
LOC: 3BNU 16:36 → EMEROOARM 16:36 → 3BNU 21:08
PROVIDERS: ADMIT Internal Medicine; ATTEND Internal Medicine

== ENCOUNTER 2018-05-30 09:42 | Observation (INO) ==
[2018-05-30] MEDS ORDERED: *HR* FentaNYL (PF) 100 MCG/2 ML VIAL IVP ONE (10:32)
[2018-05-30] MEDS ORDERED: Isovue-370 500 ML BOTTLE IVP ONE (10:33)
[2018-05-30] MEDS ORDERED: 0.9 % Sodium Chloride 500 ML IVC ONE (10:33)
[2018-05-30] MEDS ORDERED: Piperacillin/Tazobactam 3.375 GM in 0.9 % Sodium Chloride Mini Bag 100 ML IVPB ONE (10:34)
[2018-05-30] MEDS ORDERED: Ondansetron 4 MG/2 ML VIAL IVP ONE (10:34)
--- NOTE | 2018-05-30 10:44 | Emergency Department Note ---
Disposition Clinical Impression: Melena Anemia Qualifiers: Anemia type: unspecified type Qualified Code(s): D64.9 - Anemia, unspecified Nausea & vomiting Qualifiers: Vomiting type: unspecified Vomiting Intractability: intractable Qualified Code(s): R11.2 - Nausea with vomiting, unspecified Disposition: Admitted As Inpatient Condition: Undetermined Time of Disposition: 13:12 General Adult HPI - General Chief complaint: ED GI Bleed Stated complaint: Rectal bleed,pneumonia,diahrrea Time Seen by Provider: 05/30/18 10:04 Source: patient Mode of arrival: ambulatory Limitations: no limitations Nursing Notes Reviewed: Yes Vital Signs Reviewed: Yes - History of Present Illness HPI Narrative: 67-year-old female with chronic history of rectal bleeding, hyperlipidemia, with recent diagnosis of concern for pneumonia as well as thickening of the rectal wall. The patient was here in the hospital roughly 4 days ago and was subsequent discharged on levofloxacin and Flagyl. The patient is been taking them as prescribed with the exception of this morning the patient states that her symptoms acutely worsened. The patient arrives to the emergency department in no acute distress but states that she has been experiencing worsening abdominal discomfort as well as vomiting which she states was not which she was doing previously. The patient states that she continues to express rectal bleeding. Patient denies any other Complaints other than some mild weakness. Patient is otherwise resting comfortably in the room without any other acute complaints or concerns at this time. Pain Scale: 10 - Related Data Home Medications Medication Instructions Recorded Confirmed Aspirin Enteric Coated [Aspirin EC] 81 mg PO DAILY 08/30/15 05/30/18 Fludrocortisone Acetate [Florinef] 0.1 mg PO Q48H 08/30/15 05/30/18 Melatonin 10 mg PO HS 08/30/15 05/30/18 Metformin HCl [Glucophage] 1,000 mg PO BID 08/30/15 05/30/18 [place]-3/Dha/Epa/Fish Oil [Fish Oil 1 cap PO BID 09/23/15 05/30/18 Dr 500 mg Softgel] Vitamin B Complex [B Complex] 1 tab PO DAILY 09/23/15 05/30/18 Vitamin E (Dl,Tocopheryl Acet) 100 unit PO DAILY 09/23/15 05/30/18 [Vitamin E] Calcium Carbonate [Calcium] 500 mg PO DAILY 07/11/16 05/30/18 Cinnamon Bark [Cinnamon] 500 mg PO DAILY 07/11/16 05/30/18 Magnesium Oxide [Mag-Ox] 400 mg PO DAILY 07/11/16 05/30/18 Zinc Acetate [Galzin] 50 mg PO DAILY 07/11/16 05/30/18 Insulin Regular U-500 [HumuLIN R 40 unit SQ TID 03/10/18 05/30/18 U-500] Red Yeast Rice 600 mg PO DAILY 03/10/18 05/30/18 Clotrimazole 1% CRM [Lotrimin 1%] 1 appl TP BID PRN MDD TOES 05/30/18 05/30/18 Nystatin Cream [Mycostatin Cream] 1 appl TP AD PRN 05/30/18 05/30/18 Pantoprazole Sodium 40 mg PO DAILY 05/30/18 05/30/18 Sucralfate [Carafate] 1 gm PO BID 05/30/18 05/30/18 Previous Rx's Medication Instructions Recorded levoFLOXacin [Levaquin] 750 mg PO DAILY #10 tablet 05/26/18 metroNIDAZOLE [Flagyl] 500 mg PO BID #20 tablet 05/26/18 Allergies Allergy/AdvReac Type Severity Reaction Status Date / Time atorvastatin [From Lipitor] AdvReac Mild Cramping Verified 05/30/18 17:23 of the Muscles Zolpidem [From Ambien] AdvReac Mild Hallucinati Verified 05/30/18 17:23 ng All systems ED: reviewed and negative except as stated. Constitutional: Denies: fever, chills, weakness ENT ED: Denies: dysphagia Cardiovascular: Reports: dyspnea on exertion, edema. Denies: chest pain Respiratory: Reports: cough, dyspnea, sputum production Gastrointestinal: Reports: abdominal pain, nausea, vomiting. Denies: diarrhea, constipation, hematemesis, melena, hematochezia Genitourinary: Denies: urgency, dysuria Musculoskeletal: Denies: back pain Integumentary: Denies: rash Neurological: Denies: headache Past Medical History - Past Medical History Attestation: Yes The following information was validated with the patient. Source: patient, old records reviewed Medical history: Reports: diabetes, GERD, hyperlipidemia, kidney stones, osteoporosis, seizures, TIA, other Surgical history: Reports: appendectomy, cholecystectomy, other Psychiatric history: Reports: no psych history - Social History Smoking Status: Never smoker Smokeless Tobacco Status: No Alcohol use: Reports: none Drug use: Reports: none Physical Exam - General Limitations: no limitations General appearance: alert, in no apparent distress - Head Head exam: atraumatic, normocephalic, normal inspection - Eye Eye exam: Present: normal appearance, PERRL, EOMI - ENT ENT exam: normal exam, normal oropharynx, mucous membranes moist - Neck Neck exam: Present: normal inspection, full ROM, trachea midline - Chest Chest inspection: Present: normal inspection, symmetric chest wall rise - Respiratory Respiratory exam: Present: other (coarse breath sounds bilaterally). Absent: respiratory distress - Cardiovascular Cardiovascular exam: Present: regular rate, normal rhythm, normal heart sounds - Abdominal Exam Abdominal exam: Present: soft, tenderness (epigastric region). Absent: distention, guarding, rebound, rigidity, Tello's sign, Rovsing's sign, tenderness at McBurney's Point, hernia - Extremities Exam Extremities exam: Present: normal inspection, full ROM. Absent: tenderness, pedal edema - Neurological Exam Neurological exam: Present: alert, oriented X3 - Skin Skin exam: Present: warm, dry, intact, normal color Course Vital Signs Temperature 98.0 F 05/30/18 09:47 Pulse Rate 77 05/30/18 09:47 Respiratory Rate 18 05/30/18 09:47 Blood Pressure 135/71 05/30/18 09:47 O2 Sat by Pulse Oximetry 98 05/30/18 09:47 Temperature 98.0 F 05/30/18 09:47 Pulse Rate 77 05/30/18 09:47 Respiratory Rate 18 05/30/18 09:47 Blood Pressure 135/71 05/30/18 09:47 O2 Sat by Pulse Oximetry 98 05/30/18 09:47 Oxygen Delivery Oxygen Delivery Room Air Medical Decision Making - [facility] Narrative Medical decision making narrative: Patient's evaluation in the emergency department demonstrates findings consistent with continued anemia is slightly more pronounced than previous evaluations. The patient is unable to tolerate her by mouth Cipro and Flagyl at home and given the treatment for colitis and pneumonia, we will admit the patient to the hospital for further observation and care. Patient made aware and agrees to plan. No further questions or concerns. She still feeling very nauseated at this time. Accepted by Dr. Salazar. - Lab Data Lab results reviewed: Yes I reviewed the patient's lab results. Result diagrams: 05/30/18 10:56 05/30/18 10:32 Lab Results 05/30/18 05/30/18 05/30/18 Range/Units 10:32 10:56 10:56 WBC 9.7 (4.3-11.1) K/mcL RBC 3.96 (3.82-4.97) M/mcL Hgb 10.8 L (11.5-15.4) g/dL Hct 34.7 L (35.3-44.9) % MCV 87.6 (83.0-100.0) fL MCH 27.3 L (28.0-33.3) pg MCHC 31.1 L (31.6-35.5) g/dL RDW 15.2 H (11.5-14.5) % Plt Count 309 (140-400) K/mcL MPV 9.6 (9.4-12.4) fL Immature Gran % 0.5 (0-4) % Seg Neutrophils % 65.2 % Lymphocytes % 25.7 % Monocytes % 6.4 % Eosinophils % 1.9 % Basophils % 0.3 % Neutrophils # 6.3 (1.6-8.9) K/mcL Lymphocytes # 2.5 (0.6-4.6) K/mcL Monocytes # 0.6 (0.0-1.3) K/mcL Eosinophils # 0.2 (0.0-0.6) K/mcL Basophils # 0.0 (0.0-0.2) K/mcL PT 11.6 (9.4-12.1) Seconds INR 1.0 APTT 34.3 (26.0-36.0) Seconds Sodium 141 (136-145) mEq/L Potassium 3.9 (3.5-5.1) mEq/L Chloride 105 (98-107) mEq/L Carbon Dioxide 26 (23-29) mEq/L BUN 24 H (8-23) mg/dL Creatinine 1.33 H (0.60-1.20) mg/dL Est GFR ( Amer) 48 L (> 60) Est GFR (Non-Af Amer) 40 L (> 60) BUN/Creatinine Ratio 18 (6-26) Glucose 54 L (70-105) mg/dL Calculated Osmolality 294 (280-300) Lactic Acid (0.5-2.2) mmol/L Calcium 9.4 (8.6-10.3) mg/dL Total Bilirubin 0.2 L (0.3-1.0) mg/dL AST 11 L (13-39) Units/L ALT 12 (7-52) Units/L Alkaline Phosphatase 76 (34-104) Units/L Troponin I < 0.03 (< 0.04) ng/mL Serum Total Protein 7.3 (6.4-8.9) g/dL Albumin 3.9 (3.5-5.7) g/dL Globulin 3.4 (2.4-3.5) g/dL Albumin/Globulin Ratio 1.1 (1.1-2.2) Lipase 28 (11-82) Units/L Blood Type Antibody Screen 05/30/18 05/30/18 Range/Units 10:56 10:56 WBC (4.3-11.1) K/mcL RBC (3.82-4.97) M/mcL Hgb (11.5-15.4) g/dL Hct (35.3-44.9) % MCV (83.0-100.0) fL MCH (28.0-33.3) pg MCHC (31.6-35.5) g/dL RDW (11.5-14.5) % Plt Count (140-400) K/mcL MPV (9.4-12.4) fL Immature Gran % (0-4) % Seg Neutrophils % % Lymphocytes % % Monocytes % % Eosinophils % % Basophils % % Neutrophils # (1.6-8.9) K/mcL Lymphocytes # (0.6-4.6) K/mcL Monocytes # (0.0-1.3) K/mcL Eosinophils # (0.0-0.6) K/mcL Basophils # (0.0-0.2) K/mcL PT (9.4-12.1) Seconds INR APTT (26.0-36.0) Seconds Sodium (136-145) mEq/L Potassium (3.5-5.1) mEq/L Chloride (98-107) mEq/L Carbon Dioxide (23-29) mEq/L BUN (8-23) mg/dL Creatinine (0.60-1.20) mg/dL Est GFR ( Amer) (> 60) Est GFR (Non-Af Amer) (> 60) BUN/Creatinine Ratio (6-26) Glucose (70-105) mg/dL Calculated Osmolality (280-300) Lactic Acid 2.2 (0.5-2.2) mmol/L Calcium (8.6-10.3) mg/dL Total Bilirubin (0.3-1.0) mg/dL AST (13-39) Units/L ALT (7-52) Units/L Alkaline Phosphatase (34-104) Units/L Troponin I (< 0.04) ng/mL Serum Total Protein (6.4-8.9) g/dL Albumin (3.5-5.7) g/dL Globulin (2.4-3.5) g/dL Albumin/Globulin Ratio (1.1-2.2) Lipase (11-82) Units/L Blood Type A NEGATIVE Antibody Screen NEGATIVE - Radiology Data Radiology results reviewed: Yes I reviewed the patient's radiology results. Chest X-Ray 05/30/18 10:32 IMPRESSION: No significant findings in the chest. D/ / Johnny Umana MD / Johnny Umana MD Interpreting Provider: Johnny Umana MD Abdomen/Pelvis CT 05/30/18 10:33 IMPRESSION: No acute intra-abdominal abnormality Nonspecific skin thickening anterior abdominal wall. Correlate for signs of cellulitis D/ / John Bryan MD / John Bryan MD Interpreting Provider: John Bryan MD - EKG Data EKG #1 EKG attestation: Yes I reviewed and interpreted this EKG. EKG results narrative: Heart rate 73 beats for minute. Normal sinus rhythm with right bundle branch block. No acute changes noted when compared to EKG from 05/26/2018. Attestation Statement - Attestation Attestation: I, Derik Guzman, examined this patient and my medical decision-making was reviewed with the RETIREMENT ADMINISTRATOR/PA/Advanced Practice Nurse/Resident Physician. I agree with the documented findings, disposition and treatment plan as described except to the extent set forth below. 67-year-old female presents emergency Department with concerns of rectal vaginal bleeding, concerns of shortness of breath and feeling weak and fatigued. Patient was just evaluated in the emergency department within the past few days and diagnosed with possible rectal neoplasm, possible pneumonia. It is unclear whether or not she declined admission at that time as she went home and stated that she progressively worsened. Imaging today did not show evidence of acute pneumonia or colitis. Laboratory evaluation did not show leukocytosis or other significant abnormality from her baseline. Patient however states that she is unable to do her activities of daily living at home. Patient will be admitted to the hospitalist for further care and evaluation.
[2018-05-30 11:07] LABS: Basophils % 0.3 %; Eosinophils # 0.2 K/mcL (0.0-0.6); Eosinophils % 1.9 %; Hematocrit 34.7 % (35.3-44.9); Hemoglobin 10.8 g/dL (11.5-15.4); Immature Granulocytes % 0.5 % (0-4); Lymphocytes # 2.5 K/mcL (0.6-4.6); Lymphocytes % 25.7 %; Mean Corpuscular HGB Conc 31.1 g/dL (31.6-35.5); Mean Corpuscular Hemoglobin 27.3 pg (28.0-33.3); Mean Corpuscular Volume 87.6 fL (83.0-100.0); Mean Platelet Volume 9.6 fL (9.4-12.4); Monocytes # 0.6 K/mcL (0.0-1.3); Monocytes % 6.4 %; Neutrophils # 6.3 K/mcL (1.6-8.9); Platelet Count 309 K/mcL (140-400); Red Blood Count 3.96 M/mcL (3.82-4.97); Red Cell Distribution Width 15.2 % (11.5-14.5); Segmented Neutrophils % 65.2 %
[2018-05-30 11:25] LABS: Prothrombin Time 11.6 Seconds (9.4-12.1)
[2018-05-30 11:28] LABS: Activated Partial Thrombo Time 34.3 Seconds (26.0-36.0)
[2018-05-30 11:28] LABS: Alanine Aminotransferase 12 Units/L (7-52); Albumin 3.9 g/dL (3.5-5.7); Albumin/Globulin Ratio 1.1 (1.1-2.2); Alkaline Phosphatase 76 Units/L (34-104); Aspartate Amino Transferase 11 Units/L (13-39); BUN/Creatinine Ratio 18 (6-26); Bilirubin,Total 0.2 mg/dL (0.3-1.0); Blood Urea Nitrogen 24 mg/dL (8-23); Calcium 9.4 mg/dL (8.6-10.3); Carbon Dioxide 26 mEq/L (23-29); Chloride 105 mEq/L (98-107); Globulin 3.4 g/dL (2.4-3.5); Glucose 54 mg/dL (70-105); Lipase 28 Units/L (11-82); Osmolality,Calculated 294 (280-300); Potassium 3.9 mEq/L (3.5-5.1); Sodium 141 mEq/L (136-145); Total Protein 7.3 g/dL (6.4-8.9); Troponin I < 0.03 ng/mL (< 0.04); eGFR For Non-African Americans 40 (> 60)
[2018-05-30] MEDS ORDERED: Metoclopramide 10 MG/2 ML VIAL IVP ONE (13:01)
[2018-05-30] MEDS ORDERED: Naloxone 0.4 MG/ML INJ IVP PRN (14:43)
[2018-05-30] MEDS ORDERED: Ondansetron 4 MG/2 ML VIAL IVP PRN (14:43)
[2018-05-30] MEDS ORDERED: Acetaminophen 325 MG TABLET PO PRN (14:43)
[2018-05-30] MEDS ORDERED: *HR* HYDROcodone/Acet 5/325 mg TABLET PO PRN ×2 (14:43→15:16)
[2018-05-30] MEDS ORDERED: OXYCODONE Oral CONC 10 MG/0.5 ML ORAL.SYG SL PRN (14:43)
[2018-05-30] MEDS ORDERED: Dextrose Gel 15 GM/37.5 ML TUBE PO PRN ×2 (14:45)
[2018-05-30] MEDS ORDERED: *HR* Dextrose 50 % in Water (Syg) 50 ML SYRINGE IVP PRN (14:45)
[2018-05-30] MEDS ORDERED: D5% in Water 1,000 ML IVC PRN (14:45)
--- NOTE | 2018-05-30 15:29 | Internal Med History&Physical ---
Date of Encounter: 05/30/18 Time of Encounter: 15:04 Internal Medicine - H&P: HPI Chief complaint: nausea and vomiting Admitted From: Home Plans for Post Hospital Care: Home History of present illness: Ms. Church is a 67 year old female with PMH of GERD, rectal bleed with anal fissures, DM, HLD, morbid obesity who presents to the ER for evaluation of nausea and vomiting. Pt reports of being seen in the ER on 05/26/18 and was found to have colitis and PNA. She was discharged to home with Flagyl and Levadelaida, and was instructed to come back to the ER if she had nausea and vomiting. Pt was seen and examined with present at bedside. Pt states she was starting to feel better until this morning, she woke up feeling nauseous and reports of having three episodes of vomiting which is what prompted her visit to the ER. She also reports of having increased rectal bleeding daily. Reports of feeling weak and fatigued. She also reports of chronic heartburn that has worsened with epigastric pain. Pt had a CT abd/pelvis done in the ER which reported No acute intra-abdominal abnormality. Nonspecific skin thickening anterior abdominal wall. Correlate for signs of cellulitis Pt received a dose of Zosyn and Zofran. During my evaluation pt reports of feeling better since hospitalization. Denies any nausea or vomiting at this time. States she feels hungry. Reports of being in consultation with GI but has not scheduled an EGD or colonoscopy yet. Denies any sob, chest pain, abd pain, fever, or chills at this time. Ten point ROS is negative except as listed above Past Med Surg Social Fam HX - Past Medical History Medical history: diabetes, GERD, hyperlipidemia, kidney stones, osteoporosis, seizures, TIA Additional medical history: SEPSIS Psychiatric history: no psych history - Past Surgical History Surgical History: appendectomy, cholecystectomy, other Additional surgical history: Left gt toe fix with gregorio 2014,. skin grafts. left arm surgery - Social History Smoking Status: Never smoker Smokeless Tobacco Status: No Alcohol use: none Drug use: none - Family History Father Living Status: Hx Family Cardiac Disorders: Yes (HTN) Hx Family Endocrine Disorder: Yes (DM) Hx Family Neuromuscular Disorders: Yes (seizures) Hx Family Neurologic Disorders: Yes Mother Adopted: No Living Status: Hx Family Cancer: Yes (breast) Internal Medicine - H&P: Meds Aspirin Enteric Coated [Aspirin EC] 81 mg PO DAILY 08/30/15 [History] Fludrocortisone Acetate [Florinef] 0.1 mg PO Q48H 08/30/15 [History] Melatonin 10 mg PO HS 08/30/15 [History] Metformin HCl [Glucophage] 1,000 mg PO BID 08/30/15 [History] [place]-3/Dha/Epa/Fish Oil [Fish Oil Dr 500 mg Softgel] 1 cap PO BID 09/23/15 [History] Vitamin B Complex [B Complex] 1 tab PO DAILY 09/23/15 [History] Vitamin E (Dl,Tocopheryl Acet) [Vitamin E] 100 unit PO DAILY 09/23/15 [History] Calcium Carbonate [Calcium] 500 mg PO DAILY 07/11/16 [History] Cinnamon Bark [Cinnamon] 500 mg PO DAILY 07/11/16 [History] Magnesium Oxide [Mag-Ox] 400 mg PO DAILY 07/11/16 [History] Zinc Acetate [Galzin] 50 mg PO DAILY 07/11/16 [History] DiphenhydraMINE [Benadryl] 50 mg PO Q6HR PRN #20 capsule 06/15/17 [Rx] Insulin Regular U-500 [HumuLIN R U-500] 50 unit SQ TID 03/10/18 [History] Red Yeast Rice 600 mg PO DAILY 03/10/18 [History] levoFLOXacin [Levaquin] 750 mg PO DAILY #10 tablet 05/26/18 [Rx] metroNIDAZOLE [Flagyl] 500 mg PO BID #20 tablet 05/26/18 [Rx] Allergy/AdvReac Type Severity Reaction Status Date / Time atorvastatin [From Lipitor] AdvReac Mild Cramping Verified 05/26/18 16:10 of the Muscles Zolpidem [From Ambien] AdvReac Mild Hallucinati Verified 05/26/18 16:10 ng All Systems PM: A 10-system review of systems was performed and is negative for pertinent findings except as documented above in the HPI. Review of systems: Ten point ROS is negative except as listed in HPI - Constitutional Vitals: Temp Pulse Resp BP Pulse Ox 97.3 F L 68 18 102/66 94 05/30/18 15:09 05/30/18 15:09 05/30/18 15:09 05/30/18 15:09 05/30/18 15:09 Exam: General: No acute distress, AAO x 3, morbidly obese HEENT: EOMI, NC/AT, no scleral icterus, moist oral mucosa Respiratory: Clear to auscultate bilaterally, no wheezing, no rales Cardiovascular: Regular, Rate, Rhythm, No murmurs GI: Soft, Non tender, non distended, normal bowel sounds Ext: edema, no tenderness, positive pulses Neuro: AAO x 3, no focal deficits Internal Med - H&P Results - Labs CBC & Chem 7: 05/30/18 10:56 05/30/18 10:32 Labs: Short CBC 05/30/18 Range/Units 10:56 WBC 9.7 (4.3-11.1) K/mcL Hgb 10.8 L (11.5-15.4) g/dL Hct 34.7 L (35.3-44.9) % Plt Count 309 (140-400) K/mcL Neutrophils # 6.3 (1.6-8.9) K/mcL BMP 05/30/18 10:32 Sodium 141 Potassium 3.9 Chloride 105 Carbon Dioxide 26 BUN 24 H Creatinine 1.33 H Glucose 54 L Calcium 9.4 Cardiac Enzymes 05/30/18 Range/Units 10:32 Troponin I < 0.03 (< 0.04) ng/mL Liver Function 05/30/18 Range/Units 10:32 Total Bilirubin 0.2 L (0.3-1.0) mg/dL AST 11 L (13-39) Units/L ALT 12 (7-52) Units/L Alkaline Phosphatase 76 (34-104) Units/L Albumin 3.9 (3.5-5.7) g/dL - Impressions ITS Impressions Chest X-Ray 05/30/18 10:32 IMPRESSION: No significant findings in the chest. D/ / Johnny Umana MD / Johnny Umana MD Interpreting Provider: Johnny Umana MD Abdomen/Pelvis CT 05/30/18 10:33 IMPRESSION: No acute intra-abdominal abnormality Nonspecific skin thickening anterior abdominal wall. Correlate for signs of cellulitis D/ / John Bryan MD / John Bryan MD Interpreting Provider: John Bryan MD - Summary of Assessment and Plan Summary of Assessment and Plan: Ms. Church is a 67 year old female with PMH of GERD, rectal bleed with anal fissures, DM, HLD, morbid obesity who presents to the ER for evaluation of nausea, vomiting, and rectal bleeding. Assessment/Plan 1. Abd pain/Nausea/vomiting likely secondary to underlying colitis CT abd/pelvis findings reporting anterior wall cellulitis will d/c Flagyl and continue Zosyn at this time will de-escalate therapy as per clinical response anti-emetic support as needed 2. Hx of PNA repeat CXR negative for acute disease f/u respiratory viral panel 3. Acute on chronic anemia in the setting of rectal bleeding GI Evaluation with Dr. Blankenship has been requested As per GI, pt is started on clear liquid diet and scheduled for colonoscopy in am hold home dose of aspirin at this time H&H low but within acceptable range. Pt has had Hgb around 9-11 for the last 6 months. will closely monitor H&H PPI support 4. NATALIE likely secondary to dehydration continue IV fluids hold nephrotoxic agents at this time will closely monitor renal function 5. DVT ppx: SCD 6. GERD continue PPI support 7. DM sliding scale insulin algorithm monitor FS and BG Co-morbidities: HLD, morbid obesity will restart home medications after verification LOS < 2 midnights Care plan discussed with patient/RN/healthcare consultant - Time Spent With Patient Total time spent is greater than 50% in coordination of care (as documented) at patient's floor/unit and/or counseling patient: 25 - 35 minutes
[2018-05-30] MEDS ORDERED: SODIUM CHLORIDE/NAHCO3/KCL/PEG 4,000 ML SOLN.RECON PO ONE (15:30)
[2018-05-30] MEDS: Insulin LISPRO 300 UNITS/3 ML VIAL SQ SCH ×2 (17:08→21:45)
[2018-05-30] MEDS: 0.9 % Sodium Chloride w KCl 20 MEQ/1,000 ML MLS IVC SCH (17:15)
[2018-05-30] MEDS: Pantoprazole 40 MG VIAL IVP SCH (17:17)
[2018-05-30] MEDS ORDERED: *HR* Heparin 5,000 UNIT/ML VIAL SQ SCH (18:00)
[2018-05-30 19:06] LABS: Adenovirus Not Detected (Not Detect); Bordetella Pertussis Not Detected (Not Detect); Chlamydophila pneumoniae Not Detected (Not Detect); Coronavirus 229E Not Detected (Not Detect); Coronavirus HKU1 Not Detected (Not Detect); Coronavirus NL63 Not Detected (Not Detect); Coronavirus OC43 Not Detected (Not Detect); Human Metapneumovirus Not Detected (Not Detect); Human Rhinovirus/Enterovirus Not Detected (Not Detect); Influenza A Subtype 2009 H1 Not Detected (Not Detect); Influenza A Untypeable Not Detected (Not Detect); Influenza B Not Detected (Not Detect); Mycoplasma pneumoniae Not Detected (Not Detect); Parainfluenza Virus 1 Not Detected (Not Detect); Parainfluenza Virus 2 Not Detected (Not Detect); Parainfluenza Virus 3 Not Detected (Not Detect); Parainfluenza Virus 4 Not Detected (Not Detect); Respiratory Syncytial Virus Not Detected (Not Detect)
[2018-05-30] MEDS: Piperacillin/Tazobactam 3.375 GM in 0.9 % Sodium Chloride Mini Bag 100 ML IVP SCH (21:44)
[2018-05-31] MEDS: 0.9 % Sodium Chloride w KCl 20 MEQ/1,000 ML MLS IVC SCH (03:42)
[2018-05-31] MEDS: Piperacillin/Tazobactam 3.375 GM in 0.9 % Sodium Chloride Mini Bag 100 ML IVP SCH ×3 (03:43→21:02)
[2018-05-31] MEDS: Pantoprazole 40 MG VIAL IVP SCH ×2 (06:15→16:12)
[2018-05-31 06:41] LABS: Basophils % 0.2 %; Eosinophils # 0.2 K/mcL (0.0-0.6); Eosinophils % 1.4 %; Hematocrit 35.6 % (35.3-44.9); Immature Granulocytes % 0.6 % (0-4); Lymphocytes # 1.8 K/mcL (0.6-4.6); Lymphocytes % 16.5 %; Mean Corpuscular HGB Conc 30.9 g/dL (31.6-35.5); Mean Corpuscular Volume 87.5 fL (83.0-100.0); Mean Platelet Volume 10.1 fL (9.4-12.4); Monocytes # 0.7 K/mcL (0.0-1.3); Monocytes % 6.4 %; Neutrophils # 8.1 K/mcL (1.6-8.9); Platelet Count 312 K/mcL (140-400); Red Blood Count 4.07 M/mcL (3.82-4.97); Red Cell Distribution Width 15.6 % (11.5-14.5); Segmented Neutrophils % 74.9 %
[2018-05-31 06:59] LABS: Calcium 8.6 mg/dL (8.6-10.3); Magnesium 1.8 mg/dL (1.6-2.6); Phosphorous 3.1 mg/dL (2.7-4.5); Potassium 4.2 mEq/L (3.5-5.1)
[2018-05-31] MEDS: Insulin LISPRO 300 UNITS/3 ML VIAL SQ SCH ×4 (07:57→21:05)
--- NOTE | 2018-05-31 11:16 | Gastroenterology Consult Note ---
Date of Encounter: 05/31/18 Time of Encounter: 09:00 - Assessment and plan (1) Epigastric pain Current Visit: No Status: Acute Assessment and plan: Epigastric pain and burning in this patient who is mildly anemic and has multiple comorbidities rule out gastritis peptic ulcer disease (2) Rectal bleeding Current Visit: Yes Status: Chronic Assessment and plan: In this patient with multiple comorbidities and mild anemia. Colonoscopy to rule out anorectal disorder along with colitis. If found to have large hemorrhoids then and they would be banded - Time Spent With Patient Total time spent is greater than 50% in coordination of care (as documented) at patient's floor/unit and/or counseling patient: GI History of Present Illness - Data of Consult Consult date: 05/31/18 Requesting Physician: Savanna Chin MD - Consult Narrative Reason for consult: Rectal bleeding History of present illness: Ms. Church is a 67 year old female with PMH of GERD, rectal bleed with anal fissures, DM, HLD, morbid obesity who presents to the ER for evaluation of nausea and vomiting and rectal bleeding Pt reports of being seen in the ER on 05/26/18 and was diagnosed with possible colitis and PNA. She was discharged to home with Flagyl and Levaquin, and was instructed to come back to the ER if she had nausea and vomiting.. Pt states she was starting to feel better until yesterday morning, she woke up feeling nauseous and reports of having three episodes of vomiting which is what prompted her visit to the ER. Reports of feeling weak and fatigued. She also reports of chronic heartburn that has worsened with epigastric pain. Patient she been having rectal bleeding on and off for the last >2 months lately she has been been having more rectal bleeding. Is complaining of some hypogastric pain and also mild vaginal bleeding. Pt had a CT abd/pelvis done in the ER which reported No acute intra-abdominal abnormality and also was found to be mildly anemic Colonoscopy: In [address] Larsen that showed diverticulosis otherwise unremarkable Past Med Surg Social Fam HX - Past Medical History Medical history: diabetes, GERD, hyperlipidemia, kidney stones, osteoporosis, seizures, TIA, other Additional medical history: SEPSIS Psychiatric history: no psych history - Past Surgical History Surgical History: appendectomy, cholecystectomy, other Additional surgical history: Left gt toe fix with gregorio 2014,. skin grafts. left arm surgery - Social History Smoking Status: Never smoker Smokeless Tobacco Status: No Alcohol use: none Drug use: none - Family History Father Living Status: Hx Family Cardiac Disorders: Yes (HTN) Hx Family Endocrine Disorder: Yes (DM) Hx Family Neuromuscular Disorders: Yes (seizures) Hx Family Neurologic Disorders: Yes Mother Adopted: No Living Status: Hx Family Cancer: Yes (breast) Review of Systems: GI: as per [place], masha has upper epigastric burning. Also lower abdominal hypogastric area pain and rectal bleeding GENERAL: denies fever, has some chills, as been feeling weak and fatigued EYES: denies yellow discoloration ENT: denies pain with swallowing or difficulty swallowing CARDIO: denies chest pain, palpitations RESP: Has cough and being treated for pneumonia : denies change in color of urine NEURO: denies any weakness HEME: Denies any bruising MS: Generalize fatigue DERM: denies rash or itching PSYCH: Denies history of anxiety or depression - Constitutional Vitals: Temp Pulse Resp BP Pulse Ox 98.0 F 78 16 131/62 97 05/31/18 11:08 05/31/18 11:08 05/31/18 11:08 05/31/18 11:08 05/31/18 11:08 Exam: CONSTITUTIONAL:alert, no acute distress. Morbidly obese. HE AD:normocephalic.EYES:no jaundice.NECK:no obvious swelling.HEART:regular rate and rhythm, no murmurs.LUNGS:bilateral good air entry.ABDOMEN:non distended, soft, non tander, no masses pulpable, no organomegaly.RECTAL EXAM:Deferred.EXTREMITIES:no clubbing, cyanosis or edema.SKIN:no stigmata of chronic liver disease. Masha has extensive scarring on her upper chest upper arms and on her neck from bone injuries as a child.NEUROLOGIC:AAA. Results - Labs CBC & Chem 7: 05/31/18 05:29 05/31/18 05:29 Labs: Last Result Calcium 8.6 mg/dL (8.6-10.3) 05/31/18 05:29 Troponin I < 0.03 ng/mL (< 0.04) 05/30/18 10:32 Stool Occult Blood Negative (Negative) 05/31/18 01:37 Entire Visit Hgb 11.0 g/dL (11.5-15.4) L 05/31/18 05:29 Hct 35.6 % (35.3-44.9) 05/31/18 05:29 PT 11.6 Seconds (9.4-12.1) 05/30/18 10:56 Total Bilirubin 0.2 mg/dL (0.3-1.0) L 05/30/18 10:32 AST 11 Units/L (13-39) L 05/30/18 10:32 ALT 12 Units/L (7-52) 05/30/18 10:32 Lipase 28 Units/L (11-82) 05/30/18 10:32 - ABG ABG results: PT/INR, D-dimer PT 11.6 Seconds (9.4-12.1) 05/30/18 10:56 - Impressions Impressions Chest X-Ray 05/30/18 10:32 IMPRESSION: No significant findings in the chest. D/ / Johnny Umana MD / Johnny Umana MD Interpreting Provider: Johnny Umana MD Abdomen/Pelvis CT 05/30/18 10:33 IMPRESSION: No acute intra-abdominal abnormality Nonspecific skin thickening anterior abdominal wall. Correlate for signs of cellulitis D/ / John Bryan MD / John Brayn MD Interpreting Provider: John Bryan MD Consult Discharge Plan - Plan [place] [facility] [place] [Primary Care Provider] -
--- NOTE | 2018-05-31 13:17 | Internal Med Progress Note ---
Hospitalist Progress Note - Encounter Date of Encounter: 05/31/18 Time of Encounter: 13:14 - Subjective Interval History: Patient seen and examined earlier today with present at bedside. Patient resting in bed and denies any discomfort. Reports complete resolution of abdominal pain at this time. No nausea or vomiting reported. Records of having a rough night due to bowel prep. Reports of being hungry, however scheduled for endoscopy and colonoscopy later today. 10 point review of system is negative except as listed above - Exam Vitals: Temp Pulse Resp BP Pulse Ox 98.0 F 78 16 131/62 97 05/31/18 11:08 05/31/18 11:08 05/31/18 11:08 05/31/18 11:08 05/31/18 11:08 Exam: General: No acute distress, AAO x 3, morbidly obese HEENT: EOMI, NC/AT, no scleral icterus, moist oral mucosa Respiratory: Clear to auscultate bilaterally, no wheezing, no rales Cardiovascular: Regular, Rate, Rhythm, No murmurs GI: Soft, Non tender, non distended, normal bowel sounds Ext: edema, no tenderness, positive pulses Neuro: AAO x 3, no focal deficits - Summary of Assessment and Plan Summary of Assessment and Plan: Ms. Church is a 67 year old female with PMH of GERD, rectal bleed with anal fissures, DM, HLD, morbid obesity who presents to the ER for evaluation of nausea, vomiting, and rectal bleeding. Assessment/Plan 1. Abd pain/Nausea/vomiting likely secondary to underlying colitis CT abd/pelvis findings reporting anterior wall cellulitis continue Zosyn at this time will de-escalate therapy as per clinical response anti-emetic support as needed 2. Hx of PNA repeat CXR negative for acute disease respiratory viral panel negative 3. Acute on chronic anemia in the setting of rectal bleeding GI Evaluation with Dr. Blankenship has been requested GI evaluation appreciated Scheduled for endoscopy and colonoscopy later today will closely monitor H&H PPI support 4. NATALIE Resolved likely secondary to dehydration Discontinue IV fluids will closely monitor renal function 5. DVT ppx: SCD 6. GERD continue PPI support 7. 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 - Time Spent with Patient Total time spent is greater than 50% in coordination of care (as documented) at patient's floor/unit and/or counseling patient: Internal Medicine: Result - Labs CBC & Chem 7: 05/31/18 05:29 05/31/18 05:29 Labs: Short CBC 05/31/18 Range/Units 05:29 WBC 10.8 (4.3-11.1) K/mcL Hgb 11.0 L (11.5-15.4) g/dL Hct 35.6 (35.3-44.9) % Plt Count 312 (140-400) K/mcL Neutrophils # 8.1 (1.6-8.9) K/mcL BMP 05/31/18 05:29 Sodium 139 Potassium 4.2 Chloride 104 Carbon Dioxide 26 BUN 17 Creatinine 1.14 Glucose 232 H Calcium 8.6 - ABG Interpretation ABG results: PT/INR, D-dimer PT 11.6 Seconds (9.4-12.1) 05/30/18 10:56 - VTE Documentation of Mechanical Device: Intermittent pneumatic compression device Consult Discharge Plan - Plan Referrals: Azul,Derik Thompson MD [Primary Care Provider] -
[2018-05-31] MEDS ORDERED: KETAMINE HCL 50 MG/ML SYRINGE IV ONE (13:20)
[2018-05-31] MEDS ORDERED: Lidocaine -MPF 2% 2 ML VIAL ONE (13:23)
--- NOTE | 2018-05-31 13:23 | Anesthesia Evaluation PreOp ---
Date of Encounter: 05/31/18 Time of Encounter: 13:14 - Past History Planned Operation: EGD, COLONOSCOPY Cardiac History: HTN, Hyperlipidemia Pulmonary History: ALISA Dx (CLINICALLY), Other (RECENT PNEUMONIA) INSURANCE FOLLOW UP SPECIALIST History: Seizures, TIA Other Medical History: Renal (CKD 3), Diabetes Type II, GERD (PERSISTENT NAUSEA, VOMITING, EPIGASTRIC PAIN), Other (SUPER MORBID OBESITY, BMI 62, COLITIS, DIVERTICULTIS) Anesthesia History: No Prior Anesthetic Complications, Past Anesthesia Alcohol Use: none Drug use: none Medications and Allergies Aspirin Enteric Coated [Aspirin EC] 81 mg PO DAILY 08/30/15 [History] Fludrocortisone Acetate [Florinef] 0.1 mg PO Q48H 08/30/15 [History] Melatonin 10 mg PO HS 08/30/15 [History] Metformin HCl [Glucophage] 1,000 mg PO BID 08/30/15 [History] [place]-3/Dha/Epa/Fish Oil [Fish Oil Dr 500 mg Softgel] 1 cap PO BID 09/23/15 [History] Vitamin B Complex [B Complex] 1 tab PO DAILY 09/23/15 [History] Vitamin E (Dl,Tocopheryl Acet) [Vitamin E] 100 unit PO DAILY 09/23/15 [History] Calcium Carbonate [Calcium] 500 mg PO DAILY 07/11/16 [History] Cinnamon Bark [Cinnamon] 500 mg PO DAILY 07/11/16 [History] Magnesium Oxide [Mag-Ox] 400 mg PO DAILY 07/11/16 [History] Zinc Acetate [Galzin] 50 mg PO DAILY 07/11/16 [History] Insulin Regular U-500 [HumuLIN R U-500] 40 unit SQ TID 03/10/18 [History] Red Yeast Rice 600 mg PO DAILY 03/10/18 [History] levoFLOXacin [Levaquin] 750 mg PO DAILY #10 tablet 05/26/18 [Rx] metroNIDAZOLE [Flagyl] 500 mg PO BID #20 tablet 05/26/18 [Rx] Clotrimazole 1% CRM [Lotrimin 1%] 1 appl TP BID PRN MDD TOES 05/30/18 [History] Nystatin Cream [Mycostatin Cream] 1 appl TP AD PRN 05/30/18 [History] Pantoprazole Sodium 40 mg PO DAILY 05/30/18 [History] Sucralfate [Carafate] 1 gm PO BID 05/30/18 [History] Allergy/AdvReac Type Severity Reaction Status Date / Time atorvastatin [From Lipitor] AdvReac Mild Cramping Verified 05/30/18 17:23 of the Muscles Zolpidem [From Ambien] AdvReac Mild Hallucinati Verified 05/30/18 17:23 ng - Meds/Allergy Pre-op Review Medications Reviewed: Yes Allergies Reviewed: Yes Anesthesia Results - Labs 05/31/18 05:29 05/31/18 05:29 Anesthesia Exam Vital Signs/O2 Sat/Glucose, Most Recent Temp Pulse Resp BP Pulse Ox 98.0 F 78 16 131/62 97 05/31/18 11:08 05/31/18 11:08 05/31/18 11:08 05/31/18 11:08 05/31/18 11:08 Blood Glucose* 305 Weight: 169 KG - BMI 62 NPO (# of Hours): 8 - HEENT Mallampati: II Teeth: Edentulous Oral Opening: Greater than 3 - Cardiac Rhythm: Regular - Pulmonary Breath Sounds: bilateral Clear Respiratory Effort: Symmetrical Anesthesia Assess/Plan ASA Score: 4 Anesthetic Plan: MAC Monitoring Plan: Standard Monitors Recovery Plan: Other
[2018-05-31] MEDS ORDERED: *HR* Midazolam HCl 2 MG/2 ML VIAL ONE (13:27)
[2018-05-31] MEDS ORDERED: *HR* Propofol 200 MG/20 ML VIAL IVP ONE ×2 (13:27→13:59)
[2018-05-31] MEDS ORDERED: Propofol 500 MG/50 ML INFUS..BTL ONE (13:27)
[2018-05-31] MEDS ORDERED: Tetracaine/Benzocaine/Butamben 1 SPRAY AEROSOL MM ONE (13:27)
[2018-05-31] MEDS ORDERED: Simethicone 40 MG/0.6 ML MLS IR ONE (13:27)
[2018-05-31] MEDS: Ringers Solution, Lactated 1,000 ML IVC SCH (13:28)
[2018-05-31] MEDS ORDERED: Ondansetron 4 MG/2 ML VIAL ONE (13:33)
--- NOTE | 2018-05-31 14:04 | Electrocardiograph Report ---
[place] [id number] Test Date: 2018-05-30 Pat Name: Joan Church Department: [id number] Room: 3B36 Gender: F Director Global: : 1950 Requested By: Derik Guzman Order Number: [id number] Reading MD: Linn Corona Measurements Intervals [place] Rate: 73 P: 33 PA: 176 QRS: -62 QRSD: 174 T: 10 QT: 446 QTc: 492 Interpretive Statements Sinus rhythm Right bundle branch block Left ventricular hypertrophy Electronically Signed On 05-31-2018 14:02:49 EDT by Linn Corona
[2018-05-31] MEDS ORDERED: Esmolol 100 MG/10 ML VIAL IVP ONE (14:17)
[2018-05-31] MEDS ORDERED: Melatonin 3 MG TABLET PO SCH (21:00)
[2018-05-31] MEDS: Sucralfate 1 GM TABLET PO SCH (21:01)
[2018-06-01] MEDS: Pantoprazole 40 MG VIAL IVP SCH (05:35)
[2018-06-01] MEDS: Piperacillin/Tazobactam 3.375 GM in 0.9 % Sodium Chloride Mini Bag 100 ML IVP SCH (05:35)
[2018-06-01 07:06] LABS: Basophils % 0.4 %; Eosinophils # 0.3 K/mcL (0.0-0.6); Eosinophils % 3.5 %; Hematocrit 34.6 % (35.3-44.9); Hemoglobin 10.5 g/dL (11.5-15.4); Immature Granulocytes % 0.7 % (0-4); Lymphocytes # 1.7 K/mcL (0.6-4.6); Mean Corpuscular HGB Conc 30.3 g/dL (31.6-35.5); Mean Corpuscular Hemoglobin 26.6 pg (28.0-33.3); Mean Corpuscular Volume 87.8 fL (83.0-100.0); Mean Platelet Volume 10.9 fL (9.4-12.4); Monocytes # 0.5 K/mcL (0.0-1.3); Monocytes % 6.3 %; Neutrophils # 4.6 K/mcL (1.6-8.9); Platelet Count 274 K/mcL (140-400); Red Blood Count 3.94 M/mcL (3.82-4.97); Red Cell Distribution Width 15.7 % (11.5-14.5); Segmented Neutrophils % 65.1 %
[2018-06-01 07:28] LABS: BUN/Creatinine Ratio 11 (6-26); Blood Urea Nitrogen 11 mg/dL (8-23); Calcium 8.6 mg/dL (8.6-10.3); Carbon Dioxide 24 mEq/L (23-29); Chloride 102 mEq/L (98-107); Glucose 249 mg/dL (70-105); Magnesium 1.8 mg/dL (1.6-2.6); Osmolality,Calculated 288 (280-300); Phosphorous 2.6 mg/dL (2.7-4.5); Potassium 4.4 mEq/L (3.5-5.1); Sodium 135 mEq/L (136-145); eGFR For Non-African Americans 56 (> 60)
[2018-06-01] MEDS: Insulin LISPRO 300 UNITS/3 ML VIAL SQ SCH ×2 (09:00→12:14)
[2018-06-01] MEDS: Sucralfate 1 GM TABLET PO SCH (09:00)
[2018-06-01] MEDS ORDERED: Magnesium Oxide 400 MG TABLET PO SCH (09:00)
[2018-06-01] MEDS: Ringers Solution, Lactated 1,000 ML IVC SCH (09:08)
--- NOTE | 2018-06-01 12:24 | Physician Discharge Referral ---
Home Health/Hosp Referral Info Transfer to: Home Health Provider in Charge Post Discharge: PCP - Diagnosis (1) Anemia Priority: Secondary Status: Chronic (2) Rectal bleeding Priority: Primary Status: Resolved - Respiratory Orders Smoking Cessation: Smoking cessation has been advised. For more information, call the [place] Tobacco Quit Line at 0-373-FUEM-NOW. - Services Needed Following services are medically necessary services: Nursing, Home Health Aide, Physical Therapy, Occupational Therapy - Transfer Medications Prescriptions: PE/Shark Liver/Gly/Pet,Wh [Hemorrhoidal Cream] 52 gm RC DAILY 30 Days cream..g. Home Medications: Aspirin Enteric Coated [Aspirin EC] 81 mg PO DAILY 08/30/15 [History] Fludrocortisone Acetate [Florinef] 0.1 mg PO Q48H 08/30/15 [History] Melatonin 10 mg PO HS 08/30/15 [History] Metformin HCl [Glucophage] 1,000 mg PO BID 08/30/15 [History] [place]-3/Dha/Epa/Fish Oil [Fish Oil Dr 500 mg Softgel] 1 cap PO BID 09/23/15 [History] Vitamin B Complex [B Complex] 1 tab PO DAILY 09/23/15 [History] Vitamin E (Dl,Tocopheryl Acet) [Vitamin E] 100 unit PO DAILY 09/23/15 [History] Calcium Carbonate [Calcium] 500 mg PO DAILY 07/11/16 [History] Cinnamon Bark [Cinnamon] 500 mg PO DAILY 07/11/16 [History] Magnesium Oxide [Mag-Ox] 400 mg PO DAILY 07/11/16 [History] Zinc Acetate [Galzin] 50 mg PO DAILY 07/11/16 [History] Insulin Regular U-500 [HumuLIN R U-500] 40 unit SQ TID 03/10/18 [History] Red Yeast Rice 600 mg PO DAILY 03/10/18 [History] Clotrimazole 1% CRM [Lotrimin 1%] 1 appl TP BID PRN MDD TOES 05/30/18 [History] Nystatin Cream [Mycostatin Cream] 1 appl TP AD PRN 05/30/18 [History] Pantoprazole Sodium 40 mg PO DAILY 05/30/18 [History] Sucralfate [Carafate] 1 gm PO BID 05/30/18 [History] PE/Shark Liver/Gly/Pet,Wh [Hemorrhoidal Cream] 52 gm RC DAILY 30 Days cream..g. 06/01/18 [Rx] Allergies/Adverse Reactions: Allergy/AdvReac Type Severity Reaction Status Date / Time atorvastatin [From Lipitor] AdvReac Mild Cramping Verified 05/30/18 17:23 of the Muscles Zolpidem [From Ambien] AdvReac Mild Hallucinati Verified 05/30/18 17:23 ng Certification: Further, I certify that my clinical findings support that this patient is homebound (i.e. absences from home require considerable and taxing effort and are for medical reasons or yarsanism services or infrequently or short duration when for other reasons) because: Homebound Reason: Patient requires assistance of a person or device to safely leave home Attestation: My signature below is to certify that this patient is under my care and that I, or nurse practitioner, or a physician's front office medical assistant working with me, has a [id number] encounter with this patient.
[2018-06-01 12:29] VITALS: BP 133/81
--- NOTE | 2018-06-01 12:29 | Discharge Summary ---
- NOTES TO OUTPATIENT PROVIDER Notes to Outpatient Provider: Pt was admitted for nausea/vomiting and rectal bleeding. She underwent EGD and colonoscopy. Was noted to have external hemorrhoids and topical hemorrhoidal cream was recommended. No further abnormalities were reported. Orders not resulted at time of discharge: Pending orders 05/31/18 13:51 Surgical Pathology [PTH] Routine Date of Encounter: 06/01/18 Time of Encounter: 12:25 - Discharge Diagnosis (1) Anemia Priority: Secondary Status: Chronic Qualifiers: Anemia type: unspecified type Qualified Code(s): D64.9 - Anemia, unspecified (2) Rectal bleeding Priority: Primary Status: Resolved Hospital course: Ms. Church is a 67 year old female with PMH of GERD, rectal bleed with anal fissures, DM, HLD, morbid obesity who was admitted for management of nausea, vomiting, rectal bleeding concerning for colitis. Patient was initially started on IV fluids, IV antibiotics, and gastroenterology was consulted. Patient underwent endoscopy and colonoscopy. Endoscopy and colonoscopy were both negative for any acute bleeding, and both studies were unremarkable except with the findings of external hemorrhoids. As per GI, hemorrhoidal cream is recommended, and including fiber intake in her daily diet. Patient reports complete resolution of nausea and vomiting, no abdominal pain or discomfort has been reported. No colitis was reported on colonoscopy. Patient was recently treated for pneumonia, repeat x-ray was negative for acute pulmonary disease. Patient is currently asymptomatic and reports resolution of her presenting symptoms. Patient was seen and examined with family present at bedside. Patient is medically stable for discharge to home with continuation of home health services. Patient and family demonstrated understanding of the diagnosis and agree with the discharge care and plan. Discharge discussed with: patient, family, nurse - Time Spent with Patient Total time spent providing and/or coordinating discharge services: Time spent: Greater than 30 minutes - Discharge Medications Prescriptions: New PE/Shark Liver/Gly/Pet,Wh [Hemorrhoidal Cream] 52 gm RC DAILY 30 Days cream..g. Continue Fludrocortisone Acetate [Florinef] 0.1 mg PO Q48H Aspirin Enteric Coated [Aspirin EC] 81 mg PO DAILY Metformin HCl [Glucophage] 1,000 mg PO BID Melatonin 10 mg PO HS Vitamin E (Dl,Tocopheryl Acet) [Vitamin E] 100 unit PO DAILY [place]-3/Dha/Epa/Fish Oil [Fish Oil Dr 500 mg Softgel] 1 cap PO BID Vitamin B Complex [B Complex] 1 tab PO DAILY Magnesium Oxide [Mag-Ox] 400 mg PO DAILY Zinc Acetate [Galzin] 50 mg PO DAILY Cinnamon Bark [Cinnamon] 500 mg PO DAILY Calcium Carbonate [Calcium] 500 mg PO DAILY Insulin Regular U-500 [HumuLIN R U-500] 40 unit SQ TID Red Yeast Rice 600 mg PO DAILY Pantoprazole Sodium 40 mg PO DAILY Clotrimazole 1% CRM [Lotrimin 1%] 1 appl TP BID PRN MDD TOES PRN Reason: Itching Nystatin Cream [Mycostatin Cream] 1 appl TP AD PRN PRN Reason: BREAKOUT Sucralfate [Carafate] 1 gm PO BID Discontinued levoFLOXacin [Levaquin] 750 mg PO DAILY #10 tablet metroNIDAZOLE [Flagyl] 500 mg PO BID #20 tablet Home Medications: Aspirin Enteric Coated [Aspirin EC] 81 mg PO DAILY 08/30/15 [History] Fludrocortisone Acetate [Florinef] 0.1 mg PO Q48H 08/30/15 [History] Melatonin 10 mg PO HS 08/30/15 [History] Metformin HCl [Glucophage] 1,000 mg PO BID 08/30/15 [History] [place]-3/Dha/Epa/Fish Oil [Fish Oil Dr 500 mg Softgel] 1 cap PO BID 09/23/15 [History] Vitamin B Complex [B Complex] 1 tab PO DAILY 09/23/15 [History] Vitamin E (Dl,Tocopheryl Acet) [Vitamin E] 100 unit PO DAILY 09/23/15 [History] Calcium Carbonate [Calcium] 500 mg PO DAILY 07/11/16 [History] Cinnamon Bark [Cinnamon] 500 mg PO DAILY 07/11/16 [History] Magnesium Oxide [Mag-Ox] 400 mg PO DAILY 07/11/16 [History] Zinc Acetate [Galzin] 50 mg PO DAILY 07/11/16 [History] Insulin Regular U-500 [HumuLIN R U-500] 40 unit SQ TID 03/10/18 [History] Red Yeast Rice 600 mg PO DAILY 03/10/18 [History] Clotrimazole 1% CRM [Lotrimin 1%] 1 appl TP BID PRN MDD TOES 05/30/18 [History] Nystatin Cream [Mycostatin Cream] 1 appl TP AD PRN 05/30/18 [History] Pantoprazole Sodium 40 mg PO DAILY 05/30/18 [History] Sucralfate [Carafate] 1 gm PO BID 05/30/18 [History] PE/Shark Liver/Gly/Pet,Wh [Hemorrhoidal Cream] 52 gm RC DAILY 30 Days cream..g. 06/01/18 [Rx] Allergies/Adverse Reactions: Allergy/AdvReac Type Severity Reaction Status Date / Time atorvastatin [From Lipitor] AdvReac Mild Cramping Verified 05/30/18 17:23 of the Muscles Zolpidem [From Ambien] AdvReac Mild Hallucinati Verified 05/30/18 17:23 ng Date of admission: 05/30/18 13:29 Primary care physician: Derik Liang MD Consults: 05/30/18 15:29 Consult to Gastroenterology [CONS] Routine Consulting Provider: Gastroenterology Tomasa Reason for Consult: rectal bleeding Call Completed: Yes 05/30/18 15:40 Consult to Nutrition Club Ambassador [CONS] Routine Reason for SW Consult: discharge needs Discharging clinician: Savanna Chin Anticipated date of discharge: 06/01/18 - Constitutional Vitals: Temp Pulse Resp BP Pulse Ox 97.8 F 62 17 168/78 94 06/01/18 11:36 06/01/18 11:36 06/01/18 11:36 06/01/18 11:36 06/01/18 11:36 Exam: General: No acute distress, AAO x 3, morbidly obese HEENT: EOMI, NC/AT, no scleral icterus, moist oral mucosa Respiratory: Clear to auscultate bilaterally, no wheezing, no rales Cardiovascular: Regular, Rate, Rhythm, No murmurs GI: Soft, Non tender, non distended, normal bowel sounds Ext: edema, no tenderness, positive pulses Neuro: AAO x 3, no focal deficits - Patient Status Disposition: Home Health Service - Discharge Instructions Instructions: Hemorrhoids (DC), Anemia (DC), Acute Nausea and Vomiting, Ornament Maker Hand (GEN) Follow Up With: Derik Liang MD [Primary Care Provider] - (Please call and schedule a follow up appointment with in 1-2 weeks of discharge date. We are unable to make this appointment for you due to you discharging on a Saturday.) Additional Instructions: PLEASE FOLLOW UP WITH YOUR PRIMARY CARE PHYSICIAN WITHIN FIVE DAYS AFTER YOUR DISCHARGE FROM THE HOSPITAL PLEASE CONTINUE ALL YOUR HOME MEDICATIONS PRESCRIBED BY YOUR PRIMARY CARE PHYSICIAN PLEASE USE TOPICAL HEMORRHOID CREAM PRESCRIBED. PLEASE START FIBER SUPPLEMENT IN YOUR DIET. YOU CAN GET METAMUCIL OVER THE COUNTER. Follow-up appointments: If there is not an appointment listed below, please call your physician and schedule a follow-up appointment. If you have congestive heart failure and your symptoms return, make an appointment with your physician. Medication List: Carry an up to date list of medications you are taking at all time. We have given you an updated medication list including any new medications that you have been prescribed. Please provide that list to your primary provider Symptoms: If your condition changes or you experience any of the following symptoms, notify your physician immediately: Unusual or worsening pain, fever, persistent nausea and vomiting, bleeding, increase in swelling (especially in your legs), sudden weight gain, extreme dizziness, chest pain, increased drainage or redness from a wound or incision. Go to the emergency department if you experience a problem with breathing. Weights: If you have a history of swelling or shortness of breath, weigh yourself daily and notify your physician if you have a weight gain of two or more pounds in one day or 5 or more pounds in a week. If you experience any of the warning signs for stroke: Sudden numbness or weakness of the face, arm or leg; especially on one side of the body, sudden confusion, trouble speaking or understanding, sudden trouble seeing in one or both eyes, sudden trouble walking, dizziness, loss of balance or coordination, sudden sever headache with no cause; Call 911 or go to the emergency room. Stroke is a medical emergency. Some risk factors for stroke: Age, cigarette smoking, diabetes, excessive alcohol consumption, family history, high blood pressure, overweight, physical inactivity, prior stroke, heart attack, diagnosis of carotid artery stenosis or other artery disease. If you smoke, STOP: Smoking or tobacco use significantly increases your risk of heart and lung disease. Your chance of disease greatly increases if you continue to smoke. For more information, call the [place] tobacco quit line for smoking cessation 9-628-SWHM-NOW ( ) - Diet and Activity Activity: resume usual activities as tolerated Diet: diabetic diet, low fat, low cholesterol, low salt diet, other (high fiber diet) - VTE Documentation of Mechanical Device: Intermittent pneumatic compression device
== END 2018-06-01 14:20 | disposition home health service (06) ==
LOC: 3BNU 09:42 → EMEROOARM 09:42 → SUATTDRO 13:29 → 3BNU 14:40
PROVIDERS: ADMIT Internal Medicine; ATTEND Internal Medicine
PROC: ENDOEBX (2018-05-31 12:00)

== ENCOUNTER 2019-01-05 09:54 | Inpatient (IN) ==
[2019-01-05] MEDS ORDERED: 0.9 % Sodium Chloride 1,000 ML IVC ONE (10:00)
[2019-01-05] MEDS ORDERED: *HR* FentaNYL (PF) 100 MCG/2 ML VIAL IVP ONE (10:05)
[2019-01-05 10:32] LABS: Basophils % 0.5 %; Eosinophils # 0.2 K/mcL (0.0-0.6); Eosinophils % 2.9 %; Hematocrit 36.2 % (35.3-44.9); Hemoglobin 11.5 g/dL (11.5-15.4); Immature Granulocytes % 0.3 % (0-4); Lymphocytes # 1.5 K/mcL (0.6-4.6); Lymphocytes % 25.6 %; Mean Corpuscular HGB Conc 31.8 g/dL (31.6-35.5); Mean Corpuscular Hemoglobin 27.7 pg (28.0-33.3); Mean Corpuscular Volume 87.2 fL (83.0-100.0); Mean Platelet Volume 9.5 fL (9.4-12.4); Monocytes # 0.4 K/mcL (0.0-1.3); Monocytes % 7.3 %; Neutrophils # 3.7 K/mcL (1.6-8.9); Platelet Count 295 K/mcL (140-400); Red Blood Count 4.15 M/mcL (3.82-4.97); Red Cell Distribution Width 14.8 % (11.5-14.5); Segmented Neutrophils % 63.4 %; White Blood Count 5.8 K/mcL (4.3-11.1)
[2019-01-05 10:49] LABS: BUN/Creatinine Ratio 18 (6-26); Blood Urea Nitrogen 19 mg/dL (8-23); Calcium 9.1 mg/dL (8.6-10.3); Carbon Dioxide 26 mEq/L (23-29); Chloride 100 mEq/L (98-107); Glucose 400 mg/dL (70-105); Osmolality,Calculated 299 (280-300); Potassium 4.6 mEq/L (3.5-5.1); Sodium 135 mEq/L (136-145); eGFR For African Americans > 60 (> 60); eGFR For Non-African Americans 53 (> 60)
[2019-01-05] MEDS ORDERED: Isovue-370 500 ML BOTTLE IVP ONE (12:19)
[2019-01-05] MEDS ORDERED: Piperacillin/Tazobactam 3.375 GM in Water for inj. (sterile) 20 ML IVP ONE (16:51)
[2019-01-05] MEDS ORDERED: Piperacillin/Tazobactam 3.375 GM in 0.9 % Sodium Chloride Mini Bag 100 ML IVPB ONE (16:56)
[2019-01-05] MEDS ORDERED: Naloxone 0.4 MG/ML INJ IVP PRN (17:21)
[2019-01-05] MEDS ORDERED: Dextrose Gel 15 GM/37.5 ML TUBE PO PRN ×2 (17:23)
[2019-01-05] MEDS ORDERED: *HR* Dextrose 50 % in Water (Syg) 50 ML SYRINGE IVP PRN (17:23)
[2019-01-05] MEDS ORDERED: D5% in Water 1,000 ML IVC PRN (17:23)
[2019-01-05 17:29] LABS: C-Reactive Protein 12 mg/L (Less than 10)
[2019-01-05] MEDS ORDERED: Melatonin 3 MG TABLET PO PRN (23:39)
[2019-01-06] MEDS ORDERED: Nystatin Cream 15 GM TUBE TP PRN (04:37)
[2019-01-06 04:49] LABS: Basophils % 0.4 %; Eosinophils # 0.2 K/mcL (0.0-0.6); Eosinophils % 2.5 %; Hematocrit 34.3 % (35.3-44.9); Hemoglobin 10.6 g/dL (11.5-15.4); Immature Granulocytes % 0.4 % (0-4); Lymphocytes # 1.7 K/mcL (0.6-4.6); Lymphocytes % 19.6 %; Mean Corpuscular HGB Conc 30.9 g/dL (31.6-35.5); Mean Corpuscular Hemoglobin 27.4 pg (28.0-33.3); Mean Corpuscular Volume 88.6 fL (83.0-100.0); Mean Platelet Volume 10.2 fL (9.4-12.4); Monocytes # 0.6 K/mcL (0.0-1.3); Monocytes % 6.5 %; Neutrophils # 6.1 K/mcL (1.6-8.9); Platelet Count 239 K/mcL (140-400); Red Blood Count 3.87 M/mcL (3.82-4.97); Red Cell Distribution Width 14.9 % (11.5-14.5); Segmented Neutrophils % 70.6 %; White Blood Count 8.6 K/mcL (4.3-11.1)
[2019-01-06 05:13] LABS: BUN/Creatinine Ratio 16 (6-26); Blood Urea Nitrogen 16 mg/dL (8-23); Calcium 8.5 mg/dL (8.6-10.3); Carbon Dioxide 24 mEq/L (23-29); Chloride 104 mEq/L (98-107); Glucose 274 mg/dL (70-105); Osmolality,Calculated 291 (280-300); Potassium 4.6 mEq/L (3.5-5.1); Sodium 135 mEq/L (136-145); eGFR For African Americans > 60 (> 60); eGFR For Non-African Americans 57 (> 60)
[2019-01-06] MEDS: *HR* Heparin 5,000 UNIT/ML VIAL SQ SCH ×2 (05:58→18:44)
[2019-01-06 08:13] LABS: Estimated Average Glucose 214 mg/dl
[2019-01-06] MEDS: Aspirin Enteric Coated 81 MG Tablet PO SCH (10:50)
[2019-01-06] MEDS: Insulin LISPRO 300 UNITS/3 ML VIAL SQ SCH ×3 (10:51→16:31)
[2019-01-06] MEDS: Piperacillin/Tazobactam 3.375 GM in 0.9 % Sodium Chloride Mini Bag 100 ML IVPB SCH ×2 (16:30→23:39)
[2019-01-06] MEDS ORDERED: Insulin DETEMIR 100 UNIT/ML X5UNITS SQ SCH (21:00)
[2019-01-07] MEDS: *HR* Heparin 5,000 UNIT/ML VIAL SQ SCH ×2 (05:52→17:47)
[2019-01-07 06:27] LABS: Basophils % 0.4 %; Eosinophils # 0.2 K/mcL (0.0-0.6); Eosinophils % 3.1 %; Hemoglobin 11.1 g/dL (11.5-15.4); Immature Granulocytes % 0.3 % (0-4); Lymphocytes # 1.6 K/mcL (0.6-4.6); Lymphocytes % 23.4 %; Mean Corpuscular HGB Conc 31.7 g/dL (31.6-35.5); Mean Corpuscular Hemoglobin 27.3 pg (28.0-33.3); Mean Corpuscular Volume 86.2 fL (83.0-100.0); Monocytes # 0.5 K/mcL (0.0-1.3); Monocytes % 7.9 %; Neutrophils # 4.4 K/mcL (1.6-8.9); Platelet Count 337 K/mcL (140-400); Red Blood Count 4.06 M/mcL (3.82-4.97); Red Cell Distribution Width 14.8 % (11.5-14.5); Segmented Neutrophils % 64.9 %; White Blood Count 6.8 K/mcL (4.3-11.1)
[2019-01-07 06:46] LABS: Calcium 9.1 mg/dL (8.6-10.3); Potassium 4.6 mEq/L (3.5-5.1)
[2019-01-07] MEDS: Piperacillin/Tazobactam 3.375 GM in 0.9 % Sodium Chloride Mini Bag 100 ML IVPB SCH (08:10)
[2019-01-07] MEDS: Aspirin Enteric Coated 81 MG Tablet PO SCH (08:10)
[2019-01-07] MEDS: Insulin LISPRO 300 UNITS/3 ML VIAL SQ SCH ×3 (08:10→17:46)
[2019-01-07] MEDS ORDERED: Cefepime HCl 2,000 MG in 0.9 % Sodium Chloride Mini Bag 100 ML IVPB SCH (16:00)
[2019-01-07] MEDS: Cefepime HCl 2,000 MG in Water for inj. (sterile) 20 ML IVP SCH (17:46)
[2019-01-07] MEDS ORDERED: Insulin DETEMIR 100 UNIT/ML X5UNITS SQ SCH (21:00)
[2019-01-07] MEDS: Sulfacetamide Sodium 10% OPTH 15 ML BOTTLE LEFT EAR SCH (22:38)
[2019-01-08] MEDS: Cefepime HCl 2,000 MG in Water for inj. (sterile) 20 ML IVP SCH ×4 (00:42→23:25)
[2019-01-08] MEDS ORDERED: Insulin Human Regular 10 UNIT in 0.9 % Sodium Chloride 10 ML IV ONE (04:07)
[2019-01-08 04:23] LABS: Basophils % 0.4 %; Eosinophils # 0.2 K/mcL (0.0-0.6); Hematocrit 36.5 % (35.3-44.9); Hemoglobin 11.2 g/dL (11.5-15.4); Immature Granulocytes % 0.5 % (0-4); Lymphocytes # 1.8 K/mcL (0.6-4.6); Lymphocytes % 21.7 %; Mean Corpuscular HGB Conc 30.7 g/dL (31.6-35.5); Mean Platelet Volume 10.6 fL (9.4-12.4); Monocytes # 0.5 K/mcL (0.0-1.3); Monocytes % 6.5 %; Neutrophils # 5.5 K/mcL (1.6-8.9); Platelet Count 270 K/mcL (140-400); Red Blood Count 4.15 M/mcL (3.82-4.97); Segmented Neutrophils % 67.9 %; White Blood Count 8.1 K/mcL (4.3-11.1)
[2019-01-08 04:44] LABS: BUN/Creatinine Ratio 15 (6-26); Blood Urea Nitrogen 16 mg/dL (8-23); Calcium 9.4 mg/dL (8.6-10.3); Carbon Dioxide 25 mEq/L (23-29); Chloride 99 mEq/L (98-107); Glucose 315 mg/dL (70-105); Osmolality,Calculated 291 (280-300); Potassium 4.5 mEq/L (3.5-5.1); Sodium 134 mEq/L (136-145); eGFR For African Americans > 60 (> 60); eGFR For Non-African Americans 50 (> 60)
[2019-01-08] MEDS: *HR* Heparin 5,000 UNIT/ML VIAL SQ SCH ×2 (05:04→18:00)
[2019-01-08] MEDS: Aspirin Enteric Coated 81 MG Tablet PO SCH (08:15)
[2019-01-08] MEDS: Sulfacetamide Sodium 10% OPTH 15 ML BOTTLE LEFT EAR SCH ×2 (08:15→20:23)
[2019-01-08] MEDS: Insulin LISPRO 300 UNITS/3 ML VIAL SQ SCH ×4 (08:15→17:07)
[2019-01-08] MEDS: Nystatin POWDER 30 GM BOTTLE TP SCH ×2 (13:54→20:22)
[2019-01-08] MEDS: Insulin DETEMIR 100 UNIT/ML X5UNITS SQ SCH (20:23)
[2019-01-09] MEDS ORDERED: Acetaminophen 325 MG TABLET PO ONE (03:51)
[2019-01-09] MEDS: *HR* Heparin 5,000 UNIT/ML VIAL SQ SCH ×2 (05:40→19:00)
[2019-01-09 06:26] LABS: Basophils % 0.3 %; Eosinophils # 0.2 K/mcL (0.0-0.6); Hematocrit 36.7 % (35.3-44.9); Hemoglobin 11.4 g/dL (11.5-15.4); Immature Granulocytes % 0.5 % (0-4); Lymphocytes # 1.6 K/mcL (0.6-4.6); Lymphocytes % 20.3 %; Mean Corpuscular HGB Conc 31.1 g/dL (31.6-35.5); Mean Corpuscular Hemoglobin 27.1 pg (28.0-33.3); Mean Corpuscular Volume 87.4 fL (83.0-100.0); Mean Platelet Volume 9.7 fL (9.4-12.4); Monocytes # 0.5 K/mcL (0.0-1.3); Monocytes % 6.6 %; Neutrophils # 5.4 K/mcL (1.6-8.9); Platelet Count 329 K/mcL (140-400); Red Cell Distribution Width 15.1 % (11.5-14.5); Segmented Neutrophils % 69.3 %; White Blood Count 7.8 K/mcL (4.3-11.1)
[2019-01-09 06:47] LABS: Calcium 9.4 mg/dL (8.6-10.3); Potassium 4.4 mEq/L (3.5-5.1)
[2019-01-09] MEDS: Nystatin POWDER 30 GM BOTTLE TP SCH ×2 (08:53→20:07)
[2019-01-09] MEDS: Aspirin Enteric Coated 81 MG Tablet PO SCH (08:54)
[2019-01-09] MEDS: Sulfacetamide Sodium 10% OPTH 15 ML BOTTLE LEFT EAR SCH (08:54)
[2019-01-09] MEDS: Cefepime HCl 2,000 MG in Water for inj. (sterile) 20 ML IVP SCH ×2 (08:54→16:39)
[2019-01-09] MEDS: Insulin DETEMIR 100 UNIT/ML X5UNITS SQ SCH ×2 (08:55→20:07)
[2019-01-09] MEDS: Insulin LISPRO 300 UNITS/3 ML VIAL SQ SCH ×6 (08:55→16:41)
[2019-01-09] MEDS ORDERED: Lidocaine -MPF 1% 5 ML AMPUL INFILT ONE (13:25)
[2019-01-09 15:15] VITALS: BP 151/84
[2019-01-09] MEDS ORDERED: Aminoglycoside Consult 1 EACH MC ONE (21:11)
== END 2019-01-09 21:12 | DRG 153 ==
LOC: 3ANU 09:54 → EMEROOARM 09:54 → 3ANU 18:21 → SUATTDRO 18:46
PROVIDERS: ADMIT Internal Medicine; ATTEND Family Medicine

== ENCOUNTER 2019-08-25 10:20 | Inpatient (IN) ==
[2019-08-25] MEDS ORDERED: Pantoprazole 40 MG VIAL IVP ONE (11:11)
[2019-08-25] MEDS ORDERED: Isovue-370 500 ML BOTTLE IVP ONE (11:17)
[2019-08-25 11:45] LABS: Basophils # 0.1 K/mcL (0.0-0.2); Basophils % 0.5 %; Eosinophils # 0.2 K/mcL (0.0-0.6); Eosinophils % 2.5 %; Hematocrit 37.2 % (35.3-44.9); Hemoglobin 11.5 g/dL (11.5-15.4); Immature Granulocytes % 0.6 % (0-4); Lymphocytes # 2.3 K/mcL (0.6-4.6); Lymphocytes % 23.7 %; Mean Corpuscular HGB Conc 30.9 g/dL (31.6-35.5); Mean Corpuscular Hemoglobin 27.4 pg (28.0-33.3); Mean Corpuscular Volume 88.6 fL (83.0-100.0); Mean Platelet Volume 9.6 fL (9.4-12.4); Monocytes # 0.8 K/mcL (0.0-1.3); Monocytes % 7.8 %; Neutrophils # 6.3 K/mcL (1.6-8.9); Platelet Count 362 K/mcL (140-400); Red Cell Distribution Width 14.4 % (11.5-14.5); Segmented Neutrophils % 64.9 %; White Blood Count 9.7 K/mcL (4.3-11.1)
[2019-08-25 11:49] LABS: Prothrombin Time 10.8 Seconds (9.4-12.1)
[2019-08-25 11:52] LABS: Activated Partial Thrombo Time 32.9 Seconds (26.0-36.0)
[2019-08-25 12:07] LABS: Alanine Aminotransferase 13 Units/L (7-52); Albumin/Globulin Ratio 1.1 (1.1-2.2); Alkaline Phosphatase 86 Units/L (34-104); Aspartate Amino Transferase 11 Units/L (13-39); BUN/Creatinine Ratio 25 (6-26); Bilirubin,Total 0.3 mg/dL (0.3-1.0); Blood Urea Nitrogen 27 mg/dL (8-23); Calcium 9.8 mg/dL (8.6-10.3); Carbon Dioxide 29 mEq/L (23-29); Chloride 100 mEq/L (98-107); Globulin 3.6 g/dL (2.4-3.5); Glucose 67 mg/dL (70-105); Lipase 53 Units/L (11-82); Magnesium 1.7 mg/dL (1.6-2.6); Osmolality,Calculated 289 (280-300); Potassium 4.1 mEq/L (3.5-5.1); Sodium 138 mEq/L (136-145); Total Protein 7.6 g/dL (6.4-8.9); Troponin I < 0.03 ng/mL (< 0.04); eGFR For African Americans > 60 (> 60); eGFR For Non-African Americans 52 (> 60)
[2019-08-25 15:32] LABS: Bacteria,Urine Few per hpf (None-Few); Bilirubin,Urine Negative (Negative); Blood,Urine Negative (Negative); Clarity,Urine Clear (Clear); Color,Urine Light-Yellow (Yellow); Glucose,Urine (UA) Normal (Normal); Ketones,Urine Negative (Negative); Leukocyte Esterase,Urine Large (Negative); Nitrite,Urine Negative (Negative); Protein,Urine Negative (Neg-Trace); Specific Gravity,Urine > 1.030 (1.010-1.025); Squamous Epithelial Cell,Urine Few per hpf (None-Few); Urobilinogen,Urine Normal (Normal); WBC,Urine 30-50 per hpf (0-3)
[2019-08-25] MEDS ORDERED: Naloxone 0.4 MG/ML INJ IVP PRN (17:22)
[2019-08-25] MEDS ORDERED: Ondansetron 4 MG/2 ML VIAL IVP PRN (17:22)
[2019-08-25] MEDS ORDERED: 0.9 % Sodium Chloride 1,000 ML IVC SCH (17:30)
[2019-08-25] MEDS ORDERED: Dextrose Gel 15 GM/37.5 ML TUBE PO PRN ×2 (17:51)
[2019-08-25] MEDS ORDERED: *HR* Dextrose 50 % in Water (Vial) 50 ML VIAL IVP PRN (17:51)
[2019-08-25] MEDS ORDERED: D5% in Water 1,000 ML IVC PRN (17:51)
[2019-08-25] MEDS: Insulin LISPRO 300 UNITS/3 ML VIAL SQ SCH (21:23)
[2019-08-25] MEDS: metroNIDAZOLE 500 MG TABLET PO SCH (21:23)
[2019-08-25 22:32] LABS: Hematocrit 38.4 % (35.3-44.9); Hemoglobin 12.2 g/dL (11.5-15.4)
[2019-08-26] MEDS ORDERED: Melatonin 3 MG TABLET PO PRN
[2019-08-26] MEDS: Pantoprazole 40 MG VIAL IVP SCH ×2 (05:35→17:11)
[2019-08-26 06:34] LABS: Basophils % 0.5 %; Eosinophils # 0.2 K/mcL (0.0-0.6); Eosinophils % 1.9 %; Hematocrit 36.8 % (35.3-44.9); Hemoglobin 11.4 g/dL (11.5-15.4); Immature Granulocytes % 0.5 % (0-4); Lymphocytes # 1.7 K/mcL (0.6-4.6); Lymphocytes % 19.9 %; Mean Corpuscular Hemoglobin 27.7 pg (28.0-33.3); Mean Corpuscular Volume 89.5 fL (83.0-100.0); Mean Platelet Volume 9.9 fL (9.4-12.4); Monocytes # 0.6 K/mcL (0.0-1.3); Monocytes % 6.8 %; Neutrophils # 5.9 K/mcL (1.6-8.9); Platelet Count 321 K/mcL (140-400); Red Blood Count 4.11 M/mcL (3.82-4.97); Red Cell Distribution Width 14.5 % (11.5-14.5); Segmented Neutrophils % 70.4 %; White Blood Count 8.3 K/mcL (4.3-11.1)
[2019-08-26 06:56] LABS: BUN/Creatinine Ratio 21 (6-26); Blood Urea Nitrogen 22 mg/dL (8-23); Calcium 8.9 mg/dL (8.6-10.3); Carbon Dioxide 26 mEq/L (23-29); Chloride 99 mEq/L (98-107); Glucose 340 mg/dL (70-105); Osmolality,Calculated 293 (280-300); Potassium 4.6 mEq/L (3.5-5.1); Sodium 133 mEq/L (136-145); eGFR For African Americans > 60 (> 60); eGFR For Non-African Americans 52 (> 60)
[2019-08-26] MEDS: metroNIDAZOLE 500 MG TABLET PO SCH ×3 (07:57→20:48)
[2019-08-26] MEDS: Insulin LISPRO 300 UNITS/3 ML VIAL SQ SCH ×4 (07:57→20:46)
[2019-08-26] MEDS ORDERED: SODIUM CHLORIDE/NAHCO3/KCL/PEG 4,000 ML SOLN.RECON PO ONE (17:00)
[2019-08-26] MEDS ORDERED: Insulin DETEMIR 100 UNIT/ML X5UNITS SQ SCH (21:00)
[2019-08-26] MEDS ORDERED: Melatonin 3 MG TABLET PO SCH (21:00)
[2019-08-27] MEDS: Pantoprazole 40 MG VIAL IVP SCH (06:02)
[2019-08-27 06:14] LABS: Hematocrit 42.8 % (35.3-44.9); Hemoglobin 12.6 g/dL (11.5-15.4); Mean Corpuscular HGB Conc 29.4 g/dL (31.6-35.5); Mean Corpuscular Hemoglobin 27.3 pg (28.0-33.3); Mean Corpuscular Volume 92.8 fL (83.0-100.0); Mean Platelet Volume 10.6 fL (9.4-12.4); Platelet Count 260 K/mcL (140-400); Red Blood Count 4.61 M/mcL (3.82-4.97); Red Cell Distribution Width 14.6 % (11.5-14.5); White Blood Count 8.1 K/mcL (4.3-11.1)
[2019-08-27] MEDS: metroNIDAZOLE 500 MG TABLET PO SCH ×2 (08:30→15:41)
[2019-08-27] MEDS: Insulin LISPRO 300 UNITS/3 ML VIAL SQ SCH ×3 (08:30→15:51)
[2019-08-27] MEDS ORDERED: Aspirin Enteric Coated 81 MG Tablet PO SCH (09:00)
[2019-08-27] MEDS ORDERED: Lidocaine -MPF 2% 2 ML VIAL ONE (14:11)
[2019-08-27] MEDS ORDERED: *HR* Propofol 200 MG/20 ML VIAL IVP ONE ×2 (14:11→14:12)
[2019-08-27] MEDS ORDERED: *HR* Etomidate 40 MG/20 ML VIAL IVP ONE (14:12)
[2019-08-27 15:15] VITALS: BP 133/78
== END 2019-08-27 18:10 | disposition home health service (06) | DRG 378 ==
LOC: 3BNU 10:20 → EMEROOARM 10:20 → SUATTDRO 19:25 → 3BNU 20:27
PROVIDERS: ADMIT Pharmacist; ATTEND Internal Medicine
PROC: ENDOEBX (2019-08-27 13:50)

== ENCOUNTER 2020-02-16 20:49 | Inpatient (IN) ==
[2020-02-16] MEDS ORDERED: *HR* Dextrose 50 % in Water (Vial) 50 ML VIAL IVP ONE (20:54)
[2020-02-16] MEDS ORDERED: *HR* Dextrose 50 % in Water (Vial) 50 ML VIAL ONE ×2 (20:55→21:51)
[2020-02-16 21:32] LABS: Basophils % 0.4 %; Eosinophils # 0.1 K/mcL (0.0-0.6); Eosinophils % 1.5 %; Hemoglobin 11.6 g/dL (11.5-15.4); Immature Granulocytes % 1.5 % (0-4); Lymphocytes # 1.5 K/mcL (0.6-4.6); Lymphocytes % 19.5 %; Mean Corpuscular HGB Conc 31.4 g/dL (31.6-35.5); Mean Corpuscular Hemoglobin 27.8 pg (28.0-33.3); Mean Corpuscular Volume 88.5 fL (83.0-100.0); Mean Platelet Volume 9.6 fL (9.4-12.4); Monocytes # 0.7 K/mcL (0.0-1.3); Monocytes % 8.9 %; Neutrophils # 5.1 K/mcL (1.6-8.9); Platelet Count 407 K/mcL (140-400); Red Blood Count 4.18 M/mcL (3.82-4.97); Red Cell Distribution Width 14.2 % (11.5-14.5); Segmented Neutrophils % 68.2 %; White Blood Count 7.5 K/mcL (4.3-11.1)
[2020-02-16 21:52] LABS: Calcium 9.4 mg/dL (8.6-10.3); Phosphorous 3.1 mg/dL (2.7-4.5); Potassium 4.1 mEq/L (3.5-5.1)
[2020-02-16] MEDS: D5% in 0.9% NACL 1,000 ML IVC SCH (23:01)
[2020-02-17] MEDS ORDERED: Naloxone 0.4 MG/ML INJ IVP PRN (02:39)
[2020-02-17] MEDS ORDERED: *HR* Dextrose 50 % in Water (Vial) 50 ML VIAL IVP PRN (02:42)
[2020-02-17] MEDS ORDERED: D5% in Water 1,000 ML IVC PRN (02:42)
[2020-02-17] MEDS ORDERED: Dextrose Gel 15 GM/37.5 ML TUBE PO PRN ×2 (02:42)
[2020-02-17] MEDS: D5% in 0.9% NACL 1,000 ML IVC SCH (03:43)
[2020-02-17] MEDS: Insulin LISPRO 300 UNITS/3 ML VIAL SQ SCH ×7 (03:44→14:19)
[2020-02-17] MEDS ORDERED: Melatonin 3 MG TABLET PO PRN (05:51)
[2020-02-17] MEDS: cephALEXin 500 MG CAPSULE PO SCH ×4 (06:26→20:22)
[2020-02-17] MEDS: Nystatin POWDER 30 GM BOTTLE TP SCH ×4 (06:26→20:22)
[2020-02-17] MEDS ORDERED: [UNRECOGNIZED DRUG - OTHER] PO SCH (09:00)
[2020-02-17] MEDS ORDERED: VITAMIN E 100 UNIT PO SCH (09:00)
[2020-02-17] MEDS ORDERED: Cyclosporine [Restasis] OP SCH (09:00)
[2020-02-17] MEDS ORDERED: VITAMIN B COMPLEX SL SCH (09:00)
[2020-02-17 09:28] LABS: Hematocrit 35.9 % (35.3-44.9); Hemoglobin 10.8 g/dL (11.5-15.4); Mean Corpuscular HGB Conc 30.1 g/dL (31.6-35.5); Mean Corpuscular Volume 89.8 fL (83.0-100.0); Mean Platelet Volume 9.6 fL (9.4-12.4); Platelet Count 406 K/mcL (140-400); Red Cell Distribution Width 14.2 % (11.5-14.5); White Blood Count 6.3 K/mcL (4.3-11.1)
[2020-02-17] MEDS: Aspirin Enteric Coated 81 MG Tablet PO SCH (09:32)
[2020-02-17] MEDS: Cholecalciferol (D-3) 1,000 UNIT (25MCG) TABLET PO SCH (09:32)
[2020-02-17] MEDS: Fluticasone Propionate Nasal 50 MCG/SPRAY BOTTLE NS SCH (09:34)
[2020-02-17 09:49] LABS: Calcium 8.6 mg/dL (8.6-10.3); Potassium 4.2 mEq/L (3.5-5.1)
[2020-02-17] MEDS ORDERED: Artificial Tears SOLN 15 ML BOTTLE OP PRN (10:00)
[2020-02-17] MEDS: Insulin LISPRO 300 UNITS/3 ML VIAL SUBQ SCH (16:30)
[2020-02-18 06:51] LABS: BUN/Creatinine Ratio 15 (6-26); Blood Urea Nitrogen 15 mg/dL (8-23); Calcium 8.9 mg/dL (8.6-10.3); Carbon Dioxide 21 mEq/L (23-29); Chloride 102 mEq/L (98-107); Glucose 239 mg/dL (70-105); Osmolality,Calculated 287 (280-300); Sodium 134 mEq/L (136-145); eGFR For African Americans > 60 (> 60); eGFR For Non-African Americans 57 (> 60)
[2020-02-18] MEDS ORDERED: Nystatin Cream 15 GM TUBE TP PRN (07:32)
[2020-02-18] MEDS ORDERED: Insulin LISPRO 300 UNITS/3 ML VIAL SUBQ SCH ×3 (09:00→12:00)
[2020-02-18] MEDS ORDERED: NON-FORMULARY MEDICATION 1 EACH EACH (Omega-3/Dha/Epa/Fish Oil [Fish Oil Dr 500 Mg Softgel PO SCH (09:00)
[2020-02-18] MEDS: Insulin LISPRO 300 UNITS/3 ML VIAL SUBQ SCH ×2 (09:25→12:53)
[2020-02-18] MEDS: Cholecalciferol (D-3) 1,000 UNIT (25MCG) TABLET PO SCH (09:26)
[2020-02-18] MEDS: Magnesium Oxide 400 MG TABLET PO SCH (09:26)
[2020-02-18] MEDS: Aspirin Enteric Coated 81 MG Tablet PO SCH (09:26)
[2020-02-18] MEDS: Fluticasone Propionate Nasal 50 MCG/SPRAY BOTTLE NS SCH (09:26)
[2020-02-18] MEDS: amLODIPine 5 MG TABLET PO SCH (09:26)
[2020-02-18] MEDS: cephALEXin 500 MG CAPSULE PO SCH ×3 (09:26→21:08)
[2020-02-18] MEDS: Nystatin POWDER 30 GM BOTTLE TP SCH ×3 (09:28→21:08)
[2020-02-18] MEDS: *HR* Metformin 500 MG TABLET PO SCH ×2 (09:30→19:00)
[2020-02-18] MEDS ORDERED: *HR* Insulin Regular U-500 500 UNIT/ML SUBQ SCH ×2 (12:00→14:00)
[2020-02-19 07:55] LABS: Hematocrit 36.5 % (35.3-44.9); Mean Corpuscular HGB Conc 30.1 g/dL (31.6-35.5); Mean Corpuscular Hemoglobin 27.2 pg (28.0-33.3); Mean Corpuscular Volume 90.3 fL (83.0-100.0); Mean Platelet Volume 9.3 fL (9.4-12.4); Platelet Count 434 K/mcL (140-400); Red Blood Count 4.04 M/mcL (3.82-4.97); Red Cell Distribution Width 14.4 % (11.5-14.5); White Blood Count 6.1 K/mcL (4.3-11.1)
[2020-02-19 08:17] LABS: BUN/Creatinine Ratio 18 (6-26); Blood Urea Nitrogen 17 mg/dL (8-23); Calcium 9.3 mg/dL (8.6-10.3); Carbon Dioxide 25 mEq/L (23-29); Chloride 100 mEq/L (98-107); Glucose 337 mg/dL (70-105); Osmolality,Calculated 291 (280-300); Potassium 4.9 mEq/L (3.5-5.1); Sodium 133 mEq/L (136-145); eGFR For African Americans > 60 (> 60); eGFR For Non-African Americans 59 (> 60)
[2020-02-19] MEDS ORDERED: *HR* Insulin Regular U-500 500 UNIT/ML SUBQ SCH ×3 (09:00→12:00)
[2020-02-19] MEDS: *HR* Metformin 500 MG TABLET PO SCH ×2 (10:09→17:02)
[2020-02-19] MEDS: Cholecalciferol (D-3) 1,000 UNIT (25MCG) TABLET PO SCH (10:09)
[2020-02-19] MEDS: Magnesium Oxide 400 MG TABLET PO SCH (10:09)
[2020-02-19] MEDS: amLODIPine 5 MG TABLET PO SCH (10:09)
[2020-02-19] MEDS: Aspirin Enteric Coated 81 MG Tablet PO SCH (10:09)
[2020-02-19] MEDS: Nystatin POWDER 30 GM BOTTLE TP SCH ×3 (10:09→20:49)
[2020-02-19] MEDS: Fluticasone Propionate Nasal 50 MCG/SPRAY BOTTLE NS SCH (10:09)
[2020-02-19] MEDS: cephALEXin 500 MG CAPSULE PO SCH ×3 (10:09→20:50)
[2020-02-19] MEDS: *HR* Insulin Regular U-500 500 UNIT/ML SUBQ SCH (13:34)
[2020-02-19] MEDS ORDERED: Insulin LISPRO 300 UNITS/3 ML VIAL SUBQ ONE (16:30)
[2020-02-20 06:56] VITALS: BP 143/84
[2020-02-20] MEDS ORDERED: *HR* Insulin Regular U-500 500 UNIT/ML SUBQ SCH (09:00)
[2020-02-20] MEDS: Magnesium Oxide 400 MG TABLET PO SCH (09:48)
[2020-02-20] MEDS: Aspirin Enteric Coated 81 MG Tablet PO SCH (09:48)
[2020-02-20] MEDS: *HR* Metformin 500 MG TABLET PO SCH (09:48)
[2020-02-20] MEDS: Cholecalciferol (D-3) 1,000 UNIT (25MCG) TABLET PO SCH (09:48)
[2020-02-20] MEDS: cephALEXin 500 MG CAPSULE PO SCH ×2 (09:48→13:45)
[2020-02-20] MEDS: amLODIPine 5 MG TABLET PO SCH (09:51)
[2020-02-20] MEDS: Fluticasone Propionate Nasal 50 MCG/SPRAY BOTTLE NS SCH (09:54)
[2020-02-20] MEDS: Nystatin POWDER 30 GM BOTTLE TP SCH ×2 (09:55→13:45)
[2020-02-20] MEDS: *HR* Insulin Regular U-500 500 UNIT/ML SUBQ SCH (13:06)
== END 2020-02-20 16:40 | disposition home health service (06) | DRG 638 ==
LOC: EMEROOARM 20:49 → 3ANU 20:49 → SUATTDRO 02-17 18:13
PROVIDERS: ADMIT Internal Medicine; ATTEND General Practice

== ENCOUNTER 2020-05-23 10:30 | Inpatient (IN) ==
[2020-05-23] MEDS ORDERED: 0.9 % Sodium Chloride 1,000 ML IVC ONE (10:52)
[2020-05-23] MEDS ORDERED: Acetaminophen 325 MG TABLET PO ONE (11:06)
[2020-05-23 11:24] LABS: Basophils % 0.2 %; Eosinophils # 0.1 K/mcL (0.0-0.6); Eosinophils % 0.5 %; Hematocrit 36.6 % (35.3-44.9); Hemoglobin 11.4 g/dL (11.5-15.4); Immature Granulocytes % 0.5 % (0-4); Lymphocytes # 0.9 K/mcL (0.6-4.6); Lymphocytes % 4.6 %; Mean Corpuscular HGB Conc 31.1 g/dL (31.6-35.5); Mean Corpuscular Hemoglobin 27.6 pg (28.0-33.3); Mean Corpuscular Volume 88.6 fL (83.0-100.0); Mean Platelet Volume 9.8 fL (9.4-12.4); Monocytes # 1.2 K/mcL (0.0-1.3); Neutrophils # 17.1 K/mcL (1.6-8.9); Platelet Count 304 K/mcL (140-400); Red Blood Count 4.13 M/mcL (3.82-4.97); Red Cell Distribution Width 14.4 % (11.5-14.5); Segmented Neutrophils % 88.2 %; White Blood Count 19.4 K/mcL (4.3-11.1)
[2020-05-23 11:36] LABS: INR 1.1; Prothrombin Time 12.8 Seconds (9.4-12.1)
[2020-05-23] MEDS ORDERED: Cefepime HCl 1,000 MG in 0.9 % Sodium Chloride Mini Bag 100 ML IVPB ONE (11:43)
[2020-05-23] MEDS ORDERED: 0.9 % Sodium Chloride 1,000 ML IV ONE ×2 (11:44→14:06)
[2020-05-23 11:51] LABS: Alanine Aminotransferase 22 Units/L (7-52); Albumin 3.9 g/dL (3.5-5.7); Albumin/Globulin Ratio 1.2 (1.1-2.2); Alkaline Phosphatase 79 Units/L (34-104); Aspartate Amino Transferase 26 Units/L (13-39); BUN/Creatinine Ratio 21 (6-26); Bilirubin,Direct 0.1 mg/dL (0.0-0.2); Bilirubin,Indirect 0.3 mg/dL (0.0-1.0); Bilirubin,Total 0.4 mg/dL (0.3-1.0); Blood Urea Nitrogen 24 mg/dL (8-23); Calcium 8.9 mg/dL (8.6-10.3); Carbon Dioxide 26 mEq/L (23-29); Chloride 102 mEq/L (98-107); Globulin 3.3 g/dL (2.4-3.5); Glucose 170 mg/dL (70-105); Osmolality,Calculated 290 (280-300); Potassium 4.1 mEq/L (3.5-5.1); Sodium 136 mEq/L (136-145); Total Protein 7.2 g/dL (6.4-8.9); eGFR For African Americans 56 (> 60); eGFR For Non-African Americans 46 (> 60)
[2020-05-23] MEDS ORDERED: Vancomycin 2,000 MG/520 ML IV.SOLN IVPB ONE (12:00)
[2020-05-23 13:05] LABS: Troponin I < 0.03 ng/mL (< 0.04)
[2020-05-23] MEDS ORDERED: Dextrose Gel 15 GM/37.5 ML TUBE PO PRN ×2 (14:28)
[2020-05-23] MEDS ORDERED: *HR* Dextrose 50 % in Water (Vial) 50 ML VIAL IVP PRN (14:28)
[2020-05-23] MEDS ORDERED: D5% in Water 1,000 ML IVC PRN (14:28)
[2020-05-23] MEDS ORDERED: Ondansetron 4 MG/2 ML VIAL IVP PRN (14:28)
[2020-05-23] MEDS ORDERED: Acetaminophen 325 MG TABLET PO PRN (14:28)
[2020-05-23] MEDS ORDERED: MOM Conc 10 ML UD.LIQ PO ONE (16:11)
[2020-05-23] MEDS ORDERED: Nystatin Cream 15 GM TUBE TP PRN (16:28)
[2020-05-23] MEDS ORDERED: Fluticasone Propionate Nasal 50 MCG/SPRAY BOTTLE NS PRN (16:28)
[2020-05-23] MEDS: polyethylene glycoL 3350 17 GM POWD.PACK PO SCH (18:39)
[2020-05-23] MEDS: Insulin LISPRO 300 UNITS/3 ML VIAL SUBQ SCH ×2 (18:40→22:12)
[2020-05-23] MEDS ORDERED: Insulin DETEMIR 100 UNIT/ML X5UNITS SUBQ SCH (21:00)
[2020-05-23 23:28] LABS: Bacteria,Urine Few per hpf (None-Few); Bilirubin,Urine Negative (Negative); Blood,Urine Moderate (Negative); Clarity,Urine Turbid (Clear); Color,Urine Light-Yellow (Yellow); Glucose,Urine (UA) Normal (Normal); Ketones,Urine Negative (Negative); Leukocyte Esterase,Urine Moderate (Negative); Mucus,Urine Few per lpf (None-Few); Nitrite,Urine Negative (Negative); PH,Urine 6.5 pH Units (5.0-8.0); Protein,Urine Trace mg/dL (Neg-Trace); Specific Gravity,Urine 1.018 (1.010-1.025); Squamous Epithelial Cell,Urine Few per hpf (None-Few); Urobilinogen,Urine Normal (Normal); WBC,Urine 15-30 per hpf (0-3)
[2020-05-24 01:37] LABS: Hematocrit 34.8 % (35.3-44.9); Hemoglobin 10.9 g/dL (11.5-15.4); Mean Corpuscular HGB Conc 31.3 g/dL (31.6-35.5); Mean Corpuscular Hemoglobin 27.5 pg (28.0-33.3); Mean Corpuscular Volume 87.9 fL (83.0-100.0); Mean Platelet Volume 10.3 fL (9.4-12.4); Platelet Count 277 K/mcL (140-400); Red Blood Count 3.96 M/mcL (3.82-4.97); Red Cell Distribution Width 14.6 % (11.5-14.5); White Blood Count 17.3 K/mcL (4.3-11.1)
[2020-05-24 01:54] LABS: BUN/Creatinine Ratio 20 (6-26); Blood Urea Nitrogen 21 mg/dL (8-23); C-Reactive Protein 102 mg/L (Less than 10); Calcium 8.1 mg/dL (8.6-10.3); Carbon Dioxide 23 mEq/L (23-29); Chloride 102 mEq/L (98-107); Glucose 194 mg/dL (70-105); Magnesium 1.9 mg/dL (1.6-2.6); Osmolality,Calculated 286 (280-300); Phosphorous 2.1 mg/dL (2.7-4.5); Potassium 4.1 mEq/L (3.5-5.1); Sodium 134 mEq/L (136-145); eGFR For African Americans > 60 (> 60); eGFR For Non-African Americans 53 (> 60)
[2020-05-24] MEDS ORDERED: *HR* Enoxaparin 40 MG/0.4 ML SYRINGE SQ SCH (06:00)
[2020-05-24] MEDS: Insulin LISPRO 300 UNITS/3 ML VIAL SUBQ SCH ×4 (07:52→20:49)
[2020-05-24] MEDS: amLODIPine 5 MG TABLET PO SCH (10:23)
[2020-05-24] MEDS: polyethylene glycoL 3350 17 GM POWD.PACK PO SCH (10:23)
[2020-05-24] MEDS: Aspirin Enteric Coated 81 MG Tablet PO SCH (10:23)
[2020-05-24] MEDS: Nystatin POWDER 30 GM BOTTLE TP SCH ×2 (10:50→20:50)
[2020-05-24] MEDS ORDERED: Fluconazole 150 MG TABLET PO ONE (12:54)
[2020-05-24] MEDS: Cefepime HCl 2,000 MG in 0.9 % Sodium Chloride Mini Bag 100 ML IVPB SCH ×2 (15:36→20:49)
[2020-05-24] MEDS: *HR* Enoxaparin 40 MG/0.4 ML SYRINGE SQ SCH (17:03)
[2020-05-24] MEDS ORDERED: Cefepime HCl 2,000 MG in 0.9 % Sodium Chloride Mini Bag 100 ML IVPB SCH (20:00)
[2020-05-24] MEDS ORDERED: Insulin DETEMIR 100 UNIT/ML X5UNITS SUBQ SCH (21:00)
[2020-05-25 01:10] LABS: Basophils % 0.3 %; Eosinophils # 0.2 K/mcL (0.0-0.6); Eosinophils % 2.7 %; Hematocrit 36.9 % (35.3-44.9); Hemoglobin 11.3 g/dL (11.5-15.4); Immature Granulocytes % 0.4 % (0-4); Lymphocytes # 1.9 K/mcL (0.6-4.6); Lymphocytes % 25.7 %; Mean Corpuscular HGB Conc 30.6 g/dL (31.6-35.5); Mean Corpuscular Hemoglobin 27.7 pg (28.0-33.3); Mean Corpuscular Volume 90.4 fL (83.0-100.0); Mean Platelet Volume 9.9 fL (9.4-12.4); Monocytes # 0.7 K/mcL (0.0-1.3); Monocytes % 9.7 %; Neutrophils # 4.6 K/mcL (1.6-8.9); Platelet Count 260 K/mcL (140-400); Red Blood Count 4.08 M/mcL (3.82-4.97); Red Cell Distribution Width 14.5 % (11.5-14.5); Segmented Neutrophils % 61.2 %; White Blood Count 7.5 K/mcL (4.3-11.1)
[2020-05-25 01:28] LABS: BUN/Creatinine Ratio 18 (6-26); Blood Urea Nitrogen 18 mg/dL (8-23); Calcium 8.5 mg/dL (8.6-10.3); Carbon Dioxide 24 mEq/L (23-29); Chloride 102 mEq/L (98-107); Glucose 226 mg/dL (70-105); Osmolality,Calculated 289 (280-300); Potassium 4.1 mEq/L (3.5-5.1); Sodium 135 mEq/L (136-145); eGFR For African Americans > 60 (> 60); eGFR For Non-African Americans 55 (> 60)
[2020-05-25] MEDS: *HR* Enoxaparin 40 MG/0.4 ML SYRINGE SQ SCH ×2 (05:38→17:04)
[2020-05-25] MEDS: Cefepime HCl 2,000 MG in 0.9 % Sodium Chloride Mini Bag 100 ML IVPB SCH ×3 (05:38→20:53)
[2020-05-25] MEDS: polyethylene glycoL 3350 17 GM POWD.PACK PO SCH (09:01)
[2020-05-25] MEDS: amLODIPine 5 MG TABLET PO SCH (09:02)
[2020-05-25] MEDS: Aspirin Enteric Coated 81 MG Tablet PO SCH (09:02)
[2020-05-25] MEDS: Insulin LISPRO 300 UNITS/3 ML VIAL SUBQ SCH ×4 (09:02→20:53)
[2020-05-25] MEDS: Nystatin POWDER 30 GM BOTTLE TP SCH ×2 (09:03→20:54)
[2020-05-25] MEDS ORDERED: Insulin DETEMIR 100 UNIT/ML X5UNITS SUBQ SCH (21:00)
[2020-05-26 02:33] LABS: Hematocrit 34.1 % (35.3-44.9); Hemoglobin 10.4 g/dL (11.5-15.4); Mean Corpuscular HGB Conc 30.5 g/dL (31.6-35.5); Mean Corpuscular Hemoglobin 28.2 pg (28.0-33.3); Mean Corpuscular Volume 92.4 fL (83.0-100.0); Mean Platelet Volume 9.9 fL (9.4-12.4); Platelet Count 243 K/mcL (140-400); Red Blood Count 3.69 M/mcL (3.82-4.97); Red Cell Distribution Width 14.3 % (11.5-14.5); White Blood Count 7.9 K/mcL (4.3-11.1)
[2020-05-26 02:54] LABS: BUN/Creatinine Ratio 20 (6-26); Blood Urea Nitrogen 20 mg/dL (8-23); Calcium 8.6 mg/dL (8.6-10.3); Carbon Dioxide 25 mEq/L (23-29); Chloride 100 mEq/L (98-107); Glucose 268 mg/dL (70-105); Osmolality,Calculated 286 (280-300); Potassium 4.3 mEq/L (3.5-5.1); Sodium 132 mEq/L (136-145); eGFR For African Americans > 60 (> 60); eGFR For Non-African Americans 54 (> 60)
[2020-05-26] MEDS: Cefepime HCl 2,000 MG in 0.9 % Sodium Chloride Mini Bag 100 ML IVPB SCH (05:26)
[2020-05-26] MEDS: *HR* Enoxaparin 40 MG/0.4 ML SYRINGE SQ SCH ×2 (05:26→17:07)
[2020-05-26] MEDS: Insulin LISPRO 300 UNITS/3 ML VIAL SUBQ SCH ×3 (08:07→17:05)
[2020-05-26] MEDS: Aspirin Enteric Coated 81 MG Tablet PO SCH (08:07)
[2020-05-26] MEDS: amLODIPine 5 MG TABLET PO SCH (08:09)
[2020-05-26] MEDS: polyethylene glycoL 3350 17 GM POWD.PACK PO SCH (08:09)
[2020-05-26] MEDS ORDERED: Doxycycline 100 MG CAPSULE PO SCH (09:15)
[2020-05-26] MEDS: Nystatin POWDER 30 GM BOTTLE TP SCH (09:40)
[2020-05-26 16:41] VITALS: BP 111/80
== END 2020-05-26 18:27 | disposition home health service (06) | DRG 872 ==
LOC: 2ANU 10:30 → EMEROOARM 10:30 → SUATTDRO 14:54 → 2ANU 18:00
PROVIDERS: ADMIT Internal Medicine; ATTEND Family Medicine

== ENCOUNTER 2020-09-27 12:31 | Observation (INO) ==
[2020-09-27] MEDS ORDERED: cefTRIAXone 1,000 MG in Water for inj. (sterile) 10 ML IVP ONE (14:29)
[2020-09-27 15:10] LABS: Basophils % 0.4 %; Eosinophils # 0.1 K/mcL (0.0-0.6); Eosinophils % 1.5 %; Hematocrit 39.9 % (35.3-44.9); Hemoglobin 12.5 g/dL (11.5-15.4); Immature Granulocytes % 0.4 % (0-4); Lymphocytes # 1.6 K/mcL (0.6-4.6); Lymphocytes % 18.7 %; Mean Corpuscular HGB Conc 31.3 g/dL (31.6-35.5); Mean Corpuscular Hemoglobin 28.1 pg (28.0-33.3); Mean Corpuscular Volume 89.7 fL (83.0-100.0); Mean Platelet Volume 9.5 fL (9.4-12.4); Monocytes # 0.5 K/mcL (0.0-1.3); Monocytes % 6.1 %; Neutrophils # 6.2 K/mcL (1.6-8.9); Platelet Count 309 K/mcL (140-400); Red Blood Count 4.45 M/mcL (3.82-4.97); Red Cell Distribution Width 13.7 % (11.5-14.5); Segmented Neutrophils % 72.9 %; White Blood Count 8.5 K/mcL (4.3-11.1)
[2020-09-27 15:30] LABS: BUN/Creatinine Ratio 20 (6-26); Blood Urea Nitrogen 21 mg/dL (8-23); Calcium 9.9 mg/dL (8.6-10.3); Carbon Dioxide 27 mEq/L (23-29); Chloride 96 mEq/L (98-107); Glucose 391 mg/dL (70-105); Osmolality,Calculated 295 (280-300); Potassium 4.8 mEq/L (3.5-5.1); Sodium 133 mEq/L (136-145); eGFR For African Americans > 60 (> 60); eGFR For Non-African Americans 51 (> 60)
[2020-09-27] MEDS ORDERED: Mag Hydrox/Al Hydrox/Simeth 30 ML UDC PO PRN (16:24)
[2020-09-27] MEDS ORDERED: Naloxone 0.4 MG/ML INJ IVP PRN (16:24)
[2020-09-27] MEDS ORDERED: Melatonin 3 MG TABLET PO PRN (16:24)
[2020-09-27] MEDS ORDERED: Ondansetron ODT 4 MG TAB.RAPDIS SL PRN (16:24)
[2020-09-27] MEDS ORDERED: Acetaminophen 325 MG TABLET PO PRN (16:24)
[2020-09-27 16:48] LABS: C-Reactive Protein 19 mg/L (Less than 10)
[2020-09-27] MEDS ORDERED: Dextrose Gel 15 GM/37.5 ML TUBE PO PRN ×2 (16:57)
[2020-09-27] MEDS ORDERED: D5% in Water 1,000 ML IVC PRN (16:57)
[2020-09-27] MEDS ORDERED: *HR* Dextrose 50 % in Water (Vial) 50 ML VIAL IVP PRN (16:57)
[2020-09-27] MEDS: Insulin LISPRO 300 UNITS/3 ML VIAL SUBQ SCH (18:22)
[2020-09-27] MEDS ORDERED: Insulin DETEMIR 100 UNIT/ML X5UNITS SUBQ SCH (21:00)
[2020-09-27] MEDS ORDERED: Insulin LISPRO 300 UNITS/3 ML VIAL SUBQ SCH (21:00)
[2020-09-28 05:53] LABS: BUN/Creatinine Ratio 21 (6-26); Blood Urea Nitrogen 22 mg/dL (8-23); Calcium 9.1 mg/dL (8.6-10.3); Carbon Dioxide 27 mEq/L (23-29); Chloride 97 mEq/L (98-107); Glucose 349 mg/dL (70-105); Osmolality,Calculated 293 (280-300); Potassium 4.3 mEq/L (3.5-5.1); Sodium 133 mEq/L (136-145); eGFR For African Americans > 60 (> 60); eGFR For Non-African Americans 51 (> 60)
[2020-09-28 06:03] LABS: Red Blood Count 3.87 M/mcL (3.82-4.97)
[2020-09-28 06:04] LABS: Hematocrit 35.1 % (35.3-44.9); Mean Corpuscular HGB Conc 31.3 g/dL (31.6-35.5); Mean Corpuscular Hemoglobin 28.4 pg (28.0-33.3); Mean Corpuscular Volume 90.7 fL (83.0-100.0); Mean Platelet Volume 9.8 fL (9.4-12.4); Platelet Count 305 K/mcL (140-400); Red Cell Distribution Width 13.9 % (11.5-14.5)
[2020-09-28 06:43] VITALS: O2SAT 95
[2020-09-28] MEDS ORDERED: Insulin LISPRO 300 UNITS/3 ML VIAL SUBQ SCH (07:30)
[2020-09-28] MEDS: Insulin LISPRO 300 UNITS/3 ML VIAL SUBQ SCH ×2 (07:55→11:54)
[2020-09-28] MEDS: cephALEXin 500 MG CAPSULE PO SCH ×2 (07:56→11:55)
[2020-09-28] MEDS ORDERED: cefTRIAXone 1,000 MG in Water for inj. (sterile) 10 ML IVP SCH (09:00)
[2020-09-28 14:15] VITALS: BP 123/72; PULSE 71; TEMP 97.5
== END 2020-09-28 16:43 | disposition home health service (06) ==
LOC: 3NENU 12:31 → EMEROOARM 12:31 → SUATTDRO 15:51 → 3NENU 16:50
PROVIDERS: ADMIT Family Medicine; ATTEND Family Medicine

== ENCOUNTER 2021-06-30 17:47 | Inpatient (IN) ==
[2021-06-30 19:18] LABS: Hematocrit 33.5 % (35.3-44.9); Hemoglobin 10.7 g/dL (11.5-15.4); Mean Corpuscular HGB Conc 31.9 g/dL (31.6-35.5); Mean Corpuscular Hemoglobin 29.2 pg (28.0-33.3); Mean Corpuscular Volume 91.3 fL (83.0-100.0); Mean Platelet Volume 10.2 fL (9.4-12.4); Platelet Count 302 K/mcL (140-400); Red Blood Count 3.67 M/mcL (3.82-4.97); Red Cell Distribution Width 13.4 % (11.5-14.5); White Blood Count 7.8 K/mcL (4.3-11.1)
[2021-06-30 19:40] LABS: Albumin 3.8 g/dL (3.5-5.7); Albumin/Globulin Ratio 1.1 (1.1-2.2); Bilirubin,Indirect 0.2 mg/dL (0.0-1.0); Bilirubin,Total 0.2 mg/dL (0.3-1.0); Calcium 9.1 mg/dL (8.6-10.3); Globulin 3.4 g/dL (2.4-3.5); Potassium 6.4 mEq/L (3.5-5.1); Total Protein 7.2 g/dL (6.4-8.9)
[2021-06-30] MEDS ORDERED: *HR* Dextrose 50 % in Water (Syg) 50 ML SYRINGE IVP ONE (19:51)
[2021-06-30] MEDS ORDERED: 0.9 % Sodium Chloride 1,000 ML IVC ONE (19:51)
[2021-06-30] MEDS ORDERED: Sodium Bicarbonate 50 MEQ/50 ML VIAL IVP ONE (19:51)
[2021-06-30] MEDS ORDERED: Insulin Human Regular 10 UNIT in 0.9 % Sodium Chloride 10 ML IV ONE (19:51)
[2021-06-30] MEDS ORDERED: SODIUM ZIRCONIUM CYCLOSILICATE 5 GM POWD.PACK PO SCH (20:00)
[2021-06-30] MEDS ORDERED: SODIUM ZIRCONIUM CYCLOSILICATE 5 GM POWD.PACK PO ONE (20:00)
[2021-06-30] MEDS ORDERED: Naloxone 0.4 MG/ML INJ IVP PRN (21:43)
[2021-06-30] MEDS ORDERED: Ondansetron 4 MG/2 ML VIAL IVP PRN (21:43)
[2021-06-30] MEDS ORDERED: Calcium Gluconate 1gm/50mL 1 GM/50 ML BAG IVPB ONE (21:45)
[2021-06-30] MEDS: Melatonin 3 MG TABLET PO PRN (23:51)
[2021-07-01] MEDS ORDERED: Dextrose 4 GM Chewable Tablets PO PRN ×2 (02:09)
[2021-07-01] MEDS ORDERED: D5% in Water 1,000 ML IVC PRN (02:09)
[2021-07-01] MEDS ORDERED: *HR* Dextrose 50 % in Water (Syg) 50 ML SYRINGE IVP PRN (02:09)
[2021-07-01 05:31] LABS: Prothrombin Time 11.1 Seconds (9.4-12.1)
[2021-07-01 05:43] LABS: Alanine Aminotransferase 18 Units/L (7-52); Albumin 3.6 g/dL (3.5-5.7); Albumin/Globulin Ratio 1.2 (1.1-2.2); Alkaline Phosphatase 85 Units/L (34-104); Aspartate Amino Transferase 12 Units/L (13-39); BUN/Creatinine Ratio 27 (6-26); Bilirubin,Total 0.3 mg/dL (0.3-1.0); Blood Urea Nitrogen 36 mg/dL (8-23); Calcium 9.2 mg/dL (8.6-10.3); Carbon Dioxide 22 mEq/L (23-29); Chloride 103 mEq/L (98-107); Glucose 429 mg/dL (70-105); Magnesium 1.8 mg/dL (1.6-2.6); Osmolality,Calculated 301 (280-300); Sodium 132 mEq/L (136-145); Total Protein 6.6 g/dL (6.4-8.9); Troponin I < 0.03 ng/mL (< 0.04); eGFR For African Americans 48 (> 60); eGFR For Non-African Americans 40 (> 60)
[2021-07-01] MEDS ORDERED: Insulin Human Regular 10 UNIT in 0.9 % Sodium Chloride 10 ML IV ONE (05:59)
[2021-07-01] MEDS ORDERED: Calcium Gluconate 1gm/50mL 1 GM/50 ML BAG IVPB ONE (05:59)
[2021-07-01] MEDS ORDERED: Insulin LISPRO 300 UNITS/3 ML VIAL SUBQ SCH ×3 (06:00→21:00)
[2021-07-01] MEDS: *HR* Heparin 5,000 UNIT/ML VIAL SQ SCH ×2 (06:08→17:04)
[2021-07-01] MEDS: SODIUM ZIRCONIUM CYCLOSILICATE 5 GM POWD.PACK PO SCH ×2 (06:09→08:30)
[2021-07-01 06:39] LABS: Bilirubin,Urine Negative (Negative); Blood,Urine Negative (Negative); Clarity,Urine Clear (Clear); Color,Urine Light-Yellow (Yellow); Glucose,Urine (UA) >=1000 mg/dL (Normal); Hyaline Casts,Urine Few per lpf (None Seen); Ketones,Urine Negative (Negative); Leukocyte Esterase,Urine Negative (Negative); Mucus,Urine Few per lpf (None-Few); Nitrite,Urine Negative (Negative); PH,Urine 5.5 pH Units (5.0-8.0); Protein,Urine Negative (Neg-Trace); RBC,Urine 0-3 per hpf (0-3); Specific Gravity,Urine 1.021 (1.010-1.025); Squamous Epithelial Cell,Urine Few per hpf (None-Few); Urobilinogen,Urine Normal (Normal); WBC,Urine 0-3 per hpf (0-3)
[2021-07-01 08:23] LABS: Calcium 9.3 mg/dL (8.6-10.3); Potassium 5.7 mEq/L (3.5-5.1)
[2021-07-01] MEDS ORDERED: 0.9 % Sodium Chloride 1,000 ML IVC SCH (10:30)
[2021-07-01] MEDS: Insulin DETEMIR 100 UNIT/ML X5UNITS SUBQ SCH ×2 (10:45→21:13)
[2021-07-01] MEDS: Insulin LISPRO 300 UNITS/3 ML VIAL SUBQ SCH ×5 (12:31→21:13)
[2021-07-01 19:29] LABS: Calcium 9.7 mg/dL (8.6-10.3); Potassium 4.6 mEq/L (3.5-5.1)
[2021-07-01] MEDS: Melatonin 3 MG TABLET PO PRN (22:21)
[2021-07-02 02:51] LABS: Calcium 9.1 mg/dL (8.6-10.3); Potassium 5.1 mEq/L (3.5-5.1)
[2021-07-02] MEDS: *HR* Heparin 5,000 UNIT/ML VIAL SQ SCH ×2 (04:32→18:15)
[2021-07-02] MEDS: Insulin DETEMIR 100 UNIT/ML X5UNITS SUBQ SCH ×2 (07:48→19:37)
[2021-07-02] MEDS: Insulin LISPRO 300 UNITS/3 ML VIAL SUBQ SCH ×7 (07:48→19:37)
[2021-07-02] MEDS ORDERED: Insulin DETEMIR 100 UNIT/ML X5UNITS SUBQ SCH (09:00)
[2021-07-02] MEDS ORDERED: Insulin DETEMIR 100 UNIT/ML X5UNITS SUBQ ONE (09:34)
[2021-07-02] MEDS: Gabapentin 100 MG CAPSULE PO SCH (19:38)
[2021-07-03 01:21] LABS: Basophils % 0.4 %; Eosinophils # 0.2 K/mcL (0.0-0.6); Eosinophils % 2.8 %; Hematocrit 32.7 % (35.3-44.9); Hemoglobin 10.2 g/dL (11.5-15.4); Immature Granulocytes % 0.4 % (0-4); Lymphocytes # 2.3 K/mcL (0.6-4.6); Lymphocytes % 31.1 %; Mean Corpuscular HGB Conc 31.2 g/dL (31.6-35.5); Mean Corpuscular Hemoglobin 28.7 pg (28.0-33.3); Mean Corpuscular Volume 91.9 fL (83.0-100.0); Mean Platelet Volume 9.9 fL (9.4-12.4); Monocytes # 0.6 K/mcL (0.0-1.3); Monocytes % 7.6 %; Neutrophils # 4.3 K/mcL (1.6-8.9); Platelet Count 275 K/mcL (140-400); Red Blood Count 3.56 M/mcL (3.82-4.97); Red Cell Distribution Width 13.5 % (11.5-14.5); Segmented Neutrophils % 57.7 %; White Blood Count 7.5 K/mcL (4.3-11.1)
[2021-07-03 01:35] LABS: Calcium 9.1 mg/dL (8.6-10.3); Potassium 4.8 mEq/L (3.5-5.1)
[2021-07-03] MEDS: *HR* Heparin 5,000 UNIT/ML VIAL SQ SCH ×3 (04:58→20:10)
[2021-07-03] MEDS ORDERED: Regadenoson 0.4 MG/5 ML SYRINGE IVP ONE (05:41)
[2021-07-03] MEDS: Insulin LISPRO 300 UNITS/3 ML VIAL SUBQ SCH ×7 (07:37→19:54)
[2021-07-03] MEDS: Insulin DETEMIR 100 UNIT/ML X5UNITS SUBQ SCH ×2 (07:37→20:10)
[2021-07-03] MEDS: Aspirin Enteric Coated 81 MG Tablet PO SCH (11:35)
[2021-07-03] MEDS: lisinopriL 20 MG TABLET PO SCH (11:35)
[2021-07-03] MEDS: Gabapentin 100 MG CAPSULE PO SCH (20:10)
[2021-07-03] MEDS: Melatonin 3 MG TABLET PO PRN (23:39)
[2021-07-04 01:36] LABS: Basophils % 0.3 %; Eosinophils # 0.2 K/mcL (0.0-0.6); Eosinophils % 2.3 %; Hemoglobin 10.3 g/dL (11.5-15.4); Immature Granulocytes % 0.4 % (0-4); Lymphocytes # 1.8 K/mcL (0.6-4.6); Lymphocytes % 23.7 %; Mean Corpuscular HGB Conc 30.3 g/dL (31.6-35.5); Mean Corpuscular Hemoglobin 29.3 pg (28.0-33.3); Mean Corpuscular Volume 96.6 fL (83.0-100.0); Mean Platelet Volume 10.6 fL (9.4-12.4); Monocytes # 0.6 K/mcL (0.0-1.3); Monocytes % 7.8 %; Neutrophils # 4.9 K/mcL (1.6-8.9); Platelet Count 236 K/mcL (140-400); Red Blood Count 3.52 M/mcL (3.82-4.97); Red Cell Distribution Width 13.5 % (11.5-14.5); Segmented Neutrophils % 65.5 %; White Blood Count 7.4 K/mcL (4.3-11.1)
[2021-07-04 01:53] LABS: Calcium 8.7 mg/dL (8.6-10.3)
[2021-07-04] MEDS: *HR* Heparin 5,000 UNIT/ML VIAL SQ SCH ×3 (06:05→21:00)
[2021-07-04] MEDS: Insulin LISPRO 300 UNITS/3 ML VIAL SUBQ SCH ×8 (07:22→21:01)
[2021-07-04] MEDS: Insulin DETEMIR 100 UNIT/ML X5UNITS SUBQ SCH ×2 (09:16→21:01)
[2021-07-04] MEDS: Aspirin Enteric Coated 81 MG Tablet PO SCH (09:16)
[2021-07-04] MEDS: lisinopriL 20 MG TABLET PO SCH (09:16)
[2021-07-04] MEDS ORDERED: 0.9 % Sodium Chloride 1,000 ML IVC SCH (10:15)
[2021-07-04] MEDS: Gabapentin 100 MG CAPSULE PO SCH (20:54)
[2021-07-05] MEDS ORDERED: Isovue-370 500 ML BOTTLE IVP ONE (00:01)
[2021-07-05 02:20] LABS: BUN/Creatinine Ratio 28 (6-26); Blood Urea Nitrogen 30 mg/dL (8-23); Calcium 8.8 mg/dL (8.6-10.3); Carbon Dioxide 23 mEq/L (23-29); Chloride 104 mEq/L (98-107); Glucose 218 mg/dL (70-105); Osmolality,Calculated 293 (280-300); Potassium 4.6 mEq/L (3.5-5.1); Sodium 135 mEq/L (136-145); eGFR For African Americans > 60 (> 60); eGFR For Non-African Americans 51 (> 60)
[2021-07-05 02:22] LABS: Basophils % 0.5 %; Eosinophils # 0.2 K/mcL (0.0-0.6); Eosinophils % 2.9 %; Hematocrit 32.6 % (35.3-44.9); Hemoglobin 10.2 g/dL (11.5-15.4); Immature Granulocytes % 0.7 % (0-4); Lymphocytes # 1.8 K/mcL (0.6-4.6); Lymphocytes % 33.1 %; Mean Corpuscular HGB Conc 31.3 g/dL (31.6-35.5); Mean Corpuscular Hemoglobin 29.1 pg (28.0-33.3); Mean Corpuscular Volume 93.1 fL (83.0-100.0); Mean Platelet Volume 10.2 fL (9.4-12.4); Monocytes # 0.5 K/mcL (0.0-1.3); Monocytes % 8.5 %; Platelet Count 258 K/mcL (140-400); Red Cell Distribution Width 13.4 % (11.5-14.5); Segmented Neutrophils % 54.3 %; White Blood Count 5.5 K/mcL (4.3-11.1)
[2021-07-05] MEDS: *HR* Heparin 5,000 UNIT/ML VIAL SQ SCH ×3 (05:19→19:58)
[2021-07-05] MEDS: Insulin LISPRO 300 UNITS/3 ML VIAL SUBQ SCH ×7 (07:30→19:59)
[2021-07-05] MEDS ORDERED: *HR* Metoprolol 5 MG/5 ML VIAL IVP PRN (08:36)
[2021-07-05] MEDS ORDERED: Nitroglycerin 0.4 MG TAB.SUBL SL PRN (08:36)
[2021-07-05] MEDS ORDERED: IVABRADINE HCL 7.5 MG TABLET PO ONE (08:36)
[2021-07-05] MEDS: Aspirin Enteric Coated 81 MG Tablet PO SCH (11:31)
[2021-07-05] MEDS: Insulin DETEMIR 100 UNIT/ML X5UNITS SUBQ SCH (11:32)
[2021-07-05] MEDS: lisinopriL 20 MG TABLET PO SCH (11:32)
[2021-07-05] MEDS ORDERED: Fluticasone Propionate Nasal 50 MCG/SPRAY BOTTLE NS PRN (14:24)
[2021-07-05] MEDS ORDERED: Melatonin 3 MG TABLET PO PRN (14:24)
[2021-07-05] MEDS: Gabapentin 100 MG CAPSULE PO SCH (19:51)
[2021-07-05] MEDS: Acetaminophen 325 MG TABLET PO PRN (19:57)
[2021-07-05] MEDS: Cyclosporine [Restasis] 1 EACH Droperette OP SCH (20:03)
[2021-07-05] MEDS ORDERED: Insulin DETEMIR 100 UNIT/ML X5UNITS SUBQ SCH (21:00)
[2021-07-05] MEDS: 0.9 % Sodium Chloride 1,000 ML IVC SCH (23:19)
[2021-07-06 02:29] LABS: Calcium 8.9 mg/dL (8.6-10.3); Potassium 4.7 mEq/L (3.5-5.1)
[2021-07-06] MEDS: Acetaminophen 325 MG TABLET PO PRN (04:31)
[2021-07-06] MEDS: *HR* Heparin 5,000 UNIT/ML VIAL SQ SCH ×3 (04:32→19:57)
[2021-07-06] MEDS: Insulin LISPRO 300 UNITS/3 ML VIAL SUBQ SCH ×7 (09:04→19:57)
[2021-07-06] MEDS: lisinopriL 20 MG TABLET PO SCH (12:21)
[2021-07-06] MEDS: Aspirin Enteric Coated 81 MG Tablet PO SCH (12:21)
[2021-07-06] MEDS: Magnesium Oxide 400 MG TABLET PO SCH (12:21)
[2021-07-06] MEDS: Cyclosporine [Restasis] 1 EACH Droperette OP SCH ×2 (12:24→19:55)
[2021-07-06] MEDS ORDERED: *HR* Heparin 10,000 UNIT/10 ML VIAL ONE (15:14)
[2021-07-06] MEDS ORDERED: Heparin 1,000 UNITS/500 mL 500 ML ONE (15:14)
[2021-07-06] MEDS ORDERED: 0.9 % Sodium Chloride 2,000 ML ONE (15:15)
[2021-07-06] MEDS ORDERED: Nitroglycerin 1,000 MCG/5 ML VIAL IV ONE (15:15)
[2021-07-06] MEDS ORDERED: ISOVUE-370 200 ML INFUS..BTL ONE (15:15)
[2021-07-06] MEDS ORDERED: *HR* Midazolam HCl 2 MG/2 ML VIAL ONE (16:20)
[2021-07-06] MEDS ORDERED: *HR* FentaNYL (PF) 100 MCG/2 ML VIAL ONE (16:20)
[2021-07-06] MEDS: Gabapentin 100 MG CAPSULE PO SCH (19:56)
[2021-07-06] MEDS ORDERED: Insulin DETEMIR 100 UNIT/ML X5UNITS SUBQ SCH ×2 (21:00)
[2021-07-06] MEDS: 0.9 % Sodium Chloride 1,000 ML IVC SCH (22:41)
[2021-07-07 03:51] LABS: Calcium 8.9 mg/dL (8.6-10.3); Potassium 4.7 mEq/L (3.5-5.1)
[2021-07-07] MEDS: *HR* Heparin 5,000 UNIT/ML VIAL SQ SCH ×2 (06:37→13:45)
[2021-07-07 07:46] VITALS: BP 125/74; PULSE 62; TEMP 98; O2SAT 96
[2021-07-07] MEDS ORDERED: Insulin DETEMIR 100 UNIT/ML X5UNITS SUBQ SCH (09:00)
[2021-07-07] MEDS: Insulin LISPRO 300 UNITS/3 ML VIAL SUBQ SCH ×4 (09:08→12:16)
[2021-07-07] MEDS: lisinopriL 20 MG TABLET PO SCH (09:08)
[2021-07-07] MEDS: Magnesium Oxide 400 MG TABLET PO SCH (09:08)
[2021-07-07] MEDS: Cyclosporine [Restasis] 1 EACH Droperette OP SCH (09:08)
[2021-07-07] MEDS: Aspirin Enteric Coated 81 MG Tablet PO SCH (09:08)
== END 2021-07-07 14:40 | disposition home or self-care (01) | DRG 641 ==
LOC: 2ANU 17:47 → EMEROOARM 17:47 → SUATTDRO 20:32 → 2ANU 21:35 → SUATTDRO 07-01 16:29
PROVIDERS: ADMIT Internal Medicine; ATTEND General Practice

== ENCOUNTER 2021-11-03 15:12 | Inpatient (IN) ==
[2021-11-03 17:11] LABS: Basophils # 0.1 K/mcL (0.0-0.2); Basophils % 0.5 %; Eosinophils # 0.3 K/mcL (0.0-0.6); Hematocrit 37.9 % (35.3-44.9); Hemoglobin 11.7 g/dL (11.5-15.4); Immature Granulocytes % 1.1 % (0-4); Lymphocytes # 2.4 K/mcL (0.6-4.6); Lymphocytes % 25.7 %; Mean Corpuscular HGB Conc 30.9 g/dL (31.6-35.5); Mean Corpuscular Hemoglobin 28.9 pg (28.0-33.3); Mean Corpuscular Volume 93.6 fL (83.0-100.0); Mean Platelet Volume 9.5 fL (9.4-12.4); Monocytes # 0.7 K/mcL (0.0-1.3); Neutrophils # 5.8 K/mcL (1.6-8.9); Platelet Count 298 K/mcL (140-400); Red Blood Count 4.05 M/mcL (3.82-4.97); Red Cell Distribution Width 13.4 % (11.5-14.5); Segmented Neutrophils % 62.7 %; White Blood Count 9.3 K/mcL (4.3-11.1)
[2021-11-03 17:24] LABS: Activated Partial Thrombo Time 30.5 Seconds (26.0-36.0)
[2021-11-03] MEDS ORDERED: Iopamidol - 370 500 ML MLS IVP ONE ×3 (17:25→20:31)
[2021-11-03] MEDS ORDERED: Albuterol 2.5 MG/3 ML NEBULIZER IH ONE (17:28)
[2021-11-03 17:43] LABS: BUN/Creatinine Ratio 21 (6-26); Blood Urea Nitrogen 30 mg/dL (8-23); Calcium 9.4 mg/dL (8.6-10.3); Carbon Dioxide 26 mEq/L (23-29); Chloride 99 mEq/L (98-107); Glucose 157 mg/dL (70-105); Osmolality,Calculated 289 (280-300); Potassium 4.5 mEq/L (3.5-5.1); Sodium 135 mEq/L (136-145); Troponin I < 0.03 ng/mL (< 0.04)
[2021-11-03 18:13] LABS: VBG HCO3 30 mEq/L (21-27); VBG PCO2 63 mmHg (41-51); VBG PH 7.28 pH Units (7.32-7.42); VBG PO2 37 mmHg (25-50)
[2021-11-03] MEDS ORDERED: cefTRIAXone 1,000 MG in 0.9 % Sodium Chloride Mini Bag 100 ML IVPB ONE (19:55)
[2021-11-03] MEDS ORDERED: Azithromycin 500 MG in 0.9 % Sodium Chloride 250 ML IVPB ONE (19:55)
[2021-11-03] MEDS ORDERED: cefTRIAXone 1,000 MG in Water for inj. (sterile) 10 ML IVP ONE (20:13)
[2021-11-04] MEDS ORDERED: Naloxone 0.4 MG/ML INJ IVP PRN (00:34)
[2021-11-04] MEDS ORDERED: Acetaminophen 325 MG TABLET PO PRN (00:34)
[2021-11-04] MEDS ORDERED: Ondansetron 4 MG/2 ML VIAL IVP PRN (00:34)
[2021-11-04] MEDS ORDERED: Melatonin 3 MG TABLET PO PRN (00:34)
[2021-11-04] MEDS ORDERED: *HR* Labetalol 20 MG/4 ML SYRINGE IVP PRN (00:37)
[2021-11-04] MEDS ORDERED: *HR* Dextrose 50 % in Water (Syg) 50 ML SYRINGE IVP PRN (01:46)
[2021-11-04] MEDS ORDERED: D5% in Water 1,000 ML IVC PRN (01:46)
[2021-11-04] MEDS ORDERED: Dextrose Gel 15 GM/37.5 ML TUBE PO PRN ×2 (01:46)
[2021-11-04] MEDS: Ringers Solution, Lactated 1,000 ML IVC SCH ×2 (02:39→13:35)
[2021-11-04] MEDS: *HR* HYDROcodone/Acet 5/325 mg TABLET PO PRN ×2 (03:18→10:56)
[2021-11-04 03:28] LABS: Hematocrit 34.2 % (35.3-44.9); Hemoglobin 10.5 g/dL (11.5-15.4); Immature Granulocytes % 1.2 % (0-4); Lymphocytes % 29.7 %; Mean Corpuscular HGB Conc 30.7 g/dL (31.6-35.5); Mean Corpuscular Hemoglobin 28.6 pg (28.0-33.3); Mean Corpuscular Volume 93.2 fL (83.0-100.0); Mean Platelet Volume 10.7 fL (9.4-12.4); Monocytes % 7.8 %; Platelet Count 267 K/mcL (140-400); Red Blood Count 3.67 M/mcL (3.82-4.97); Red Cell Distribution Width 13.6 % (11.5-14.5); Segmented Neutrophils % 57.5 %; White Blood Count 7.4 K/mcL (4.3-11.1)
[2021-11-04 03:29] LABS: Basophils % 0.5 %; Eosinophils # 0.2 K/mcL (0.0-0.6); Eosinophils % 3.3 %; Lymphocytes # 2.2 K/mcL (0.6-4.6); Monocytes # 0.6 K/mcL (0.0-1.3); Neutrophils # 4.2 K/mcL (1.6-8.9)
[2021-11-04 03:37] LABS: Prothrombin Time 11.6 Seconds (9.4-12.1)
[2021-11-04 03:46] LABS: Calcium 8.6 mg/dL (8.6-10.3); Chol/HDL Ratio 3.9 (0-4.9); Magnesium 1.8 mg/dL (1.6-2.6); Potassium 4.6 mEq/L (3.5-5.1)
[2021-11-04] MEDS: cefTRIAXone 1,000 MG in Water for inj. (sterile) 10 ML IVP SCH (10:11)
[2021-11-04] MEDS: *HR* Insulin Regular U-500 500 UNIT/ML SUBQ SCH ×2 (10:13→18:22)
[2021-11-04] MEDS ORDERED: Iopamidol - 370 500 ML MLS IVP ONE (16:48)
[2021-11-04 19:47] LABS: A.calcoaceticus-baumannii cplx Not Detected (Not Detect); Bacteroides fragilis by PCR Not Detected (Not Detect); Candida albicans by PCR Not Detected (Not Detect); Candida auris by PCR Not Detected (Not Detect); Candida glabrata by PCR Not Detected (Not Detect); Candida krusei by PCR Not Detected (Not Detect); Candida parapsilosis by PCR Not Detected (Not Detect); Candida tropicalis by PCR Not Detected (Not Detect); Crypto. neoformans/gattii PCR Not Detected (Not Detect); Enterobacter cloacae Cmplx PCR Not Detected (Not Detect); Enterobacterales by PCR Not Detected (Not Detect); Enterococcus faecalis by PCR Not Detected (Not Detect); Enterococcus faecium by PCR Not Detected (Not Detect); Escherichia coli by PCR Not Detected (Not Detect); Klebs. pneumoniae group by PCR Not Detected (Not Detect); Klebsiella aerogenes by PCR Not Detected (Not Detect); Klebsiella oxytoca by PCR Not Detected (Not Detect); Proteus by PCR Not Detected (Not Detect); Pseudomonas aeruginosa by PCR Not Detected (Not Detect); Salmonella species by PCR Not Detected (Not Detect); Serratia marcescens by PCR Not Detected (Not Detect); Staph epidermidis by PCR DETECTED (Not Detect); Staph lugdunensis by PCR Not Detected (Not Detect); Staphylococcus aureus by PCR Not Detected (Not Detect); Stenotrophomonas maltophilia Not Detected (Not Detect); Streptococcus agalactiae(B)PCR Not Detected (Not Detect); Streptococcus by PCR Not Detected (Not Detect); Streptococcus pneumoniae PCR Not Detected (Not Detect); Streptococcus pyogenes (A) PCR Not Detected (Not Detect); mecA/C Methicillin-Resist Gene DETECTED (Not Detect)
[2021-11-04] MEDS: 0.9 % Sodium Chloride 1,000 ML IVC SCH (23:10)
[2021-11-04] MEDS: Azithromycin 500 MG in 0.9 % Sodium Chloride 250 ML IVPB SCH (23:10)
[2021-11-05] MEDS: 0.9 % Sodium Chloride 1,000 ML IVC SCH ×3 (02:59→23:06)
[2021-11-05] MEDS: *HR* Insulin Regular U-500 500 UNIT/ML SUBQ SCH ×2 (08:07→17:01)
[2021-11-05] MEDS: cefTRIAXone 1,000 MG in Water for inj. (sterile) 10 ML IVP SCH (08:07)
[2021-11-05] MEDS: GuaiFENesin Liq 200 MG/10 ML UDC PO PRN (21:01)
[2021-11-05] MEDS: Azithromycin 500 MG in 0.9 % Sodium Chloride 250 ML IVPB SCH (21:01)
[2021-11-06] MEDS: GuaiFENesin Liq 200 MG/10 ML UDC PO PRN ×3 (04:56→19:58)
[2021-11-06] MEDS: cefTRIAXone 1,000 MG in Water for inj. (sterile) 10 ML IVP SCH (09:24)
[2021-11-06] MEDS: *HR* Insulin Regular U-500 500 UNIT/ML SUBQ SCH ×2 (09:24→17:43)
[2021-11-06] MEDS: 0.9 % Sodium Chloride 1,000 ML IVC SCH ×2 (10:17→20:00)
[2021-11-06] MEDS ORDERED: Benzonatate 100 MG CAPSULE PO PRN (10:26)
[2021-11-06] MEDS: Azithromycin 500 MG in 0.9 % Sodium Chloride 250 ML IVPB SCH (19:59)
[2021-11-06] MEDS: *HR* HYDROcodone/Acet 5/325 mg TABLET PO PRN (22:33)
[2021-11-07 03:29] LABS: Basophils % 0.3 %; Eosinophils # 0.3 K/mcL (0.0-0.6); Eosinophils % 3.6 %; Hematocrit 32.9 % (35.3-44.9); Hemoglobin 9.9 g/dL (11.5-15.4); Immature Granulocytes % 0.9 % (0-4); Lymphocytes # 2.2 K/mcL (0.6-4.6); Lymphocytes % 25.3 %; Mean Corpuscular HGB Conc 30.1 g/dL (31.6-35.5); Mean Corpuscular Hemoglobin 28.3 pg (28.0-33.3); Monocytes # 0.7 K/mcL (0.0-1.3); Monocytes % 7.7 %; Neutrophils # 5.5 K/mcL (1.6-8.9); Platelet Count 315 K/mcL (140-400); Red Cell Distribution Width 13.2 % (11.5-14.5); Segmented Neutrophils % 62.2 %; White Blood Count 8.8 K/mcL (4.3-11.1)
[2021-11-07 03:44] LABS: Calcium 8.8 mg/dL (8.6-10.3); Potassium 4.5 mEq/L (3.5-5.1)
[2021-11-07] MEDS: 0.9 % Sodium Chloride 1,000 ML IVC SCH (08:20)
[2021-11-07] MEDS: cefTRIAXone 1,000 MG in Water for inj. (sterile) 10 ML IVP SCH (08:22)
[2021-11-07] MEDS ORDERED: DAPTOmycin 800 MG in 0.9 % Sodium Chloride 100 ML IVPB SCH (09:00)
[2021-11-07] MEDS: *HR* Insulin Regular U-500 500 UNIT/ML SUBQ SCH ×2 (09:06→18:15)
[2021-11-07] MEDS: *HR* Heparin 5,000 UNIT/ML VIAL SQ SCH ×2 (16:57→21:41)
[2021-11-07] MEDS: GuaiFENesin Liq 200 MG/10 ML UDC PO PRN (18:18)
[2021-11-07] MEDS: Azithromycin 500 MG in 0.9 % Sodium Chloride 250 ML IVPB SCH (21:41)
[2021-11-08] MEDS: *HR* HYDROcodone/Acet 5/325 mg TABLET PO PRN (00:03)
[2021-11-08 05:51] LABS: Basophils % 0.5 %; Eosinophils # 0.3 K/mcL (0.0-0.6); Eosinophils % 3.8 %; Hematocrit 32.7 % (35.3-44.9); Immature Granulocytes % 0.9 % (0-4); Lymphocytes # 2.1 K/mcL (0.6-4.6); Lymphocytes % 26.3 %; Mean Corpuscular HGB Conc 30.6 g/dL (31.6-35.5); Mean Corpuscular Hemoglobin 28.2 pg (28.0-33.3); Mean Corpuscular Volume 92.4 fL (83.0-100.0); Mean Platelet Volume 9.6 fL (9.4-12.4); Monocytes # 0.6 K/mcL (0.0-1.3); Neutrophils # 4.8 K/mcL (1.6-8.9); Platelet Count 326 K/mcL (140-400); Red Blood Count 3.54 M/mcL (3.82-4.97); Red Cell Distribution Width 13.4 % (11.5-14.5); Segmented Neutrophils % 61.5 %; White Blood Count 7.8 K/mcL (4.3-11.1)
[2021-11-08 06:18] LABS: Potassium 4.6 mEq/L (3.5-5.1)
[2021-11-08] MEDS: *HR* Heparin 5,000 UNIT/ML VIAL SQ SCH ×3 (06:24→22:30)
[2021-11-08] MEDS: cefTRIAXone 1,000 MG in Water for inj. (sterile) 10 ML IVP SCH (09:26)
[2021-11-08] MEDS: *HR* Insulin Regular U-500 500 UNIT/ML SUBQ SCH ×2 (09:30→17:50)
[2021-11-08] MEDS: GuaiFENesin Liq 200 MG/10 ML UDC PO PRN (13:56)
[2021-11-08] MEDS ORDERED: polyethylene glycoL 3350 17 GM POWD.PACK PO PRN (13:58)
[2021-11-08] MEDS ORDERED: Fluticasone Propionate Nasal 50 MCG/SPRAY BOTTLE NS PRN (14:08)
[2021-11-08] MEDS ORDERED: Melatonin 3 MG TABLET PO PRN (14:09)
[2021-11-08] MEDS: lisinopriL 20 MG TABLET PO SCH (15:06)
[2021-11-08] MEDS: Aspirin Enteric Coated 81 MG Tablet PO SCH (15:06)
[2021-11-08] MEDS ORDERED: *HR* Insulin Regular U-500 500 UNIT/ML SUBQ SCH (19:00)
[2021-11-08] MEDS: Cyclosporine [Restasis] 1 EACH Droperette OP SCH (20:24)
[2021-11-09] MEDS: GuaiFENesin Liq 200 MG/10 ML UDC PO PRN (00:43)
[2021-11-09] MEDS: *HR* Heparin 5,000 UNIT/ML VIAL SQ SCH ×2 (06:32→13:25)
[2021-11-09] MEDS ORDERED: *HR* Insulin Regular U-500 500 UNIT/ML SUBQ SCH ×2 (08:00)
[2021-11-09] MEDS: lisinopriL 20 MG TABLET PO SCH (08:19)
[2021-11-09] MEDS: Aspirin Enteric Coated 81 MG Tablet PO SCH (08:19)
[2021-11-09] MEDS: Cyclosporine [Restasis] 1 EACH Droperette OP SCH (08:19)
[2021-11-09] MEDS ORDERED: Magnesium Oxide 400 MG TABLET PO SCH (09:00)
[2021-11-09] MEDS ORDERED: Ascorbic Acid 500 MG TABLET PO SCH (09:00)
[2021-11-09] MEDS ORDERED: Patient Taking Own Medication 1 EACH PO SCH (09:00)
[2021-11-09 10:57] VITALS: BP 133/78; PULSE 75; TEMP 97.9; O2SAT 97
[2021-11-13] MEDS ORDERED: (Dulaglutide [Trulicity] 1.5 MG/0.5 ML Pen.Injctr) SUBQ SCH (09:00)
== END 2021-11-09 14:52 | disposition home health service (06) | DRG 637 ==
LOC: EMEROOARM 15:12 → 3ANU 15:12 → SUATTDRO 11-05 09:54
PROVIDERS: ADMIT Internal Medicine; ATTEND Internal Medicine